=== PATIENT | female | born 1955 | race Caucasian/White ===

== ENCOUNTER 2017-06-27 14:20 | Inpatient (IN) | payer MEDICARE ==
[2017-06-27] MEDS ORDERED: Pepcid 20 MG VIAL IV ONE ×2 (14:36→14:44)
[2017-06-27] MEDS ORDERED: DUONEB 0.5-3 MG/3 ml Neb IH ONE ×2 (14:36→14:46)
[2017-06-27] MEDS ORDERED: solu-MEDROL 125 MG IV ONE (14:36)
[2017-06-27] MEDS ORDERED: TORAdol 30 mg Injection IV ONE (14:38)
[2017-06-27] MEDS ORDERED: Zofran 4 MG/2 ML VIAL IV ONE (14:39)
[2017-06-27] MEDS ORDERED: Zofran 4 MG/2 ML VIAL ONE (14:44)
[2017-06-27] MEDS ORDERED: TORAdol 30 mg Injection ONE (14:44)
[2017-06-27] MEDS ORDERED: solu-MEDROL 125 MG ONE (14:44)
[2017-06-27] MEDS ORDERED: TYLENOL 325 MG ONE (14:44)
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
[2017-06-27] MEDS: Sodium Chloride 0.9% 1000 ML 1,000 ML IV SCH (14:46)
[2017-06-27] MEDS ORDERED: TYLENOL 325 MG PO STA (14:51)
[2017-06-27] MEDS: Sodium Chloride 0.9% 1000 ML 1,000 ML IV STA ×2 (14:56→15:58)
[2017-06-27 15:13] LABS: Mean Cell Volume 94.9 fl (78-100); Mean Corpuscular Hemoglobin 30.1 pg (26-32); Mean Platelet Volume 9.3 fl (6-9.5); Platelet Count 232 K/mm3 (150-450); Red Blood Count 4.28 M/mm3 (4.1-5.4); Red Cell Distribution Width 13.3 % (11.5-14.0)
--- NOTE | 2017-06-27 15:21 | XRAY ---
Indication: Fever, cough, short of breath. Comparison: May 09, 2016. Portable chest demonstrates stable bilateral suture material and indeterminant right apical nodule. No focal infiltrate, consolidation, or large effusion. Heart is not enlarged. Vascularity normal. Bony thorax intact. Impression: Stable bilateral postsurgical changes and right apical indeterminate nodule. No new/acute findings.
[2017-06-27 15:33] LABS: ALBUMIN 3.8 g/dL (3.4-5.0); ANION GAP 15.3 MEQ/L (5-15); BILIRUBIN,TOTAL 0.5 mg/dL (0.2-1.0); Carbon Dioxide 25.2 mEq/L (21-32); MAGNESIUM 1.5 mg/dL (1.8-2.4); Potassium 3.8 mEq/L (3.5-5.1); Total Protein 7.7 gm/dL (6.4-8.2)
[2017-06-27 15:34] LABS: INR 1.11 (0.8-3.0); PROTIME 12.4 SECONDS (9.95-12.35)
[2017-06-27] MEDS ORDERED: Magnesium 1 Gm / 100 Ml D5W*** 100 ML IV ONE ×2 (15:41→15:57)
[2017-06-27] MEDS ORDERED: Zithromax 500 MG/ 250 ML NaCl Premix 500 MG/250 ML IVPB IV STA (15:42)
[2017-06-27] MEDS ORDERED: ENOXAPARIN SODIUM SQ ONE ×2 (15:46→15:57)
[2017-06-27 15:58] LABS: White Blood Count 31.8 K/mm3 (4.0-10.5)
[2017-06-27 16:03] LABS: BAND 9 % (0.0-2.0); Total Cells Counted 100
[2017-06-27 16:04] LABS: Platelet Estimate NORMAL (NORMAL)
[2017-06-27] MEDS ORDERED: Zithromax 500 MG/ 250 ML NaCl Premix 500 MG/250 ML IVPB IV ONE (16:11)
[2017-06-27] MEDS ORDERED: ROCEPHIN 1 Gm-D5w 50 ml Bag** 1 G/50 ML IVPB IV ONE (16:14)
[2017-06-27] MEDS ORDERED: TYLENOL 325 MG PO PRN (18:38)
[2017-06-27] MEDS ORDERED: Zofran 4 MG/2 ML VIAL IV PRN (18:51)
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
[2017-06-27] MEDS: DUONEB 0.5-3 MG/3 ml Neb IH SCH ×2 (19:07→23:04)
[2017-06-27] MEDS: Advair Hfa 115/21 Common canister IH SCH (19:08)
[2017-06-27] MEDS ORDERED: Nitrostat 0.4 MG Tablet SL PRN (19:26)
[2017-06-27 19:39] LABS: Bilirubin NEGATIVE (NEGATIVE); Blood 250 Ery/ul (0-5); COMPLETE URINE MICROSCOPIC? YES; Collection Type CLEAN CATCH; Glucose 1000 mg/dL (NEGATIVE); Leukocyte Esterase NEGATIVE (NEGATIVE)
[2017-06-27] MEDS: Norco 10/325 MG Tablet PO PRN (19:39)
[2017-06-27 19:40] LABS: Bacteria FEW /HPF (NEGATIVE); Epithelial Cells FEW /HPF (FEW)
[2017-06-27] MEDS: solu-MEDROL 125 MG IV SCH (20:21)
[2017-06-27] MEDS: Protonix 40MG Tablet PO SCH (21:35)
[2017-06-27] MEDS: Klor Con 10 MEQ PO SCH (21:35)
[2017-06-27] MEDS: ZOCOR 20MG PO SCH (21:35)
[2017-06-27] MEDS: Colace 100 MG PO SCH (21:40)
[2017-06-27] MEDS ORDERED: Pepcid 20 MG PO SCH (22:00)
[2017-06-27] MEDS ORDERED: Pepcid 20 MG VIAL IV SCH (22:00)
[2017-06-28] MEDS: DUONEB 0.5-3 MG/3 ml Neb IH SCH ×6 (03:06→23:11)
[2017-06-28] MEDS: Norco 10/325 MG Tablet PO PRN ×2 (03:19→17:35)
[2017-06-28] MEDS ORDERED: ENOXAPARIN SODIUM SQ ONE (05:15)
[2017-06-28] MEDS: solu-MEDROL 125 MG IV SCH ×3 (05:28→17:38)
[2017-06-28 05:42] LABS: Mean Cell Volume 95.5 fl (78-100); Mean Corpuscular Hemoglobin 30.2 pg (26-32); Mean Platelet Volume 9.2 fl (6-9.5); Red Blood Count 3.54 M/mm3 (4.1-5.4); Red Cell Distribution Width 13.3 % (11.5-14.0)
[2017-06-28 05:47] LABS: White Blood Count 27.4 K/mm3 (4.0-10.5)
[2017-06-28] MEDS ORDERED: ENOXAPARIN SODIUM SQ SCH ×2 (06:00→10:00)
[2017-06-28 06:04] LABS: ALBUMIN 2.8 g/dL (3.4-5.0); ALKALINE PHOSPHATASE 34 U/L (46-116); ANION GAP 12.1 MEQ/L (5-15); BLOOD UREA NITROGEN 17 mg/dL (9-20); CHLORIDE 104 mEq/L (98-107); Carbon Dioxide 24.2 mEq/L (21-32); Glucose 164 MG/DL (70-110); MAGNESIUM 1.9 mg/dL (1.8-2.4); Potassium 3.6 mEq/L (3.5-5.1); SGOT/AST 14 U/L (15-37); SGPT/ALT 17 U/L (12-78); SODIUM 137 mEq/L (136-145); Total Protein 6.2 gm/dL (6.4-8.2)
[2017-06-28] MEDS: ENOXAPARIN SODIUM SQ SCH ×2 (06:23→17:36)
[2017-06-28] MEDS: Advair Hfa 115/21 Common canister IH SCH ×2 (07:02→19:29)
[2017-06-28 07:07] LABS: BAND 28 % (0.0-2.0); Metamyelocyte 1 %; Platelet Estimate NORMAL (NORMAL); Total Cells Counted 100
[2017-06-28 07:08] LABS: Toxic Granulation 1+
[2017-06-28 07:09] LABS: Platelet Count 190 K/mm3 (150-450)
[2017-06-28] MEDS ORDERED: BENADRYL 25 MG CAPSULE PO PRN (07:30)
--- NOTE | 2017-06-28 07:37 | PCM.NOTE ---
Date and Time: 06/28/17733 Subjective Assessment: she is feeling much better this am she is able to get up and walk on her own the pain is better no nausea now and no diarrhea since arrival. Still some shortness of breath but much better. No other events overnight. Objective Exam General Appearance: no apparent distress Neurologic Exam: alert, oriented x 3, cooperative Skin Exam: warm, dry Ears, Nose, Throat Exam: moist mucous membranes Neck Exam: non-tender, supple Respiratory Exam: prolonged expirations, crackles/rales (bilateral fine), wheezing Cardiovascular Exam: regular rate/rhythm, normal heart sounds, No murmur Gastrointestinal/Abdomen Exam: soft, normal bowel sounds, No tenderness, No distention OBJECTIVE DATA Vital Signs: Vital Signs - 24 hr Temp Pulse Resp BP Pulse Ox 06/28/17 07:00 84 20 97 06/28/17 03:27 98.1 F 87 18 114/55 98 06/28/17 03:06 90 20 97 06/27/17 23:41 97.7 F 83 18 115/57 99 06/27/17 23:06 80 18 98 06/27/17 20:11 98.1 F 81 20 106/59 98 06/27/17 19:09 81 20 98 06/27/17 17:38 97 06/27/17 17:07 22 06/27/17 16:56 98.3 F 85 22 117/58 97 06/27/17 16:50 98.3 F 06/27/17 16:44 98.3 F 85 22 117/58 97 06/27/17 16:24 88 20 97/57 98 06/27/17 16:19 97 06/27/17 16:08 92 H 22 87/51 06/27/17 15:55 94 H 22 80/50 97 06/27/17 15:12 102.8 F 06/27/17 15:04 100 H 22 97 06/27/17 14:58 110 H 22 91/57 98 06/27/17 14:52 66/37 06/27/17 14:39 97 06/27/17 14:34 28 H 06/27/17 14:29 100.1 F 96 H 32 H 88/46 96 Oxygen-Last 24 hours O2 Percentage 4 Liters = 36% O2 Percentage 4 Liters = 36% O2 Percentage 4 Liters = 36% O2 Percentage 4 Liters = 36% O2 Percentage 3 Liters = 32% O2 Percentage 4 Liters = 36% O2 Percentage 4 Liters = 36% O2 Percentage 4 Liters = 36% O2 Percentage 4 Liters = 36% O2 Percentage 4 Liters = 36% O2 Percentage 4 Liters = 36% Pain Assessment - Last Documented Pain Intensity 8 Pain Scale Used 0-10 Pain Scale Intake and Output: Intake & Output 06/25/17 06/26/17 06/27/17 06/28/17 11:59 11:59 11:59 11:59 Intake Total 567 Output Total 600 Balance -33 Weight 68.492 kg Lab Results: Lab Results-Last 24 Hours 06/27/17 06/27/17 06/27/17 Range/Units 18:00 19:00 20:45 WBC (4.0-10.5) K/mm3 RBC (4.1-5.4) M/mm3 Hgb (12.0-16.0) gm/dl Hct (35-47) % MCV (78-100) fl MCH (26-32) pg MCHC (32-36) g/dl RDW (11.5-14.0) % Plt Count (150-450) K/mm3 MPV (6-9.5) fl Segmented Neutrophils (36.0-66.0) % Band Neutrophils (0.0-2.0) % Lymphocytes (Manual) (24-44) % Monocytes (Manual) (0.0-12.0) % Metamyelocytes % Differential Comment Toxic Granulation Platelet Estimate (NORMAL) Sodium (136-145) mEq/L Potassium (3.5-5.1) mEq/L Chloride (98-107) mEq/L Carbon Dioxide (21-32) mEq/L Anion Gap (5-15) MEQ/L BUN (9-20) mg/dL Creatinine (0.55-1.30) mg/dl Estimated GFR ML/MIN Glucose (70-110) MG/DL Calcium (8.5-10.1) mg/dL Magnesium (1.8-2.4) mg/dL Total Bilirubin (0.2-1.0) mg/dL AST (15-37) U/L ALT (12-78) U/L Alkaline Phosphatase (46-116) U/L Troponin I < 0.017 < 0.017 (0.000-0.056) ng/ml Serum Total Protein (6.4-8.2) gm/dL Albumin (3.4-5.0) g/dL Ur Collection Type CLEAN CATCH Urine Color YELLOW (YELLOW) Urine Appearance CLEAR (CLEAR) Urine pH 5.0 (5-6) Ur Specific [place] 1.015 (1.005-1.025) Urine Protein NEGATIVE (Negative) Urine Ketones NEGATIVE (NEGATIVE) Urine Blood 250 (0-5) Matias/ul Urine Nitrite NEGATIVE (NEGATIVE) Urine Bilirubin NEGATIVE (NEGATIVE) Urine Urobilinogen NORMAL (0-1) mg/dL Ur Leukocyte Esterase NEGATIVE (NEGATIVE) Urine Microscopic RBC 5-10 (0-2) /HPF Ur Epithelial Cells FEW (FEW) /HPF Urine Bacteria FEW (NEGATIVE) /HPF Urine Glucose 1000 (NEGATIVE) mg/dL Specimen Received 06/27/17:1900 06/27/17 06/28/17 06/28/17 Range/Units 23:55 02:50 05:30 WBC 27.4 H* (4.0-10.5) K/mm3 RBC 3.54 L (4.1-5.4) M/mm3 Hgb 10.7 L (12.0-16.0) gm/dl Hct 33.8 L (35-47) % MCV 95.5 (78-100) fl MCH 30.2 (26-32) pg MCHC 31.7 L (32-36) g/dl RDW 13.3 (11.5-14.0) % Plt Count 190 (150-450) K/mm3 MPV 9.2 (6-9.5) fl Segmented Neutrophils 62 (36.0-66.0) % Band Neutrophils 28 H (0.0-2.0) % Lymphocytes (Manual) 6 L (24-44) % Monocytes (Manual) 3 (0.0-12.0) % Metamyelocytes 1 % Differential Comment ABNORMAL Toxic Granulation 1+ Platelet Estimate NORMAL (NORMAL) Sodium (136-145) mEq/L Potassium (3.5-5.1) mEq/L Chloride (98-107) mEq/L Carbon Dioxide (21-32) mEq/L Anion Gap (5-15) MEQ/L BUN (9-20) mg/dL Creatinine (0.55-1.30) mg/dl Estimated GFR ML/MIN Glucose (70-110) MG/DL Calcium (8.5-10.1) mg/dL Magnesium (1.8-2.4) mg/dL Total Bilirubin (0.2-1.0) mg/dL AST (15-37) U/L ALT (12-78) U/L Alkaline Phosphatase (46-116) U/L Troponin I < 0.017 < 0.017 (0.000-0.056) ng/ml Serum Total Protein (6.4-8.2) gm/dL Albumin (3.4-5.0) g/dL Ur Collection Type Urine Color (YELLOW) Urine Appearance (CLEAR) Urine pH (5-6) Ur Specific [place] (1.005-1.025) Urine Protein (Negative) Urine Ketones (NEGATIVE) Urine Blood (0-5) Matias/ul Urine Nitrite (NEGATIVE) Urine Bilirubin (NEGATIVE) Urine Urobilinogen (0-1) mg/dL Ur Leukocyte Esterase (NEGATIVE) Urine Microscopic RBC (0-2) /HPF Ur Epithelial Cells (FEW) /HPF Urine Bacteria (NEGATIVE) /HPF Urine Glucose (NEGATIVE) mg/dL Specimen Received 06/28/17 Range/Units 05:30 WBC (4.0-10.5) K/mm3 RBC (4.1-5.4) M/mm3 Hgb (12.0-16.0) gm/dl Hct (35-47) % MCV (78-100) fl MCH (26-32) pg MCHC (32-36) g/dl RDW (11.5-14.0) % Plt Count (150-450) K/mm3 MPV (6-9.5) fl Segmented Neutrophils (36.0-66.0) % Band Neutrophils (0.0-2.0) % Lymphocytes (Manual) (24-44) % Monocytes (Manual) (0.0-12.0) % Metamyelocytes % Differential Comment Toxic Granulation Platelet Estimate (NORMAL) Sodium 137 (136-145) mEq/L Potassium 3.6 (3.5-5.1) mEq/L Chloride 104 (98-107) mEq/L Carbon Dioxide 24.2 (21-32) mEq/L Anion Gap 12.1 (5-15) MEQ/L BUN 17 (9-20) mg/dL Creatinine 0.92 (0.55-1.30) mg/dl Estimated GFR > 60 ML/MIN Glucose 164 H (70-110) MG/DL Calcium 8.6 (8.5-10.1) mg/dL Magnesium 1.9 (1.8-2.4) mg/dL Total Bilirubin 0.20 (0.2-1.0) mg/dL AST 14 L (15-37) U/L ALT 17 (12-78) U/L Alkaline Phosphatase 34 L (46-116) U/L Troponin I (0.000-0.056) ng/ml Serum Total Protein 6.2 L (6.4-8.2) gm/dL Albumin 2.8 L (3.4-5.0) g/dL Ur Collection Type Urine Color (YELLOW) Urine Appearance (CLEAR) Urine pH (5-6) Ur Specific [place] (1.005-1.025) Urine Protein (Negative) Urine Ketones (NEGATIVE) Urine Blood (0-5) Matias/ul Urine Nitrite (NEGATIVE) Urine Bilirubin (NEGATIVE) Urine Urobilinogen (0-1) mg/dL Ur Leukocyte Esterase (NEGATIVE) Urine Microscopic RBC (0-2) /HPF Ur Epithelial Cells (FEW) /HPF Urine Bacteria (NEGATIVE) /HPF Urine Glucose (NEGATIVE) mg/dL Specimen Received Radiology Exams: Radiology Procedures Category Date Time Status CHEST WITH CONTRAST [CT] Routine Exams 06/28/17 07:29 Ordered PULMONARY PERF VENTILATION [NUCMED] Routine Exams 06/28/17 08:00 Stop Req Assessment/Plan (1) Acute exacerbation of chronic obstructive pulmonary disease (COPD) Current Visit: Yes Status: Acute Assessment & Plan: with severe luekocytosis and bandemia improving clinically very well continue azithromycin ceftriaxone get CT PE protocol she states her allergy was itchy eyes and she has done well with contrast if she takes a benadryl before monitor labs in am continue steroid and nebs with the copd Code(s): J44.1 - CHRONIC OBSTRUCTIVE PULMONARY DISEASE W (ACUTE) EXACERBATION (2) Acute on chronic respiratory failure with hypoxemia Current Visit: Yes Status: Acute Code(s): J96.21 - ACUTE AND CHRONIC RESPIRATORY FAILURE WITH HYPOXIA (3) Sepsis Current Visit: Yes Status: Acute (4) Elevated d-dimer Current Visit: Yes Status: Acute Code(s): R79.89 - OTHER SPECIFIED ABNORMAL FINDINGS OF BLOOD CHEMISTRY (5) Hypomagnesemia Current Visit: Yes Status: Acute Code(s): E83.42 - HYPOMAGNESEMIA (6) Hx of coronary artery disease Current Visit: Yes Status: Chronic Code(s): Z86.79 - PERSONAL HISTORY OF OTHER DISEASES OF THE CIRCULATORY SYSTEM
[2017-06-28] MEDS: Nicoderm CQ 21 MG TOP SCH (07:46)
[2017-06-28] MEDS ORDERED: Ventolin Hfa MDI IH PRN (07:55)
[2017-06-28] MEDS ORDERED: ZOFRAN ODT 4 MG PO PRN (07:55)
[2017-06-28] MEDS ORDERED: PROVENTIL COMMON CANISTER IH PRN (08:01)
[2017-06-28] MEDS: Calcium 500MG W/Vit D Tablet PO SCH ×2 (09:21→22:00)
[2017-06-28] MEDS: Colace 100 MG PO SCH ×2 (09:21→22:00)
[2017-06-28] MEDS: Klor Con 10 MEQ PO SCH ×2 (09:22→22:01)
[2017-06-28] MEDS: Toprol-Xl 25MG Tablets PO SCH (09:22)
[2017-06-28] MEDS: Protonix 40MG Tablet PO SCH ×2 (09:22→22:00)
[2017-06-28] MEDS: Pepcid 20 MG PO SCH ×2 (09:22→22:01)
[2017-06-28] MEDS: Imdur 30 MG PO SCH (09:22)
[2017-06-28] MEDS: ECOTRIN 81 MG PO SCH (09:22)
[2017-06-28] MEDS: Zithromax 500 MG/ 250 ML NaCl Premix 500 MG/250 ML IVPB IV SCH (09:23)
[2017-06-28] MEDS ORDERED: NON-FORMULARY ITEM (Calcium Carbonate/Vitamin D3 [Calcium 1,000 + D3 Caplet] 1 EACH) PO SCH (10:00)
[2017-06-28] MEDS ORDERED: ROCEPHIN 1 Gm-D5w 50 ml Bag** 1 G/50 ML IVPB IV SCH (10:00)
--- NOTE | 2017-06-28 10:21 | XRAY ---
Indication: Elevated d-dimer. Chest pain, cough, congestion, fever, and diarrhea. Multiple contiguous axial images obtained through the chest using 80 cc Isovue 370 contrast and PE protocol. Comparison: Chest without contrast exam April 15, 2015. There is adequate opacification of the pulmonary arteries. Tiny nonoccluding pulmonary embolus seen in the apical posterior segmental branch of the left upper lobe. Heart is not enlarged. There is now small pericardial effusion/thickening anteriorly. No pathologic mediastinal/hilar lymphadenopathy. Examination of the lung parenchyma demonstrates stable bilateral post surgical changes, fibrosis/scarring, and pulmonary emphysema. Previous right effusion has improved with now tiny trace still present. New mild bilateral dependent atelectasis, right greater than left. The right posterior inferior hilar region now demonstrates focus of masslike opacity measuring 1.4 x 3.6 cm in greatest axial dimension with stranding. Findings possibly subsegmental atelectasis with mass not completely excluded. Previous right apical subcentimeter nodularity appears more elongated and the lateral 4 mm noncalcified nodule now measures 3 mm. Bony thorax intact. Limited upper abdomen now demonstrates 1 cm left mid renal cyst. Impression: 1. New nonoccluding left upper lobe segmental pulmonary embolus. No distal infarct. 2. New right infrahilar masslike opacity as detailed, atelectasis versus mass. PET/CT may yield further information. 3. Right apical and lateral benign-appearing nodularities. 4. Again bilateral lung postsurgical changes with diminished right effusion. 5. Incidental pericardial effusion/thickening and 1 cm left renal cyst. Comment: Telephone report was given to the ordering clinician Dr. Rios at 1000 hrs. on June 28, 2017. CT DI 13.99
[2017-06-28] MEDS: ROCEPHIN 1 Gm-D5w 50 ml Bag** 1 G/50 ML IVPB IV SCH (11:57)
[2017-06-28] MEDS ORDERED: Coumadin 5 MG ONE (20:32)
[2017-06-28] MEDS: Coumadin 5 MG PO SCH (20:34)
[2017-06-28] MEDS: Mucinex 600MG ER Tabs PO SCH (20:34)
[2017-06-28] MEDS: ZOCOR 20MG PO SCH (22:00)
[2017-06-29] MEDS: solu-MEDROL 125 MG IV SCH ×2 (00:33→05:15)
[2017-06-29] MEDS: CEPACOL SORE THROAT LOZENGE PO PRN ×3 (00:33→17:39)
[2017-06-29] MEDS: Norco 10/325 MG Tablet PO PRN ×3 (00:37→22:35)
[2017-06-29] MEDS: DUONEB 0.5-3 MG/3 ml Neb IH SCH ×6 (02:57→23:00)
[2017-06-29] MEDS: Sodium Chloride 0.9% 1000 ML 1,000 ML IV SCH (03:40)
[2017-06-29] MEDS: ENOXAPARIN SODIUM SQ SCH ×2 (05:14→17:34)
[2017-06-29 05:33] LABS: Mean Cell Volume 95.6 fl (78-100); Mean Corpuscular Hemoglobin 30.1 pg (26-32); Mean Platelet Volume 9.4 fl (6-9.5); Platelet Count 201 K/mm3 (150-450); Red Blood Count 3.42 M/mm3 (4.1-5.4); Red Cell Distribution Width 13.5 % (11.5-14.0)
[2017-06-29 05:44] LABS: BLOOD UREA NITROGEN 12 mg/dL (9-20); CHLORIDE 106 mEq/L (98-107); Carbon Dioxide 25.3 mEq/L (21-32); Glucose 159 MG/DL (70-110); Potassium 4.2 mEq/L (3.5-5.1); SODIUM 139 mEq/L (136-145)
[2017-06-29] MEDS: Advair Hfa 115/21 Common canister IH SCH ×2 (06:30→18:59)
[2017-06-29] MEDS: Mucinex 600MG ER Tabs PO SCH ×2 (07:43→22:30)
[2017-06-29] MEDS: Ativan 0.5 MG PO PRN ×2 (07:43→20:12)
[2017-06-29] MEDS ORDERED: Robitussin 100 MG/5 ML PO PRN (08:11)
[2017-06-29] MEDS: Pepcid 20 MG PO SCH ×2 (08:51→22:30)
[2017-06-29] MEDS: Calcium 500MG W/Vit D Tablet PO SCH ×2 (08:51→22:30)
[2017-06-29] MEDS: Toprol-Xl 25MG Tablets PO SCH (08:51)
[2017-06-29] MEDS: Colace 100 MG PO SCH ×2 (08:52→22:30)
[2017-06-29] MEDS: Klor Con 10 MEQ PO SCH ×2 (08:52→22:30)
[2017-06-29] MEDS: Protonix 40MG Tablet PO SCH ×2 (08:52→22:30)
[2017-06-29] MEDS: Nicoderm CQ 21 MG TOP SCH (08:52)
[2017-06-29] MEDS: ECOTRIN 81 MG PO SCH (08:52)
[2017-06-29] MEDS: Zithromax 500 MG/ 250 ML NaCl Premix 500 MG/250 ML IVPB IV SCH (08:53)
[2017-06-29] MEDS: ROCEPHIN 1 Gm-D5w 50 ml Bag** 1 G/50 ML IVPB IV SCH (08:53)
[2017-06-29] MEDS: Imdur 30 MG PO SCH (08:58)
--- NOTE | 2017-06-29 10:25 | PCM.NOTE ---
Date and Time: 06/29/17 1020 Subjective Assessment: still very sob and weak but improving no fevers nausea improving feeling more swollen today as well all over Objective Exam General Appearance: no apparent distress Neurologic Exam: oriented x 3, cooperative Skin Exam: warm, dry Ears, Nose, Throat Exam: moist mucous membranes Neck Exam: non-tender, supple Respiratory Exam: prolonged expirations, wheezing, No crackles/rales Cardiovascular Exam: regular rate/rhythm, No murmur Gastrointestinal/Abdomen Exam: soft, normal bowel sounds, No tenderness, No distention Extremity Exam: No calf tenderness, No pedal edema OBJECTIVE DATA Vital Signs: Vital Signs - 24 hr Temp Pulse Resp BP Pulse Ox 06/29/17 09:00 20 06/29/17 06:00 99 H 18 99 06/29/17 05:00 20 06/29/17 04:18 97.9 F 88 20 158/72 97 06/29/17 02:59 88 20 97 06/29/17 00:58 97.7 F 97 H 20 130/65 96 06/28/17 23:00 97 H 18 98 06/28/17 21:00 19 06/28/17 19:50 98.6 F 86 19 135/77 98 06/28/17 19:32 95 H 18 98 06/28/17 17:00 22 06/28/17 15:12 92 H 22 98 06/28/17 15:09 22 98 06/28/17 13:00 24 06/28/17 12:56 98.2 F 88 24 119/58 98 06/28/17 11:00 85 18 98 Oxygen-Last 24 hours O2 Percentage 4 Liters = 36% O2 Percentage 4 Liters = 36% O2 Percentage 4 Liters = 36% O2 Percentage 4 Liters = 36% Pain Assessment - Last Documented Pain Intensity 8 Pain Scale Used 0-10 Pain Scale Intake and Output: Intake & Output 06/26/17 06/27/17 06/28/17 06/29/17 11:59 11:59 11:59 11:59 Intake Total 1757 3543 Output Total 600 3200 Balance 1157 343 Weight 67.948 kg 72.03 kg Lab Results: Lab Results-Last 24 Hours 06/29/17 06/29/17 Range/Units 05:24 05:24 WBC 22.0 H (4.0-10.5) K/mm3 RBC 3.42 L (4.1-5.4) M/mm3 Hgb 10.3 L (12.0-16.0) gm/dl Hct 32.7 L (35-47) % MCV 95.6 (78-100) fl MCH 30.1 (26-32) pg MCHC 31.5 L (32-36) g/dl RDW 13.5 (11.5-14.0) % Plt Count 201 (150-450) K/mm3 MPV 9.4 (6-9.5) fl Sodium 139 (136-145) mEq/L Potassium 4.2 (3.5-5.1) mEq/L Chloride 106 (98-107) mEq/L Carbon Dioxide 25.3 (21-32) mEq/L Anion Gap 12.0 (5-15) MEQ/L BUN 12 (9-20) mg/dL Creatinine 0.65 (0.55-1.30) mg/dl Estimated GFR > 60 ML/MIN Glucose 159 H (70-110) MG/DL Calcium 9.1 (8.5-10.1) mg/dL Radiology Exams: Radiology Procedures Category Date Time Status CHEST WITH CONTRAST [CT] Routine Exams 06/28/17 07:29 Completed Assessment/Plan (1) Pulmonary embolism Current Visit: Yes Status: Acute Qualifiers: Chronicity: acute Assessment & Plan: without infarction on therapeutic lovenox with warfarin bridge monitor INR we dicussed novel anticoagulants cost is a concern with her medications. We have called in Eliquis to be run through her pharmacy if she can afford it she would prefer eliquis after discussing the different options. Code(s): I26.99 - OTHER PULMONARY EMBOLISM WITHOUT ACUTE COR PULMONALE (2) Abnormal chest CT Current Visit: Yes Status: Acute Assessment & Plan: has seriel CT with Dr. Jay in [facility], she has had multiple surgical removal from lung and all have been benign. she has followed with PET CT as well. Will have her follow up with Dr. Jay on this new lesion on the right as well and she understands importance of continued follow up Code(s): R93.8 - ABNORMAL FINDINGS ON DIAGNOSTIC IMAGING OF BODY STRUCTURES (3) Acute exacerbation of chronic obstructive pulmonary disease (COPD) Current Visit: Yes Status: Acute Assessment & Plan: still significant sob and wheezing very tight lungs continue iv steroids try to wean a little continue rocephin and azithromycin Code(s): J44.1 - CHRONIC OBSTRUCTIVE PULMONARY DISEASE W (ACUTE) EXACERBATION (4) Acute on chronic respiratory failure with hypoxemia Current Visit: Yes Status: Acute Code(s): J96.21 - ACUTE AND CHRONIC RESPIRATORY FAILURE WITH HYPOXIA (5) Sepsis Current Visit: Yes Status: Acute (6) Hypomagnesemia Current Visit: Yes Status: Acute Code(s): E83.42 - HYPOMAGNESEMIA (7) Hx of coronary artery disease Current Visit: Yes Status: Chronic Code(s): Z86.79 - PERSONAL HISTORY OF OTHER DISEASES OF THE CIRCULATORY SYSTEM
[2017-06-29] MEDS: Mucomyst 200 MG/ML IH SCH ×2 (10:30→18:57)
[2017-06-29] MEDS ORDERED: Lasix 20 MG/2 ML IV ONE (10:30)
[2017-06-29 10:32] LABS: BAND 12 % (0.0-2.0); Total Cells Counted 100
[2017-06-29 10:35] LABS: ANISOCYTOSIS 1+; Platelet Estimate NORMAL (NORMAL); Poikilocytosis 1+
[2017-06-29 10:40] LABS: INR 1.03 (0.8-3.0); PROTIME 11.5 SECONDS (9.95-12.35)
[2017-06-29] MEDS: solu-MEDROL 40 MG IV SCH ×2 (12:39→17:34)
[2017-06-29] MEDS: Tussionex Pennkinetic Susp PO PRN (15:41)
[2017-06-29] MEDS: Coumadin 5 MG PO SCH (17:34)
[2017-06-29] MEDS: ZOCOR 20MG PO SCH (22:31)
[2017-06-30] MEDS: solu-MEDROL 40 MG IV SCH ×2 (00:34→06:23)
[2017-06-30 05:59] LABS: Granulocytes % 91.3 % (36.0-66.0); Lymphocytes % 5.4 % (24.0-44.0); Mean Cell Volume 96.4 fl (78-100); Mean Platelet Volume 9.5 fl (6-9.5); Monocytes % 3.3 % (0.0-12.0); Platelet Count 251 K/mm3 (150-450); Red Blood Count 3.59 M/mm3 (4.1-5.4); Red Cell Distribution Width 13.4 % (11.5-14.0); White Blood Count 17.5 K/mm3 (4.0-10.5)
[2017-06-30 06:01] LABS: Mean Corpuscular Hemoglobin 30.3 pg (26-32)
[2017-06-30 06:06] LABS: INR 1.14 (0.8-3.0); PROTIME 12.7 SECONDS (9.95-12.35)
[2017-06-30] MEDS: DUONEB 0.5-3 MG/3 ml Neb IH SCH ×6 (06:19→22:42)
[2017-06-30] MEDS: ENOXAPARIN SODIUM SQ SCH ×2 (06:22→17:21)
[2017-06-30 06:28] LABS: ANION GAP 8.8 MEQ/L (5-15); BLOOD UREA NITROGEN 14 mg/dL (9-20); CHLORIDE 104 mEq/L (98-107); Carbon Dioxide 31.6 mEq/L (21-32); Glucose 144 MG/DL (70-110); Potassium 4.3 mEq/L (3.5-5.1); SODIUM 140 mEq/L (136-145)
[2017-06-30] MEDS: Mucomyst 200 MG/ML IH SCH ×2 (06:40→22:42)
[2017-06-30] MEDS: Advair Hfa 115/21 Common canister IH SCH ×2 (06:40→18:42)
[2017-06-30] MEDS: Norco 10/325 MG Tablet PO PRN ×2 (08:14→18:43)
[2017-06-30] MEDS: ROCEPHIN 1 Gm-D5w 50 ml Bag** 1 G/50 ML IVPB IV SCH (08:15)
[2017-06-30] MEDS: Colace 100 MG PO SCH ×2 (08:15→22:36)
[2017-06-30] MEDS: Imdur 30 MG PO SCH ×2 (08:15→08:16)
[2017-06-30] MEDS: Mucinex 600MG ER Tabs PO SCH ×2 (08:15→22:36)
[2017-06-30] MEDS: Klor Con 10 MEQ PO SCH ×2 (08:16→22:36)
[2017-06-30] MEDS: Protonix 40MG Tablet PO SCH ×2 (08:16→22:36)
[2017-06-30] MEDS: Toprol-Xl 25MG Tablets PO SCH (08:16)
[2017-06-30] MEDS: ECOTRIN 81 MG PO SCH (08:16)
[2017-06-30] MEDS: Calcium 500MG W/Vit D Tablet PO SCH ×2 (08:16→22:36)
[2017-06-30] MEDS: Pepcid 20 MG PO SCH ×2 (08:16→22:36)
[2017-06-30] MEDS: Nicoderm CQ 21 MG TOP SCH (08:17)
[2017-06-30] MEDS: Zithromax 500 MG/ 250 ML NaCl Premix 500 MG/250 ML IVPB IV SCH (09:47)
[2017-06-30] MEDS ORDERED: Lasix 40 MG/4 ML IV ONE (09:54)
--- NOTE | 2017-06-30 10:11 | PCM.NOTE ---
Date and Time: 06/30/17 1008 Subjective Assessment: Still feeling swollen. Coughing and sob improving a little. Still having frequent episodes and weak on exertion. No chest pain. Objective Exam General Appearance: no apparent distress, alert Neurologic Exam: alert, oriented x 3, cooperative, normal mood/affect, sensation nml, No motor deficits Skin Exam: normal color, warm, dry Eye Exam: PERRL, EOMI, eyes nml inspection Ears, Nose, Throat Exam: normal ENT inspection, pharynx normal, moist mucous membranes Neck Exam: normal inspection, non-tender, supple, full range of motion Respiratory Exam: prolonged expirations, crackles/rales, wheezing, No respiratory distress Cardiovascular Exam: regular rate/rhythm, normal heart sounds Gastrointestinal/Abdomen Exam: soft, No tenderness, No mass Extremity Exam: normal inspection, normal range of motion Back Exam: normal inspection, normal range of motion, No CVA tenderness, No vertebral tenderness Pelvic Exam: deferred Rectal Exam: deferred OBJECTIVE DATA Vital Signs: Vital Signs - 24 hr Temp Pulse Resp BP Pulse Ox 06/30/17 07:00 88 18 99 06/30/17 06:56 98.5 F 100 H 20 190/72 93 L 06/30/17 06:00 98.1 F 88 18 184/84 99 06/30/17 01:00 17 06/30/17 00:00 98 F 94 H 18 134/63 98 06/29/17 23:00 96 H 16 98 06/29/17 21:00 17 06/29/17 20:00 98.4 F 93 H 17 128/69 94 L 06/29/17 19:01 92 H 18 98 06/29/17 17:00 20 06/29/17 16:00 98.3 F 59 L 16 141/64 96 06/29/17 14:00 95 H 18 99 06/29/17 13:00 20 06/29/17 11:36 98.2 F 97 H 20 118/58 95 Oxygen-Last 24 hours O2 Percentage 4 Liters = 36% O2 Percentage 4 Liters = 36% Pain Assessment - Last Documented Pain Intensity 8 Pain Scale Used 0-10 Pain Scale Intake and Output: Intake & Output 06/27/17 06/28/17 06/29/17 06/30/17 11:59 11:59 11:59 11:59 Intake Total 1757 3543 1670 Output Total 600 3200 4150 Balance 1152 343 -2480 Weight 67.948 kg 72.03 kg Lab Results: Lab Results-Last 24 Hours 06/29/17 06/29/17 06/30/17 Range/Units 05:24 05:24 05:30 WBC 22.0 H 17.5 H (4.0-10.5) K/mm3 RBC 3.42 L 3.59 L (4.1-5.4) M/mm3 Hgb 10.3 L 10.9 L (12.0-16.0) gm/dl Hct 32.7 L 34.6 L (35-47) % MCV 95.6 96.4 (78-100) fl MCH 30.1 30.3 (26-32) pg MCHC 31.5 L 31.5 L (32-36) g/dl RDW 13.5 13.4 (11.5-14.0) % Plt Count 201 251 (150-450) K/mm3 MPV 9.4 9.5 (6-9.5) fl Gran % 91.3 H (36.0-66.0) % Lymphocytes % 5.4 L (24.0-44.0) % Monocytes % 3.3 (0.0-12.0) % Eosinophils % 0.0 (0.00-5.0) % Basophils % 0.0 (0.0-0.4) % Segmented Neutrophils 83 H (36.0-66.0) % Band Neutrophils 12 H (0.0-2.0) % Lymphocytes (Manual) 4 L (24-44) % Monocytes (Manual) 1 (0.0-12.0) % Basophils # 0 (0-0.4) Differential Comment ABNORMAL Platelet Estimate NORMAL (NORMAL) Poikilocytosis 1+ Anisocytosis 1+ INR 1.03 (0.8-3.0) Sodium (136-145) mEq/L Potassium (3.5-5.1) mEq/L Chloride (98-107) mEq/L Carbon Dioxide (21-32) mEq/L Anion Gap (5-15) MEQ/L BUN (9-20) mg/dL Creatinine (0.55-1.30) mg/dl Estimated GFR ML/MIN Glucose (70-110) MG/DL Calcium (8.5-10.1) mg/dL 06/30/17 06/30/17 Range/Units 05:30 05:30 WBC (4.0-10.5) K/mm3 RBC (4.1-5.4) M/mm3 Hgb (12.0-16.0) gm/dl Hct (35-47) % MCV (78-100) fl MCH (26-32) pg MCHC (32-36) g/dl RDW (11.5-14.0) % Plt Count (150-450) K/mm3 MPV (6-9.5) fl Gran % (36.0-66.0) % Lymphocytes % (24.0-44.0) % Monocytes % (0.0-12.0) % Eosinophils % (0.00-5.0) % Basophils % (0.0-0.4) % Segmented Neutrophils (36.0-66.0) % Band Neutrophils (0.0-2.0) % Lymphocytes (Manual) (24-44) % Monocytes (Manual) (0.0-12.0) % Basophils # (0-0.4) Differential Comment Platelet Estimate (NORMAL) Poikilocytosis Anisocytosis INR 1.14 (0.8-3.0) Sodium 140 (136-145) mEq/L Potassium 4.3 (3.5-5.1) mEq/L Chloride 104 (98-107) mEq/L Carbon Dioxide 31.6 (21-32) mEq/L Anion Gap 8.8 (5-15) MEQ/L BUN 14 (9-20) mg/dL Creatinine 0.79 (0.55-1.30) mg/dl Estimated GFR > 60 ML/MIN Glucose 144 H (70-110) MG/DL Calcium 9.6 (8.5-10.1) mg/dL Assessment/Plan (1) Pulmonary embolism Current Visit: Yes Status: Acute Qualifiers: Chronicity: acute Assessment & Plan: on lovenox therapeutic with warfarin bridge will need lovenox for at least 5 days and 2 days of therapeutic inr bridge today is day 3 of warfarin monitor INR Code(s): I26.99 - OTHER PULMONARY EMBOLISM WITHOUT ACUTE COR PULMONALE (2) Abnormal chest CT Current Visit: Yes Status: Acute Assessment & Plan: f/u with her 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 Jay as an outpatient. Code(s): R93.8 - ABNORMAL FINDINGS ON DIAGNOSTIC IMAGING OF BODY STRUCTURES (3) Acute exacerbation of chronic obstructive pulmonary disease (COPD) Current Visit: Yes Status: Acute Assessment & Plan: wean the steroids continue abx and nebs Code(s): J44.1 - CHRONIC OBSTRUCTIVE PULMONARY DISEASE W (ACUTE) EXACERBATION (4) Acute on chronic respiratory failure with hypoxemia Current Visit: Yes Status: Acute Code(s): J96.21 - ACUTE AND CHRONIC RESPIRATORY FAILURE WITH HYPOXIA (5) Sepsis Current Visit: Yes Status: Acute (6) Hypomagnesemia Current Visit: Yes Status: Acute Code(s): E83.42 - HYPOMAGNESEMIA (7) Hx of coronary artery disease Current Visit: Yes Status: Chronic Code(s): Z86.79 - PERSONAL HISTORY OF OTHER DISEASES OF THE CIRCULATORY SYSTEM
[2017-06-30] MEDS: DELTASONE 20 MG PO SCH (10:22)
[2017-06-30] MEDS: Ativan 0.5 MG PO PRN (14:17)
[2017-06-30] MEDS: Coumadin 5 MG PO SCH (17:21)
[2017-06-30] MEDS: ZOCOR 20MG PO SCH (22:36)
[2017-06-30] MEDS: CEPACOL SORE THROAT LOZENGE PO PRN (22:38)
[2017-06-30] MEDS: Tussionex Pennkinetic Susp PO PRN (23:06)
[2017-07-01] MEDS: DUONEB 0.5-3 MG/3 ml Neb IH SCH ×2 (02:50→06:55)
[2017-07-01 05:37] LABS: Mean Cell Volume 96.7 fl (78-100); Mean Platelet Volume 9.2 fl (6-9.5); Platelet Count 248 K/mm3 (150-450); Red Blood Count 3.64 M/mm3 (4.1-5.4); Red Cell Distribution Width 13.2 % (11.5-14.0); White Blood Count 14.5 K/mm3 (4.0-10.5)
[2017-07-01 05:42] LABS: Mean Corpuscular Hemoglobin 29.6 pg (26-32)
[2017-07-01 05:48] LABS: INR 1.46 (0.8-3.0); PROTIME 16.3 SECONDS (9.95-12.35)
[2017-07-01 05:53] LABS: ANION GAP 7.7 MEQ/L (5-15); BLOOD UREA NITROGEN 16 mg/dL (9-20); CHLORIDE 103 mEq/L (98-107); Carbon Dioxide 35.2 mEq/L (21-32); Glucose 92 MG/DL (70-110); Potassium 3.6 mEq/L (3.5-5.1); SODIUM 142 mEq/L (136-145)
[2017-07-01 06:01] LABS: Eosinophil 2 % (0.00-3.0); Platelet Estimate NORMAL (NORMAL); Total Cells Counted 100
[2017-07-01] MEDS: ENOXAPARIN SODIUM SQ SCH (06:14)
[2017-07-01] MEDS: Advair Hfa 115/21 Common canister IH SCH (06:55)
[2017-07-01 07:13] VITALS: BP 168/81; PULSE 88; O2SAT 98
--- NOTE | 2017-07-01 07:54 | PCM.DCORD ---
- Discharge Discharge Date: 07/01/17 Disposition: Home, Self-Care Condition: Stable Prescriptions: New Warfarin Sodium 2 mg [Coumadin 2 MG] 5 mg PO DAILY #75 tablet Prednisone 20 mg [Deltasone 20 mg] 40 mg PO DAILY #10 tablet Enoxaparin Sodium [Enoxaparin Sodium] 70 mg SQ Q12H 3 Days ml Cefdinir [Omnicef] 300 mg PO BID #6 capsule Nicotine [Nicotine Patch] 21 mg TD DAILY #30 adh.patch Continue Nitroglycerin 0.4 mg Tablet [Nitrostat 0.4 MG Tablet] 0.4 mg SL Q5MX3 Hydrocodone/APAP 10/325 mg [[place] 10/325 MG Tablet] 1 tab PO QIDPRN PRN PRN Reason: Pain Docusate Sodium 100 mg [Colace 100 MG] 100 mg PO BID Potassium Chloride 10 Meq Tab* [Klor Con 10 MEQ] 10 meq PO BID Simvastatin 20 mg PO HS PANTOPRAZOLE 40 mg Tablet [Protonix 40MG Tablet] 40 mg PO BID Famotidine 20 mg [Pepcid 20 MG] 20 mg PO BID Albuterol/Ipratropium 3ml Neb* [DUONEB 0.5-3 MG/3 ml Neb] 1 neb IH QID Ipratropium/Albuterol Sulfate [Combivent Respimat Common Canister] 1 puff IH QID Aspirin 162 mg PO DAILY Isosorbide Mononitrate 30 mg [Imdur 30 MG] 30 mg PO DAILY Tiotropium [place] Inhaler [Spiriva 18 Mcg/Cap Inhaler] 1 ea IH DAILY Albuterol 8 gm Mdi Hfa [Ventolin Hfa MDI] 2 puff IH Q2H/PRN PRN PRN Reason: Shortness Of Breath/Wheezing Fluticasone/Vilanterol [Breo Ellipta 100-25 Mcg INH] 1 each IH DAILY Metoprolol Succinate 25 mg Xl* [Toprol-Xl 25MG Tablets] 25 mg PO DAILY Calcium Carbonate/Vitamin D3 [Calcium 1,000 + D3 Caplet] 1 each PO BID Ondansetron [Zofran Odt] 4 mg PO Q4HPRN PRN PRN Reason: Nausea Lorazepam 0.5 mg [Ativan 0.5 MG] 0.5 mg PO BID PRN PRN #60 tablet PRN Reason: Anxiety Instructions: Chronic Obstructive Pulmonary Disease Additional Instructions: INR drawn tomorrow Lovenox 70 mg injections set up twice a day as outpatient infusion center likely 3 to 5 days [facility] WILL CALL YOU TO ARRANGE YOUR FIRST VISIT. Follow up with: MAKSIM MONSALVE [Primary Care Provider] - 07/05/17 10:30 am
[2017-07-01] MEDS: Nicoderm CQ 21 MG TOP SCH (07:57)
[2017-07-01] MEDS: Protonix 40MG Tablet PO SCH (09:09)
[2017-07-01] MEDS: Calcium 500MG W/Vit D Tablet PO SCH (09:10)
[2017-07-01] MEDS: Klor Con 10 MEQ PO SCH (09:10)
[2017-07-01] MEDS: Imdur 30 MG PO SCH (09:10)
[2017-07-01] MEDS: Mucinex 600MG ER Tabs PO SCH (09:10)
[2017-07-01] MEDS: Colace 100 MG PO SCH (09:10)
[2017-07-01] MEDS: DELTASONE 20 MG PO SCH (09:10)
[2017-07-01] MEDS: Toprol-Xl 25MG Tablets PO SCH (09:10)
[2017-07-01] MEDS: ECOTRIN 81 MG PO SCH (09:11)
[2017-07-01] MEDS: Pepcid 20 MG PO SCH (09:11)
[2017-07-01] MEDS ORDERED: ELIQUIS PO SCH (09:30)
--- NOTE | 2017-07-02 18:12 | PCM.DS ---
Discharge Summary Date of Admission: 06/27/17 16:35 Date of Discharge: 07/01/17 Admitting Physician: MAKSIM MONSALVE Primary Care Provider: MAKSIM MONSALVE Allergies Allergies ciprofloxacin [From Cipro] Allergy (Severe, Verified 06/27/17 14:40) Itchy Eyes theophylline Allergy (Severe, Verified 06/27/17 14:40) hives, sob iodine Allergy (Intermediate, Verified 06/27/17 14:40) Itchy Eyes Penicillins Allergy (Intermediate, Verified 06/27/17 14:40) Itchy Eyes Sulfa (Sulfonamide Antibiotics) [Sulfa(Sulfonamide Antibiotics)] Allergy ( Intermediate, Verified 06/27/17 14:40) Itchy Eyes hydromorphone HCl [From Dilaudid] Allergy (Mild, Verified 06/27/17 14:40) low bp lisinopril Allergy (Verified 06/27/17 14:40) clindamycin Adverse Reaction (Severe, Verified 06/27/17 14:40) Hospital Summary - Hospital Course Hospital Course: She was admitted with sudden onset sob. Found to have acute on chronic respiratory failure severe as well as sepsis with copd exacerbation and found to have small nonoccluding PE. Treated for COPD exacerbation. Anticoagulated initially with lovenox therapeutic and started on warfarin but she was able to find an affordable option for eliquis so transitioned to this. Her copd exacerbation was improved with rocephin, azithromycin, solumedrol weaned to prednisone, duonebs and mucomyst and on day of discharge was significantly improved. Her acute kidney injury improved with hydration and subsequently required some iv lasix to help with the diuresis which was successful. Her luekocytosis was improving as well. Her CT chest did show a new irregularity in the right lung and this is going to be treated as pneumonia with close f/u with her certified welding inspector Dr. Jay on decision for when and which type of repeat imaging as she has had multiple negative lung biopsies as well as following lesions with PET/CT. She is aware of the lesion and need for f/u. She did well on nicotine patch and is highly motivated to quit and would like to continue the patch at discharge. - Vitals & Intake/Output Vital Signs: Vital Signs Temperature 98.5 F 07/01/17 07:00 Pulse Rate 88 07/01/17 07:00 Respiratory Rate 20 07/01/17 09:30 Blood Pressure 168/81 07/01/17 07:00 O2 Sat by Pulse Oximetry 98 07/01/17 07:00 Oxygen-Last Documented O2 Percentage 2 Liters = 28% Intake & Output: Intake & Output 06/30/17 07/01/17 07/02/17 07/03/17 11:59 11:59 11:59 11:59 Intake Total 1670 1560 Output Total 4150 2650 Balance -2480 -1090 Weight 68.991 kg - Lab Result Diagrams: 07/01/17 05:05 07/01/17 05:05 Micro Results-Entire Visit: Microbiology 06/27/17 19:00 - Final Clean Catch Midstream <10K NORMAL SKIN AMOS PROBABLE SKIN CONTAMINANT - Procedures and Test Procedures and Tests throughout Hospitalization: Therapy Orders & Screens 06/27/17 16:15 Oxygen NASAL CANNULA 4 lpm Comment: Diagnosis: Shortness of Breath Respiratory Nebulizer Q4H Comment: Diagnosis: Shortness of Breath Respiratory Therapy Consult ROUTINE Comment: Reason For Exam: Diagnosis: Shortness of Breath 06/27/17 17:44 RT Screen per Nursing Assess ONCE Comment: Protocol Order Physician Instructions: Greater than 3 points order RT Admission Screen Reason For Exam: Triggered on Admission Diagnosis: Shortness of Breath Diagnosis: Shortness of Breath Pneumonia: No Home O2: Yes Asthma: No CHF: No Home CPAP/BIPAP: No Home Nebs/MDI: Yes Total Points: 10 Smoking Cessation Education ONCE Comment: Diagnosis: Shortness of Breath Smoking Status: Current every day smoker How long have you smoked: SINCE 16 Have you smoked in the past 12 months: Yes Approximately how many cigarettes per day: PACK A DAY Do you dip or chew tobacco: No If,Former Smoker,when did you quit: 11 DAYS AGO 06/27/17 19:00 Respiratory MDI BID Comment: ADVAIR 115/21 BID Diagnosis: Shortness of Breath 06/29/17 10:20 Respiratory Nebulizer BID Comment: Diagnosis: Shortness of Breath Discharge Exam General Appearance: no apparent distress, alert Neurologic Exam: alert, oriented x 3, cooperative, normal mood/affect, nml cerebellar function, sensation nml, No motor deficits Skin Exam: normal color, warm, dry Eye Exam: PERRL, EOMI, eyes nml inspection Ears, Nose, Throat Exam: normal ENT inspection, pharynx normal, moist mucous membranes Neck Exam: normal inspection, non-tender, supple, full range of motion Respiratory Exam: normal breath sounds, lungs clear, No respiratory distress Cardiovascular Exam: regular rate/rhythm, normal heart sounds Gastrointestinal/Abdomen Exam: soft, No tenderness, No mass Extremity Exam: normal inspection, normal range of motion Back Exam: normal inspection, normal range of motion, No CVA tenderness, No vertebral tenderness Pelvic Exam: deferred Rectal Exam: deferred Final Diagnosis/Problem List - Final Discharge Diagnosis/Problem (1) Pulmonary embolism Status: Acute (2) Abnormal chest CT Status: Acute (3) Acute exacerbation of chronic obstructive pulmonary disease (COPD) Status: Acute (4) Acute on chronic respiratory failure with hypoxemia Status: Acute (5) Sepsis Status: Acute (6) Hypomagnesemia Status: Acute (7) Hx of coronary artery disease Status: Chronic - Discharge Discharge Date: 07/01/17 Disposition: Home, Self-Care Condition: Stable Prescriptions: New Prednisone 20 mg [Deltasone 20 mg] 40 mg PO DAILY #10 tablet Cefdinir [Omnicef] 300 mg PO BID #6 capsule Nicotine [Nicotine Patch] 21 mg TD DAILY #30 adh.patch Apixaban [Eliquis] 5 mg PO BID #60 tablet Continue Nitroglycerin 0.4 mg Tablet [Nitrostat 0.4 MG Tablet] 0.4 mg SL Q5MX3 Hydrocodone/APAP 10/325 mg [[place] 10/325 MG Tablet] 1 tab PO QIDPRN PRN PRN Reason: Pain Docusate Sodium 100 mg [Colace 100 MG] 100 mg PO BID Potassium Chloride 10 Meq Tab* [Klor Con 10 MEQ] 10 meq PO BID Simvastatin 20 mg PO HS PANTOPRAZOLE 40 mg Tablet [Protonix 40MG Tablet] 40 mg PO BID Famotidine 20 mg [Pepcid 20 MG] 20 mg PO BID Albuterol/Ipratropium 3ml Neb* [DUONEB 0.5-3 MG/3 ml Neb] 1 neb IH QID Ipratropium/Albuterol Sulfate [Combivent Respimat Common Canister] 1 puff IH QID Aspirin 162 mg PO DAILY Isosorbide Mononitrate 30 mg [Imdur 30 MG] 30 mg PO DAILY Tiotropium [place] Inhaler [Spiriva 18 Mcg/Cap Inhaler] 1 ea IH DAILY Albuterol 8 gm Mdi Hfa [Ventolin Hfa MDI] 2 puff IH Q2H/PRN PRN PRN Reason: Shortness Of Breath/Wheezing Fluticasone/Vilanterol [Breo Ellipta 100-25 Mcg INH] 1 each IH DAILY Metoprolol Succinate 25 mg Xl* [Toprol-Xl 25MG Tablets] 25 mg PO DAILY Calcium Carbonate/Vitamin D3 [Calcium 1,000 + D3 Caplet] 1 each PO BID Ondansetron [Zofran Odt] 4 mg PO Q4HPRN PRN PRN Reason: Nausea Lorazepam 0.5 mg [Ativan 0.5 MG] 0.5 mg PO BID PRN PRN #60 tablet PRN Reason: Anxiety Instructions: Chronic Obstructive Pulmonary Disease, Pneumonia -- Adult, Pulmonary Embolism Additional Instructions: GO TO DR. JAY'S OFFICE TO CURRENCY EXCHANGE SPECIALIST YOUR SAMPLES OF ELIQUIS DIRECTED BY DR. JAY, YOUR CATERPILLAR OPERATOR. [facility] WILL CALL YOU TO ARRANGE YOUR FIRST VISIT. Follow up with: MAKSIM MONSALVE [Primary Care Provider] - 07/05/17 10:30 am Forms: Discharge Instructions, Patient Portal Information
== END 2017-07-01 10:30 | disposition home or self-care (01) | DRG 999 ==
LOC: ED 14:20 → MED SURG 16:35
PROVIDERS: ADMIT Family Medicine; ATTEND Family Medicine
DX: I26.99 Other pulmonary embolism without acute cor pulmonale (principal); J96.20 Acute and chronic respiratory failure, unspecified whether with hypoxia or hypercapnia; A41.9 Sepsis, unspecified organism; J44.1 Chronic obstructive pulmonary disease with (acute) exacerbation; E83.42 Hypomagnesemia; Z86.79 Personal history of other diseases of the circulatory system; R79.89 Other specified abnormal findings of blood chemistry; R93.8 Abnormal findings on diagnostic imaging of other specified body structures
CPT/HCPCS: 36000; 36415; 71010; 71260; 80048; 80053; 81000; 83605; 83735; 83880; 84484; 85025; 85027; 85379; 85610; 87040; 87086; 87631; 93005; 93041; 94150; 94640; 94760; 96360; 96361; 96372; 96374; 96375; 99285; J0456; J0696; J1650; J1885; J1940; J2405; J2920; J2930; J3475; A9270-GY; J7506

== ENCOUNTER 2017-11-08 04:40 | Observation (INO) | payer BC, MEDICARE ==
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
[2017-11-08] MEDS ORDERED: DUONEB 0.5-3 MG/3 ml Neb IH ONE ×3 (05:06→10:17)
[2017-11-08 05:30] LABS: BASOPHIL % 0.2 % (0.0-0.4); Basophil (Absolute #) 0.02 (0-0.4); Eosinophil % 1.4 % (0.00-5.0); Eosinophil (Absolute #) 0.17 (0-0.5); Granulocyte Absolute (ANC) 7.69 (1.4-6.9); Granulocytes % 62.7 % (36.0-66.0); Hematocrit 38.7 % (35-47); Hemoglobin 12.3 gm/dl (12.0-16.0); Lymphocyte (Absolute #) 3.41 (1.0-4.6); Lymphocytes % 27.9 % (24.0-44.0); Mean Cell Volume 96.5 fl (78-100); Mean Corpuscular Hgb Concent. 31.8 g/dl (32-36); Mean Platelet Volume 9.2 fl (6-9.5); Monocyte (Absolute #) 0.95 (0.0-1.3); Monocytes % 7.8 % (0.0-12.0); Platelet Count 225 K/mm3 (150-450); Red Blood Count 4.01 M/mm3 (4.1-5.4); Red Cell Distribution Width 13.8 % (11.5-14.0); White Blood Count 12.2 K/mm3 (4.0-10.5)
[2017-11-08] MEDS ORDERED: solu-CORTEF 100MG IV ONE (05:33)
[2017-11-08] MEDS ORDERED: BENADRYL 50 MG/ML IV ONE (05:33)
[2017-11-08 05:34] LABS: Mean Corpuscular Hemoglobin 30.6 pg (26-32)
[2017-11-08] MEDS ORDERED: solu-CORTEF 250MG ONE (05:37)
[2017-11-08] MEDS ORDERED: BENADRYL 50 MG/ML ONE (05:37)
[2017-11-08 05:49] LABS: INR 1.08 (0.8-3.0)
[2017-11-08 05:52] LABS: PTT 33.4 SECONDS (25.3-37.0)
[2017-11-08 06:02] LABS: INFLUENZA A NEGATIVE (NEGATIVE); INFLUENZA B NEGATIVE (NEGATIVE); RESPIRATORY SYNCTIAL VIRUS NEGATIVE (Negative)
[2017-11-08 06:04] LABS: ALBUMIN 3.6 g/dL (3.4-5.0); ALKALINE PHOSPHATASE 44 U/L (46-116); BLOOD UREA NITROGEN 12 mg/dL (9-20); CHLORIDE 104 mEq/L (98-107); CK-Creatinine Phosphokinase 272 U/L (26-192); Carbon Dioxide 27.7 mEq/L (21-32); Creatinine 1 0.95 mg/dl (0.55-1.30); Glucose 103 MG/DL (70-110); NT PRO BNP 181 pg/ml (0-125); Potassium 3.9 mEq/L (3.5-5.1); SGOT/AST 17 U/L (15-37); SGPT/ALT 25 U/L (12-78); SODIUM 142 mEq/L (136-145)
[2017-11-08] MEDS ORDERED: Senokot-S Tablet PO PRN (08:00)
[2017-11-08] MEDS ORDERED: MILK OF MAGNESIA 30 ML PO PRN (08:00)
[2017-11-08] MEDS ORDERED: TYLENOL 325 MG PO PRN (08:00)
[2017-11-08] MEDS ORDERED: MAALOX ES 30 ML UNIT DOSE PO PRN (08:00)
[2017-11-08] MEDS ORDERED: MORPHINE SULFATE 2 MG INJ IV PRN (08:00)
[2017-11-08] MEDS ORDERED: Zofran 4 MG/2 ML VIAL IV PRN (08:00)
[2017-11-08] MEDS ORDERED: Ecotrin 325 MG PO SCH (10:00)
[2017-11-08] MEDS ORDERED: Spiriva 18 Mcg/Cap Inhaler IH ONE (10:43)
[2017-11-08] MEDS: DUONEB 0.5-3 MG/3 ml Neb IH SCH ×3 (10:45→17:58)
[2017-11-08] MEDS: Advair Hfa 230/21 Mcg COMMON CANISTER IH SCH ×2 (10:45→18:00)
[2017-11-08] MEDS: Spiriva 18 Mcg/Cap Inhaler IH SCH (10:45)
[2017-11-08] MEDS ORDERED: Ativan 0.5 MG PO PRN (13:36)
[2017-11-08] MEDS ORDERED: Nitrostat 0.4 MG Tablet SL PRN ×2 (13:45)
[2017-11-08] MEDS: Imdur 30 MG PO SCH (14:31)
[2017-11-08] MEDS: XARELTO 10 MG TABLET PO SCH (14:31)
[2017-11-08] MEDS: Toprol-Xl 25MG Tablets PO SCH (14:32)
[2017-11-08] MEDS ORDERED: [UNRECOGNIZED DRUG - OTHER] IH SCH (17:00)
[2017-11-08] MEDS ORDERED: IPRATROPIUM IH SCH (17:00)
[2017-11-08] MEDS ORDERED: ALBUTEROL SULFATE IH SCH (17:00)
[2017-11-08] MEDS: Mucomyst 200 MG/ML IH SCH ×2 (17:58→21:58)
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
[2017-11-08] MEDS: solu-MEDROL 40 MG IV SCH (18:38)
[2017-11-08] MEDS: Norco 10/325 MG Tablet PO PRN (19:51)
[2017-11-08] MEDS ORDERED: NON-FORMULARY ITEM (Calcium Carbonate/Vitamin D3 [Calcium 1,000 + D3 Caplet] 1 EACH) PO SCH (22:00)
[2017-11-08] MEDS: Colace 100 MG PO SCH (22:13)
[2017-11-08] MEDS: ZOCOR 20MG PO SCH (22:13)
[2017-11-08] MEDS: Calcium 500MG W/Vit D Tablet PO SCH (22:13)
[2017-11-08] MEDS: Pepcid 20 MG PO SCH (22:13)
[2017-11-08] MEDS: Klor Con 10 MEQ PO SCH (22:13)
[2017-11-09] MEDS: solu-MEDROL 40 MG IV SCH ×4 (00:17→21:55)
--- NOTE | 2017-11-09 00:42 | XRAY ---
Exam: CT of the chest with IV contrast from 11/08/2017. CTDI: 11.66 Comparison: Two-view chest series from 10/14/[address] of the chest with IV contrast from 06/28/2017. Indication: History of PE in the fall of 2016, patient is on blood thinners, complains of chest pain, shortness of breath, and elevated d-dimer, CHF, history of aortic bypass and bilateral lumps removed from both lungs. Technique: Post-IV contrast axial images were obtained through the chest using a pulmonary embolism protocol during automated injection of 80 ML's of Isovue 370 IV contrast material. Reconstructed coronal and sagittal images were created and reviewed. Incidentally, the patient was premedicated due to an iodine allergy. With the premedication, the patient did not have any allergic problems with the CT exam. Findings: The central vessels enhance well. I see no definite evidence of filling defects to suggest pulmonary clot/emboli. Previously noted nonocclusive small emboli within the left upper lobe pulmonary arteries are no longer seen. Atherosclerotic vascular calcification is seen within the thoracic aorta. No thoracic aortic aneurysm or dissection is seen. The thyroid gland appears grossly unremarkable. No abnormal mediastinal or perihilar lymphadenopathy is seen. A couple small granulomatous calcifications are seen at the anterior margin of the right hilum. Previously noted infiltrate within the as azygoesophageal recess of the right lower lobe and right posterior lung sulcus is no longer seen representing improvement. This suggests that this probably represented pneumonia. Advanced emphysematous changes are again seen. There is a small elliptical density within the right lung apex on axial images #11 and #12 which contains a tiny amount of calcium within its central aspect. I believe this has not changed significantly as compared to 06/28/2017. A suture line is seen within the posterior aspect of the left upper lung field. In addition, there is a subtle groundglass opacity measuring about 7.5 mm in greatest diameter at the lateral left lung apex on axial image #14. This is new from 06/28/2017. I believe this is nonspecific. It could possibly represent some minimal atelectasis, although other etiologies including a small mass are not completely excluded. It is only well seen on one axial image. I would recommend a follow-up CT scan in 3-6 months for close monitoring. There is also a suture line from prior surgery within the posterior lateral left lung base and at the anterior lateral right lung base. On axial image #26, I note a stable 3.6 mm nodule within the anterior aspect of the right midlung field. This is unchanged from axial image #24 on 06/28/2017. Also, there is a stable 2.5 mm nodule at the lateral right lung base on axial image #38 which is unchanged from axial image #36 on 06/28/2017. No other suspicious soft tissue lung nodules, infiltrates, pneumothorax, or pleural effusion is seen. Images of the upper abdomen reveal an unremarkable appearance of the adrenal glands. There is a small cortical cyst at the lateral aspect of the upper pole of the left kidney. No other acute process is seen within the upper abdomen. The skeleton reveals no acute fracture or aggressive bone lesion. Impression: 1. I see no evidence of pulmonary embolism on the current study. No thoracic aortic aneurysm or dissection is seen. 2. Advanced pulmonary emphysema. 3. 7.5 mm new groundglass opacity at the lateral left lung apex. See axial image #14. This is nonspecific. This could represent a small site of focal atelectasis, although a small mass is not excluded with certainty. A follow-up CT of the chest (preferably with IV contrast) is recommended in 3-6 months for close monitoring. 4. I also note a small elliptical mass within the right lung apex which displays central calcification. See axial images #11 and #12. This nodule measures about 6.3 mm in maximum width. I do not believe this has changed significantly as compared to 06/28/2017. Continued follow-up is recommended. 5. Previously noted peripheral infiltrate/consolidation at the posterior medial right lower lobe has completely resolved as compared to 06/28/2017. This suggests that this probably represented pneumonia. 6. Surgical evidence of prior bilateral lung surgery representing no change. 7. On axial image #26, there is a stable 3.5 mm nodule within the anterior right midlung field. There is also a 2.5 mm nodule at the lateral right lung base on axial image #38 which is unchanged from axial image #36 on 06/28/2017.
[2017-11-09] MEDS: Norco 10/325 MG Tablet PO PRN ×2 (05:13→20:18)
[2017-11-09] MEDS: Spiriva 18 Mcg/Cap Inhaler IH SCH (06:10)
[2017-11-09] MEDS: Advair Hfa 230/21 Mcg COMMON CANISTER IH SCH ×2 (06:10→19:39)
[2017-11-09] MEDS: Mucomyst 200 MG/ML IH SCH ×4 (06:11→19:39)
[2017-11-09] MEDS: DUONEB 0.5-3 MG/3 ml Neb IH SCH ×4 (06:11→19:38)
[2017-11-09] MEDS ORDERED: solu-MEDROL 40 MG ONE (06:42)
[2017-11-09 07:23] LABS: Risk Ratio 2.6
[2017-11-09] MEDS: Colace 100 MG PO SCH ×2 (08:30→21:54)
[2017-11-09] MEDS: Pepcid 20 MG PO SCH ×2 (08:30→21:55)
[2017-11-09] MEDS: ECOTRIN 81 MG PO SCH (08:30)
[2017-11-09] MEDS: Calcium 500MG W/Vit D Tablet PO SCH ×2 (08:30→21:55)
[2017-11-09] MEDS: Toprol-Xl 25MG Tablets PO SCH (08:30)
[2017-11-09] MEDS: Klor Con 10 MEQ PO SCH ×2 (08:30→21:54)
[2017-11-09] MEDS: XARELTO 10 MG TABLET PO SCH (08:30)
[2017-11-09] MEDS: Imdur 30 MG PO SCH (08:30)
[2017-11-09] MEDS ORDERED: Spiriva 18 Mcg/Cap Inhaler IH SCH (10:00)
--- NOTE | 2017-11-09 13:14 | PCM.NOTE ---
Date and Time: 11/09/17 1310 Subjective Assessment: Pt denies CP, states she is still SOB and she feels the mucomyst inhaled is helping her. It's too expensive for her to get when she's at home. - Review of Systems Constitutional: No Fever Respiratory: Cough, Short Of Breath Objective Exam General Appearance: no apparent distress, alert, other (sitting up eating) Neurologic Exam: oriented x 3, cooperative Skin Exam: normal color, warm, dry, No rash Respiratory Exam: diminished breath sounds (poor air exchange), wheezing (faint , expiratory) Cardiovascular Exam: regular rate/rhythm, normal heart sounds, No murmur Extremity Exam: No pedal edema, No swelling OBJECTIVE DATA Vital Signs: Vital Signs - 24 hr Temp Pulse Resp BP Pulse Ox 11/09/17 12:33 98 F 92 H 20 123/60 96 11/09/17 10:18 78 20 98 11/09/17 07:15 97.8 F 92 H 18 132/92 98 11/09/17 06:35 82 18 98 11/09/17 05:00 95 11/09/17 04:00 97.9 F 84 20 120/60 95 11/09/17 01:00 95 11/09/17 00:18 98.0 F 76 20 119/55 95 11/08/17 21:58 72 18 96 11/08/17 20:00 98.4 F 77 20 103/55 94 L 11/08/17 17:58 72 20 97 11/08/17 16:00 98.1 F 94 H 20 109/59 98 11/08/17 14:30 94 H 16 96 Oxygen-Last 24 hours O2 Percentage 3 Liters = 32% O2 Percentage 3 Liters = 32% O2 Percentage 3 Liters = 32% O2 Percentage 3 Liters = 32% O2 Percentage 3 Liters = 32% Pain Assessment - Last Documented Pain Intensity 8 Pain Scale Used 0-10 Pain Scale Intake and Output: Intake & Output 11/07/17 11/08/17 11/09/17 11/10/17 11:59 11:59 11:59 11:59 Intake Total 360 2080 240 Output Total 450 400 Balance 360 1630 -160 Weight 63.503 kg 64 kg Lab Results: Lab Results-Last 24 Hours 11/08/17 11/08/17 11/09/17 Range/Units 14:29 17:15 05:45 Troponin I < 0.017 < 0.017 (0.000-0.056) ng/ml Triglycerides 43 (30-200) mg/dL Cholesterol 173 (100-200) mg/dL LDL Cholesterol 102 H (5-99) mg/dL HDL Cholesterol 67 H (35-60) mg/dL Heart Disease Risk Ratio 2.6 Multi-Disciplinary Progress Notes: Multi-Disciplinary Progress Notes 11/08/17 17:23 Respiratory Note by Cindy Weaver 11/08/[address] MONSALVE TO ASK IF OK TO ORDER MUCOMYST FOR THIS PATIENT DUE TO [facility] STATED THAT SHE HAS TAKEN IT SEVERAL TIMES BEFORE AND IT HELPS WHEN SHE GET SICK. SHE SHOWS A ALLERGEY TO [facility] THEREFORE VERIFIED WITH DR MONSALVE IN PRESENCE OF NURSE THAT HE WAS OKAY FOR US TO ORDER THIS. dR. MONSALVE REPEATED THAT SHE HAS HAD BEFORE WITH NO ISSUES AND OK TO ORDER WILL START AT HER [facility] TREATMENT. [facility]ARM[facility] INFORMED OF CONVERSATION WITH DR MONSALVE. PT TOLD WE WOULD START ON NEXT ROUND AND DO TWICE TONIGHT AND THEN 4 TIMES TOMORROW. [facility] Initialized on 11/08/17 17:23 - END OF NOTE Assessment/Plan (1) Acute exacerbation of chronic obstructive pulmonary disease (COPD) Current Visit: Yes Status: Acute Assessment & Plan: Will go ahead and add an antibiotic; unsure if this sob is more due to COPD exacerbation or just her chronic pulmonary fibrosis. Code(s): J44.1 - CHRONIC OBSTRUCTIVE PULMONARY DISEASE W (ACUTE) EXACERBATION (2) Chest pain Current Visit: Yes Status: Resolved Qualifiers: Chest pain type: unspecified Qualified Code(s): R07.9 - Chest pain, unspecified Code(s): R07.9 - CHEST PAIN, UNSPECIFIED (3) Chronic hypoxemic respiratory failure Current Visit: Yes Status: Chronic (4) Hx of coronary artery disease Current Visit: Yes Status: Chronic Code(s): Z86.79 - PERSONAL HISTORY OF OTHER DISEASES OF THE CIRCULATORY SYSTEM (5) Hx pulmonary embolism Current Visit: Yes Status: Chronic Code(s): Z86.711 - PERSONAL HISTORY OF PULMONARY EMBOLISM
[2017-11-09] MEDS: ROCEPHIN 1 Gm-D5w 50 ml Bag** 1 G/50 ML IVPB IV SCH (13:37)
[2017-11-09] MEDS: ZOCOR 20MG PO SCH (21:54)
[2017-11-10] MEDS: solu-MEDROL 40 MG IV SCH (06:16)
[2017-11-10] MEDS: DUONEB 0.5-3 MG/3 ml Neb IH SCH ×2 (07:22→11:04)
[2017-11-10] MEDS: Spiriva 18 Mcg/Cap Inhaler IH SCH (07:22)
[2017-11-10] MEDS: Advair Hfa 230/21 Mcg COMMON CANISTER IH SCH (07:23)
[2017-11-10] MEDS: Toprol-Xl 25MG Tablets PO SCH (08:46)
[2017-11-10] MEDS: ECOTRIN 81 MG PO SCH (08:46)
[2017-11-10] MEDS: Imdur 30 MG PO SCH (08:46)
[2017-11-10] MEDS: XARELTO 10 MG TABLET PO SCH (08:46)
[2017-11-10] MEDS: Calcium 500MG W/Vit D Tablet PO SCH (08:48)
[2017-11-10] MEDS: Klor Con 10 MEQ PO SCH (08:48)
[2017-11-10] MEDS: Colace 100 MG PO SCH (08:48)
[2017-11-10] MEDS: Pepcid 20 MG PO SCH (08:50)
[2017-11-10] MEDS: ROCEPHIN 1 Gm-D5w 50 ml Bag** 1 G/50 ML IVPB IV SCH (08:57)
[2017-11-10 11:09] VITALS: O2SAT 99
[2017-11-10 12:37] VITALS: BP 127/66; PULSE 82
--- NOTE | 2017-11-10 13:07 | PCM.DS ---
Discharge Summary Date of Admission: 11/08/17 08:12 Admitting Physician: MAKSIM MONSALVE Primary Care Provider: MAKSIM MONSALVE Allergies Allergies ciprofloxacin [From Cipro] Allergy (Severe, Verified 11/08/17 05:00) Itchy Eyes theophylline Allergy (Severe, Verified 11/08/17 05:00) hives, sob iodine Allergy (Intermediate, Verified 11/08/17 05:00) Tightness in Chest Penicillins Allergy (Intermediate, Verified 11/08/17 05:00) Itchy Eyes Sulfa (Sulfonamide Antibiotics) [Sulfa(Sulfonamide Antibiotics)] Allergy ( Intermediate, Verified 11/08/17 05:00) Itchy Eyes hydromorphone HCl [From Dilaudid] Allergy (Mild, Verified 11/08/17 05:00) low bp lisinopril Allergy (Verified 11/08/17 05:00) clindamycin Adverse Reaction (Severe, Verified 11/08/17 05:00) Hospital Summary - Hospital Course Hospital Course: Pt is 61 yo female pt of Dr. Monsalve with chronic pulmonary fibrosis, smoker who was admitted with chest pain. She ruled out for NH but was still very short of breath; she had started using mucomyst inhaled in the hospital and thought it was really helping (difficult to get outpatient due to expense). She was started on IV steroid as well. Today pt is feeling much better. Magda po well. Would like to go home. - Vitals & Intake/Output Vital Signs: Vital Signs Temperature 97.8 F 11/10/17 12:36 Pulse Rate 82 11/10/17 12:36 Respiratory Rate 20 11/10/17 12:36 Blood Pressure 127/66 11/10/17 12:36 O2 Sat by Pulse Oximetry 99 11/10/17 12:36 Oxygen-Last Documented O2 Percentage 3 Liters = 32% Intake & Output: Intake & Output 11/08/17 11/09/17 11/10/17 11/11/17 11:59 11:59 11:59 11:59 Intake Total 360 2080 1890 240 Output Total 450 2050 500 Balance 360 1630 -160 -260 Weight 63.503 kg 64 kg 65.1 kg - Lab Result Diagrams: 11/08/17 05:25 11/08/17 05:25 Micro Results-Entire Visit: Microbiology 11/09/17 23:30 Gram Stain - Final Sputum - Expectorant - Procedures and Test Procedures and Tests throughout Hospitalization: Therapy Orders & Screens 11/08/17 07:00 Respiratory MDI BID Comment: Diagnosis: chest pain r/o 11/08/17 10:44 Oxygen NASAL CANNULA 4 lpm Comment: HOME O2 SETTING Diagnosis: chest pain r/o 11/08/17 11:00 Respiratory Nebulizer QID Comment: Diagnosis: chest pain r/o 11/08/17 19:00 Respiratory Nebulizer QID Comment: MUCOMYST 3ML QID Diagnosis: chest pain r/o 11/09/17 05:00 EKG ONCE Comment: Diagnosis: chest pain r/o 11/10/17 05:00 EKG ONCE Comment: Diagnosis: chest pain r/o 11/11/17 05:00 EKG ONCE Comment: Diagnosis: chest pain r/o Discharge Exam General Appearance: no apparent distress, alert Neurologic Exam: oriented x 3, cooperative Skin Exam: normal color, warm, dry, No rash Respiratory Exam: diminished breath sounds (fair to good air exchange), wheezing (expiratory), No crackles/rales, No rhonchi Cardiovascular Exam: regular rate/rhythm, normal heart sounds, No murmur Back Exam: normal inspection, No rash Final Diagnosis/Problem List - Final Discharge Diagnosis/Problem (1) Acute exacerbation of chronic obstructive pulmonary disease (COPD) Current Visit: Yes Status: Acute Assessment & Plan: Will send home on po cefdinir and steroid. (2) Chest pain Current Visit: Yes Status: Resolved (3) Chronic hypoxemic respiratory failure Current Visit: Yes Status: Chronic (4) Hx of coronary artery disease Current Visit: Yes Status: Chronic (5) Hx pulmonary embolism Current Visit: Yes Status: Chronic - Discharge Disposition: Home, Self-Care Condition: Stable Prescriptions: New Cefdinir 300 mg [Omnicef 300 mg] 300 mg PO BID #20 capsule Prednisone 20 mg PO DAILY #17 tablet Continue Nitroglycerin 0.4 mg Tablet [Nitrostat 0.4 MG Tablet] 0.4 mg SL [id number] Hydrocodone/APAP 10/325 mg [[place] 10/325 MG Tablet] 1 tab PO QIDPRN PRN PRN Reason: Pain Docusate Sodium 100 mg [Colace 100 MG] 100 mg PO BID Potassium Chloride 10 Meq Tab* [Klor Con 10 MEQ] 10 meq PO BID Simvastatin 20 mg PO HS Famotidine 20 mg [Pepcid 20 MG] 20 mg PO BID Albuterol/Ipratropium 3ml Neb* [DUONEB 0.5-3 MG/3 ml Neb] 1 neb IH QID Ipratropium/Albuterol Sulfate [Combivent Respimat Common Canister] 1 puff IH QID Aspirin 162 mg PO DAILY Isosorbide Mononitrate 30 mg [Imdur 30 MG] 30 mg PO DAILY Tiotropium [place] Inhaler [Spiriva 18 Mcg/Cap Inhaler] 1 ea IH DAILY Albuterol 8 gm Mdi Hfa [Ventolin Hfa MDI] 2 puff IH Q2H/PRN PRN PRN Reason: Shortness Of Breath/Wheezing Fluticasone/Vilanterol [Breo Ellipta 100-25 Mcg INH] 1 each IH DAILY Metoprolol Succinate 25 mg Xl* [Toprol-Xl 25MG Tablets] 25 mg PO DAILY Calcium Carbonate/Vitamin D3 [Calcium 1,000 + D3 Caplet] 1 each PO BID Lorazepam 0.5 mg [Ativan 0.5 MG] 0.5 mg PO BID PRN PRN #60 tablet PRN Reason: Anxiety Rivaroxaban 10 mg Tablet [Xarelto 10 mg Tablet] 20 mg PO DAILY Instructions: Chest Pain Forms: Discharge Instructions
== END 2017-11-10 14:15 | disposition home or self-care (01) ==
LOC: ED 04:40 → MED SURG 08:12
PROVIDERS: ADMIT Family Medicine; ATTEND Family Medicine
DX: J44.1 Chronic obstructive pulmonary disease with (acute) exacerbation (principal); R07.9 Chest pain, unspecified; J96.11 Chronic respiratory failure with hypoxia; I25.10 Atherosclerotic heart disease of native coronary artery without angina pectoris; Z86.711 Personal history of pulmonary embolism; Z79.01 Long term (current) use of anticoagulants; Z79.899 Other long term (current) drug therapy; I10 Essential (primary) hypertension; E78.00 Pure hypercholesterolemia, unspecified; M19.90 Unspecified osteoarthritis, unspecified site; K21.9 Gastro-esophageal reflux disease without esophagitis; F41.8 Other specified anxiety disorders; F17.200 Nicotine dependence, unspecified, uncomplicated
CPT/HCPCS: 36000; 36415; 71260; 80053; 80061; 82550; 83721; 83880; 84484; 85025; 85610; 85730; 87040; 87070; 87077; 87186; 87631; 93005; 93041; 93268; 94150; 94640; 94760; 99285; G0378; J0696; J1200; J1720; J2920; A9270-GY

== ENCOUNTER 2018-02-07 10:27 | Emergency (ER) | payer MEDICARE ==
[2018-02-07 10:39] VITALS: O2SAT 100
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
[2018-02-07] MEDS ORDERED: solu-MEDROL 125 MG IV ONE (11:18)
[2018-02-07] MEDS ORDERED: DUONEB 0.5-3 MG/3 ml Neb IH ONE ×2 (11:18→11:38)
[2018-02-07] MEDS ORDERED: Sodium Chloride 0.9% 1000 ML 1,000 ML IV STA (11:18)
[2018-02-07] MEDS ORDERED: ROCEPHIN 1 Gm-D5w 50 ml Bag** 1 G/50 ML IVPB IV STA (11:21)
[2018-02-07] MEDS ORDERED: Phenergan 25 MG INJ IV ONE (11:21)
[2018-02-07] MEDS ORDERED: Sodium Chloride 0.9% 1000 ML 1,000 ML ONE (11:28)
[2018-02-07] MEDS ORDERED: ROCEPHIN 1 Gm-D5w 50 ml Bag** 1 G/50 ML IVPB IV ONE (11:28)
[2018-02-07] MEDS ORDERED: Phenergan 25 MG INJ ONE (11:28)
[2018-02-07] MEDS ORDERED: solu-MEDROL 125 MG ONE (11:28)
[2018-02-07] MEDS ORDERED: TYLENOL EXTRA STRENGTH 500 MG PO STA (11:53)
[2018-02-07] MEDS ORDERED: TYLENOL EXTRA STRENGTH 500 MG ONE (12:14)
[2018-02-07 12:24] LABS: Granulocyte Absolute (ANC) 21.55 (1.4-6.9); Hematocrit 39.3 % (35-47); Hemoglobin 12.5 gm/dl (12.0-16.0); Mean Cell Volume 96.8 fl (78-100); Mean Corpuscular Hgb Concent. 31.8 g/dl (32-36); Mean Platelet Volume 9.5 fl (6-9.5); Platelet Count 203 K/mm3 (150-450); Red Blood Count 4.06 M/mm3 (4.1-5.4); Red Cell Distribution Width 12.6 % (11.5-14.0)
[2018-02-07 12:26] LABS: ALBUMIN 3.6 g/dL (3.5-5.0); ALKALINE PHOSPHATASE 48 U/L (38-126); ANION GAP 13.5 MEQ/L (5-15); BLOOD UREA NITROGEN 16 mg/dL (7-17); CHLORIDE 101 mmol/L (98-107); Calcium 10.1 mg/dL (8.4-10.2); Carbon Dioxide 27 mmol/L (22-30); Creatinine 1 0.83 mg/dL (0.52-1.04); Glucose 100 mg/dL (74-106); Mean Corpuscular Hemoglobin 30.7 pg (26-32); Potassium 3.8 mmol/L (3.5-5.1); SGOT/AST 17 U/L (14-36); SGPT/ALT 16 U/L (0-35); SODIUM 138 mmol/L (137-145); Total Protein 6.2 g/dL (6.3-8.2); White Blood Count 25.9 K/mm3 (4.0-10.5)
[2018-02-07 12:35] LABS: NT PRO BNP 559 pg/mL (0-900)
--- NOTE | 2018-02-07 12:58 | XRAY ---
Exam: Two-view chest from 02/07/2018 Comparison: CT of the chest with IV contrast from 11/08/2017 and two-view chest from 10/14/2017. Indication: Anterior superior right-sided chest pain, vomiting, fever, shortness of breath, history of COPD and prior bilateral lung surgery. Findings: Upright PA and lateral chest films are submitted for evaluation. There is new mixed interstitial and alveolar infiltrate within the posterior aspect of the right upper lobe. This is consistent with pneumonia. No other infiltrates are seen. There is an ill-defined nodular density at the lateral left lung apex measuring about 1.5 cm in width and 1.9 cm in craniocaudal dimension which appears to have developed as compared to 10/14/2017. A neoplasm must be considered in this case. Consider follow-up CT of the chest with IV contrast. There is significant hyperinflation of the lungs consistent with advanced COPD. Fine surgical suture material is seen overlying the right lung base and left upper lung field representing no change. Minimal bibasilar linear scarring is seen. There is also minimal linear scarring at the left lung apex. No pneumothorax or pleural fluid is seen. The heart size appears relatively small. The mak and mediastinal structures appear unremarkable. The bones are demineralized. No acute osseous process is seen. Pression: 1. New moderate sized, mixed airspace/interstitial infiltrate within the posterior aspect of the right upper lung field measuring about 9.2 cm in height and 5.4 cm in width. This probably represents pneumonia. 2. There is a developing 1.5 cm x 1.9 cm ill-defined nodule at the lateral left lung apex as compared to 10/14/2017. A lung neoplasm is not excluded. Consider follow-up CT of the chest with IV contrast when the patient is able. 3. Advanced COPD with evidence of prior bilateral lung surgery. Scattered linear scarring is seen within the left lung apex and both lung bases.
[2018-02-07] MEDS ORDERED: PROVENTIL 2.5 MG/3 ML NEB IH ONE ×2 (13:55→14:08)
[2018-02-07 14:25] LABS: ATYPICAL LYMPHS 1 %; Lymphocytes 17 % (24-44); Monocyte 8 % (0.0-12.0); Neutrophils 74 % (36.0-66.0); Total Cells Counted 100
[2018-02-07 14:27] LABS: ANISOCYTOSIS 1+; Platelet Estimate NORMAL (NORMAL); Poikilocytosis 1+
[2018-02-07 14:32] VITALS: BP 110/69; PULSE 70
== END 2018-02-07 14:32 | disposition home or self-care (01) ==
LOC: ED 10:27
DX: J18.9 Pneumonia, unspecified organism (principal); J44.9 Chronic obstructive pulmonary disease, unspecified; Z99.81 Dependence on supplemental oxygen; Z86.711 Personal history of pulmonary embolism; Z79.01 Long term (current) use of anticoagulants; Z79.899 Other long term (current) drug therapy; R11.2 Nausea with vomiting, unspecified
CPT/HCPCS: 36000; 36415; 71046; 80053; 83605; 83880; 84484; 85025; 87040; 93005; 93041; 94640; 96360; 96365; 96374; 96375; 99285; J7609; J0696; J2550; J2930; A9270-GY

== ENCOUNTER 2018-02-13 03:54 | Inpatient (IN) | payer MEDICARE ==
[2018-02-13] MEDS ORDERED: DUONEB 0.5-3 MG/3 ml Neb IH ONE ×2 (04:25→04:34)
[2018-02-13] MEDS ORDERED: solu-MEDROL 125 MG IV ONE (04:25)
[2018-02-13] MEDS ORDERED: Mucomyst 200 MG/ML IH STA (04:29)
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
[2018-02-13] MEDS ORDERED: solu-MEDROL 125 MG ONE (04:33)
[2018-02-13] MEDS ORDERED: Mucomyst 200 MG/ML ONE (04:40)
[2018-02-13] MEDS ORDERED: Mucomyst 200 MG/ML IH ONE (04:50)
[2018-02-13 05:15] LABS: A-aADO2 199; ABG HEMOGLOBIN 10.7; ABG POTASSIUM 3.6 (3.5-5.1); ABG SITE RIGHT BRACHIAL; ARTERIAL BLD GAS O2 SATURATION 98.7 % (95-100); ARTERIAL BLOOD GAS BASE EXCESS 9.1 (-2.0-2.0); ARTERIAL BLOOD GAS FIO2 60 %; ARTERIAL BLOOD GAS PCO2 40 mmHg (35-45); ARTERIAL BLOOD GAS PO2 179 mmHg (75-100); ARTERIAL BLOOD GAS pH 7.52 (7.35-7.45); CARBOXYHEMOGLOBIN 3.2 % THgb (0.0-6.9); HCO3- 32.7 (22-28); HGB O2 SAT 94.5 g/dF (94-100); Lactic Acid 0.7 (0.4-2.0); Methhemoglobin 1.1 % (1.4-1.5); paO2 pAO1 0.47
[2018-02-13 05:19] LABS: Granulocyte Absolute (ANC) 10.76 (1.4-6.9); Hematocrit 35.2 % (35-47); Hemoglobin 11.2 gm/dl (12.0-16.0); Mean Cell Volume 96.2 fl (78-100); Mean Corpuscular Hemoglobin 30.6 pg (26-32); Mean Corpuscular Hgb Concent. 31.8 g/dl (32-36); Platelet Count 477 K/mm3 (150-450); Red Blood Count 3.66 M/mm3 (4.1-5.4); Red Cell Distribution Width 12.8 % (11.5-14.0); White Blood Count 15.5 K/mm3 (4.0-10.5)
[2018-02-13] MEDS ORDERED: PHENERGAN WITH CODEINE SYRUP PO ONE (05:28)
[2018-02-13 05:40] LABS: ALBUMIN 3.5 g/dL (3.5-5.0); ALKALINE PHOSPHATASE 56 U/L (38-126); ANION GAP 11.8 MEQ/L (5-15); BLOOD UREA NITROGEN 15 mg/dL (7-17); CHLORIDE 100 mmol/L (98-107); Calcium 9.6 mg/dL (8.4-10.2); Carbon Dioxide 33 mmol/L (22-30); Creatinine 1 0.57 mg/dL (0.52-1.04); Glucose 91 mg/dL (74-106); Potassium 3.9 mmol/L (3.5-5.1); SGOT/AST 20 U/L (14-36); SGPT/ALT 25 U/L (0-35); SODIUM 140 mmol/L (137-145); Total Protein 6.7 g/dL (6.3-8.2)
[2018-02-13 05:48] LABS: NT PRO BNP 1900 pg/mL (0-900)
[2018-02-13 06:54] LABS: ATYPICAL LYMPHS 1 %; Lymphocytes 25 % (24-44); Monocyte 1 % (0.0-12.0); Neutrophils 73 % (36.0-66.0); Platelet Estimate NORMAL (NORMAL); Poikilocytosis 1+; Total Cells Counted 100
[2018-02-13 06:55] LABS: Toxic Granulation 1+
[2018-02-13] MEDS ORDERED: PROVENTIL 2.5 MG/3 ML NEB IH SCH (07:18)
[2018-02-13] MEDS ORDERED: TYLENOL 325 MG PO PRN (07:18)
[2018-02-13] MEDS: DUONEB 0.5-3 MG/3 ml Neb IH SCH ×5 (07:30→23:17)
--- NOTE | 2018-02-13 09:27 | XRAY ---
Indication: Right superior chest pain. Fever and short of breath. COPD. Comparison: February 07, 2018. PA/lateral chest unchanged again demonstrating right upper lung interstitial alveolar opacity, COPD, and scattered bilateral suture material. Heart is not enlarged. No new cardiopulmonary abnormalities.
[2018-02-13] MEDS: Zithromax 500 MG/ 250 ML NaCl Premix 500 MG/250 ML IVPB IV SCH (10:24)
[2018-02-13] MEDS: ROCEPHIN 1 Gm-D5w 50 ml Bag** 1 G/50 ML IVPB IV SCH (10:24)
[2018-02-13] MEDS: Mucomyst 200 MG/ML IH SCH (10:40)
[2018-02-13] MEDS: Advair Hfa 230/21 Mcg COMMON CANISTER IH SCH ×2 (10:40→19:09)
[2018-02-13] MEDS ORDERED: Ativan 0.5 MG PO PRN (11:42)
[2018-02-13] MEDS ORDERED: Nitrostat 0.4 MG Tablet SL PRN (11:45)
[2018-02-13] MEDS: Colace 100 MG PO SCH ×2 (12:50→22:46)
[2018-02-13] MEDS: ECOTRIN 81 MG PO SCH (12:50)
[2018-02-13] MEDS: Toprol Xl 50 MG PO SCH (12:50)
[2018-02-13] MEDS: Klor Con 10 MEQ PO SCH ×2 (12:50→22:46)
[2018-02-13] MEDS: Pepcid 20 MG PO SCH ×2 (12:50→22:46)
[2018-02-13] MEDS: solu-MEDROL 125 MG IV SCH ×3 (12:51→23:21)
[2018-02-13] MEDS: XARELTO 10 MG TABLET PO SCH (12:51)
[2018-02-13] MEDS: Imdur 30 MG PO SCH (12:52)
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
[2018-02-13] MEDS: Norco 10/325 MG Tablet PO PRN (18:38)
[2018-02-13] MEDS: ZOCOR 20MG PO SCH (22:46)
[2018-02-13] MEDS: Protonix 40MG Tablet PO SCH (23:17)
[2018-02-13] MEDS: NICODERM CQ 14 MG TOP SCH (23:18)
[2018-02-14] MEDS: DUONEB 0.5-3 MG/3 ml Neb IH SCH ×6 (03:52→23:00)
[2018-02-14] MEDS: solu-MEDROL 125 MG IV SCH ×4 (06:18→23:18)
[2018-02-14] MEDS: Mucomyst 200 MG/ML IH SCH ×2 (06:34→19:12)
[2018-02-14] MEDS: Advair Hfa 230/21 Mcg COMMON CANISTER IH SCH ×2 (06:34→19:12)
[2018-02-14] MEDS: Zofran 4 MG/2 ML VIAL IV PRN ×3 (07:26→21:15)
[2018-02-14] MEDS ORDERED: Toprol-Xl 25MG Tablets PO SCH (10:00)
[2018-02-14] MEDS ORDERED: NON-FORMULARY ITEM (Fluticasone/Vilanterol [Breo Ellipta 100-25 Mcg Inh] 1 EACH) IH SCH (10:00)
[2018-02-14] MEDS: Imdur 30 MG PO SCH (10:17)
[2018-02-14] MEDS: Klor Con 10 MEQ PO SCH ×2 (10:17→21:13)
[2018-02-14] MEDS: Protonix 40MG Tablet PO SCH ×2 (10:17→21:14)
[2018-02-14] MEDS: ECOTRIN 81 MG PO SCH (10:17)
[2018-02-14] MEDS: Zithromax 500 MG/ 250 ML NaCl Premix 500 MG/250 ML IVPB IV SCH (10:17)
[2018-02-14] MEDS: Colace 100 MG PO SCH ×2 (10:17→21:13)
[2018-02-14] MEDS: Toprol Xl 50 MG PO SCH (10:17)
[2018-02-14] MEDS: XARELTO 10 MG TABLET PO SCH (10:17)
[2018-02-14] MEDS: Pepcid 20 MG PO SCH ×2 (10:17→21:14)
[2018-02-14] MEDS: ROCEPHIN 1 Gm-D5w 50 ml Bag** 1 G/50 ML IVPB IV SCH (10:17)
[2018-02-14] MEDS: Mucinex 600MG ER Tabs PO SCH ×2 (10:26→21:14)
[2018-02-14] MEDS: ZOCOR 20MG PO SCH (21:14)
[2018-02-14] MEDS: Norco 10/325 MG Tablet PO PRN (21:14)
[2018-02-14] MEDS: NICODERM CQ 14 MG TOP SCH (23:18)
[2018-02-15] MEDS: DUONEB 0.5-3 MG/3 ml Neb IH SCH ×6 (03:14→23:55)
[2018-02-15] MEDS: Zofran 4 MG/2 ML VIAL IV PRN ×2 (04:08→10:17)
[2018-02-15] MEDS: solu-MEDROL 125 MG IV SCH ×4 (05:25→23:37)
[2018-02-15 06:01] LABS: Granulocyte Absolute (ANC) 17.81 (1.4-6.9); Hematocrit 34.2 % (35-47); Hemoglobin 10.7 gm/dl (12.0-16.0); Mean Corpuscular Hgb Concent. 31.3 g/dl (32-36); Mean Platelet Volume 8.4 fl (6-9.5); Platelet Count 503 K/mm3 (150-450); Red Blood Count 3.49 M/mm3 (4.1-5.4); Red Cell Distribution Width 12.6 % (11.5-14.0); White Blood Count 20.1 K/mm3 (4.0-10.5)
[2018-02-15 06:16] LABS: ALBUMIN 3.2 g/dL (3.5-5.0); ALKALINE PHOSPHATASE 49 U/L (38-126); ANION GAP 11.2 MEQ/L (5-15); BILIRUBIN,TOTAL < 0.10 mg/dL (0.2-1.3); BLOOD UREA NITROGEN 18 mg/dL (7-17); CHLORIDE 94 mmol/L (98-107); Calcium 9.3 mg/dL (8.4-10.2); Carbon Dioxide 35 mmol/L (22-30); Creatinine 1 0.57 mg/dL (0.52-1.04); Glucose 183 mg/dL (74-106); Mean Corpuscular Hemoglobin 30.6 pg (26-32); Potassium 4.1 mmol/L (3.5-5.1); SGOT/AST 19 U/L (14-36); SGPT/ALT 37 U/L (0-35); SODIUM 137 mmol/L (137-145)
[2018-02-15] MEDS: Advair Hfa 230/21 Mcg COMMON CANISTER IH SCH ×2 (07:20→19:04)
[2018-02-15] MEDS: Mucomyst 200 MG/ML IH SCH ×2 (07:20→19:04)
[2018-02-15] MEDS: Norco 10/325 MG Tablet PO PRN ×2 (08:33→17:36)
[2018-02-15] MEDS ORDERED: Tessalon Perles 100 MG PO PRN (09:05)
--- NOTE | 2018-02-15 09:08 | PCM.NOTE ---
Date and Time: 02/15/18905 Subjective Assessment: patient feels terrible, short of breath and wheezing. still has significant sputum production. has had nausea Objective Exam General Appearance: no apparent distress, alert Respiratory Exam: diminished breath sounds, wheezing Cardiovascular Exam: regular rate/rhythm, normal heart sounds Gastrointestinal/Abdomen Exam: soft, No tenderness, No mass Extremity Exam: normal inspection, normal range of motion OBJECTIVE DATA Vital Signs: Vital Signs - 24 hr Temp Pulse Resp BP Pulse Ox 02/15/18 08:02 98 F 70 22 140/68 100 02/15/18 08:00 22 02/15/18 07:27 99 02/15/18 07:20 78 20 99 02/15/18 04:00 98.7 F 89 20 168/73 99 02/15/18 03:00 99 H 22 96 02/15/18 00:00 97.7 F 83 20 192/81 100 02/14/18 23:00 88 20 98 02/14/18 19:58 98.1 F 75 20 103/57 93 L 02/14/18 19:00 104 H 22 99 02/14/18 16:00 97.6 F 83 20 177/79 98 02/14/18 14:34 83 20 98 02/14/18 12:00 97.6 F 82 20 177/79 98 02/14/18 10:53 82 20 98 Oxygen-Last 24 hours O2 Percentage 5 Liters = 40% O2 Percentage 5 Liters = 40% Oxygen Flowrate (L/min)-RT 5 Oxygen Flowrate (L/min)-RT 5 Oxygen Flowrate (L/min)-RT 5 Pain Assessment - Last Documented Pain Intensity 7 Pain Scale Used 0-10 Pain Scale Intake and Output: Intake & Output 02/12/18 02/13/18 02/14/18 02/15/18 11:59 11:59 11:59 11:59 Intake Total 2780 1380 Output Total 0 450 Balance 2780 930 Weight 71.1 kg 72.8 kg Lab Results: Lab Results-Last 24 Hours 02/15/18 02/15/18 Range/Units 05:35 05:35 WBC 20.1 H (4.0-10.5) K/mm3 RBC 3.49 L (4.1-5.4) M/mm3 Hgb 10.7 L (12.0-16.0) gm/dl Hct 34.2 L (35-47) % MCV 98.0 (78-100) fl MCH 30.6 (26-32) pg MCHC 31.3 L (32-36) g/dl RDW 12.6 (11.5-14.0) % Plt Count 503 H (150-450) K/mm3 MPV 8.4 (6-9.5) fl Absolute Granulocytes 17.81 H (1.4-6.9) Sodium 137 (137-145) mmol/L Potassium 4.1 (3.5-5.1) mmol/L Chloride 94 L (98-107) mmol/L Carbon Dioxide 35 H (22-30) mmol/L Anion Gap 11.2 (5-15) MEQ/L BUN 18 H (7-17) mg/dL Creatinine 0.57 (0.52-1.04) mg/dL Estimated GFR > 60.0 ML/MIN Glucose 183 H (74-106) mg/dL Calcium 9.3 (8.4-10.2) mg/dL Total Bilirubin < 0.10 L (0.2-1.3) mg/dL AST 19 (14-36) U/L ALT 37 H (0-35) U/L Alkaline Phosphatase 49 (38-126) U/L Serum Total Protein 6.0 L (6.3-8.2) g/dL Albumin 3.2 L (3.5-5.0) g/dL Multi-Disciplinary Progress Notes: Multi-Disciplinary Progress Notes 02/14/18 09:55 (created 02/14/18 12:26) Case Management Note by Gabriela Burrell REVIEWED DISCHARGE PLAN WITH PT, INDEPENDENT WITH ALL ADL'S, DRIVES AND HAS TRANSPORTATION TO GET TO ALL APPTS. AT HOME, IN POOR HEALTH, AND SHE ASSISTS PRN. USES HOME OXYGEN, [facility] PROVIDES. DECLINED ADDNL NEEDS FOR DISCHARGE. WILL FOLLOW. Initialized on 02/14/18 12:26 - END OF NOTE Assessment/Plan (1) Acute exacerbation of chronic obstructive pulmonary disease (COPD) Current Visit: Yes Status: Acute Onset Date: ~02/13/18 Assessment & Plan: continue IV levaquin, nebs and steroids. Code(s): J44.1 - CHRONIC OBSTRUCTIVE PULMONARY DISEASE W (ACUTE) EXACERBATION (2) Failure of outpatient treatment Current Visit: Yes Status: Acute Code(s): Z78.9 - OTHER SPECIFIED HEALTH STATUS (3) Chronic hypoxemic respiratory failure Current Visit: No Status: Chronic (4) Lung nodule Current Visit: Yes Status: Acute Assessment & Plan: this is a known following, patient follows with a fixture relamper in [place] and recently had a CT that showed lesion was stable. will continue to be followed with her pulm as an outpatient. Code(s): R91.1 - SOLITARY PULMONARY NODULE
[2018-02-15 09:15] LABS: BAND 4 % (0.0-2.0); Lymphocytes 11 % (24-44); Monocyte 4 % (0.0-12.0); Neutrophils 81 % (36.0-66.0); Total Cells Counted 100
[2018-02-15 09:16] LABS: Platelet Estimate NORMAL (NORMAL)
[2018-02-15] MEDS: Mucinex 600MG ER Tabs PO SCH ×2 (10:17→22:09)
[2018-02-15] MEDS: XARELTO 10 MG TABLET PO SCH (10:18)
[2018-02-15] MEDS: Imdur 30 MG PO SCH (10:18)
[2018-02-15] MEDS: Klor Con 10 MEQ PO SCH ×2 (10:18→22:09)
[2018-02-15] MEDS: Protonix 40MG Tablet PO SCH ×2 (10:18→22:09)
[2018-02-15] MEDS: Toprol Xl 50 MG PO SCH (10:18)
[2018-02-15] MEDS: ECOTRIN 81 MG PO SCH (10:18)
[2018-02-15] MEDS: Pepcid 20 MG PO SCH ×2 (10:18→22:09)
[2018-02-15] MEDS: Colace 100 MG PO SCH ×3 (10:18→22:09)
[2018-02-15] MEDS: Zithromax 500 MG/ 250 ML NaCl Premix 500 MG/250 ML IVPB IV SCH (10:19)
[2018-02-15] MEDS: Fortaz/Tazicef 1 GM** 2 G in D5w 100ML Mini Bag 100 ML 100 ML IV SCH ×2 (10:19→18:22)
[2018-02-15] MEDS: CEPACOL SORE THROAT LOZENGE PO PRN ×2 (19:30→22:09)
[2018-02-15] MEDS: ZOCOR 20MG PO SCH (22:09)
[2018-02-15] MEDS: NICODERM CQ 14 MG TOP SCH (23:36)
[2018-02-16] MEDS: Fortaz/Tazicef 1 GM** 2 G in D5w 100ML Mini Bag 100 ML 100 ML IV SCH ×3 (02:55→18:47)
[2018-02-16] MEDS: DUONEB 0.5-3 MG/3 ml Neb IH SCH ×6 (03:19→23:07)
[2018-02-16 05:48] LABS: Granulocyte Absolute (ANC) 17.85 (1.4-6.9); Hemoglobin 10.6 gm/dl (12.0-16.0); Mean Cell Volume 97.6 fl (78-100); Mean Corpuscular Hgb Concent. 32.1 g/dl (32-36); Mean Platelet Volume 8.4 fl (6-9.5); Platelet Count 469 K/mm3 (150-450); Red Blood Count 3.38 M/mm3 (4.1-5.4); Red Cell Distribution Width 12.5 % (11.5-14.0); White Blood Count 19.8 K/mm3 (4.0-10.5)
[2018-02-16 05:52] LABS: Mean Corpuscular Hemoglobin 31.3 pg (26-32)
[2018-02-16] MEDS: solu-MEDROL 125 MG IV SCH ×4 (05:56→23:32)
[2018-02-16 06:02] LABS: ANION GAP 9.3 MEQ/L (5-15); BLOOD UREA NITROGEN 18 mg/dL (7-17); CHLORIDE 95 mmol/L (98-107); Carbon Dioxide 38 mmol/L (22-30); Creatinine 1 0.56 mg/dL (0.52-1.04); Glucose 160 mg/dL (74-106); Potassium 4.5 mmol/L (3.5-5.1); SODIUM 138 mmol/L (137-145)
[2018-02-16] MEDS: Mucomyst 200 MG/ML IH SCH ×2 (07:00→18:51)
[2018-02-16] MEDS: Advair Hfa 230/21 Mcg COMMON CANISTER IH SCH ×2 (07:00→18:51)
--- NOTE | 2018-02-16 09:09 | PCM.NOTE ---
Date and Time: 02/16/18906 Subjective Assessment: doing well at this time, still coughing and wheezing and very short of breath. notes some minimal improvement since admission Objective Exam General Appearance: no apparent distress, alert Skin Exam: normal color, warm, dry Respiratory Exam: prolonged expirations, rhonchi, wheezing, No respiratory distress Cardiovascular Exam: regular rate/rhythm, normal heart sounds Gastrointestinal/Abdomen Exam: soft, No tenderness, No mass Extremity Exam: normal inspection, normal range of motion OBJECTIVE DATA Vital Signs: Vital Signs - 24 hr Temp Pulse Resp BP Pulse Ox 02/16/18 07:15 97.8 F 86 20 170/80 98 02/16/18 07:00 92 H 18 98 02/16/18 04:00 98.3 F 83 22 164/83 99 02/16/18 03:00 90 18 99 02/16/18 00:00 98.1 F 85 20 155/70 98 02/15/18 23:00 85 20 98 02/15/18 20:00 97.4 F 86 18 187/83 98 02/15/18 19:00 78 18 98 02/15/18 16:13 98.4 F 81 20 142/63 99 02/15/18 16:00 20 02/15/18 15:16 80 20 98 02/15/18 11:56 20 02/15/18 11:16 97.8 F 82 20 182/81 99 02/15/18 11:12 82 20 99 Oxygen-Last 24 hours O2 Percentage 5 Liters = 40% O2 Percentage 5 Liters = 40% O2 Percentage 5 Liters = 40% Oxygen Flowrate (L/min)-RT 5 Pain Assessment - Last Documented Pain Intensity 6 Pain Scale Used 0-10 Pain Scale Intake and Output: Intake & Output 02/13/18 02/14/18 02/15/18 02/16/18 11:59 11:59 11:59 11:59 Intake Total 2780 1380 2020 Output Total 0 450 1050 Balance 2780 930 970 Weight 71.1 kg 72.8 kg 73 kg Lab Results: Lab Results-Last 24 Hours 02/15/18 02/16/18 02/16/18 Range/Units 05:35 05:10 05:10 WBC 19.8 H (4.0-10.5) K/mm3 RBC 3.38 L (4.1-5.4) M/mm3 Hgb 10.6 L (12.0-16.0) gm/dl Hct 33.0 L (35-47) % MCV 97.6 (78-100) fl MCH 31.3 (26-32) pg MCHC 32.1 (32-36) g/dl RDW 12.5 (11.5-14.0) % Plt Count 469 H (150-450) K/mm3 MPV 8.4 (6-9.5) fl Absolute Granulocytes 17.85 H (1.4-6.9) Segmented Neutrophils 81 H (36.0-66.0) % Band Neutrophils 4 H (0.0-2.0) % Lymphocytes (Manual) 11 L (24-44) % Monocytes (Manual) 4 (0.0-12.0) % Platelet Estimate NORMAL (NORMAL) RBC Morphology NORMAL Sodium 138 (137-145) mmol/L Potassium 4.5 (3.5-5.1) mmol/L Chloride 95 L (98-107) mmol/L Carbon Dioxide 38 H (22-30) mmol/L Anion Gap 9.3 (5-15) MEQ/L BUN 18 H (7-17) mg/dL Creatinine 0.56 (0.52-1.04) mg/dL Estimated GFR > 60.0 ML/MIN Glucose 160 H (74-106) mg/dL Calcium 9.0 (8.4-10.2) mg/dL Assessment/Plan (1) Acute exacerbation of chronic obstructive pulmonary disease (COPD) Current Visit: Yes Status: Acute Onset Date: ~02/13/18 Assessment & Plan: continue IV ceftazidime and zithromax, IV solu medrol and nebulizer therapy. improving at this time. Code(s): J44.1 - CHRONIC OBSTRUCTIVE PULMONARY DISEASE W (ACUTE) EXACERBATION (2) Failure of outpatient treatment Current Visit: Yes Status: Acute Code(s): Z78.9 - OTHER SPECIFIED HEALTH STATUS (3) Chronic hypoxemic respiratory failure Current Visit: No Status: Chronic (4) Lung nodule Current Visit: Yes Status: Acute Code(s): R91.1 - SOLITARY PULMONARY NODULE
[2018-02-16] MEDS: Colace 100 MG PO SCH ×2 (09:46→21:25)
[2018-02-16] MEDS: ECOTRIN 81 MG PO SCH (09:47)
[2018-02-16] MEDS: Mucinex 600MG ER Tabs PO SCH ×2 (09:48→21:24)
[2018-02-16] MEDS: Imdur 30 MG PO SCH (09:48)
[2018-02-16] MEDS: Klor Con 10 MEQ PO SCH ×2 (09:48→21:24)
[2018-02-16] MEDS: Pepcid 20 MG PO SCH ×2 (09:48→21:24)
[2018-02-16] MEDS: Toprol Xl 50 MG PO SCH (09:49)
[2018-02-16] MEDS: XARELTO 10 MG TABLET PO SCH (09:49)
[2018-02-16] MEDS: Protonix 40MG Tablet PO SCH ×2 (09:49→21:24)
[2018-02-16 10:07] LABS: BAND 4 % (0.0-2.0); Lymphocytes 8 % (24-44); Monocyte 2 % (0.0-12.0); Neutrophils 86 % (36.0-66.0); Platelet Estimate NORMAL (NORMAL); Total Cells Counted 100
[2018-02-16 10:08] LABS: Hypochromia 2+; Polychromasia 1+; Toxic Granulation 1+
[2018-02-16] MEDS: Zithromax 500 MG/ 250 ML NaCl Premix 500 MG/250 ML IVPB IV SCH (10:24)
[2018-02-16] MEDS: Norco 10/325 MG Tablet PO PRN (12:13)
[2018-02-16] MEDS: Zofran 4 MG/2 ML VIAL IV PRN (12:22)
[2018-02-16] MEDS: ZOCOR 20MG PO SCH (21:24)
[2018-02-16] MEDS: CEPACOL SORE THROAT LOZENGE PO PRN (21:28)
[2018-02-16] MEDS: NICODERM CQ 14 MG TOP SCH (23:32)
[2018-02-17] MEDS: DUONEB 0.5-3 MG/3 ml Neb IH SCH ×3 (03:16→10:38)
[2018-02-17] MEDS: Fortaz/Tazicef 1 GM** 2 G in D5w 100ML Mini Bag 100 ML 100 ML IV SCH ×2 (03:39→10:33)
[2018-02-17] MEDS: solu-MEDROL 125 MG IV SCH (05:31)
[2018-02-17] MEDS: Norco 10/325 MG Tablet PO PRN (05:38)
[2018-02-17] MEDS: Advair Hfa 230/21 Mcg COMMON CANISTER IH SCH (06:46)
[2018-02-17] MEDS: Mucomyst 200 MG/ML IH SCH (06:47)
--- NOTE | 2018-02-17 07:50 | PCM.NOTE ---
Date and Time: 02/17/18 07 Subjective Assessment: still coughing up productive sputum very short of breath. Sputum color has changed today from green to yellow. She feels slightly better. no chest pain or nausea. Objective Exam General Appearance: no apparent distress, mild distress, alert Neurologic Exam: alert, oriented x 3, cooperative, normal mood/affect, nml cerebellar function, sensation nml, No motor deficits Skin Exam: normal color, warm, dry Eye Exam: PERRL, EOMI, eyes nml inspection Ears, Nose, Throat Exam: normal ENT inspection, pharynx normal, moist mucous membranes Neck Exam: normal inspection, non-tender, supple, full range of motion Respiratory Exam: rhonchi, wheezing, No crackles/rales Cardiovascular Exam: regular rate/rhythm, normal heart sounds Gastrointestinal/Abdomen Exam: soft, No tenderness, No mass Extremity Exam: normal inspection, normal range of motion Back Exam: normal inspection, normal range of motion, No CVA tenderness, No vertebral tenderness Pelvic Exam: deferred Rectal Exam: deferred OBJECTIVE DATA Vital Signs: Vital Signs - 24 hr Temp Pulse Resp BP Pulse Ox 02/17/18 06:50 87 20 99 02/17/18 04:15 98.1 F 69 20 160/77 100 02/17/18 03:00 78 16 100 02/16/18 23:50 98.1 F 85 19 138/71 100 02/16/18 23:00 86 18 100 02/16/18 20:05 98.3 F 85 18 187/77 98 02/16/18 20:00 18 02/16/18 19:00 85 18 98 02/16/18 16:28 98 F 89 20 169/73 100 02/16/18 15:30 78 18 98 02/16/18 12:30 97.9 F 86 20 151/71 99 02/16/18 12:00 20 02/16/18 11:17 78 20 98 02/16/18 08:00 20 Oxygen-Last 24 hours O2 Percentage 5 Liters = 40% O2 Percentage 5 Liters = 40% O2 Percentage 5 Liters = 40% O2 Percentage 5 Liters = 40% O2 Percentage 5 Liters = 40% Pain Assessment - Last Documented Pain Intensity 6 Pain Scale Used 0-10 Pain Scale Intake and Output: Intake & Output 02/14/18 02/15/18 02/16/18 02/17/18 11:59 11:59 11:59 11:59 Intake Total 2780 1380 2020 3301 Output Total 0 450 1050 1200 Balance 2780 144 740 6098 Weight 71.1 kg 72.8 kg 73 kg Lab Results: Lab Results-Last 24 Hours 02/16/18 Range/Units 05:10 Segmented Neutrophils 86 H (36.0-66.0) % Band Neutrophils 4 H (0.0-2.0) % Lymphocytes (Manual) 8 L (24-44) % Monocytes (Manual) 2 (0.0-12.0) % Hypochromia 2+ Toxic Granulation 1+ Platelet Estimate NORMAL (NORMAL) RBC Morphology ABNORMAL Polychromasia 1+ Assessment/Plan (1) Acute exacerbation of chronic obstructive pulmonary disease (COPD) Current Visit: Yes Status: Acute Onset Date: ~02/13/18 Code(s): J44.1 - CHRONIC OBSTRUCTIVE PULMONARY DISEASE W (ACUTE) EXACERBATION (2) Pseudomonas aeruginosa infection Current Visit: Yes Status: Acute Assessment & Plan: day 3 of ceftazadine Code(s): A49.8 - OTHER BACTERIAL INFECTIONS OF UNSPECIFIED SITE (3) Failure of outpatient treatment Current Visit: Yes Status: Acute Code(s): Z78.9 - OTHER SPECIFIED HEALTH STATUS (4) Hx of coronary artery disease Current Visit: Yes Status: Chronic Code(s): Z86.79 - PERSONAL HISTORY OF OTHER DISEASES OF THE CIRCULATORY SYSTEM (5) Chronic hypoxemic respiratory failure Current Visit: Yes Status: Chronic (6) Hx pulmonary embolism Current Visit: Yes Status: Chronic Code(s): Z86.711 - PERSONAL HISTORY OF PULMONARY EMBOLISM
[2018-02-17] MEDS: XARELTO 10 MG TABLET PO SCH (08:40)
[2018-02-17] MEDS: Colace 100 MG PO SCH (08:40)
[2018-02-17] MEDS: Toprol Xl 50 MG PO SCH (08:40)
[2018-02-17] MEDS: Mucinex 600MG ER Tabs PO SCH (08:40)
[2018-02-17] MEDS: Klor Con 10 MEQ PO SCH (08:40)
[2018-02-17] MEDS: Pepcid 20 MG PO SCH (08:41)
[2018-02-17] MEDS: ECOTRIN 81 MG PO SCH (08:41)
[2018-02-17] MEDS: Imdur 30 MG PO SCH (08:42)
[2018-02-17] MEDS: Protonix 40MG Tablet PO SCH (08:45)
[2018-02-17 12:00] VITALS: BP 152/67; PULSE 81; O2SAT 100
[2018-02-17] MEDS ORDERED: solu-MEDROL 125 MG IV SCH (18:00)
== END 2018-02-17 13:30 | disposition home or self-care (01) | DRG 191 ==
LOC: ED 03:54 → MED SURG 07:00 → OBSVTOIN 09:31
PROVIDERS: ADMIT Family Medicine; ATTEND Family Medicine
DX: J44.1 Chronic obstructive pulmonary disease with (acute) exacerbation (principal); J96.11 Chronic respiratory failure with hypoxia; Z78.9 Other specified health status; B96.5 Pseudomonas (aeruginosa) (mallei) (pseudomallei) as the cause of diseases classified elsewhere; I10 Essential (primary) hypertension; Z86.79 Personal history of other diseases of the circulatory system; Z86.11 Personal history of tuberculosis; I25.10 Atherosclerotic heart disease of native coronary artery without angina pectoris; E78.00 Pure hypercholesterolemia, unspecified; K21.9 Gastro-esophageal reflux disease without esophagitis; M19.90 Unspecified osteoarthritis, unspecified site; F41.9 Anxiety disorder, unspecified; Z72.0 Tobacco use; Z79.01 Long term (current) use of anticoagulants; Z79.899 Other long term (current) drug therapy; R91.1 Solitary pulmonary nodule
CPT/HCPCS: 36000; 36415; 36600; 71046; 80048; 80053; 82375; 82803; 83605; 83880; 84484; 85025; 87040; 87070; 87077; 87186; 93005; 93041; 94640; 94760; 96374; 99285; J0456; J0696; J0713; J2405; J2930; A9270-GY

== ENCOUNTER 2018-02-17 09:37 | Inpatient (IN) | payer MEDICARE ==
[2018-02-17] MEDS ORDERED: TYLENOL 325 MG PO PRN (14:17)
[2018-02-17] MEDS ORDERED: CEPACOL SORE THROAT LOZENGE PO PRN (14:18)
[2018-02-17] MEDS ORDERED: Tessalon Perles 100 MG PO PRN (14:19)
[2018-02-17] MEDS ORDERED: Ativan 0.5 MG PO PRN (14:20)
[2018-02-17] MEDS ORDERED: Nitrostat 0.4 MG Tablet SL PRN (14:25)
[2018-02-17] MEDS ORDERED: Zofran 4 MG/2 ML VIAL IV PRN (14:26)
[2018-02-17] MEDS: DUONEB 0.5-3 MG/3 ml Neb IH SCH ×3 (14:57→23:01)
[2018-02-17] MEDS: Fortaz/Tazicef 1 GM** 2 G in D5w 100ML Mini Bag 100 ML 100 ML IV SCH (18:37)
[2018-02-17] MEDS: Advair Hfa 230/21 Mcg COMMON CANISTER IH SCH (18:54)
[2018-02-17] MEDS: Mucomyst 200 MG/ML IH SCH (18:57)
[2018-02-17] MEDS ORDERED: Lasix 20 MG/2 ML ONE (21:06)
[2018-02-17] MEDS: Pepcid 20 MG PO SCH (21:10)
[2018-02-17] MEDS: Colace 100 MG PO SCH (21:10)
[2018-02-17] MEDS: Mucinex 600MG ER Tabs PO SCH (21:10)
[2018-02-17] MEDS: Protonix 40MG Tablet PO SCH (21:10)
[2018-02-17] MEDS: ZOCOR 20MG PO SCH (21:10)
[2018-02-17] MEDS: Klor Con 10 MEQ PO SCH (21:10)
[2018-02-17] MEDS: solu-MEDROL 125 MG IV SCH (21:11)
[2018-02-17] MEDS ORDERED: NICODERM CQ 14 MG ONE (21:31)
[2018-02-17] MEDS: Norco 10/325 MG Tablet PO PRN (21:44)
[2018-02-17] MEDS: NICODERM CQ 14 MG TOP SCH (21:44)
[2018-02-18] MEDS: Fortaz/Tazicef 1 GM** 2 G in D5w 100ML Mini Bag 100 ML 100 ML IV SCH ×3 (02:30→18:16)
[2018-02-18] MEDS: DUONEB 0.5-3 MG/3 ml Neb IH SCH ×6 (03:03→23:37)
[2018-02-18] MEDS: Advair Hfa 230/21 Mcg COMMON CANISTER IH SCH ×2 (07:43→19:23)
[2018-02-18] MEDS: Mucomyst 200 MG/ML IH SCH ×2 (07:46→19:23)
[2018-02-18] MEDS: Pepcid 20 MG PO SCH ×2 (09:35→22:06)
[2018-02-18] MEDS: Toprol Xl 50 MG PO SCH (09:35)
[2018-02-18] MEDS: Klor Con 10 MEQ PO SCH ×2 (09:35→22:05)
[2018-02-18] MEDS: Imdur 30 MG PO SCH (09:35)
[2018-02-18] MEDS: Mucinex 600MG ER Tabs PO SCH ×2 (09:35→22:06)
[2018-02-18] MEDS: Protonix 40MG Tablet PO SCH ×2 (09:35→22:06)
[2018-02-18] MEDS: solu-MEDROL 125 MG IV SCH (09:35)
[2018-02-18] MEDS: Colace 100 MG PO SCH ×2 (09:35→22:06)
[2018-02-18] MEDS: XARELTO 10 MG TABLET PO SCH (09:35)
[2018-02-18] MEDS: ECOTRIN 81 MG PO SCH (09:35)
[2018-02-18] MEDS ORDERED: Aplisol ID SCH (10:00)
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
[2018-02-18] MEDS ORDERED: LASIX 20 MG PO ONE (14:55)
[2018-02-18] MEDS ORDERED: Klor Con 10 MEQ PO ONE (14:55)
[2018-02-18] MEDS: Norco 10/325 MG Tablet PO PRN (16:02)
[2018-02-18] MEDS ORDERED: Lasix 20 MG/2 ML IV ONE (20:47)
[2018-02-18] MEDS: DELTASONE 10 MG PO SCH (22:05)
[2018-02-18] MEDS: ZOCOR 20MG PO SCH (22:06)
[2018-02-18] MEDS: NICODERM CQ 14 MG TOP SCH (22:12)
[2018-02-19] MEDS: DUONEB 0.5-3 MG/3 ml Neb IH SCH ×6 (03:14→23:08)
[2018-02-19] MEDS: Fortaz/Tazicef 1 GM** 2 G in D5w 100ML Mini Bag 100 ML 100 ML IV SCH ×3 (03:35→17:15)
[2018-02-19] MEDS: Advair Hfa 230/21 Mcg COMMON CANISTER IH SCH ×2 (06:28→19:47)
[2018-02-19] MEDS: Mucomyst 200 MG/ML IH SCH ×2 (06:28→19:48)
[2018-02-19] MEDS: Protonix 40MG Tablet PO SCH ×2 (09:32→20:17)
[2018-02-19] MEDS: Colace 100 MG PO SCH ×2 (09:32→20:23)
[2018-02-19] MEDS: Toprol Xl 50 MG PO SCH (09:32)
[2018-02-19] MEDS: XARELTO 10 MG TABLET PO SCH (09:32)
[2018-02-19] MEDS: DELTASONE 10 MG PO SCH ×2 (09:32→20:17)
[2018-02-19] MEDS: Klor Con 10 MEQ PO SCH ×2 (09:33→20:17)
[2018-02-19] MEDS: ECOTRIN 81 MG PO SCH (09:33)
[2018-02-19] MEDS: Imdur 30 MG PO SCH (09:33)
[2018-02-19] MEDS: Norco 10/325 MG Tablet PO PRN ×2 (09:33→20:18)
[2018-02-19] MEDS: Pepcid 20 MG PO SCH ×2 (09:33→20:17)
[2018-02-19] MEDS: Mucinex 600MG ER Tabs PO SCH ×2 (09:33→20:17)
[2018-02-19] MEDS ORDERED: ECOTRIN 81 MG PO ONE (11:49)
[2018-02-19] MEDS ORDERED: Cozaar 50 MG PO STA (13:15)
[2018-02-19] MEDS: Nystatin SUSPENSION 60 ML PO SCH ×3 (14:20→20:19)
[2018-02-19] MEDS: ZOCOR 20MG PO SCH (20:19)
[2018-02-19] MEDS: NICODERM CQ 14 MG TOP SCH (20:30)
[2018-02-20] MEDS: Fortaz/Tazicef 1 GM** 2 G in D5w 100ML Mini Bag 100 ML 100 ML IV SCH ×3 (02:04→17:12)
[2018-02-20] MEDS: DUONEB 0.5-3 MG/3 ml Neb IH SCH ×6 (03:07→23:16)
[2018-02-20] MEDS: Mucomyst 200 MG/ML IH SCH ×2 (06:57→20:05)
[2018-02-20] MEDS: Advair Hfa 230/21 Mcg COMMON CANISTER IH SCH ×2 (06:59→20:04)
[2018-02-20] MEDS: Imdur 30 MG PO SCH (08:36)
[2018-02-20] MEDS: Colace 100 MG PO SCH ×2 (08:36→22:55)
[2018-02-20] MEDS: DELTASONE 10 MG PO SCH (08:37)
[2018-02-20] MEDS: XARELTO 10 MG TABLET PO SCH (08:37)
[2018-02-20] MEDS: Protonix 40MG Tablet PO SCH ×2 (08:37→22:55)
[2018-02-20] MEDS: Klor Con 10 MEQ PO SCH ×2 (08:37→22:55)
[2018-02-20] MEDS: Nystatin SUSPENSION 60 ML PO SCH ×4 (08:38→22:55)
[2018-02-20] MEDS: Toprol Xl 50 MG PO SCH (08:38)
[2018-02-20] MEDS: Pepcid 20 MG PO SCH ×2 (08:38→22:55)
[2018-02-20] MEDS: ECOTRIN 81 MG PO SCH (08:38)
[2018-02-20] MEDS: Mucinex 600MG ER Tabs PO SCH ×2 (08:39→22:55)
[2018-02-20] MEDS: Norco 10/325 MG Tablet PO PRN ×2 (08:45→20:30)
[2018-02-20] MEDS: DELTASONE 20 MG PO SCH (08:47)
[2018-02-20 20:09] VITALS: O2SAT 98
[2018-02-20] MEDS: NICODERM CQ 14 MG TOP SCH (22:54)
[2018-02-20] MEDS: ZOCOR 20MG PO SCH (22:55)
[2018-02-21] MEDS: Fortaz/Tazicef 1 GM** 2 G in D5w 100ML Mini Bag 100 ML 100 ML IV SCH ×3 (01:50→17:00)
[2018-02-21] MEDS: DUONEB 0.5-3 MG/3 ml Neb IH SCH ×4 (03:19→14:38)
[2018-02-21] MEDS: Mucomyst 200 MG/ML IH SCH (06:38)
[2018-02-21] MEDS ORDERED: PATIENT OWN MEDICATION IH SCH ×2 (07:00→10:00)
[2018-02-21 07:07] VITALS: BP 138/65
[2018-02-21] MEDS: Imdur 30 MG PO SCH (09:58)
[2018-02-21] MEDS: Mucinex 600MG ER Tabs PO SCH (09:58)
[2018-02-21] MEDS: Colace 100 MG PO SCH ×2 (09:58→10:08)
[2018-02-21] MEDS: XARELTO 10 MG TABLET PO SCH (09:59)
[2018-02-21] MEDS: DELTASONE 20 MG PO SCH (09:59)
[2018-02-21] MEDS: Pepcid 20 MG PO SCH (09:59)
[2018-02-21] MEDS: Klor Con 10 MEQ PO SCH (10:00)
[2018-02-21] MEDS: Nystatin SUSPENSION 60 ML PO SCH ×3 (10:00→16:31)
[2018-02-21] MEDS: Protonix 40MG Tablet PO SCH (10:00)
[2018-02-21] MEDS: ECOTRIN 81 MG PO SCH (10:00)
[2018-02-21] MEDS: Toprol Xl 50 MG PO SCH (10:00)
[2018-02-21] MEDS: Norco 10/325 MG Tablet PO PRN (10:05)
--- NOTE | 2018-02-21 12:28 | PCM.DCORD ---
- Discharge Discharge Date: 02/21/18 Disposition: Home, Self-Care Condition: Stable Prescriptions: New Prednisone 20 mg [Deltasone 20 mg] 40 mg PO DAILY #17 tablet Nystatin 60 ml [Nystatin SUSPENSION 60 ML] 5 ml PO QID #120 ml Continue Nitroglycerin 0.4 mg Tablet [Nitrostat 0.4 MG Tablet] 0.4 mg SL Q5MX3 Hydrocodone/APAP 10/325 mg [[place] 10/325 MG Tablet] 1 tab PO QIDPRN PRN PRN Reason: Pain Docusate Sodium 100 mg [Colace 100 MG] 100 mg PO BID Potassium Chloride 10 Meq Tab* [Klor Con 10 MEQ] 10 meq PO BID Simvastatin 20 mg PO HS Famotidine 20 mg [Pepcid 20 MG] 20 mg PO BID Albuterol/Ipratropium 3ml Neb* [DUONEB 0.5-3 MG/3 ml Neb] 1 neb IH QID Ipratropium/Albuterol Sulfate [Combivent Respimat Common Canister] 1 puff IH QID Aspirin 162 mg PO DAILY Isosorbide Mononitrate 30 mg [Imdur 30 MG] 30 mg PO DAILY Albuterol 8 gm Mdi Hfa [Ventolin Hfa MDI] 2 puff IH Q2H/PRN PRN PRN Reason: Shortness Of Breath/Wheezing Fluticasone/Vilanterol [Breo Ellipta 100-25 Mcg INH] 1 each IH DAILY Metoprolol Succinate 25 mg Xl* [Toprol-Xl 25MG Tablets] 50 mg PO DAILY Calcium Carbonate/Vitamin D3 [Calcium 1,000 + D3 Caplet] 1 each PO BID Lorazepam 0.5 mg [Ativan 0.5 MG] 0.5 mg PO BID PRN PRN #60 tablet PRN Reason: Anxiety Rivaroxaban 10 mg Tablet [Xarelto 10 mg Tablet] 20 mg PO DAILY predniSONE [Prednisone] 10 mg PO DAILY predniSONE [Prednisone] 60 mg PO DAILY #15 tablet Discontinued Azithromycin 250 mg [Zithromax 250 MG TABLET] 250 mg PO ZPACK #6 tablet Follow up with: MAKSIM MONSALVE [Primary Care Provider] - 02/28/18 1:45 pm
--- NOTE | 2018-02-21 12:41 | PCM.DCORD ---
- Discharge Discharge Date: 02/21/18 Disposition: Home, Self-Care Condition: Stable Prescriptions: New Prednisone 20 mg [Deltasone 20 mg] 40 mg PO DAILY #17 tablet Nystatin 60 ml [Nystatin SUSPENSION 60 ML] 5 ml PO QID #120 ml Hydrocodone/APAP 10/325 mg [[place] 10/325 MG Tablet] 1 tab PO QID PRN PRN #12 tablet MDD 4 PRN Reason: Pain Continue Nitroglycerin 0.4 mg Tablet [Nitrostat 0.4 MG Tablet] 0.4 mg SL Q5MX3 Hydrocodone/APAP 10/325 mg [[place] 10/325 MG Tablet] 1 tab PO QIDPRN PRN PRN Reason: Pain Docusate Sodium 100 mg [Colace 100 MG] 100 mg PO BID Potassium Chloride 10 Meq Tab* [Klor Con 10 MEQ] 10 meq PO BID Simvastatin 20 mg PO HS Famotidine 20 mg [Pepcid 20 MG] 20 mg PO BID Albuterol/Ipratropium 3ml Neb* [DUONEB 0.5-3 MG/3 ml Neb] 1 neb IH QID Ipratropium/Albuterol Sulfate [Combivent Respimat Common Canister] 1 puff IH QID Aspirin 162 mg PO DAILY Isosorbide Mononitrate 30 mg [Imdur 30 MG] 30 mg PO DAILY Albuterol 8 gm Mdi Hfa [Ventolin Hfa MDI] 2 puff IH Q2H/PRN PRN PRN Reason: Shortness Of Breath/Wheezing Fluticasone/Vilanterol [Breo Ellipta 100-25 Mcg INH] 1 each IH DAILY Metoprolol Succinate 25 mg Xl* [Toprol-Xl 25MG Tablets] 50 mg PO DAILY Calcium Carbonate/Vitamin D3 [Calcium 1,000 + D3 Caplet] 1 each PO BID Lorazepam 0.5 mg [Ativan 0.5 MG] 0.5 mg PO BID PRN PRN #60 tablet PRN Reason: Anxiety Rivaroxaban 10 mg Tablet [Xarelto 10 mg Tablet] 20 mg PO DAILY predniSONE [Prednisone] 10 mg PO DAILY predniSONE [Prednisone] 60 mg PO DAILY #15 tablet Discontinued Azithromycin 250 mg [Zithromax 250 MG TABLET] 250 mg PO ZPACK #6 tablet Follow up with: MAKSIM MONSALVE [Primary Care Provider] - 02/28/18 1:45 pm
[2018-02-21 14:41] VITALS: PULSE 88
--- NOTE | 2018-02-23 18:10 | PCM.DS ---
Discharge Summary Date of Admission: 02/17/18 13:30 Date of Discharge: 02/21/18 Admitting Physician: MAKSIM MONSALVE Primary Care Provider: MAKSIM MONSALVE Allergies Allergies ciprofloxacin [From Cipro] Allergy (Severe, Verified 02/17/18 14:17) Itchy Eyes theophylline Allergy (Severe, Verified 02/17/18 14:17) hives, sob iodine Allergy (Intermediate, Verified 02/17/18 14:17) Tightness in Chest Penicillins Allergy (Intermediate, Verified 02/17/18 14:17) Itchy Eyes Sulfa (Sulfonamide Antibiotics) [Sulfa(Sulfonamide Antibiotics)] Allergy ( Intermediate, Verified 02/17/18 14:17) Itchy Eyes hydromorphone HCl [From Dilaudid] Allergy (Mild, Verified 02/17/18 14:17) low bp lisinopril Allergy (Verified 02/17/18 14:17) clindamycin Adverse Reaction (Severe, Verified 02/17/18 14:17) Hospital Summary - Hospital Course Hospital Course: She was treated for acute bronchitis and copd exacerbation and was not improving after initial steroids and ceftriaxone and azithromycin and having copious sputum and sputum culture returned pseudomonas and she was thus started on ceftazadime iv and began to show improvement. She was discharged to swing bed to continue with the iv antibiotic and the breathing treatments and steroid taper which she tolerated well. Her breathing was much better coughing better no sputum production and she was tolerating her home O2 well and able to ambulate in the halls without assistance. She did develop mild oral thrush improving with nystatin. - Vitals & Intake/Output Vital Signs: Vital Signs Temperature 97.6 F 02/21/18 07:07 Pulse Rate 88 02/21/18 14:00 Respiratory Rate 20 02/21/18 14:00 Blood Pressure 138/65 02/21/18 07:07 O2 Sat by Pulse Oximetry 98 02/21/18 14:00 Oxygen-Last Documented O2 Percentage 4 Liters = 36% Intake & Output: Intake & Output 02/21/18 02/22/18 02/23/18 02/24/18 11:59 11:59 11:59 11:59 Intake Total 2152 720 Output Total 1750 Balance 402 720 Weight 70.6 kg - Procedures and Test Procedures and Tests throughout Hospitalization: Therapy Orders & Screens 02/17/18 15:00 Respiratory Nebulizer Q4H Comment: DUONEB Q4 Diagnosis: Infection requiring I.V. Antibiotics 02/17/18 15:01 Oxygen NASAL CANNULA 5 lpm Comment: Diagnosis: Infection requiring I.V. Antibiotics 02/17/18 19:00 Respiratory MDI BID Comment: ADVAIR 230/21 BID Diagnosis: Infection requiring I.V. Antibiotics Respiratory Nebulizer UD Comment: MUCOMYST BID Diagnosis: Infection requiring I.V. Antibiotics 02/21/18 07:00 Respiratory MDI BID Comment: DIONNEZA BID-OWN MED Diagnosis: Infection requiring I.V. Antibiotics Respiratory MDI DAILY Comment: BREReji DAILY-OWN [facility] Diagnosis: Infection requiring I.V. Antibiotics Discharge Exam General Appearance: no apparent distress, alert Neurologic Exam: alert, oriented x 3, cooperative, normal mood/affect, nml cerebellar function, sensation nml, No motor deficits Skin Exam: normal color, warm, dry Eye Exam: PERRL, EOMI, eyes nml inspection Ears, Nose, Throat Exam: normal ENT inspection, pharynx normal, moist mucous membranes Neck Exam: normal inspection, non-tender, supple, full range of motion Respiratory Exam: normal breath sounds, lungs clear, No respiratory distress Cardiovascular Exam: regular rate/rhythm, normal heart sounds Gastrointestinal/Abdomen Exam: soft, No tenderness, No mass Extremity Exam: normal inspection, normal range of motion Back Exam: normal inspection, normal range of motion, No CVA tenderness, No vertebral tenderness Pelvic Exam: deferred Rectal Exam: deferred Final Diagnosis/Problem List - Final Discharge Diagnosis/Problem (1) Pseudomonas aeruginosa infection Status: Acute (2) Acute exacerbation of chronic obstructive pulmonary disease (COPD) Status: Acute Onset Date: ~02/13/18 (3) Anemia Status: Chronic (4) Chronic hypoxemic respiratory failure Status: Chronic (5) Degenerative disc disease Status: Chronic (6) Hx of coronary artery disease Status: Chronic (7) Hx pulmonary embolism Status: Chronic (8) Lung nodule Status: Chronic - Discharge Discharge Date: 02/21/18 Disposition: Home, Self-Care Condition: Stable Prescriptions: New Prednisone 20 mg [Deltasone 20 mg] 40 mg PO DAILY #17 tablet Nystatin 60 ml [Nystatin SUSPENSION 60 ML] 5 ml PO QID #120 ml Hydrocodone/APAP 10/325 mg [[place] 10/325 MG Tablet] 1 tab PO QID PRN PRN #12 tablet MDD 4 PRN Reason: Pain Continue Nitroglycerin 0.4 mg Tablet [Nitrostat 0.4 MG Tablet] 0.4 mg SL Q5MX3 Hydrocodone/APAP 10/325 mg [[place] 10/325 MG Tablet] 1 tab PO QIDPRN PRN PRN Reason: Pain Docusate Sodium 100 mg [Colace 100 MG] 100 mg PO BID Potassium Chloride 10 Meq Tab* [Klor Con 10 MEQ] 10 meq PO BID Simvastatin 20 mg PO HS Famotidine 20 mg [Pepcid 20 MG] 20 mg PO BID Albuterol/Ipratropium 3ml Neb* [DUONEB 0.5-3 MG/3 ml Neb] 1 neb IH QID Ipratropium/Albuterol Sulfate [Combivent Respimat Common Canister] 1 puff IH QID Aspirin 162 mg PO DAILY Isosorbide Mononitrate 30 mg [Imdur 30 MG] 30 mg PO DAILY Albuterol 8 gm Mdi Hfa [Ventolin Hfa MDI] 2 puff IH Q2H/PRN PRN PRN Reason: Shortness Of Breath/Wheezing Fluticasone/Vilanterol [Breo Ellipta 100-25 Mcg INH] 1 each IH DAILY Metoprolol Succinate 25 mg Xl* [Toprol-Xl 25MG Tablets] 50 mg PO DAILY Calcium Carbonate/Vitamin D3 [Calcium 1,000 + D3 Caplet] 1 each PO BID Lorazepam 0.5 mg [Ativan 0.5 MG] 0.5 mg PO BID PRN PRN #60 tablet PRN Reason: Anxiety Rivaroxaban 10 mg Tablet [Xarelto 10 mg Tablet] 20 mg PO DAILY predniSONE [Prednisone] 10 mg PO DAILY predniSONE [Prednisone] 60 mg PO DAILY #15 tablet Discontinued Azithromycin 250 mg [Zithromax 250 MG TABLET] 250 mg PO ZPACK #6 tablet Instructions: Pneumonia, Adult (DC), Exacerbation of COPD (DC) Follow up with: MAKSIM MONSALVE [Primary Care Provider] - 02/28/18 1:45 pm Forms: Discharge Instructions, Patient Portal Information
[2018-02-28] MEDS ORDERED: Aplisol ID SCH (10:00)
== END 2018-02-21 17:50 | disposition home or self-care (01) | DRG 868 ==
LOC: MED SURG 13:30
PROVIDERS: ADMIT Family Medicine; ATTEND Family Medicine
DX: B96.5 Pseudomonas (aeruginosa) (mallei) (pseudomallei) as the cause of diseases classified elsewhere (principal); J44.1 Chronic obstructive pulmonary disease with (acute) exacerbation; J96.11 Chronic respiratory failure with hypoxia; D64.9 Anemia, unspecified; M51.36 Other intervertebral disc degeneration, lumbar region; I25.10 Atherosclerotic heart disease of native coronary artery without angina pectoris; Z86.711 Personal history of pulmonary embolism; R91.1 Solitary pulmonary nodule; Z79.01 Long term (current) use of anticoagulants; Z79.899 Other long term (current) drug therapy; J20.9 Acute bronchitis, unspecified; E78.00 Pure hypercholesterolemia, unspecified; K21.9 Gastro-esophageal reflux disease without esophagitis; Z72.0 Tobacco use
CPT/HCPCS: 94640; 94760; J0713; J1940; J2930; A9270-GY

== ENCOUNTER 2018-05-27 01:36 | Inpatient (IN) | payer MEDICARE ==
[2018-05-27] MEDS ORDERED: PROVENTIL 2.5 MG/3 ML NEB IH ONE ×2 (01:39→01:49)
[2018-05-27] MEDS ORDERED: Sodium Chloride 0.9% 1000 ML 1,000 ML IV STA (01:49)
[2018-05-27] MEDS ORDERED: Zithromax 500 MG/ 250 ML NaCl Premix 500 MG/250 ML IVPB IV STA (01:49)
[2018-05-27] MEDS ORDERED: solu-MEDROL 125 MG IV ONE (01:49)
[2018-05-27] MEDS ORDERED: ROCEPHIN 1 Gm-D5w 50 ml Bag** 1 G/50 ML IVPB IV STA (01:49)
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
[2018-05-27] MEDS ORDERED: Sodium Chloride 0.9% 1000 ML 1,000 ML ONE (02:07)
[2018-05-27] MEDS ORDERED: Zithromax 500 MG/ 250 ML NaCl Premix 500 MG/250 ML IVPB IV ONE (02:07)
[2018-05-27] MEDS ORDERED: ROCEPHIN 1 Gm-D5w 50 ml Bag** 1 G/50 ML IVPB IV ONE (02:07)
[2018-05-27 02:38] LABS: BASOPHIL % 0.2 % (0.0-0.4); Basophil (Absolute #) 0.03 (0-0.4); Eosinophil % 1.6 % (0.00-5.0); Eosinophil (Absolute #) 0.22 (0-0.5); Granulocyte Absolute (ANC) 8.44 (1.4-6.9); Granulocytes % 61.7 % (36.0-66.0); Hematocrit 39.4 % (35-47); Hemoglobin 12.6 gm/dl (12.0-16.0); Lymphocytes % 29.2 % (24.0-44.0); Mean Cell Volume 95.9 fl (78-100); Mean Corpuscular Hemoglobin 30.7 pg (26-32); Mean Platelet Volume 9.2 fl (6-9.5); Monocytes % 7.3 % (0.0-12.0); Platelet Count 242 K/mm3 (150-450); Red Blood Count 4.11 M/mm3 (4.1-5.4); Red Cell Distribution Width 12.7 % (11.5-14.0); White Blood Count 13.7 K/mm3 (4.0-10.5)
[2018-05-27 02:58] LABS: ALBUMIN 4.2 g/dL (3.5-5.0); ALKALINE PHOSPHATASE 50 U/L (38-126); ANION GAP 12.4 MEQ/L (5-15); BLOOD UREA NITROGEN 18 mg/dL (7-17); CHLORIDE 100 mmol/L (98-107); Calcium 9.5 mg/dL (8.4-10.2); Carbon Dioxide 31 mmol/L (22-30); Creatinine 1 0.74 mg/dL (0.52-1.04); Glucose 133 mg/dL (74-106); Potassium 4.1 mmol/L (3.5-5.1); SGOT/AST 22 U/L (14-36); SGPT/ALT 17 U/L (0-35); SODIUM 140 mmol/L (137-145); Total Protein 6.7 g/dL (6.3-8.2)
[2018-05-27 03:07] LABS: INR 1.1 (0.8-3.0)
[2018-05-27] MEDS ORDERED: Xopenex 1.25 MG/0.5 ML UD NEBULE IH ONE (03:27)
[2018-05-27] MEDS ORDERED: Norco 10/325 MG Tablet PO PRN (04:02)
[2018-05-27] MEDS ORDERED: Xopenex 1.25 MG/0.5 ML UD NEBULE IH PRN (04:02)
[2018-05-27] MEDS ORDERED: Nitrostat 0.4 MG Tablet SL PRN (04:02)
[2018-05-27] MEDS: DUONEB 0.5-3 MG/3 ml Neb IH SCH ×5 (05:41→23:01)
[2018-05-27] MEDS: solu-MEDROL 125 MG IV SCH ×3 (06:33→18:01)
[2018-05-27] MEDS: Sodium Chloride 0.9% 1000 ML 1,000 ML IV SCH (06:33)
[2018-05-27] MEDS ORDERED: Advair Hfa 115/21 Common canister IH SCH (07:00)
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
[2018-05-27] MEDS ORDERED: Ventolin Hfa MDI IH PRN (09:22)
[2018-05-27] MEDS ORDERED: PROVENTIL COMMON CANISTER IH PRN (09:25)
--- NOTE | 2018-05-27 09:47 | XRAY ---
Indication: Cough. Difficulty breathing. Comparison: February 13, 2018. Portable chest demonstrates clearing of previous right apical interstitial alveolar opacity with now residual fibrosis/scarring. Stable COPD and bilateral suture material. Heart is not enlarged. No acute cardiopulmonary abnormalities.
[2018-05-27] MEDS ORDERED: ECOTRIN 81 MG PO SCH (10:00)
[2018-05-27] MEDS ORDERED: XARELTO 10 MG TABLET PO SCH (10:00)
[2018-05-27] MEDS: Nicoderm CQ 21 MG TOP SCH (10:10)
[2018-05-27] MEDS: Protonix 40MG Tablet PO SCH (10:10)
[2018-05-27] MEDS: XARELTO 10 MG TABLET PO SCH (10:10)
[2018-05-27] MEDS: Pepcid 20 MG PO SCH ×2 (10:11→21:19)
[2018-05-27] MEDS: Colace 100 MG PO SCH ×2 (10:11→21:19)
[2018-05-27] MEDS: Imdur 30 MG PO SCH (10:11)
[2018-05-27] MEDS: Klor Con 10 MEQ PO SCH ×2 (10:11→21:19)
[2018-05-27] MEDS: Toprol Xl 50 MG PO SCH (10:12)
[2018-05-27] MEDS ORDERED: Mucomyst 200 MG/ML ONE (10:35)
[2018-05-27] MEDS: Mucomyst 200 MG/ML IH SCH ×2 (10:41→17:43)
[2018-05-27] MEDS: Ativan 0.5 MG PO PRN ×2 (11:54→23:05)
[2018-05-27] MEDS ORDERED: ECOTRIN 81 MG PO ONE (12:29)
[2018-05-27] MEDS: Nystatin SUSPENSION 60 ML PO SCH ×3 (12:58→21:30)
[2018-05-27] MEDS: PATIENT OWN MEDICATION IH SCH (17:43)
[2018-05-27] MEDS: Norco 10/325 MG Tablet PO PRN (21:19)
[2018-05-27] MEDS: ZOCOR 20MG PO SCH (21:19)
[2018-05-27] MEDS: ROCEPHIN 1 Gm-D5w 50 ml Bag** 1 G/50 ML IVPB IV SCH (21:20)
[2018-05-27] MEDS ORDERED: Zithromax 500 MG/ 250 ML NaCl Premix 500 MG/250 ML IVPB IV SCH (22:00)
[2018-05-27] MEDS ORDERED: BENADRYL 25 MG CAPSULE PO ONE (23:57)
[2018-05-28] MEDS: solu-MEDROL 125 MG IV SCH ×5 (00:01→23:39)
[2018-05-28] MEDS: Sodium Chloride 0.9% 1000 ML 1,000 ML IV SCH ×2 (00:07→19:53)
[2018-05-28] MEDS: DUONEB 0.5-3 MG/3 ml Neb IH SCH ×6 (03:13→23:33)
[2018-05-28] MEDS: Mucomyst 200 MG/ML IH SCH ×2 (06:18→18:55)
[2018-05-28] MEDS: PATIENT OWN MEDICATION IH SCH ×3 (06:18→18:58)
--- NOTE | 2018-05-28 08:24 | PCM.NOTE ---
Date and Time: 05/28/18820 Subjective Assessment: She is feeling better. BP in 140s-150s systolic. Pt had an allergic, local reaction to the zithromax last night and it was stopped. Benadryl given po x 1. - Review of Systems Constitutional: No Fever Objective Exam General Appearance: no apparent distress, alert Neurologic Exam: oriented x 3, cooperative Skin Exam: normal color, warm, dry, No rash Respiratory Exam: diminished breath sounds, prolonged expirations, wheezing ( throughout, but decreased from yesterday), No crackles/rales, No rhonchi Cardiovascular Exam: regular rate/rhythm, normal heart sounds, No murmur Gastrointestinal/Abdomen Exam: soft, normal bowel sounds, No tenderness Extremity Exam: normal inspection, No pedal edema, No swelling Back Exam: normal inspection, No rash OBJECTIVE DATA Vital Signs: Vital Signs - 24 hr Temp Pulse Resp BP Pulse Ox 05/28/18 06:57 97.7 F 86 22 155/69 98 05/28/18 06:18 86 22 98 05/28/18 04:00 98.0 F 87 20 140/61 99 05/28/18 03:13 81 20 98 05/28/18 00:00 20 05/27/18 23:47 97.8 F 84 20 142/66 98 05/27/18 23:01 84 20 98 05/27/18 20:18 98.3 F 79 20 157/70 96 05/27/18 20:00 20 05/27/18 17:55 85 22 98 05/27/18 16:00 98.3 F 77 22 144/62 97 05/27/18 14:45 83 20 97 05/27/18 11:43 98.2 F 88 20 132/64 98 05/27/18 10:53 89 20 98 Oxygen-Last 24 hours O2 Percentage 4 Liters = 36% O2 Percentage 4 Liters = 36% O2 Percentage 4 Liters = 36% O2 Percentage 4 Liters = 36% O2 Percentage 4 Liters = 36% O2 Percentage 4 Liters = 36% Pain Assessment - Last Documented Pain Intensity 6 Pain Scale Used 0-10 Pain Scale Intake and Output: Intake & Output 05/25/18 05/26/18 05/27/18 05/28/18 11:59 11:59 11:59 11:59 Intake Total 360 1710 Output Total 700 2800 Balance -340 -1090 Weight 66.8 kg 68.8 kg Lab Results: Lab Results-Last 24 Hours 05/27/18 05/27/18 05/27/18 Range/Units 08:15 10:56 14:00 Troponin I < 0.012 < 0.012 < 0.012 (0.000-0.034) ng/mL Radiology Exams: Radiology Procedures Category Date Time Status CHEST 1 VIEW (PORTABLE) Stat Exams 05/27/18 01:50 Completed Assessment/Plan (1) COPD exacerbation Current Visit: No Status: Acute Onset Date: ~02/13/18 Assessment & Plan: Improved. on IV rocephin (d/c'd zithromax). Code(s): J44.1 - CHRONIC OBSTRUCTIVE PULMONARY DISEASE W (ACUTE) EXACERBATION (2) Palpitations Current Visit: Yes Status: Chronic Assessment & Plan: no complaint. nothing abnormal noted. Code(s): R00.2 - PALPITATIONS (3) Hx of coronary artery disease Current Visit: No Status: Chronic Code(s): Z86.79 - PERSONAL HISTORY OF OTHER DISEASES OF THE CIRCULATORY SYSTEM (4) Hx pulmonary embolism Current Visit: No Status: Chronic Assessment & Plan: on xarelto Code(s): Z86.711 - PERSONAL HISTORY OF PULMONARY EMBOLISM (5) Chronic hypoxemic respiratory failure Current Visit: No Status: Chronic
[2018-05-28] MEDS: Klor Con 10 MEQ PO SCH ×2 (10:19→22:31)
[2018-05-28] MEDS: Imdur 30 MG PO SCH (10:19)
[2018-05-28] MEDS: Colace 100 MG PO SCH ×2 (10:19→22:30)
[2018-05-28] MEDS: Pepcid 20 MG PO SCH ×2 (10:20→22:31)
[2018-05-28] MEDS: Protonix 40MG Tablet PO SCH (10:20)
[2018-05-28] MEDS: Nystatin SUSPENSION 60 ML PO SCH ×4 (10:20→22:31)
[2018-05-28] MEDS: Nicoderm CQ 21 MG TOP SCH (10:20)
[2018-05-28] MEDS: XARELTO 10 MG TABLET PO SCH (10:21)
[2018-05-28] MEDS: Toprol Xl 50 MG PO SCH (10:21)
[2018-05-28] MEDS: Norco 10/325 MG Tablet PO PRN ×2 (10:36→22:45)
[2018-05-28] MEDS: ECOTRIN 81 MG PO SCH ×2 (10:37→22:38)
[2018-05-28] MEDS: ROCEPHIN 1 Gm-D5w 50 ml Bag** 1 G/50 ML IVPB IV SCH (22:30)
[2018-05-28] MEDS: ZOCOR 20MG PO SCH (22:31)
[2018-05-28] MEDS: Ativan 0.5 MG PO PRN (23:42)
[2018-05-29] MEDS: DUONEB 0.5-3 MG/3 ml Neb IH SCH ×6 (03:16→23:18)
[2018-05-29] MEDS: solu-MEDROL 125 MG IV SCH (06:22)
[2018-05-29] MEDS: PATIENT OWN MEDICATION IH SCH ×5 (06:58→19:34)
[2018-05-29] MEDS: Mucomyst 200 MG/ML IH SCH ×2 (06:58→19:32)
[2018-05-29] MEDS: Nicoderm CQ 21 MG TOP SCH (08:45)
[2018-05-29] MEDS: Nystatin SUSPENSION 60 ML PO SCH ×4 (08:47→21:33)
[2018-05-29] MEDS: Imdur 30 MG PO SCH (08:47)
[2018-05-29] MEDS: Toprol Xl 50 MG PO SCH (08:47)
[2018-05-29] MEDS: Protonix 40MG Tablet PO SCH ×3 (08:47→21:32)
[2018-05-29] MEDS: ECOTRIN 81 MG PO SCH ×2 (08:47→09:23)
[2018-05-29] MEDS: Klor Con 10 MEQ PO SCH ×2 (08:47→21:32)
[2018-05-29] MEDS: XARELTO 10 MG TABLET PO SCH (08:48)
[2018-05-29] MEDS: Pepcid 20 MG PO SCH ×2 (08:48→21:32)
[2018-05-29] MEDS: Colace 100 MG PO SCH ×2 (08:48→21:32)
[2018-05-29] MEDS: Norco 10/325 MG Tablet PO PRN ×2 (08:54→20:28)
--- NOTE | 2018-05-29 08:59 | PCM.NOTE ---
Date and Time: 05/29/18856 Subjective Assessment: She is feeling better, still wheezing and crackles. - Review of Systems Constitutional: No Fever Respiratory: Wheezing Objective Exam General Appearance: no apparent distress, alert Neurologic Exam: oriented x 3, cooperative Skin Exam: normal color, warm, dry, No rash Respiratory Exam: diminished breath sounds, prolonged expirations, wheezing ( faint, throughout), No crackles/rales, No rhonchi Cardiovascular Exam: regular rate/rhythm, normal heart sounds, No murmur Extremity Exam: No pedal edema, No swelling OBJECTIVE DATA Vital Signs: Vital Signs - 24 hr Temp Pulse Resp BP Pulse Ox 05/29/18 08:00 98.1 F 83 98 H 179/77 22 L 05/29/18 04:15 97.8 F 78 17 125/60 98 05/29/18 03:16 78 17 98 05/29/18 00:08 98.5 F 84 19 147/65 98 05/28/18 23:33 84 19 98 05/28/18 20:00 98.3 F 82 21 125/58 98 05/28/18 18:54 82 21 98 05/28/18 16:00 98.4 F 88 20 142/63 97 05/28/18 14:55 78 16 99 05/28/18 12:00 98.1 F 85 22 129/60 97 05/28/18 10:58 87 18 97 Oxygen-Last 24 hours O2 Percentage 4 Liters = 36% O2 Percentage 4 Liters = 36% O2 Percentage 4 Liters = 36% O2 Percentage 4 Liters = 36% O2 Percentage 4 Liters = 36% O2 Percentage 4 Liters = 36% Pain Assessment - Last Documented Pain Intensity 7 Pain Scale Used 0-10 Pain Scale Intake and Output: Intake & Output 05/26/18 05/27/18 05/28/18 05/29/18 11:59 11:59 11:59 11:59 Intake Total 360 1710 2491 Output Total 1600 2800 2050 Balance -1240 -1090 441 Weight 66.8 kg 68.8 kg 69.5 kg Multi-Disciplinary Progress Notes: Multi-Disciplinary Progress Notes 05/28/18 14:19 Case Management Note by Alida Vieira S/W PATIENT, NO CHANGE IN DC PLANS. SHE IS STILL UNDECIDED ON WHAT [facility] TO USE. WILL FOLLOW-UP TOMORROW Initialized on 05/28/18 14:19 - END OF NOTE Assessment/Plan (1) COPD exacerbation Current Visit: Yes Status: Acute Onset Date: ~05/27/18 Assessment & Plan: Improved; start decreasing steroids IV today and possibly home tomorrow or the next day. Code(s): J44.1 - CHRONIC OBSTRUCTIVE PULMONARY DISEASE W (ACUTE) EXACERBATION (2) Palpitations Current Visit: Yes Status: Chronic Code(s): R00.2 - PALPITATIONS (3) Hx of coronary artery disease Current Visit: No Status: Chronic Code(s): Z86.79 - PERSONAL HISTORY OF OTHER DISEASES OF THE CIRCULATORY SYSTEM (4) Hx pulmonary embolism Current Visit: No Status: Chronic Code(s): Z86.711 - PERSONAL HISTORY OF PULMONARY EMBOLISM (5) Chronic hypoxemic respiratory failure Current Visit: No Status: Chronic
[2018-05-29] MEDS: solu-MEDROL 40 MG IV SCH ×2 (14:02→21:32)
[2018-05-29] MEDS: Sodium Chloride 0.9% 1000 ML 1,000 ML IV SCH (17:32)
[2018-05-29] MEDS: ROCEPHIN 1 Gm-D5w 50 ml Bag** 1 G/50 ML IVPB IV SCH (21:32)
[2018-05-29] MEDS: ZOCOR 20MG PO SCH (21:32)
[2018-05-29] MEDS: Ativan 0.5 MG PO PRN (21:39)
[2018-05-30] MEDS: DUONEB 0.5-3 MG/3 ml Neb IH SCH ×2 (03:34→06:57)
[2018-05-30] MEDS: solu-MEDROL 40 MG IV SCH ×2 (05:31→13:42)
[2018-05-30] MEDS: PATIENT OWN MEDICATION IH SCH ×2 (07:06→07:09)
[2018-05-30 07:19] VITALS: O2SAT 100
[2018-05-30] MEDS ORDERED: NORVASC 5 MG PO PRN (08:23)
--- NOTE | 2018-05-30 08:47 | PCM.DS ---
Discharge Summary Date of Admission: 05/27/18 08:52 Admitting Physician: MAKSIM MONSALVE Primary Care Provider: MAKSIM MONSALVE Allergies Allergies ciprofloxacin [From Cipro] Allergy (Severe, Verified 05/27/18 02:03) Itchy Eyes theophylline Allergy (Severe, Verified 05/27/18 02:03) hives, sob iodine Allergy (Intermediate, Verified 05/27/18 02:03) Tightness in Chest Penicillins Allergy (Intermediate, Verified 05/27/18 02:03) Itchy Eyes Sulfa (Sulfonamide Antibiotics) [Sulfa(Sulfonamide Antibiotics)] Allergy ( Intermediate, Verified 05/27/18 02:03) Itchy Eyes hydromorphone HCl [From Dilaudid] Allergy (Mild, Verified 05/27/18 02:03) low bp lisinopril Allergy (Verified 05/27/18 02:03) clindamycin Adverse Reaction (Severe, Verified 05/27/18 02:03) azithromycin [From Zithromax] Adverse Reaction (Mild, Verified 05/28/18 06:42) Itching Hospital Summary - Hospital Course Hospital Course: She is feeling better. Magda po. - Vitals & Intake/Output Vital Signs: Vital Signs Temperature 97.8 F 05/30/18 07:35 Pulse Rate 77 05/30/18 07:35 Respiratory Rate 20 05/30/18 08:00 Blood Pressure 190/86 05/30/18 07:35 O2 Sat by Pulse Oximetry 100 05/30/18 07:35 Oxygen-Last Documented O2 Percentage 4 Liters = 36% Intake & Output: Intake & Output 05/27/18 05/28/18 05/29/18 05/30/18 11:59 11:59 11:59 11:59 Intake Total 360 1710 2971 1601 Output Total 1600 2800 3900 2350 Balance -1240 -1090 -929 -749 Weight 66.8 kg 68.8 kg 69.5 kg - Lab Result Diagrams: 05/27/18 02:25 05/27/18 02:25 Micro Results-Entire Visit: Microbiology 05/28/18 11:44 Gram Stain - Final Sputum - Expectorant Sputum Culture - Final Pseudomonas Aeruginosa 05/27/18 02:15 Blood Culture - Preliminary Blood NO GROWTH TO DATE 05/27/18 02:25 Blood Culture - Preliminary Blood NO GROWTH TO DATE - Procedures and Test Procedures and Tests throughout Hospitalization: Therapy Orders & Screens 05/27/18 01:52 Respiratory Nebulizer STAT Comment: Diagnosis: Shortness of Breath 05/27/18 02:02 Respiratory Therapy Assessment DAILY Comment: Diagnosis: Shortness of Breath 05/27/18 02:04 Oxygen NASAL CANNULA 4 lpm Comment: Diagnosis: Shortness of Breath 05/27/18 04:02 Oxygen NASAL CANNULA 4 lpm Comment: Diagnosis: Shortness of Breath Respiratory Therapy Consult ROUTINE Comment: Reason For Exam: Diagnosis: Shortness of Breath 05/27/18 04:27 Peak Expiratory Flow Rate ONCE Comment: Reason For Exam: Diagnosis: Shortness of Breath 05/27/18 04:55 RT Screen per Nursing Assess ONCE Comment: Protocol Order Physician Instructions: Greater than 3 points order RT Admission Screen Reason For Exam: Triggered on Admission Diagnosis: Shortness of Breath Diagnosis: Shortness of Breath Pneumonia: Yes Home O2: Yes: 4L at home Asthma: Yes CHF: No Home CPAP/BIPAP: No Home Nebs/MDI: Yes Total Points: 17 Smoking Cessation Education ONCE Comment: Diagnosis: Shortness of Breath Smoking Status: Current every day smoker How long have you smoked: 30 Have you smoked in the past 12 months: Yes Approximately how many cigarettes per day: 1 1/2 pks Do you dip or chew tobacco: No If,Former Smoker,when did you quit: 11 DAYS AGO 05/27/18 09:04 Respiratory Nebulizer BID Comment: MUCOMYST BID Diagnosis: Shortness of Breath 05/27/18 17:52 Respiratory MDI BID Comment: ABIGAIL BID-OWN MED Diagnosis: RESPIRATORY DISTRESS, EXACERBATION COPD, Shortness of Breath 05/27/18 17:53 Respiratory MDI UD Comment: AGUSTO DAILY-PT'S OWN MED Diagnosis: RESPIRATORY DISTRESS, EXACERBATION COPD, Shortness of Breath Discharge Exam General Appearance: no apparent distress, alert Neurologic Exam: oriented x 3, cooperative Skin Exam: normal color, warm, dry, rash Eye Exam: eyes nml inspection Ears, Nose, Throat Exam: moist mucous membranes Respiratory Exam: diminished breath sounds, prolonged expirations, wheezing ( faint, throughout), No crackles/rales, No rhonchi Cardiovascular Exam: regular rate/rhythm, normal heart sounds, No murmur Extremity Exam: normal inspection Final Diagnosis/Problem List - Final Discharge Diagnosis/Problem (1) COPD exacerbation Current Visit: Yes Status: Acute Onset Date: ~05/27/18 Assessment & Plan: Much improved. Home today on (2) Palpitations Current Visit: Yes Status: Chronic (3) Hx of coronary artery disease Current Visit: No Status: Chronic (4) Hx pulmonary embolism Current Visit: No Status: Chronic (5) Chronic hypoxemic respiratory failure Current Visit: No Status: Chronic - Discharge Disposition: Home, Self-Care Condition: Good Prescriptions: New Prednisone [Deltasone] 20 mg PO DAILY #17 tablet Amlodipine Besylate 5 mg [Norvasc 5 mg] 5 mg PO DAILY #7 tablet Cefdinir [Omnicef] 300 mg PO BID #20 capsule Continue Nitroglycerin 0.4 mg Tablet [Nitrostat 0.4 MG Tablet] 0.4 mg SL [id number] Hydrocodone/APAP 10/325 mg [[place] 10/325 MG Tablet] 1 tab PO QIDPRN PRN PRN Reason: Pain Docusate Sodium 100 mg [Colace 100 MG] 100 mg PO BID Potassium Chloride 10 Meq Tab* [Klor Con 10 MEQ] 10 meq PO BID Simvastatin 20 mg PO HS Famotidine 20 mg [Pepcid 20 MG] 20 mg PO BID Albuterol/Ipratropium 3ml Neb* [DUONEB 0.5-3 MG/3 ml Neb] 1 neb IH QID Aspirin 81 mg PO DAILY Isosorbide Mononitrate 30 mg [Imdur 30 MG] 30 mg PO DAILY Albuterol 8 gm Mdi Hfa [Ventolin Hfa MDI] 2 puff IH Q2H/PRN PRN PRN Reason: Shortness Of Breath/Wheezing Fluticasone/Vilanterol [Breo Ellipta 100-25 Mcg INH] 1 each IH DAILY Metoprolol Succinate 25 mg Xl* [Toprol-Xl 25MG Tablets] 50 mg PO DAILY Calcium Carbonate/Vitamin D3 [Calcium 1,000 + D3 Caplet] 1 each PO BID Rivaroxaban 10 mg Tablet [Xarelto 10 mg Tablet] 20 mg PO DAILY Sodium Chloride For Inhalation [Sodium Chloride] 3 ml IH PANTOPRAZOLE 40 mg Tablet [Protonix 40MG Tablet] 40 mg PO BID Lorazepam 0.5 mg [Ativan 0.5 MG] 0.5 mg PO BID PRN PRN #15 tablet PRN Reason: Anxiety Additional Instructions: [facility] SHOULD BE IN CONTACT WITH YOU, THEIR PHONE NUMBER IS [phone] OR Follow up with: MAKSIM MONSALVE [Primary Care Provider] - 1 Week
[2018-05-30] MEDS: Nystatin SUSPENSION 60 ML PO SCH ×2 (09:07→13:42)
[2018-05-30] MEDS: Pepcid 20 MG PO SCH (09:07)
[2018-05-30] MEDS: XARELTO 10 MG TABLET PO SCH (09:07)
[2018-05-30] MEDS: Imdur 30 MG PO SCH (09:08)
[2018-05-30] MEDS: Colace 100 MG PO SCH (09:08)
[2018-05-30] MEDS: Protonix 40MG Tablet PO SCH (09:08)
[2018-05-30] MEDS: ECOTRIN 81 MG PO SCH (09:08)
[2018-05-30] MEDS: Toprol Xl 50 MG PO SCH (09:08)
[2018-05-30] MEDS: Klor Con 10 MEQ PO SCH (09:08)
[2018-05-30] MEDS: Nicoderm CQ 21 MG TOP SCH (09:12)
[2018-05-30] MEDS: Norco 10/325 MG Tablet PO PRN (09:18)
[2018-05-30 10:15] VITALS: BP 181/79; PULSE 82
[2018-05-30] MEDS ORDERED: Maxipime 2 GM** 2 G in Dextrose 5%/Water IV Soln. 100ML PLUS BAG 100 ML IV SCH (14:00)
== END 2018-05-30 14:45 | disposition swing bed (61) | DRG 191 ==
LOC: ED 01:36 → MED SURG 03:58 → OBSVTOIN 08:52
PROVIDERS: ADMIT Family Medicine; ATTEND Family Medicine
DX: J44.1 Chronic obstructive pulmonary disease with (acute) exacerbation (principal); J96.11 Chronic respiratory failure with hypoxia; R00.2 Palpitations; R06.82 Tachypnea, not elsewhere classified; I25.10 Atherosclerotic heart disease of native coronary artery without angina pectoris; E78.00 Pure hypercholesterolemia, unspecified; I10 Essential (primary) hypertension; M19.90 Unspecified osteoarthritis, unspecified site; K21.9 Gastro-esophageal reflux disease without esophagitis; F41.8 Other specified anxiety disorders; R09.02 Hypoxemia; Z72.0 Tobacco use; Z86.711 Personal history of pulmonary embolism; Z79.899 Other long term (current) drug therapy; Z23 Encounter for immunization
CPT/HCPCS: 36415; 71045; 80053; 83605; 83735; 84484; 85025; 85610; 87040; 87070; 87077; 87186; 93005; 93041; 93268; 94150; 94640; 94760; 96360; 96365; 96374; 96375; 99285; J7609; 90662; G0008; J0456; J0692; J0696; J2920; J2930; A9270-GY

== ENCOUNTER 2018-05-30 14:46 | Inpatient (IN) | payer MEDICARE ==
[~2018-05-30 14:46] MED LIST: DUONEB 0.5-3 MG/3 ml Neb IH ONE
[2018-05-30] MEDS: DUONEB 0.5-3 MG/3 ml Neb IH SCH ×3 (15:14→22:57)
[2018-05-30] MEDS ORDERED: DUONEB 0.5-3 MG/3 ml Neb IH SCH (15:15)
[2018-05-30] MEDS ORDERED: Xopenex 1.25 MG/0.5 ML UD NEBULE IH PRN (15:15)
[2018-05-30] MEDS ORDERED: Nitrostat 0.4 MG Tablet SL PRN (15:15)
[2018-05-30] MEDS ORDERED: PROVENTIL COMMON CANISTER IH PRN (15:15)
[2018-05-30] MEDS ORDERED: Sodium Chloride 0.9% 10 ML FLUSH Syringe IV PRN (15:30)
[2018-05-30] MEDS: Nystatin SUSPENSION 60 ML PO SCH ×2 (17:35→21:27)
[2018-05-30] MEDS: Mucomyst 200 MG/ML IH SCH (19:15)
[2018-05-30] MEDS: PATIENT OWN MEDICATION IH SCH (19:15)
[2018-05-30] MEDS: Norco 10/325 MG Tablet PO PRN (20:03)
[2018-05-30] MEDS: Maxipime 2 GM** 2 G in Dextrose 5%/Water IV Soln. 100ML PLUS BAG 100 ML IV SCH (21:20)
[2018-05-30] MEDS: Sodium Chloride 0.9% 10 ML FLUSH Syringe IV SCH (21:21)
[2018-05-30] MEDS: Protonix 40MG Tablet PO SCH (21:21)
[2018-05-30] MEDS: ZOCOR 20MG PO SCH (21:21)
[2018-05-30] MEDS: Klor Con 10 MEQ PO SCH (21:21)
[2018-05-30] MEDS: Pepcid 20 MG PO SCH (21:21)
[2018-05-30] MEDS: Ativan 0.5 MG PO PRN (21:21)
[2018-05-30] MEDS: Colace 100 MG PO SCH (21:21)
[2018-05-30] MEDS: BENADRYL 25 MG CAPSULE PO PRN (22:12)
[2018-05-31] MEDS: DUONEB 0.5-3 MG/3 ml Neb IH SCH ×5 (02:56→19:17)
[2018-05-31] MEDS: BENADRYL 25 MG CAPSULE PO PRN (06:10)
[2018-05-31] MEDS: Maxipime 2 GM** 2 G in Dextrose 5%/Water IV Soln. 100ML PLUS BAG 100 ML IV SCH (06:10)
[2018-05-31] MEDS: Sodium Chloride 0.9% 10 ML FLUSH Syringe IV SCH ×3 (06:10→21:11)
[2018-05-31] MEDS: PATIENT OWN MEDICATION IH SCH ×3 (07:05→19:18)
[2018-05-31] MEDS: Mucomyst 200 MG/ML IH SCH ×2 (07:06→19:18)
[2018-05-31] MEDS ORDERED: Aplisol ID SCH (10:00)
[2018-05-31] MEDS: Nicoderm CQ 21 MG TOP SCH (10:29)
[2018-05-31] MEDS: ECOTRIN 81 MG PO SCH (10:31)
[2018-05-31] MEDS: XARELTO 10 MG TABLET PO SCH (10:31)
[2018-05-31] MEDS: Imdur 30 MG PO SCH (10:32)
[2018-05-31] MEDS: Pepcid 20 MG PO SCH ×2 (10:32→21:07)
[2018-05-31] MEDS: NORVASC 5 MG PO SCH (10:32)
[2018-05-31] MEDS: DELTASONE 20 MG PO SCH (10:33)
[2018-05-31] MEDS: Colace 100 MG PO SCH ×2 (10:33→21:07)
[2018-05-31] MEDS: Toprol Xl 50 MG PO SCH (10:34)
[2018-05-31] MEDS: Protonix 40MG Tablet PO SCH ×2 (10:34→21:07)
[2018-05-31] MEDS: Klor Con 10 MEQ PO SCH ×2 (10:34→21:07)
[2018-05-31] MEDS: Nystatin SUSPENSION 60 ML PO SCH ×4 (10:35→21:07)
[2018-05-31] MEDS: Norco 10/325 MG Tablet PO PRN ×2 (10:40→21:58)
[2018-05-31] MEDS: Merrem 1 GM 1 G in Sodium Chloride 100ML MINI-BAG PLUS 100 ML IV SCH ×2 (14:04→21:09)
[2018-05-31] MEDS: ZOCOR 20MG PO SCH (21:07)
[2018-05-31] MEDS: Ativan 0.5 MG PO PRN (21:19)
[2018-06-01] MEDS: DUONEB 0.5-3 MG/3 ml Neb IH SCH ×7 (01:35→22:36)
[2018-06-01] MEDS: Merrem 1 GM 1 G in Sodium Chloride 100ML MINI-BAG PLUS 100 ML IV SCH ×3 (06:48→21:18)
[2018-06-01] MEDS: Sodium Chloride 0.9% 10 ML FLUSH Syringe IV SCH ×3 (06:48→21:18)
[2018-06-01] MEDS: PATIENT OWN MEDICATION IH SCH ×3 (07:00→18:33)
[2018-06-01] MEDS: Mucomyst 200 MG/ML IH SCH ×2 (07:02→18:33)
[2018-06-01] MEDS: XARELTO 10 MG TABLET PO SCH (09:09)
[2018-06-01] MEDS: Klor Con 10 MEQ PO SCH ×2 (09:09→21:16)
[2018-06-01] MEDS: Protonix 40MG Tablet PO SCH ×2 (09:09→21:16)
[2018-06-01] MEDS: ECOTRIN 81 MG PO SCH (09:09)
[2018-06-01] MEDS: Imdur 30 MG PO SCH (09:09)
[2018-06-01] MEDS: Pepcid 20 MG PO SCH ×2 (09:09→21:16)
[2018-06-01] MEDS: DELTASONE 20 MG PO SCH (09:10)
[2018-06-01] MEDS: Nicoderm CQ 21 MG TOP SCH (09:10)
[2018-06-01] MEDS: NORVASC 5 MG PO SCH (09:10)
[2018-06-01] MEDS: Toprol Xl 50 MG PO SCH (09:10)
[2018-06-01] MEDS: Colace 100 MG PO SCH ×2 (09:10→21:16)
[2018-06-01] MEDS: Nystatin SUSPENSION 60 ML PO SCH ×4 (09:11→21:17)
[2018-06-01] MEDS: Norco 10/325 MG Tablet PO PRN ×2 (09:15→21:16)
[2018-06-01] MEDS: ZOCOR 20MG PO SCH (21:16)
[2018-06-01] MEDS: Ativan 0.5 MG PO PRN (22:32)
[2018-06-02] MEDS: DUONEB 0.5-3 MG/3 ml Neb IH SCH ×6 (03:02→23:25)
[2018-06-02] MEDS: Merrem 1 GM 1 G in Sodium Chloride 100ML MINI-BAG PLUS 100 ML IV SCH ×3 (06:17→21:45)
[2018-06-02] MEDS: Sodium Chloride 0.9% 10 ML FLUSH Syringe IV SCH ×3 (06:17→21:43)
[2018-06-02] MEDS: PATIENT OWN MEDICATION IH SCH ×3 (06:56→19:40)
[2018-06-02] MEDS: Mucomyst 200 MG/ML IH SCH ×2 (06:56→19:37)
[2018-06-02] MEDS: DELTASONE 20 MG PO SCH (09:22)
[2018-06-02] MEDS: XARELTO 10 MG TABLET PO SCH (09:22)
[2018-06-02] MEDS: Klor Con 10 MEQ PO SCH ×2 (09:23→21:45)
[2018-06-02] MEDS: NORVASC 5 MG PO SCH (09:23)
[2018-06-02] MEDS: ECOTRIN 81 MG PO SCH (09:23)
[2018-06-02] MEDS: Toprol Xl 50 MG PO SCH (09:23)
[2018-06-02] MEDS: Imdur 30 MG PO SCH (09:23)
[2018-06-02] MEDS: Colace 100 MG PO SCH ×2 (09:23→21:45)
[2018-06-02] MEDS: Pepcid 20 MG PO SCH ×2 (09:23→21:45)
[2018-06-02] MEDS: Norco 10/325 MG Tablet PO PRN ×2 (09:23→19:19)
[2018-06-02] MEDS: Protonix 40MG Tablet PO SCH ×2 (09:23→21:45)
[2018-06-02] MEDS: Nystatin SUSPENSION 60 ML PO SCH ×4 (09:23→21:45)
[2018-06-02] MEDS: Nicoderm CQ 21 MG TOP SCH (09:26)
[2018-06-02] MEDS: ZOCOR 20MG PO SCH (21:45)
[2018-06-02] MEDS: Ativan 0.5 MG PO PRN (21:46)
[2018-06-03] MEDS: DUONEB 0.5-3 MG/3 ml Neb IH SCH ×6 (03:20→23:01)
[2018-06-03] MEDS: Merrem 1 GM 1 G in Sodium Chloride 100ML MINI-BAG PLUS 100 ML IV SCH ×3 (06:08→22:40)
[2018-06-03] MEDS: Sodium Chloride 0.9% 10 ML FLUSH Syringe IV SCH ×3 (06:08→22:23)
[2018-06-03] MEDS: PATIENT OWN MEDICATION IH SCH ×3 (06:48→19:19)
[2018-06-03] MEDS: Mucomyst 200 MG/ML IH SCH ×2 (06:48→19:18)
[2018-06-03] MEDS: Norco 10/325 MG Tablet PO PRN ×2 (09:15→18:07)
[2018-06-03] MEDS: Nystatin SUSPENSION 60 ML PO SCH ×4 (09:16→22:40)
[2018-06-03] MEDS: Imdur 30 MG PO SCH (09:23)
[2018-06-03] MEDS: Klor Con 10 MEQ PO SCH ×2 (09:23→22:23)
[2018-06-03] MEDS: NORVASC 5 MG PO SCH (09:24)
[2018-06-03] MEDS: ECOTRIN 81 MG PO SCH (09:26)
[2018-06-03] MEDS: Protonix 40MG Tablet PO SCH ×2 (09:26→22:23)
[2018-06-03] MEDS: Toprol Xl 50 MG PO SCH (09:27)
[2018-06-03] MEDS: XARELTO 10 MG TABLET PO SCH (09:28)
[2018-06-03] MEDS: Pepcid 20 MG PO SCH ×2 (09:29→22:23)
[2018-06-03] MEDS: DELTASONE 20 MG PO SCH (09:29)
[2018-06-03] MEDS: Colace 100 MG PO SCH ×2 (09:35→22:38)
[2018-06-03] MEDS: Nicoderm CQ 21 MG TOP SCH (09:36)
[2018-06-03] MEDS: Ativan 0.5 MG PO PRN (22:23)
[2018-06-03] MEDS: ZOCOR 20MG PO SCH (22:23)
[2018-06-04] MEDS: DUONEB 0.5-3 MG/3 ml Neb IH SCH ×6 (03:01→22:56)
[2018-06-04] MEDS: Norco 10/325 MG Tablet PO PRN ×3 (03:31→16:23)
[2018-06-04] MEDS: Merrem 1 GM 1 G in Sodium Chloride 100ML MINI-BAG PLUS 100 ML IV SCH ×3 (06:00→21:21)
[2018-06-04] MEDS: Sodium Chloride 0.9% 10 ML FLUSH Syringe IV SCH ×3 (06:00→21:22)
[2018-06-04] MEDS: PATIENT OWN MEDICATION IH SCH ×3 (06:36→19:24)
[2018-06-04] MEDS: Mucomyst 200 MG/ML IH SCH ×2 (06:36→19:24)
[2018-06-04] MEDS: Protonix 40MG Tablet PO SCH ×2 (09:00→21:21)
[2018-06-04] MEDS: Colace 100 MG PO SCH ×2 (09:00→22:11)
[2018-06-04] MEDS: Imdur 30 MG PO SCH (09:00)
[2018-06-04] MEDS: XARELTO 10 MG TABLET PO SCH (09:00)
[2018-06-04] MEDS: Klor Con 10 MEQ PO SCH ×2 (09:00→21:21)
[2018-06-04] MEDS: ECOTRIN 81 MG PO SCH (09:00)
[2018-06-04] MEDS: DELTASONE 20 MG PO SCH (09:00)
[2018-06-04] MEDS: Toprol Xl 50 MG PO SCH (09:00)
[2018-06-04] MEDS: NORVASC 5 MG PO SCH (09:00)
[2018-06-04] MEDS: Nystatin SUSPENSION 60 ML PO SCH ×4 (09:01→21:22)
[2018-06-04] MEDS: Nicoderm CQ 21 MG TOP SCH (09:01)
[2018-06-04] MEDS: Pepcid 20 MG PO SCH ×2 (09:02→21:21)
[2018-06-04] MEDS: Ativan 0.5 MG PO PRN (21:21)
[2018-06-04] MEDS: ZOCOR 20MG PO SCH (21:21)
[2018-06-05] MEDS: DUONEB 0.5-3 MG/3 ml Neb IH SCH ×6 (02:57→22:55)
[2018-06-05] MEDS: Merrem 1 GM 1 G in Sodium Chloride 100ML MINI-BAG PLUS 100 ML IV SCH ×3 (06:14→22:14)
[2018-06-05] MEDS: Sodium Chloride 0.9% 10 ML FLUSH Syringe IV SCH ×2 (06:15→14:17)
[2018-06-05] MEDS: PATIENT OWN MEDICATION IH SCH ×3 (07:25→19:34)
[2018-06-05] MEDS: Mucomyst 200 MG/ML IH SCH ×2 (07:26→19:34)
[2018-06-05] MEDS: Nystatin SUSPENSION 60 ML PO SCH ×4 (10:00→22:19)
[2018-06-05] MEDS: Klor Con 10 MEQ PO SCH ×2 (10:05→22:14)
[2018-06-05] MEDS: Colace 100 MG PO SCH ×2 (10:05→22:14)
[2018-06-05] MEDS: Imdur 30 MG PO SCH (10:05)
[2018-06-05] MEDS: XARELTO 10 MG TABLET PO SCH (10:05)
[2018-06-05] MEDS: Norco 10/325 MG Tablet PO PRN ×3 (10:06→22:16)
[2018-06-05] MEDS: Pepcid 20 MG PO SCH ×2 (10:06→22:14)
[2018-06-05] MEDS: ECOTRIN 81 MG PO SCH (10:06)
[2018-06-05] MEDS: Toprol Xl 50 MG PO SCH (10:06)
[2018-06-05] MEDS: DELTASONE 20 MG PO SCH (10:06)
[2018-06-05] MEDS: Protonix 40MG Tablet PO SCH ×2 (10:06→22:16)
[2018-06-05] MEDS: Nicoderm CQ 21 MG TOP SCH (10:07)
[2018-06-05] MEDS: NORVASC 5 MG PO SCH (10:07)
[2018-06-05] MEDS: ZOCOR 20MG PO SCH (22:16)
[2018-06-05] MEDS: Ativan 0.5 MG PO PRN (23:11)
[2018-06-06] MEDS: Sodium Chloride 0.9% 10 ML FLUSH Syringe IV SCH ×4 (01:16→21:07)
[2018-06-06] MEDS: DUONEB 0.5-3 MG/3 ml Neb IH SCH ×6 (03:52→23:39)
[2018-06-06] MEDS: Merrem 1 GM 1 G in Sodium Chloride 100ML MINI-BAG PLUS 100 ML IV SCH ×3 (05:27→21:05)
[2018-06-06] MEDS: PATIENT OWN MEDICATION IH SCH ×3 (06:48→19:27)
[2018-06-06] MEDS: Mucomyst 200 MG/ML IH SCH ×2 (07:17→19:26)
[2018-06-06] MEDS: Norco 10/325 MG Tablet PO PRN ×2 (08:19→17:05)
[2018-06-06] MEDS: XARELTO 10 MG TABLET PO SCH (09:14)
[2018-06-06] MEDS: NORVASC 5 MG PO SCH (09:15)
[2018-06-06] MEDS: Protonix 40MG Tablet PO SCH ×2 (09:15→21:06)
[2018-06-06] MEDS: Klor Con 10 MEQ PO SCH ×2 (09:15→21:05)
[2018-06-06] MEDS: Imdur 30 MG PO SCH (09:15)
[2018-06-06] MEDS: Toprol Xl 50 MG PO SCH (09:15)
[2018-06-06] MEDS: DELTASONE 20 MG PO SCH (09:15)
[2018-06-06] MEDS: Pepcid 20 MG PO SCH ×2 (09:15→21:06)
[2018-06-06] MEDS: ECOTRIN 81 MG PO SCH (09:15)
[2018-06-06] MEDS: Nystatin SUSPENSION 60 ML PO SCH ×4 (09:16→21:05)
[2018-06-06] MEDS: Colace 100 MG PO SCH ×2 (09:19→21:05)
[2018-06-06] MEDS: Nicoderm CQ 21 MG TOP SCH (09:19)
[2018-06-06 14:28] LABS: 027 TOX PROD PRESUMPTIVE NEGATIVE (NEGATIVE); TOXIGENIC C. DIFF ORG NEGATIVE (NEGATIVE)
[2018-06-06] MEDS: Mucinex 600MG ER Tabs PO SCH (21:05)
[2018-06-06] MEDS: Ativan 0.5 MG PO PRN (21:07)
[2018-06-06] MEDS: ZOCOR 20MG PO SCH (21:07)
[2018-06-06] MEDS: IMODIUM 2 MG PO PRN (21:16)
[2018-06-07] MEDS: DUONEB 0.5-3 MG/3 ml Neb IH SCH ×6 (03:49→23:15)
[2018-06-07] MEDS: Merrem 1 GM 1 G in Sodium Chloride 100ML MINI-BAG PLUS 100 ML IV SCH ×3 (05:45→22:12)
[2018-06-07] MEDS: Sodium Chloride 0.9% 10 ML FLUSH Syringe IV SCH ×3 (05:45→22:14)
[2018-06-07] MEDS: Mucomyst 200 MG/ML IH SCH ×2 (07:07→19:26)
[2018-06-07] MEDS: PATIENT OWN MEDICATION IH SCH ×3 (07:07→19:27)
[2018-06-07] MEDS: IMODIUM 2 MG PO PRN (08:42)
[2018-06-07] MEDS: Nicoderm CQ 21 MG TOP SCH (09:43)
[2018-06-07] MEDS: Nystatin SUSPENSION 60 ML PO SCH ×4 (09:45→22:13)
[2018-06-07] MEDS: Imdur 30 MG PO SCH (09:46)
[2018-06-07] MEDS: Toprol Xl 50 MG PO SCH (09:46)
[2018-06-07] MEDS: Colace 100 MG PO SCH ×2 (09:46→22:12)
[2018-06-07] MEDS: XARELTO 10 MG TABLET PO SCH (09:46)
[2018-06-07] MEDS: Norco 10/325 MG Tablet PO PRN ×3 (09:46→22:11)
[2018-06-07] MEDS: Mucinex 600MG ER Tabs PO SCH ×2 (09:47→22:13)
[2018-06-07] MEDS: Protonix 40MG Tablet PO SCH ×2 (09:47→22:14)
[2018-06-07] MEDS: Klor Con 10 MEQ PO SCH ×2 (09:47→22:12)
[2018-06-07] MEDS: Pepcid 20 MG PO SCH ×2 (09:47→22:13)
[2018-06-07] MEDS: ECOTRIN 81 MG PO SCH (09:47)
[2018-06-07] MEDS: NORVASC 5 MG PO SCH (09:52)
[2018-06-07] MEDS: Ativan 0.5 MG PO PRN (20:26)
[2018-06-07] MEDS: ZOCOR 20MG PO SCH (22:14)
[2018-06-07 22:17] LABS: Appearance CLEAR (CLEAR); Bilirubin NEGATIVE (NEGATIVE); Blood NEGATIVE Ery/ul (0-5); Glucose NEGATIVE (NEGATIVE); Ketones NEGATIVE (NEGATIVE); Leukocyte Esterase NEGATIVE (NEGATIVE); Nitrite NEGATIVE (NEGATIVE); Protein,Urine Dip NEGATIVE (Negative); Specific Gravity 1.004 (1.005-1.025); Urobilinogen NEGATIVE mg/dL (0-1)
[2018-06-08] MEDS: DUONEB 0.5-3 MG/3 ml Neb IH SCH ×6 (03:48→22:55)
[2018-06-08] MEDS: Sodium Chloride 0.9% 10 ML FLUSH Syringe IV SCH ×3 (05:47→21:23)
[2018-06-08] MEDS: Merrem 1 GM 1 G in Sodium Chloride 100ML MINI-BAG PLUS 100 ML IV SCH ×3 (05:47→21:17)
[2018-06-08] MEDS: PATIENT OWN MEDICATION IH SCH ×3 (06:37→18:16)
[2018-06-08] MEDS: Mucomyst 200 MG/ML IH SCH ×2 (06:49→18:16)
[2018-06-08] MEDS: Klor Con 10 MEQ PO SCH ×2 (09:41→21:18)
[2018-06-08] MEDS: Mucinex 600MG ER Tabs PO SCH ×2 (09:41→21:17)
[2018-06-08] MEDS: ECOTRIN 81 MG PO SCH (09:41)
[2018-06-08] MEDS: Colace 100 MG PO SCH ×3 (09:41→22:29)
[2018-06-08] MEDS: Norco 10/325 MG Tablet PO PRN ×3 (09:41→21:18)
[2018-06-08] MEDS: Protonix 40MG Tablet PO SCH ×2 (09:41→21:18)
[2018-06-08] MEDS: XARELTO 10 MG TABLET PO SCH (09:42)
[2018-06-08] MEDS: Nystatin SUSPENSION 60 ML PO SCH ×4 (09:42→21:19)
[2018-06-08] MEDS: Toprol Xl 50 MG PO SCH (09:42)
[2018-06-08] MEDS: Imdur 30 MG PO SCH (09:42)
[2018-06-08] MEDS: NORVASC 5 MG PO SCH (09:42)
[2018-06-08] MEDS: Pepcid 20 MG PO SCH ×2 (09:42→21:18)
[2018-06-08] MEDS: Nicoderm CQ 21 MG TOP SCH (10:15)
[2018-06-08] MEDS: Ativan 0.5 MG PO PRN (20:15)
[2018-06-08] MEDS: ZOCOR 20MG PO SCH (21:18)
[2018-06-09] MEDS: DUONEB 0.5-3 MG/3 ml Neb IH SCH ×6 (03:01→23:16)
[2018-06-09] MEDS: Merrem 1 GM 1 G in Sodium Chloride 100ML MINI-BAG PLUS 100 ML IV SCH ×3 (05:48→21:01)
[2018-06-09] MEDS: Sodium Chloride 0.9% 10 ML FLUSH Syringe IV SCH ×3 (05:49→21:03)
[2018-06-09] MEDS: Mucomyst 200 MG/ML IH SCH ×2 (06:50→18:56)
[2018-06-09] MEDS: PATIENT OWN MEDICATION IH SCH ×3 (06:52→19:01)
[2018-06-09] MEDS: Norco 10/325 MG Tablet PO PRN ×2 (08:25→16:23)
[2018-06-09] MEDS: Protonix 40MG Tablet PO SCH ×2 (09:49→21:02)
[2018-06-09] MEDS: Imdur 30 MG PO SCH (09:49)
[2018-06-09] MEDS: ECOTRIN 81 MG PO SCH (09:49)
[2018-06-09] MEDS: XARELTO 10 MG TABLET PO SCH (09:49)
[2018-06-09] MEDS: Mucinex 600MG ER Tabs PO SCH ×2 (09:49→21:02)
[2018-06-09] MEDS: Toprol Xl 50 MG PO SCH (09:49)
[2018-06-09] MEDS: Pepcid 20 MG PO SCH ×2 (09:50→21:02)
[2018-06-09] MEDS: Colace 100 MG PO SCH ×2 (09:50→18:13)
[2018-06-09] MEDS: Klor Con 10 MEQ PO SCH ×2 (09:50→21:02)
[2018-06-09] MEDS: Nicoderm CQ 21 MG TOP SCH (09:50)
[2018-06-09] MEDS: NORVASC 5 MG PO SCH (09:50)
[2018-06-09] MEDS: Nystatin SUSPENSION 60 ML PO SCH ×4 (09:51→21:03)
[2018-06-09] MEDS: Ativan 0.5 MG PO PRN (17:35)
[2018-06-09] MEDS ORDERED: Mylicon 80MG PO PRN (17:52)
[2018-06-09] MEDS: ZOCOR 20MG PO SCH (21:02)
[2018-06-10] MEDS: DUONEB 0.5-3 MG/3 ml Neb IH SCH ×3 (03:29→11:02)
[2018-06-10] MEDS: Sodium Chloride 0.9% 10 ML FLUSH Syringe IV SCH (05:24)
[2018-06-10] MEDS: Merrem 1 GM 1 G in Sodium Chloride 100ML MINI-BAG PLUS 100 ML IV SCH ×2 (05:24→13:36)
[2018-06-10] MEDS: Mucomyst 200 MG/ML IH SCH (07:12)
[2018-06-10] MEDS: PATIENT OWN MEDICATION IH SCH ×2 (07:12)
[2018-06-10 07:24] VITALS: BP 123/59
[2018-06-10 07:30] VITALS: O2SAT 99
--- NOTE | 2018-06-10 08:15 | PCM.DS ---
Discharge Summary Date of Admission: 05/30/18 14:46 Date of Discharge: 06/10/2018 Admitting Physician: MAKSIM MONSALVE Primary Care Provider: MAKSIM MONSALVE Allergies Allergies ciprofloxacin [From Cipro] Allergy (Severe, Verified 05/27/18 02:03) Itchy Eyes theophylline Allergy (Severe, Verified 05/27/18 02:03) hives, sob iodine Allergy (Intermediate, Verified 05/27/18 02:03) Tightness in Chest Penicillins Allergy (Intermediate, Verified 05/27/18 02:03) Itchy Eyes Sulfa (Sulfonamide Antibiotics) [Sulfa(Sulfonamide Antibiotics)] Allergy ( Intermediate, Verified 05/27/18 02:03) Itchy Eyes hydromorphone HCl [From Dilaudid] Allergy (Mild, Verified 05/27/18 02:03) low bp lisinopril Allergy (Verified 05/27/18 02:03) clindamycin Adverse Reaction (Severe, Verified 05/27/18 02:03) azithromycin [From Zithromax] Adverse Reaction (Mild, Verified 05/28/18 06:42) Itching Hospital Summary - Vitals & Intake/Output Vital Signs: Vital Signs Temperature 98.2 F 06/10/18 07:00 Pulse Rate 78 06/10/18 07:14 Respiratory Rate 20 06/10/18 07:14 Blood Pressure 123/59 06/10/18 07:00 O2 Sat by Pulse Oximetry 99 06/10/18 07:14 Oxygen-Last Documented O2 Percentage 4 Liters = 36% Intake & Output: Intake & Output 06/07/18 06/08/18 06/09/18 06/10/18 11:59 11:59 11:59 11:59 Intake Total 1780 1080 1700 1160 Balance 1780 1080 1700 1160 Weight 68.8 kg - Procedures and Test Procedures and Tests throughout Hospitalization: Therapy Orders & Screens 05/30/18 15:16 Oxygen NASAL CANNULA 4 lpm Comment: Diagnosis: IV abx therapy for positive culture of pseudomonas aeruginosa Respiratory Therapy Assessment DAILY Comment: Diagnosis: IV abx therapy for positive culture of pseudomonas aeruginosa 05/30/18 15:19 Respiratory MDI BID Comment: Diagnosis: IV abx therapy for positive culture of pseudomonas aeruginosa Respiratory MDI BID Comment: Diagnosis: IV abx therapy for positive culture of pseudomonas aeruginosa 05/30/18 15:27 Peak Expiratory Flow Rate ONCE Comment: Reason For Exam: Diagnosis: IV abx therapy for positive culture of pseudomonas aeruginosa 05/30/18 19:00 Respiratory MDI BID Comment: ABIGAIL- PT'S OWN MEB Diagnosis: IV abx therapy for positive culture of pseudomonas aeruginosa 05/31/18 07:00 Respiratory MDI UD Comment: AGUSTO MARTIN- PT'S OWN MED Diagnosis: IV abx therapy for positive culture of pseudomonas aeruginosa Final Diagnosis/Problem List - Final Discharge Diagnosis/Problem (1) Pseudomonal pneumonia Current Visit: Yes Status: Acute (2) COPD exacerbation Current Visit: Yes Status: Acute Onset Date: ~05/27/18 (3) Pulmonary fibrosis Current Visit: Yes Status: Chronic (4) Anemia Current Visit: Yes Status: Chronic (5) Degenerative disc disease Current Visit: Yes Status: Chronic (6) Chronic hypoxemic respiratory failure Current Visit: Yes Status: Chronic (7) Hx pulmonary embolism Current Visit: Yes Status: Chronic (8) Tobacco abuse Current Visit: Yes Status: Chronic - Discharge Discharge Date: 06/10/18 Disposition: Home, Self-Care Condition: Stable Prescriptions: New Prednisone 10 mg [Deltasone 10 mg] 10 mg PO DAILY #30 tablet Continue Nitroglycerin 0.4 mg Tablet [Nitrostat 0.4 MG Tablet] 0.4 mg SL Q5MX3 Hydrocodone/APAP 10/325 mg [[place] 10/325 MG Tablet] 1 tab PO QIDPRN PRN PRN Reason: Pain Docusate Sodium 100 mg [Colace 100 MG] 100 mg PO BID Potassium Chloride 10 Meq Tab* [Klor Con 10 MEQ] 10 meq PO BID Simvastatin 20 mg PO HS Famotidine 20 mg [Pepcid 20 MG] 20 mg PO BID Albuterol/Ipratropium 3ml Neb* [DUONEB 0.5-3 MG/3 ml Neb] 1 neb IH QID Aspirin 81 mg PO DAILY Isosorbide Mononitrate 30 mg [Imdur 30 MG] 30 mg PO DAILY Albuterol 8 gm Mdi Hfa [Ventolin Hfa MDI] 2 puff IH Q2H/PRN PRN PRN Reason: Shortness Of Breath/Wheezing Fluticasone/Vilanterol [Breo Ellipta 100-25 Mcg INH] 1 each IH DAILY Metoprolol Succinate 25 mg Xl* [Toprol-Xl 25MG Tablets] 50 mg PO DAILY Calcium Carbonate/Vitamin D3 [Calcium 1,000 + D3 Caplet] 1 each PO BID Rivaroxaban 10 mg Tablet [Xarelto 10 mg Tablet] 20 mg PO DAILY Sodium Chloride For Inhalation [Sodium Chloride] 3 ml IH UD PANTOPRAZOLE 40 mg Tablet [Protonix 40MG Tablet] 40 mg PO BID Amlodipine Besylate 5 mg [Norvasc 5 mg] 5 mg PO DAILY #7 tablet Lorazepam 0.5 mg [Ativan 0.5 MG] 0.5 mg PO BID PRN PRN #15 tablet PRN Reason: Anxiety Discontinued Prednisone [Deltasone] 20 mg PO DAILY #17 tablet Cefdinir [Omnicef] 300 mg PO BID #20 capsule Instructions: Pneumonia in Adults Follow up with: MAKSIM MONSALVE [Primary Care Provider] - 06/17/18 10:45 am
[2018-06-10] MEDS: Norco 10/325 MG Tablet PO PRN ×2 (09:34→13:37)
[2018-06-10] MEDS: Pepcid 20 MG PO SCH (09:34)
[2018-06-10] MEDS: NORVASC 5 MG PO SCH (09:34)
[2018-06-10] MEDS: Imdur 30 MG PO SCH (09:34)
[2018-06-10] MEDS: Klor Con 10 MEQ PO SCH (09:35)
[2018-06-10] MEDS: Mucinex 600MG ER Tabs PO SCH (09:35)
[2018-06-10] MEDS: Protonix 40MG Tablet PO SCH (09:35)
[2018-06-10] MEDS: Colace 100 MG PO SCH (09:35)
[2018-06-10] MEDS: ECOTRIN 81 MG PO SCH (09:35)
[2018-06-10] MEDS: XARELTO 10 MG TABLET PO SCH (09:35)
[2018-06-10] MEDS: Toprol Xl 50 MG PO SCH (09:35)
[2018-06-10] MEDS: Nicoderm CQ 21 MG TOP SCH (09:36)
[2018-06-10] MEDS: Nystatin SUSPENSION 60 ML PO SCH ×2 (09:36→12:35)
[2018-06-10 11:05] VITALS: PULSE 88
[2018-06-11] MEDS ORDERED: Aplisol ID SCH (10:00)
== END 2018-06-10 14:30 | disposition home or self-care (01) | DRG 178 ==
LOC: MED SURG 14:46
PROVIDERS: ADMIT Family Medicine; ATTEND Family Medicine
DX: J15.1 Pneumonia due to Pseudomonas (principal); J96.11 Chronic respiratory failure with hypoxia; J44.9 Chronic obstructive pulmonary disease, unspecified; J84.10 Pulmonary fibrosis, unspecified; D64.9 Anemia, unspecified; Z86.711 Personal history of pulmonary embolism; Z79.01 Long term (current) use of anticoagulants; Z79.899 Other long term (current) drug therapy; Z72.0 Tobacco use
CPT/HCPCS: 81001; 87070; 87493; 94150; 94640; 94760; J0692; A9270-GY

== ENCOUNTER 2018-06-30 21:48 | Observation (INO) | payer MEDICARE ==
[2018-06-30 22:51] LABS: VBG BASE EXCESS 5.1 (-2.0-2.0); VBG HEMOGLOBIN 12.8; VBG O2 SATURATION 86.4 (95-100); VBG POTASSIUM 4.3 (3.5-5.1); VBG pH 7.4 (7.32-7.42)
[2018-06-30 22:52] LABS: VBG CARBOXYHEMOGLOBIN 7.8 % T HGB (0.0-6.9)
[2018-06-30] MEDS ORDERED: DUONEB 0.5-3 MG/3 ml Neb IH ONE ×2 (22:54→23:02)
[2018-06-30 22:55] LABS: BASOPHIL % 0.2 % (0.0-0.4); Basophil (Absolute #) 0.02 (0-0.4); Eosinophil % 2.3 % (0.00-5.0); Eosinophil (Absolute #) 0.22 (0-0.5); Granulocyte Absolute (ANC) 4.76 (1.4-6.9); Granulocytes % 49.9 % (36.0-66.0); Hematocrit 39.8 % (35-47); Hemoglobin 12.6 gm/dl (12.0-16.0); Lymphocyte (Absolute #) 3.72 (1.0-4.6); Mean Cell Volume 94.1 fl (78-100); Mean Corpuscular Hemoglobin 29.8 pg (26-32); Mean Corpuscular Hgb Concent. 31.7 g/dl (32-36); Mean Platelet Volume 9.6 fl (6-9.5); Monocyte (Absolute #) 0.82 (0.0-1.3); Monocytes % 8.6 % (0.0-12.0); Platelet Count 330 K/mm3 (150-450); Red Blood Count 4.23 M/mm3 (4.1-5.4); Red Cell Distribution Width 12.8 % (11.5-14.0); White Blood Count 9.5 K/mm3 (4.0-10.5)
[2018-06-30 22:58] LABS: INR 1.23 (0.8-3.0)
[2018-06-30 23:00] LABS: PTT 31.4 SECONDS (25.3-37.0)
[2018-06-30] MEDS ORDERED: solu-MEDROL 125 MG IV ONE (23:00)
[2018-06-30] MEDS ORDERED: Phenergan 25 MG INJ IV ONE (23:01)
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
[2018-06-30] MEDS ORDERED: solu-MEDROL 125 MG ONE (23:11)
[2018-06-30] MEDS ORDERED: Phenergan 25 MG INJ ONE (23:11)
[2018-06-30] MEDS: Sodium Chloride 0.9% 1000 ML 1,000 ML IV SCH (23:16)
[2018-06-30 23:22] LABS: AMYLASE 62 U/L (30-110); LIPASE 57 U/L (23-300)
[2018-06-30 23:30] LABS: ALBUMIN 4.5 g/dL (3.5-5.0); ALKALINE PHOSPHATASE 51 U/L (38-126); ANION GAP 16.4 MEQ/L (5-15); BLOOD UREA NITROGEN 14 mg/dL (7-17); CHLORIDE 98 mmol/L (98-107); Calcium 10.3 mg/dL (8.4-10.2); Carbon Dioxide 29 mmol/L (22-30); Creatinine 1 0.77 mg/dL (0.52-1.04); Glucose 109 mg/dL (74-106); NT PRO BNP 95.3 pg/mL (0-900); Potassium 4.7 mmol/L (3.5-5.1); SGOT/AST 27 U/L (14-36); SGPT/ALT 18 U/L (0-35); SODIUM 138 mmol/L (137-145)
[2018-07-01] MEDS ORDERED: NORCO 5/325 MG PO ONE (00:04)
[2018-07-01] MEDS ORDERED: ROCEPHIN 1 Gm-D5w 50 ml Bag** 1 G/50 ML IVPB IV STA (00:23)
[2018-07-01] MEDS ORDERED: NORCO 5/325 MG ONE (00:26)
[2018-07-01] MEDS ORDERED: ROCEPHIN 1 Gm-D5w 50 ml Bag** 1 G/50 ML IVPB IV ONE (00:26)
[2018-07-01] MEDS ORDERED: DUONEB 0.5-3 MG/3 ml Neb IH PRN (00:47)
[2018-07-01] MEDS ORDERED: Sodium Chloride 0.9% 1000 ML 1,000 ML IV SCH (00:47)
[2018-07-01] MEDS ORDERED: Phenergan 25 MG INJ IV PRN (00:47)
[2018-07-01] MEDS ORDERED: Norco 10/325 MG Tablet PO PRN (00:47)
[2018-07-01] MEDS ORDERED: DUONEB 0.5-3 MG/3 ml Neb IH ONE ×2 (02:58→06:40)
[2018-07-01 05:31] LABS: BASOPHIL % 0.1 % (0.0-0.4); Basophil (Absolute #) 0.01 (0-0.4); Eosinophil % 0.1 % (0.00-5.0); Eosinophil (Absolute #) 0.01 (0-0.5); Granulocyte Absolute (ANC) 5.95 (1.4-6.9); Granulocytes % 87.6 % (36.0-66.0); Lymphocyte (Absolute #) 0.79 (1.0-4.6); Lymphocytes % 11.6 % (24.0-44.0); Mean Cell Volume 95.7 fl (78-100); Mean Corpuscular Hgb Concent. 30.6 g/dl (32-36); Mean Platelet Volume 9.2 fl (6-9.5); Monocyte (Absolute #) 0.04 (0.0-1.3); Monocytes % 0.6 % (0.0-12.0); Platelet Count 269 K/mm3 (150-450); Red Blood Count 3.76 M/mm3 (4.1-5.4); Red Cell Distribution Width 12.7 % (11.5-14.0); White Blood Count 6.8 K/mm3 (4.0-10.5)
[2018-07-01 05:45] LABS: Mean Corpuscular Hemoglobin 29.2 pg (26-32)
[2018-07-01 06:08] LABS: ALBUMIN 3.7 g/dL (3.5-5.0); ALKALINE PHOSPHATASE 39 U/L (38-126); ANION GAP 14.6 MEQ/L (5-15); BILIRUBIN,TOTAL < 0.10 mg/dL (0.2-1.3); BLOOD UREA NITROGEN 13 mg/dL (7-17); CHLORIDE 101 mmol/L (98-107); Calcium 9.4 mg/dL (8.4-10.2); Carbon Dioxide 25 mmol/L (22-30); Creatinine 1 0.81 mg/dL (0.52-1.04); Glucose 246 mg/dL (74-106); Potassium 4.2 mmol/L (3.5-5.1); SGOT/AST 20 U/L (14-36); SGPT/ALT 19 U/L (0-35); SODIUM 136 mmol/L (137-145); Total Protein 6.1 g/dL (6.3-8.2)
[2018-07-01] MEDS: DUONEB 0.5-3 MG/3 ml Neb IH SCH ×3 (06:41→14:43)
[2018-07-01] MEDS ORDERED: Ativan 0.5 MG PO PRN (08:43)
[2018-07-01] MEDS ORDERED: Ventolin Hfa MDI IH PRN (08:43)
[2018-07-01] MEDS ORDERED: Nitrostat 0.4 MG Tablet SL PRN (08:45)
[2018-07-01] MEDS ORDERED: PROVENTIL COMMON CANISTER IH PRN (08:56)
[2018-07-01] MEDS ORDERED: Advair Hfa 230/21 Mcg COMMON CANISTER IH SCH (09:00)
--- NOTE | 2018-07-01 09:00 | XRAY ---
Indication: Chest pain and short of breath. Comparison: May 27, 2018. Portable chest again demonstrates COPD with blunting of both costophrenic angles, right apical fibrosis/scarring, and bilateral suture material. Heart is not enlarged. Bony thorax intact again with mild degenerative changes. No new/acute findings. Impression: Stable nonacute chest with chronic features.
[2018-07-01] MEDS ORDERED: XARELTO 10 MG TABLET PO SCH (10:00)
[2018-07-01] MEDS ORDERED: ACLIDINIUM BROMIDE 400 MCG IH SCH (10:00)
[2018-07-01] MEDS ORDERED: ECOTRIN 81 MG PO SCH (10:00)
[2018-07-01] MEDS ORDERED: Protonix 40MG Tablet PO SCH (10:00)
[2018-07-01] MEDS ORDERED: Klor Con 10 MEQ PO SCH (10:00)
[2018-07-01] MEDS ORDERED: Colace 100 MG PO SCH (10:00)
[2018-07-01] MEDS ORDERED: Toprol-Xl 25MG Tablets PO SCH (10:00)
[2018-07-01] MEDS ORDERED: Calcium 500MG W/Vit D Tablet PO SCH (10:00)
[2018-07-01] MEDS ORDERED: Pepcid 20 MG PO SCH (10:00)
[2018-07-01] MEDS ORDERED: NON-FORMULARY ITEM (Calcium Carbonate/Vitamin D3 [Calcium 1,000 + D3 Caplet] 1 EACH) PO SCH (10:00)
[2018-07-01] MEDS ORDERED: Imdur 30 MG PO SCH (10:00)
[2018-07-01] MEDS ORDERED: Toprol Xl 50 MG PO SCH (10:00)
[2018-07-01] MEDS ORDERED: NON-FORMULARY ITEM (Fluticasone/Vilanterol [Breo Ellipta 200-25 Mcg Inh] 1 EACH) IH SCH (10:00)
[2018-07-01] MEDS ORDERED: ROCEPHIN 1 Gm-D5w 50 ml Bag** 1 G/50 ML IVPB IV SCH (10:00)
[2018-07-01] MEDS: Sodium Chloride 0.9% 1000 ML 1,000 ML IV SCH (10:03)
[2018-07-01] MEDS: hydroDIURIL 25 MG PO SCH ×2 (10:48→10:57)
[2018-07-01 12:00] VITALS: BP 98/54
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
--- NOTE | 2018-07-01 14:12 | PCM.DCORD ---
- Discharge Discharge Date: 07/01/18 Disposition: Home, Self-Care Condition: Fair Prescriptions: New Promethazine HCl 12.5 mg PO Q4H PRN #30 tablet PRN Reason: Nausea Continue Nitroglycerin 0.4 mg Tablet [Nitrostat 0.4 MG Tablet] 0.4 mg SL [id number] Hydrocodone/APAP 10/325 mg [[place] 10/325 MG Tablet] 1 tab PO QIDPRN PRN PRN Reason: Pain Docusate Sodium 100 mg [Colace 100 MG] 100 mg PO BID Potassium Chloride 10 Meq Tab* [Klor Con 10 MEQ] 10 meq PO BID Simvastatin 20 mg PO HS Famotidine 20 mg [Pepcid 20 MG] 20 mg PO BID Albuterol/Ipratropium 3ml Neb* [DUONEB 0.5-3 MG/3 ml Neb] 1 neb IH QID Aspirin 162 mg PO DAILY Isosorbide Mononitrate 30 mg [Imdur 30 MG] 30 mg PO DAILY Albuterol 8 gm Mdi Hfa [Ventolin Hfa MDI] 2 puff IH Q2H/PRN PRN PRN Reason: Shortness Of Breath/Wheezing Metoprolol Succinate 25 mg Xl* [Toprol-Xl 25MG Tablets] 50 mg PO DAILY Calcium Carbonate/Vitamin D3 [Calcium 1,000 + D3 Caplet] 1 each PO BID Rivaroxaban 10 mg Tablet [Xarelto 10 mg Tablet] 20 mg PO DAILY Sodium Chloride For Inhalation [Sodium Chloride] 3 ml IH UD PANTOPRAZOLE 40 mg Tablet [Protonix 40MG Tablet] 40 mg PO BID Lorazepam 0.5 mg [Ativan 0.5 MG] 0.5 mg PO BID PRN PRN #15 tablet PRN Reason: Anxiety Prednisone 10 mg [Deltasone 10 mg] 10 mg PO DAILY #30 tablet Fluticasone/Vilanterol [Breo Ellipta 200-25 Mcg INH] 1 each IH DAILY Hydrochlorothiazide 25 mg [hydroDIURIL 25 MG] 12.5 mg PO DAILY Aclidinium [place] [Tudorza Pressair] 400 mcg IH BID Follow up with: MAKSIM MONSALVE [Primary Care Provider] - 07/09/18 10:00 am
[2018-07-01 14:48] VITALS: PULSE 66; O2SAT 99
[2018-07-01] MEDS ORDERED: ZOCOR 20MG PO SCH (22:00)
== END 2018-07-01 15:15 | disposition home or self-care (01) ==
LOC: ED 21:48 → MED SURG 07-01 00:42
PROVIDERS: ADMIT Family Medicine; ATTEND Family Medicine
DX: R11.10 Vomiting, unspecified (principal); J44.1 Chronic obstructive pulmonary disease with (acute) exacerbation; D64.9 Anemia, unspecified; J96.11 Chronic respiratory failure with hypoxia; I25.810 Atherosclerosis of coronary artery bypass graft(s) without angina pectoris; Z86.711 Personal history of pulmonary embolism; I10 Essential (primary) hypertension; J84.10 Pulmonary fibrosis, unspecified; M19.90 Unspecified osteoarthritis, unspecified site; J44.9 Chronic obstructive pulmonary disease, unspecified; E78.00 Pure hypercholesterolemia, unspecified; F41.9 Anxiety disorder, unspecified; Z79.01 Long term (current) use of anticoagulants; Z79.899 Other long term (current) drug therapy; Z72.0 Tobacco use; K21.9 Gastro-esophageal reflux disease without esophagitis
CPT/HCPCS: 36000; 36415; 71045; 80053; 82150; 82805; 83690; 83880; 84484; 85025; 85379; 85610; 85730; 87040; 87070; 93005; 93041; 93268; 94150; 94640; 94667; 94762; 96374; 96375; 99285; J0696; J2550; J2930; A9270-GY; G0378

== ENCOUNTER 2018-11-01 03:31 | Inpatient (IN) | payer MEDICARE ==
[2018-11-01] MEDS ORDERED: DUONEB 0.5-3 MG/3 ml Neb IH ONE ×2 (04:19→04:20)
[2018-11-01] MEDS ORDERED: solu-MEDROL 125 MG IV ONE (04:20)
[2018-11-01] MEDS ORDERED: ROCEPHIN 1 Gm-D5w 50 ml Bag** 1 G/50 ML IVPB IV ONE (04:26)
[2018-11-01] MEDS ORDERED: solu-MEDROL 125 MG ONE (04:26)
[2018-11-01 04:27] LABS: BASOPHIL % 0.1 % (0.0-0.4); Basophil (Absolute #) 0.01 (0-0.4); Eosinophil % 0.2 % (0.00-5.0); Eosinophil (Absolute #) 0.03 (0-0.5); Granulocyte Absolute (ANC) 11.43 (1.4-6.9); Granulocytes % 77.7 % (36.0-66.0); Hematocrit 37.8 % (35-47); Hemoglobin 11.9 gm/dl (12.0-16.0); Lymphocyte (Absolute #) 2.38 (1.0-4.6); Lymphocytes % 16.2 % (24.0-44.0); Mean Cell Volume 95.7 fl (78-100); Mean Corpuscular Hemoglobin 30.1 pg (26-32); Mean Corpuscular Hgb Concent. 31.5 g/dl (32-36); Mean Platelet Volume 8.7 fl (6-9.5); Monocyte (Absolute #) 0.85 (0.0-1.3); Monocytes % 5.8 % (0.0-12.0); Platelet Count 299 K/mm3 (150-450); Red Blood Count 3.95 M/mm3 (4.1-5.4); White Blood Count 14.7 K/mm3 (4.0-10.5)
[2018-11-01] MEDS ORDERED: Sodium Chloride 0.9% 1000 ML 1,000 ML IV SCH ×2 (04:30→07:14)
[2018-11-01] MEDS: Rocephin 500 MG INJ** 500 MG in Sodium Chloride 0.9% 100 ML IVPB 100 ML IV ONE ×2 (04:32→05:14)
[2018-11-01 04:36] LABS: Lactic Acid 1.2 (0.4-2.0); VBG BASE EXCESS 5.1 (-2.0-2.0); VBG CARBOXYHEMOGLOBIN 4.9 % T HGB (0.0-6.9); VBG HEMOGLOBIN 12.4; VBG POTASSIUM 4.1 (3.5-5.1); VBG pH 7.4 (7.32-7.42)
[2018-11-01] MEDS ORDERED: PROVENTIL 2.5 MG/3 ML NEB IH ONE ×2 (04:39→04:44)
[2018-11-01] MEDS ORDERED: PROVENTIL Solution 2.5 MG/0.5 ML IH SCH (04:39)
[2018-11-01 04:50] LABS: ALBUMIN 4.4 g/dL (3.5-5.0); ALKALINE PHOSPHATASE 50 U/L (38-126); BLOOD UREA NITROGEN 23 mg/dL (7-17); CHLORIDE 96 mmol/L (98-107); Calcium 10.1 mg/dL (8.4-10.2); Carbon Dioxide 29 mmol/L (22-30); Creatinine 1 0.67 mg/dL (0.52-1.04); Glucose 125 mg/dL (74-106); MAGNESIUM 1.9 mg/dL (1.6-2.3); NT PRO BNP 172 pg/mL (0-900); Potassium 4.4 mmol/L (3.5-5.1); SGOT/AST 26 U/L (14-36); SGPT/ALT 23 U/L (0-35); SODIUM 134 mmol/L (137-145); Total Protein 7.4 g/dL (6.3-8.2)
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
[2018-11-01] MEDS ORDERED: ROCEPHIN 1 Gm-D5w 50 ml Bag** 1 G/50 ML IVPB IV STA (05:03)
[2018-11-01] MEDS ORDERED: PROVENTIL Solution 2.5 MG/0.5 ML IH ONE (05:10)
[2018-11-01] MEDS ORDERED: Sodium Chloride 3 ML UD NEBULES IH ONE (05:10)
[2018-11-01] MEDS ORDERED: D5w 100ML Mini Bag 100 ML 100 ML IV ONE (05:17)
[2018-11-01] MEDS ORDERED: VIBRAMYCIN 100 MG IV ONE (05:17)
[2018-11-01 05:36] LABS: INFLUENZA A NEGATIVE (NEGATIVE); INFLUENZA B NEGATIVE (NEGATIVE); RESPIRATORY SYNCTIAL VIRUS NEGATIVE (Negative)
[2018-11-01] MEDS ORDERED: Spiriva 18 Mcg/Cap Inhaler IH ONE (06:40)
[2018-11-01] MEDS: DUONEB 0.5-3 MG/3 ml Neb IH SCH ×5 (06:55→23:21)
[2018-11-01] MEDS ORDERED: Xopenex 1.25 MG/0.5 ML UD NEBULE IH PRN (07:14)
[2018-11-01] MEDS ORDERED: Nitrostat 0.4 MG (ED) SL PRN (07:14)
--- NOTE | 2018-11-01 07:54 | XRAY ---
Indication: Difficulty breathing. Comparison: One day earlier. Portable chest unchanged again demonstrating COPD, right apical fibrosis/scarring, and bilateral suture material. No new pleural or parenchymal opacity. Heart is not enlarged. No new/acute findings.
[2018-11-01] MEDS: Pepcid 20 MG PO SCH ×2 (09:44→22:04)
[2018-11-01] MEDS: XARELTO 10 MG TABLET PO SCH (09:44)
[2018-11-01] MEDS: Imdur 30 MG PO SCH (09:45)
[2018-11-01] MEDS: Klor Con 10 MEQ PO SCH ×2 (09:45→22:04)
[2018-11-01] MEDS ORDERED: VIBRAMYCIN 100 MG*** 100 MG in Dextrose 5%/Water IV Soln. 100ML PLUS BAG 100 ML IV SCH ×2 (10:00→22:00)
[2018-11-01] MEDS ORDERED: Spiriva 18 Mcg/Cap Inhaler IH SCH (10:00)
[2018-11-01] MEDS ORDERED: Protonix 40MG Tablet PO SCH (10:00)
[2018-11-01] MEDS: Mucomyst 200 MG/ML IH SCH ×2 (10:36→18:42)
[2018-11-01] MEDS ORDERED: NON-FORMULARY ITEM (Promethazine Hcl [Promethazine Hcl] 12.5 MG) PO PRN (10:50)
[2018-11-01] MEDS ORDERED: Sodium Chloride 3 ML UD NEBULES IH SCH (11:00)
[2018-11-01] MEDS ORDERED: PROVENTIL COMMON CANISTER IH PRN (11:15)
[2018-11-01] MEDS: Colace 100 MG PO SCH ×2 (11:25→22:05)
[2018-11-01] MEDS: Ativan 0.5 MG PO PRN ×2 (11:25→23:44)
[2018-11-01] MEDS: hydroDIURIL 25 MG PO SCH (11:25)
[2018-11-01] MEDS: Calcium 500MG W/Vit D Tablet PO SCH ×2 (11:25→22:05)
[2018-11-01] MEDS: solu-MEDROL 125 MG IV SCH ×3 (11:26→23:45)
[2018-11-01] MEDS: Toprol Xl 50 MG PO SCH (11:26)
[2018-11-01] MEDS: ECOTRIN 81 MG PO SCH (11:26)
[2018-11-01] MEDS: Norco 10/325 MG Tablet PO PRN (13:31)
[2018-11-01] MEDS: PHENERGAN 25 MG PO PRN (18:08)
[2018-11-01] MEDS: Spiriva 18 Mcg/Cap Inhaler IH SCH (18:54)
[2018-11-01] MEDS ORDERED: NON-FORMULARY ITEM (Calcium Carbonate/Vitamin D3 [Calcium 1,000 + D3 Caplet] 1 EACH) PO SCH (22:00)
[2018-11-01] MEDS: Protonix 40MG Tablet PO SCH (22:04)
[2018-11-01] MEDS: ZOCOR 20MG PO SCH (22:05)
[2018-11-01] MEDS: Mucinex 600MG ER Tabs PO SCH (23:45)
[2018-11-02] MEDS: DUONEB 0.5-3 MG/3 ml Neb IH SCH ×5 (03:04→19:27)
[2018-11-02 06:16] LABS: Basophil (Absolute #) 0 (0-0.4); Eosinophil (Absolute #) 0 (0-0.5); Granulocyte Absolute (ANC) 14.82 (1.4-6.9); Granulocytes % 87.5 % (36.0-66.0); Hematocrit 34.6 % (35-47); Hemoglobin 10.8 gm/dl (12.0-16.0); Lymphocyte (Absolute #) 1.11 (1.0-4.6); Lymphocytes % 6.6 % (24.0-44.0); Mean Cell Volume 96.9 fl (78-100); Mean Corpuscular Hemoglobin 30.2 pg (26-32); Mean Corpuscular Hgb Concent. 31.2 g/dl (32-36); Monocyte (Absolute #) 0.99 (0.0-1.3); Monocytes % 5.9 % (0.0-12.0); Platelet Count 271 K/mm3 (150-450); Red Blood Count 3.57 M/mm3 (4.1-5.4); Red Cell Distribution Width 13.2 % (11.5-14.0); White Blood Count 16.9 K/mm3 (4.0-10.5)
[2018-11-02 06:22] LABS: ALBUMIN 3.5 g/dL (3.5-5.0); ALKALINE PHOSPHATASE 33 U/L (38-126); BLOOD UREA NITROGEN 16 mg/dL (7-17); CHLORIDE 104 mmol/L (98-107); Calcium 9.3 mg/dL (8.4-10.2); Carbon Dioxide 27 mmol/L (22-30); Creatinine 1 0.58 mg/dL (0.52-1.04); Glucose 173 mg/dL (74-106); Potassium 4.2 mmol/L (3.5-5.1); SGOT/AST 20 U/L (14-36); SGPT/ALT 22 U/L (0-35); SODIUM 137 mmol/L (137-145); Total Protein 6.1 g/dL (6.3-8.2)
[2018-11-02] MEDS: solu-MEDROL 125 MG IV SCH ×3 (06:25→20:59)
[2018-11-02] MEDS: Spiriva 18 Mcg/Cap Inhaler IH SCH (06:51)
[2018-11-02] MEDS: Mucomyst 200 MG/ML IH SCH ×2 (06:51→19:27)
[2018-11-02] MEDS: ECOTRIN 81 MG PO SCH (09:01)
[2018-11-02] MEDS: Toprol Xl 50 MG PO SCH (09:01)
[2018-11-02] MEDS: Calcium 500MG W/Vit D Tablet PO SCH ×2 (09:01→20:58)
[2018-11-02] MEDS: Imdur 30 MG PO SCH (09:01)
[2018-11-02] MEDS: hydroDIURIL 25 MG PO SCH (09:01)
[2018-11-02] MEDS: XARELTO 10 MG TABLET PO SCH (09:02)
[2018-11-02] MEDS: DELTASONE 10 MG PO SCH (09:02)
[2018-11-02] MEDS: Mucinex 600MG ER Tabs PO SCH ×2 (09:02→20:58)
[2018-11-02] MEDS: Norco 10/325 MG Tablet PO PRN ×3 (09:02→23:41)
[2018-11-02] MEDS: Klor Con 10 MEQ PO SCH ×2 (09:02→20:57)
[2018-11-02] MEDS: Protonix 40MG Tablet PO SCH ×2 (09:02→20:58)
[2018-11-02] MEDS: Pepcid 20 MG PO SCH ×2 (09:02→20:58)
[2018-11-02] MEDS: Colace 100 MG PO SCH ×2 (09:03→20:58)
[2018-11-02] MEDS: Fortaz/Tazicef 1 GM** 1 G in Dextrose 5%/Water IV Soln. 100ML PLUS BAG 100 ML IV SCH ×2 (09:35→17:32)
[2018-11-02] MEDS: Singulair 10 MG PO SCH (09:35)
[2018-11-02] MEDS: CLARITIN 10 MG PO SCH (09:35)
[2018-11-02] MEDS ORDERED: ROCEPHIN 1 Gm-D5w 50 ml Bag** 1 G/50 ML IVPB IV SCH (10:00)
[2018-11-02] MEDS: ZOCOR 20MG PO SCH (20:58)
[2018-11-02] MEDS: Ativan 0.5 MG PO PRN (21:07)
[2018-11-03] MEDS: DUONEB 0.5-3 MG/3 ml Neb IH SCH ×7 (00:16→23:00)
[2018-11-03] MEDS: Fortaz/Tazicef 1 GM** 1 G in Dextrose 5%/Water IV Soln. 100ML PLUS BAG 100 ML IV SCH (05:20)
[2018-11-03 05:42] LABS: Basophil (Absolute #) 0 (0-0.4); Eosinophil % 0.1 % (0.00-5.0); Eosinophil (Absolute #) 0.01 (0-0.5); Granulocyte Absolute (ANC) 15.94 (1.4-6.9); Granulocytes % 87.2 % (36.0-66.0); Hematocrit 35.6 % (35-47); Hemoglobin 10.9 gm/dl (12.0-16.0); Lymphocyte (Absolute #) 1.38 (1.0-4.6); Lymphocytes % 7.6 % (24.0-44.0); Mean Cell Volume 98.6 fl (78-100); Mean Corpuscular Hgb Concent. 30.6 g/dl (32-36); Mean Platelet Volume 8.8 fl (6-9.5); Monocyte (Absolute #) 0.93 (0.0-1.3); Monocytes % 5.1 % (0.0-12.0); Platelet Count 254 K/mm3 (150-450); Red Blood Count 3.61 M/mm3 (4.1-5.4); Red Cell Distribution Width 13.5 % (11.5-14.0); White Blood Count 18.3 K/mm3 (4.0-10.5)
[2018-11-03 05:49] LABS: ALBUMIN 3.3 g/dL (3.5-5.0); ALKALINE PHOSPHATASE 32 U/L (38-126); ANION GAP 8.6 MEQ/L (5-15); BLOOD UREA NITROGEN 21 mg/dL (7-17); CHLORIDE 100 mmol/L (98-107); Calcium 9.1 mg/dL (8.4-10.2); Carbon Dioxide 33 mmol/L (22-30); Creatinine 1 0.73 mg/dL (0.52-1.04); Glucose 135 mg/dL (74-106); Potassium 4.6 mmol/L (3.5-5.1); SGOT/AST 17 U/L (14-36); SGPT/ALT 21 U/L (0-35); SODIUM 136 mmol/L (137-145); Total Protein 5.7 g/dL (6.3-8.2)
[2018-11-03 06:15] LABS: Mean Corpuscular Hemoglobin 30.1 pg (26-32)
[2018-11-03] MEDS: PHENERGAN 25 MG PO PRN (06:30)
[2018-11-03] MEDS: solu-MEDROL 125 MG IV SCH ×3 (06:30→21:42)
[2018-11-03] MEDS: Norco 10/325 MG Tablet PO PRN ×2 (06:40→18:04)
--- NOTE | 2018-11-03 07:45 | HP ---
CHIEF COMPLAINT: Shortness of breath. HISTORY OF PRESENT ILLNESS: The patient is a 62 year-old white female who has history of chronic obstructive pulmonary disease and hypoxia. She is on 4 to 5 liters of oxygen at home. She reports she has been treated outpatient with antibiotics and IV steroid shots of prednisone. She reports becoming sick on 10/16/2018 and had actually been getting better but got sick again a couple of days ago and she was treated again outpatient with two steroid shots and more antibiotics. However she became extremely short of breath and presented herself to the emergency room and has been admitted for care for acute exacerbation of chronic obstructive pulmonary disease and hypoxia. PAST MEDICAL/SURGICAL HISTORY: Otherwise significant for having coronary artery stenting placed. She reports a history of congestive heart failure but has done quite well since 2012 since she had the stent placed. 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 She reports she does have a local auto radiator specialist but he is in [place]. HOME MEDICATIONS: Currently include Albuterol, aspirin, Colace, famotidine, [place] 10/325 mg, Nitro PRN, potassium 10 mEq b.i.d., Simvastatin 20 mg a day, isosorbide 30 mg a day, Ventolin PRN, Toprol XL 25 mg 2 tablets a day, Xarelto 20 mg a day, Protonix 40 mg a day. He takes Tudorza for inhalation treatments, Breo Ellipta and hydrodiuril 12.5 mg a day. ALLERGIES: IODINE, PENICILLIN, SULFA, DILAUDID, LISINOPRIL, CLINDAMYCIN, ZITHROMAX. PHYSICAL EXAMINATION: Vital signs on admission showed her pulse to be 100, respiratory rate 28, blood pressure 141/92. O2 saturation was 100% on supplemental oxygen. HEENT: Normocephalic, atraumatic. Pupils equal round reactive to light. Extraocular movements intact. The patient is wearing oxygen per nasal cannula currently at 6 liters. Oropharynx is somewhat dry. NECK: Supple without lymphadenopathy, thyromegaly or JVD. CHEST: Reveals bilateral wheezes throughout expiration although she seems to be moving air fairly well otherwise. HEART: Regular rate and rhythm. No murmurs, rubs or gallops are heard. ABDOMEN: Soft. No palpable masses. EXTREMITIES: Without cyanosis, clubbing or edema. NEUROLOGIC: The patient is alert and oriented x3. LAB DATA AND TESTS: Influenza A, B and respiratory syncytial virus negative. Troponin is less the than 0.012 on two separate occasions. Her venous blood gas is pH 7.40, pCO2 50. Her glucose is 125 nonfasting with BUN 23, creatinine 0.67. Sodium slightly low at 134. Liver enzymes were normal. ProBNP was normal. White blood cell count 14,700, hemoglobin 11.9, PLT count 299,000. The chest x-ray showed chronic obstructive pulmonary disease changes, right apical fibrosis, scarring and bilateral suture material. No pleural or parenchymal opacities were seen. Heart was not enlarged. Her EKG tracing showed normal sinus rhythm and no acute changes were noted and appeared to be essentially normal. ASSESSMENT: A patient with acute exacerbation of chronic obstructive pulmonary disease. We will try to obtain sputum samples. She has been placed on Solu-Medrol currently at 80 mg every six hours. She is receiving oxygen and has placed on doxycycline 100 mg b.i.d. and this has been switched to Rocephin 1 gm every 24 hours. She will be continued on her home medications otherwise as listed above.
[2018-11-03] MEDS: Spiriva 18 Mcg/Cap Inhaler IH SCH (08:15)
[2018-11-03] MEDS: Mucomyst 200 MG/ML IH SCH ×2 (08:15→18:48)
[2018-11-03] MEDS: Protonix 40MG Tablet PO SCH ×2 (09:19→21:42)
[2018-11-03] MEDS: Singulair 10 MG PO SCH (09:19)
[2018-11-03] MEDS: hydroDIURIL 25 MG PO SCH (09:19)
[2018-11-03] MEDS: Mucinex 600MG ER Tabs PO SCH ×2 (09:19→21:41)
[2018-11-03] MEDS: ECOTRIN 81 MG PO SCH (09:19)
[2018-11-03] MEDS: Pepcid 20 MG PO SCH ×2 (09:19→21:42)
[2018-11-03] MEDS: Klor Con 10 MEQ PO SCH ×2 (09:19→21:41)
[2018-11-03] MEDS: XARELTO 10 MG TABLET PO SCH (09:19)
[2018-11-03] MEDS: DELTASONE 10 MG PO SCH (09:19)
[2018-11-03] MEDS: Toprol Xl 50 MG PO SCH (09:20)
[2018-11-03] MEDS: CLARITIN 10 MG PO SCH (09:20)
[2018-11-03] MEDS: Colace 100 MG PO SCH ×2 (09:20→21:41)
[2018-11-03] MEDS: Calcium 500MG W/Vit D Tablet PO SCH ×2 (09:20→21:41)
[2018-11-03] MEDS: Imdur 30 MG PO SCH (09:20)
--- NOTE | 2018-11-03 10:07 | XRAY ---
Indication: Short of breath. COPD. Comparison: November 01, 2018. PA/lateral chest continues to remain unchanged again demonstrating COPD, right apical fibrosis/scarring, and scattered bilateral suture material. Heart and mediastinal structures within normal limits. No new/acute findings.
[2018-11-03] MEDS: Maxipime 2 GM** 2 G in Dextrose 5%/Water IV Soln. 100ML PLUS BAG 100 ML IV SCH ×2 (10:46→21:41)
[2018-11-03] MEDS: Nicoderm CQ 21 MG TOP SCH (10:46)
[2018-11-03] MEDS: Tessalon Perles 100 MG PO PRN (10:46)
[2018-11-03] MEDS: Merrem 1 GM 1 G in Sodium Chloride 100ML MINI-BAG PLUS 100 ML IV SCH ×2 (14:34→21:41)
[2018-11-03] MEDS: ZOCOR 20MG PO SCH (21:42)
[2018-11-03] MEDS: Ativan 0.5 MG PO PRN (22:01)
[2018-11-04] MEDS: Norco 10/325 MG Tablet PO PRN ×4 (01:01→23:59)
[2018-11-04] MEDS: DUONEB 0.5-3 MG/3 ml Neb IH SCH ×6 (03:32→23:21)
[2018-11-04 05:53] LABS: Hematocrit 34.3 % (35-47); Hemoglobin 10.4 gm/dl (12.0-16.0); Mean Cell Volume 98.3 fl (78-100); Mean Corpuscular Hgb Concent. 30.3 g/dl (32-36); Mean Platelet Volume 8.7 fl (6-9.5); Platelet Count 265 K/mm3 (150-450); Red Blood Count 3.49 M/mm3 (4.1-5.4); Red Cell Distribution Width 13.5 % (11.5-14.0); White Blood Count 14.4 K/mm3 (4.0-10.5)
[2018-11-04 06:03] LABS: Mean Corpuscular Hemoglobin 29.7 pg (26-32)
[2018-11-04 06:11] LABS: ALBUMIN 3.2 g/dL (3.5-5.0); ALKALINE PHOSPHATASE 32 U/L (38-126); ANION GAP 9.7 MEQ/L (5-15); BLOOD UREA NITROGEN 23 mg/dL (7-17); CHLORIDE 99 mmol/L (98-107); Carbon Dioxide 31 mmol/L (22-30); Creatinine 1 0.68 mg/dL (0.52-1.04); Glucose 119 mg/dL (74-106); Potassium 4.8 mmol/L (3.5-5.1); SGOT/AST 17 U/L (14-36); SGPT/ALT 22 U/L (0-35); SODIUM 136 mmol/L (137-145); Total Protein 5.6 g/dL (6.3-8.2)
[2018-11-04] MEDS: solu-MEDROL 125 MG IV SCH ×4 (06:39→23:59)
[2018-11-04] MEDS: Merrem 1 GM 1 G in Sodium Chloride 100ML MINI-BAG PLUS 100 ML IV SCH ×3 (06:39→21:34)
[2018-11-04] MEDS: PHENERGAN 25 MG PO PRN (06:59)
[2018-11-04 07:25] LABS: Lymphocytes 11 % (24-44); Monocyte 2 % (0.0-12.0); Neutrophils 87 % (36.0-66.0); Platelet Estimate NORMAL (NORMAL); Total Cells Counted 100; Toxic Granulation 1+
[2018-11-04] MEDS: Spiriva 18 Mcg/Cap Inhaler IH SCH (07:50)
[2018-11-04] MEDS: ECOTRIN 81 MG PO SCH (08:35)
[2018-11-04] MEDS: Calcium 500MG W/Vit D Tablet PO SCH ×2 (08:35→21:37)
[2018-11-04] MEDS: DELTASONE 10 MG PO SCH (08:35)
[2018-11-04] MEDS: Klor Con 10 MEQ PO SCH ×2 (08:35→21:37)
[2018-11-04] MEDS: XARELTO 10 MG TABLET PO SCH (08:36)
[2018-11-04] MEDS: Singulair 10 MG PO SCH (08:37)
[2018-11-04] MEDS: hydroDIURIL 25 MG PO SCH (08:37)
[2018-11-04] MEDS: CLARITIN 10 MG PO SCH (08:37)
[2018-11-04] MEDS: Imdur 30 MG PO SCH (08:37)
[2018-11-04] MEDS: Toprol Xl 50 MG PO SCH (08:37)
[2018-11-04] MEDS: Protonix 40MG Tablet PO SCH ×2 (08:37→21:37)
[2018-11-04] MEDS: Colace 100 MG PO SCH ×2 (08:38→21:38)
[2018-11-04] MEDS: Mucinex 600MG ER Tabs PO SCH ×2 (08:39→21:37)
[2018-11-04] MEDS: Tessalon Perles 100 MG PO PRN ×2 (08:39→14:35)
[2018-11-04] MEDS: Nicoderm CQ 21 MG TOP SCH (08:39)
[2018-11-04] MEDS: Pepcid 20 MG PO SCH ×2 (08:39→21:37)
[2018-11-04] MEDS: Maxipime 2 GM** 2 G in Dextrose 5%/Water IV Soln. 100ML PLUS BAG 100 ML IV SCH ×2 (08:44→21:34)
[2018-11-04] MEDS: Mucomyst 200 MG/ML IH SCH (20:10)
[2018-11-04] MEDS: Ativan 0.5 MG PO PRN (21:37)
[2018-11-04] MEDS: ZOCOR 20MG PO SCH (21:37)
[2018-11-05] MEDS: DUONEB 0.5-3 MG/3 ml Neb IH SCH ×6 (03:34→22:51)
[2018-11-05 06:19] LABS: Hematocrit 34.1 % (35-47); Hemoglobin 10.5 gm/dl (12.0-16.0); Mean Corpuscular Hgb Concent. 30.8 g/dl (32-36); Mean Platelet Volume 8.9 fl (6-9.5); Platelet Count 250 K/mm3 (150-450); Red Blood Count 3.48 M/mm3 (4.1-5.4); Red Cell Distribution Width 13.4 % (11.5-14.0); White Blood Count 10.9 K/mm3 (4.0-10.5)
[2018-11-05 06:23] LABS: Mean Corpuscular Hemoglobin 30.1 pg (26-32)
[2018-11-05 06:29] LABS: ALBUMIN 3.2 g/dL (3.5-5.0); ALKALINE PHOSPHATASE 30 U/L (38-126); BLOOD UREA NITROGEN 23 mg/dL (7-17); CHLORIDE 96 mmol/L (98-107); Calcium 8.9 mg/dL (8.4-10.2); Carbon Dioxide 34 mmol/L (22-30); Creatinine 1 0.65 mg/dL (0.52-1.04); Glucose 136 mg/dL (74-106); Potassium 4.5 mmol/L (3.5-5.1); SGOT/AST 16 U/L (14-36); SGPT/ALT 28 U/L (0-35); SODIUM 134 mmol/L (137-145); Total Protein 5.6 g/dL (6.3-8.2)
[2018-11-05] MEDS: Mucomyst 200 MG/ML IH SCH ×2 (06:42→18:45)
[2018-11-05] MEDS: Spiriva 18 Mcg/Cap Inhaler IH SCH (06:42)
[2018-11-05] MEDS: solu-MEDROL 125 MG IV SCH ×4 (06:56→23:58)
[2018-11-05] MEDS: Merrem 1 GM 1 G in Sodium Chloride 100ML MINI-BAG PLUS 100 ML IV SCH ×3 (06:56→23:14)
[2018-11-05] MEDS: Nicoderm CQ 21 MG TOP SCH (08:39)
[2018-11-05] MEDS: Norco 10/325 MG Tablet PO PRN ×2 (08:39→18:34)
[2018-11-05] MEDS: Toprol Xl 50 MG PO SCH (10:02)
[2018-11-05] MEDS: Calcium 500MG W/Vit D Tablet PO SCH ×2 (10:02→21:58)
[2018-11-05] MEDS: Protonix 40MG Tablet PO SCH ×2 (10:02→21:59)
[2018-11-05] MEDS: Imdur 30 MG PO SCH (10:02)
[2018-11-05] MEDS: hydroDIURIL 25 MG PO SCH (10:02)
[2018-11-05] MEDS: CLARITIN 10 MG PO SCH (10:02)
[2018-11-05] MEDS: XARELTO 10 MG TABLET PO SCH (10:03)
[2018-11-05] MEDS: Klor Con 10 MEQ PO SCH ×2 (10:03→21:59)
[2018-11-05] MEDS: ECOTRIN 81 MG PO SCH (10:03)
[2018-11-05] MEDS: Maxipime 2 GM** 2 G in Dextrose 5%/Water IV Soln. 100ML PLUS BAG 100 ML IV SCH ×2 (10:03→22:11)
[2018-11-05] MEDS: Mucinex 600MG ER Tabs PO SCH ×2 (10:03→21:59)
[2018-11-05] MEDS: Pepcid 20 MG PO SCH ×2 (10:03→21:59)
[2018-11-05] MEDS: Singulair 10 MG PO SCH (10:03)
[2018-11-05] MEDS: Colace 100 MG PO SCH ×2 (10:07→22:00)
[2018-11-05] MEDS: DELTASONE 10 MG PO SCH (10:23)
[2018-11-05 10:32] LABS: ANISOCYTOSIS 1+; ATYPICAL LYMPHS 5 %; BAND 1 % (0.0-2.0); Lymphocytes 16 % (24-44); Monocyte 5 % (0.0-12.0); Neutrophils 73 % (36.0-66.0); Platelet Estimate NORMAL (NORMAL); Total Cells Counted 100; Toxic Granulation 1+
[2018-11-05 10:33] LABS: Poikilocytosis RARE; Targert Cells RARE
[2018-11-05] MEDS: PHENERGAN 25 MG PO PRN (20:50)
[2018-11-05] MEDS: Tessalon Perles 100 MG PO PRN (22:00)
[2018-11-05] MEDS: ZOCOR 20MG PO SCH (22:00)
[2018-11-05] MEDS: Ativan 0.5 MG PO PRN (22:00)
[2018-11-06] MEDS: DUONEB 0.5-3 MG/3 ml Neb IH SCH ×3 (03:02→10:32)
[2018-11-06 06:02] LABS: Hematocrit 35.3 % (35-47); Hemoglobin 10.9 gm/dl (12.0-16.0); Mean Cell Volume 97.5 fl (78-100); Mean Corpuscular Hemoglobin 30.1 pg (26-32); Mean Corpuscular Hgb Concent. 30.9 g/dl (32-36); Mean Platelet Volume 8.9 fl (6-9.5); Platelet Count 279 K/mm3 (150-450); Red Blood Count 3.62 M/mm3 (4.1-5.4); Red Cell Distribution Width 13.5 % (11.5-14.0); White Blood Count 13.6 K/mm3 (4.0-10.5)
[2018-11-06] MEDS: solu-MEDROL 125 MG IV SCH (06:15)
[2018-11-06] MEDS: Merrem 1 GM 1 G in Sodium Chloride 100ML MINI-BAG PLUS 100 ML IV SCH (06:15)
[2018-11-06 06:18] LABS: ANION GAP 9.9 MEQ/L (5-15); BLOOD UREA NITROGEN 24 mg/dL (7-17); CHLORIDE 96 mmol/L (98-107); Carbon Dioxide 35 mmol/L (22-30); Glucose 145 mg/dL (74-106); Potassium 4.2 mmol/L (3.5-5.1); SODIUM 137 mmol/L (137-145)
[2018-11-06] MEDS: PHENERGAN 25 MG PO PRN (06:30)
[2018-11-06] MEDS: Spiriva 18 Mcg/Cap Inhaler IH SCH (06:57)
[2018-11-06] MEDS: Mucomyst 200 MG/ML IH SCH (06:57)
[2018-11-06 07:43] LABS: BAND 3 % (0.0-2.0); Lymphocytes 6 % (24-44); Monocyte 2 % (0.0-12.0); Neutrophils 89 % (36.0-66.0); Platelet Estimate NORMAL (NORMAL); Total Cells Counted 100
[2018-11-06 07:51] LABS: Hypochromia 1+
[2018-11-06 07:54] LABS: Toxic Granulation 1+
[2018-11-06 08:03] VITALS: BP 142/66
[2018-11-06] MEDS: Norco 10/325 MG Tablet PO PRN (08:53)
[2018-11-06] MEDS: Calcium 500MG W/Vit D Tablet PO SCH (08:54)
[2018-11-06] MEDS: Imdur 30 MG PO SCH (08:54)
[2018-11-06] MEDS: Toprol Xl 50 MG PO SCH (08:54)
[2018-11-06] MEDS: XARELTO 10 MG TABLET PO SCH (08:54)
[2018-11-06] MEDS: Colace 100 MG PO SCH (08:54)
[2018-11-06] MEDS: Protonix 40MG Tablet PO SCH (08:54)
[2018-11-06] MEDS: Klor Con 10 MEQ PO SCH (08:54)
--- NOTE | 2018-11-06 08:54 | CONS ---
CONSULT DATE: 11/05/2018 HISTORY: Pretty Sanchez is a 62 year-old woman with history of chronic obstructive pulmonary disease and chronic hypoxemia, who had been seen by me until 2016, who has been hospitalized with complaints of cough, shortness of breath and wheezing. The patient reports clinical improvement. I was asked to see her by Dr. Gallo for recommendations from pulmonary standpoint. The patient reported that she follows with a steam hand in [facility]. She has been on bronchodilators along with Breo as well as Tudorza which has controlled her symptoms. She was hospitalized in fall of last year with similar complaints. She unfortunately continues to smoke. PAST MEDICAL HISTORY: Positive for chronic obstructive pulmonary disease, chronic bronchitis, hypoxemia, coronary artery disease, congestive heart failure. She had one cardiac stent and is followed by Dr. Higgins. The patient also had a lung nodule which was biopsied in 2012 and was found to be benign. PAST SURGICAL HISTORY: As above. PERSONAL AND SOCIAL HISTORY: The patient still smokes half a pack per day. MEDICATIONS: Home and current medications are reviewed. ALLERGIES: IODINE, PENICILLIN, SULFA. PHYSICAL EXAMINATION: This is a middle aged woman who appears comfortable, able to sleep without difficulty. Vital signs noted. CVS: First and second heart sounds are normal, regular, rhythmic. RESPIRATORY: Breath sounds are diminished, rhonchi are heard. ABDOMEN: Soft. EXTREMITIES: No edema is noted. LABORATORY DATA AND TESTS: White blood cell count 10.9, hemoglobin 10.5, hematocrit 34, PLT 250,000. Sodium 134, potassium 4.5, chloride 96, bicarb 34, glucose 136, BUN 23, creatinine 0.6. D-Dimer was 414. Chest x-ray showed right apical fibrosis. ASSESSMENT: This is a 62 year-old woman admitted with: 1) Chronic obstructive pulmonary disease with acute exacerbation. 2) Acute bronchitis. 3) Hypoxemia. 4) Nicotine addiction. RECOMMENDATIONS: I agree with current treatment. The patient has already shown significant improvement. Will resume her medications upon discharge. She will be followed by her steam hand in [place]. She can be discharged from pulmonary standpoint when deemed appropriate by primary care physician.
[2018-11-06] MEDS: hydroDIURIL 25 MG PO SCH (08:55)
[2018-11-06] MEDS: Mucinex 600MG ER Tabs PO SCH (08:55)
[2018-11-06] MEDS: DELTASONE 10 MG PO SCH (08:56)
[2018-11-06] MEDS: Nicoderm CQ 21 MG TOP SCH (08:56)
[2018-11-06] MEDS: CLARITIN 10 MG PO SCH (08:56)
[2018-11-06] MEDS: Singulair 10 MG PO SCH (08:57)
[2018-11-06] MEDS: ECOTRIN 81 MG PO SCH (08:58)
[2018-11-06] MEDS: Maxipime 2 GM** 2 G in Dextrose 5%/Water IV Soln. 100ML PLUS BAG 100 ML IV SCH (09:18)
[2018-11-06] MEDS: Pepcid 20 MG PO SCH (09:20)
--- NOTE | 2018-11-06 10:20 | DS ---
DISCHARGE DIAGNOSES: 1) CHRONIC OBSTRUCTIVE PULMONARY DISEASE EXACERBATION. 2) HYPOXIA. HISTORY: The patient is a 62 year-old white female who had been getting worse at home over the past couple of weeks. She had been into the [facility] a couple of times and received a steroid shot and oral prednisone as well as antibiotics but she continued to get sicker and presented herself to the emergency room. HOSPITAL COURSE: The patient was seen in the emergency room and admitted to the hospital on IV antibiotics and IV steroids as well as oxygen. She continued to wheeze throughout the stay with getting better very slowly. We had hoped to be able to use theophylline on her but she reported she had anaphylactic reaction to that in the past. She also has difficulty due to her reported medicine allergies to penicillin, sulfa, clindamycin, Cipro and Zithromax. She was placed on meropenem for the antibiotic choice as well as Rocephin. We did obtain a pulmonary consultation from Dr. Jamal Mcmullen but at the time she was seen she was improving and by the morning of 11/06/2018 she was feeling essentially ready to go home although she was not back quite to her baseline yet. She was up ambulating without difficulty or excessive shortness of breath. She did continue to have wheezes about long term through expiration. Her peak flows were also noted to be quite low measuring 75 to 80 on a couple different occasions by the respiratory therapist. The patient's sputum culture came back probable contaminant with Haemophilus species. The chest x-ray showed chronic obstructive pulmonary disease, right apical fibrosis and scarring. She has had partial upper lobectomy previously for what sounds like a benign process. The patient will be sent home now on prednisone at 60 mg a day for five to wean to 40 mg for five and then 20 mg for five. She will be placed on Symbicort as well as her usual Spiriva and PRN use of Albuterol nebulizer medications. She will see her social insurance specialist down in [place] as soon as she can as well after discharge. She does have home oxygen as well and O2 saturation monitors. Will see her in the office by myself in five days to follow up at the time she is due to drop down from 60 to 40 mg on the prednisone. She is to call if she has further problems in the interim.
[2018-11-06 11:21] VITALS: PULSE 78; O2SAT 98
== END 2018-11-06 11:30 | disposition home or self-care (01) | DRG 192 ==
LOC: ED 03:31 → MED SURG 06:24 → UNDOADMOB 06:24 → INTOOBSV 11-02 05:15 → OBSVTOIN 11-02 05:15 → MED SURG 11-02 05:15
PROVIDERS: ADMIT Family Medicine; ATTEND Family Medicine
DX: J44.1 Chronic obstructive pulmonary disease with (acute) exacerbation (principal); J20.9 Acute bronchitis, unspecified; J44.0 Chronic obstructive pulmonary disease with (acute) lower respiratory infection; R09.02 Hypoxemia; R19.7 Diarrhea, unspecified; Z90.2 Acquired absence of lung [part of]; I10 Essential (primary) hypertension; I25.10 Atherosclerotic heart disease of native coronary artery without angina pectoris; Z99.81 Dependence on supplemental oxygen; F17.200 Nicotine dependence, unspecified, uncomplicated; Z79.899 Other long term (current) drug therapy; Z86.718 Personal history of other venous thrombosis and embolism
CPT/HCPCS: 36000; 36415; 71045; 71046; 80048; 80053; 82805; 83605; 83735; 83880; 84484; 85025; 85379; 87040; 87631; 93005; 93268; 94150; 94640; 94760; 94762; 96360; 96361; 96365; 96367; 96374; 99285; G0378; J0692; J0696; J0713; J2930; J7609; A9270-GY

== ENCOUNTER 2018-11-13 05:53 | Observation (INO) | payer MEDICARE ==
[2018-11-13] MEDS ORDERED: PROVENTIL 2.5 MG/3 ML NEB IH ONE ×2 (06:00→06:09)
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
[2018-11-13 06:16] LABS: VBG BASE EXCESS 7.3 (-2.0-2.0); VBG CARBOXYHEMOGLOBIN 4.5 % T HGB (0.0-6.9); VBG HCO3- 34.5 meq/L (22-28); VBG HEMOGLOBIN 11.4; VBG O2 SATURATION 57.6 (95-100); VBG POTASSIUM 3.6 (3.5-5.1); VBG pH 7.36 (7.32-7.42)
[2018-11-13] MEDS ORDERED: BABY ASPIRIN 81 MG CHEW PO ONE (06:24)
[2018-11-13] MEDS ORDERED: BABY ASPIRIN 81 MG CHEW ONE (06:30)
[2018-11-13 06:33] LABS: Hematocrit 36.8 % (35-47); Hemoglobin 11.4 gm/dl (12.0-16.0); Mean Cell Volume 98.7 fl (78-100); Mean Platelet Volume 8.2 fl (6-9.5); Platelet Count 334 K/mm3 (150-450); Red Blood Count 3.73 M/mm3 (4.1-5.4); Red Cell Distribution Width 14.2 % (11.5-14.0); White Blood Count 21.3 K/mm3 (4.0-10.5)
[2018-11-13 06:36] LABS: INR 0.92 (0.8-3.0); PROTIME 10.7 SECONDS (9.95-12.35)
[2018-11-13 06:38] LABS: Mean Corpuscular Hemoglobin 30.5 pg (26-32)
[2018-11-13 06:39] LABS: PTT 21.7 SECONDS (25.3-37.0)
[2018-11-13] MEDS ORDERED: ROCEPHIN 1 Gm-D5w 50 ml Bag** 1 G/50 ML IVPB IV STA (06:40)
[2018-11-13] MEDS ORDERED: ROCEPHIN 1 Gm-D5w 50 ml Bag** 1 G/50 ML IVPB IV ONE (06:43)
[2018-11-13 06:49] LABS: ALKALINE PHOSPHATASE 46 U/L (38-126); ANION GAP 9.5 MEQ/L (5-15); BLOOD UREA NITROGEN 22 mg/dL (7-17); CHLORIDE 95 mmol/L (98-107); Calcium 9.5 mg/dL (8.4-10.2); Carbon Dioxide 35 mmol/L (22-30); Creatinine 1 0.71 mg/dL (0.52-1.04); Glucose 112 mg/dL (74-106); NT PRO BNP 474 pg/mL (0-900); Potassium 3.7 mmol/L (3.5-5.1); SGOT/AST 19 U/L (14-36); SGPT/ALT 38 U/L (0-35); SODIUM 136 mmol/L (137-145); Total Protein 6.8 g/dL (6.3-8.2)
[2018-11-13 07:30] LABS: Lymphocytes 12 % (24-44); Monocyte 9 % (0.0-12.0); Neutrophils 79 % (36.0-66.0); Total Cells Counted 100
[2018-11-13 07:31] LABS: ANISOCYTOSIS 1+; Platelet Estimate NORMAL (NORMAL); Poikilocytosis 1+
[2018-11-13] MEDS ORDERED: DUONEB 0.5-3 MG/3 ml Neb IH PRN (07:46)
[2018-11-13] MEDS ORDERED: solu-MEDROL 125 MG IV SCH (08:00)
[2018-11-13] MEDS ORDERED: PROVENTIL 2.5 MG/3 ML NEB IH PRN (08:15)
[2018-11-13] MEDS: XARELTO 10 MG TABLET PO SCH (08:25)
[2018-11-13] MEDS: PATIENT OWN MEDICATION IH SCH ×3 (08:33→19:07)
--- NOTE | 2018-11-13 09:03 | XRAY ---
Indication: Short of breath. Comparison: November 03, 2018. Portable chest unchanged again demonstrating COPD, right apical fibrosis/scarring, and scattered bilateral suture material. Heart is not enlarged. No new/acute findings.
[2018-11-13] MEDS ORDERED: Ativan 0.5 MG PO PRN (09:11)
[2018-11-13] MEDS ORDERED: NON-FORMULARY ITEM (Promethazine Hcl [Promethazine Hcl] 12.5 MG) PO PRN (09:11)
[2018-11-13] MEDS ORDERED: Nitrostat 0.4 MG Tablet SL PRN (09:15)
[2018-11-13] MEDS ORDERED: UMECLIDINIUM BROMIDE IH SCH (09:15)
[2018-11-13] MEDS ORDERED: Sodium Chloride 3 ML UD NEBULES IH SCH (09:15)
[2018-11-13] MEDS: Norco 10/325 MG Tablet PO PRN ×2 (09:39→21:31)
[2018-11-13] MEDS ORDERED: NON-FORMULARY ITEM (Budesonide/Formoterol Fumarate [Symbicort 160-4.5 Mcg Inhaler] 10.2 GM IH SCH (10:00)
[2018-11-13] MEDS ORDERED: Spiriva 18 Mcg/Cap Inhaler IH SCH (10:00)
[2018-11-13] MEDS ORDERED: NON-FORMULARY ITEM (Calcium Carbonate/Vitamin D3 [Calcium 1,000 + D3 Caplet] 1 EACH) PO SCH (10:00)
[2018-11-13] MEDS: DUONEB 0.5-3 MG/3 ml Neb IH SCH ×4 (10:17→23:54)
[2018-11-13] MEDS: Imdur 30 MG PO SCH (10:31)
[2018-11-13] MEDS: Klor Con 10 MEQ PO SCH ×2 (10:31→22:24)
[2018-11-13] MEDS: Pepcid 20 MG PO SCH ×2 (10:32→22:24)
[2018-11-13] MEDS: Toprol Xl 50 MG PO SCH (10:32)
[2018-11-13] MEDS: hydroDIURIL 25 MG PO SCH (10:32)
[2018-11-13] MEDS: Colace 100 MG PO SCH ×2 (10:32→22:29)
[2018-11-13] MEDS: Calcium 500MG W/Vit D Tablet PO SCH ×2 (10:32→22:24)
[2018-11-13] MEDS: Protonix 40MG Tablet PO SCH ×2 (10:33→22:23)
[2018-11-13] MEDS: solu-MEDROL 125 MG IV SCH ×3 (11:42→23:47)
[2018-11-13] MEDS ORDERED: DUONEB 0.5-3 MG/3 ml Neb IH SCH (12:00)
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
[2018-11-13] MEDS: PHENERGAN 25 MG PO PRN (21:44)
[2018-11-13] MEDS ORDERED: ZOCOR 20MG PO SCH (22:00)
[2018-11-14] MEDS: DUONEB 0.5-3 MG/3 ml Neb IH SCH ×2 (03:06→05:37)
[2018-11-14] MEDS: solu-MEDROL 125 MG IV SCH (05:36)
[2018-11-14] MEDS: PATIENT OWN MEDICATION IH SCH ×2 (05:39)
[2018-11-14 05:50] LABS: Hematocrit 35.7 % (35-47); Mean Cell Volume 97.5 fl (78-100); Mean Corpuscular Hgb Concent. 30.8 g/dl (32-36); Mean Platelet Volume 8.3 fl (6-9.5); Platelet Count 313 K/mm3 (150-450); Red Blood Count 3.66 M/mm3 (4.1-5.4)
[2018-11-14 06:10] LABS: ALBUMIN 3.9 g/dL (3.5-5.0); ALKALINE PHOSPHATASE 39 U/L (38-126); BLOOD UREA NITROGEN 18 mg/dL (7-17); CHLORIDE 96 mmol/L (98-107); Calcium 9.9 mg/dL (8.4-10.2); Carbon Dioxide 32 mmol/L (22-30); Creatinine 1 0.55 mg/dL (0.52-1.04); Glucose 147 mg/dL (74-106); Potassium 4.3 mmol/L (3.5-5.1); SGOT/AST 21 U/L (14-36); SGPT/ALT 34 U/L (0-35); SODIUM 136 mmol/L (137-145); Total Protein 6.6 g/dL (6.3-8.2)
[2018-11-14 07:11] LABS: BAND 6 % (0.0-2.0); Lymphocytes 9 % (24-44); Metamyelocyte 1 %; Monocyte 1 % (0.0-12.0); Neutrophils 83 % (36.0-66.0); Platelet Estimate NORMAL (NORMAL); Total Cells Counted 100
[2018-11-14 07:12] LABS: ANISOCYTOSIS 1+; Targert Cells 1+
[2018-11-14 07:20] VITALS: BP 141/62; PULSE 103; O2SAT 95
[2018-11-14] MEDS ORDERED: Nicoderm CQ 21 MG TOP SCH (07:45)
[2018-11-14] MEDS: PHENERGAN 25 MG PO PRN (07:46)
[2018-11-14] MEDS: Norco 10/325 MG Tablet PO PRN (07:46)
--- NOTE | 2018-11-14 08:07 | HP ---
CHIEF COMPLAINT: Shortness of breath. HISTORY OF PRESENT ILLNESS: The patient is a 62 year-old white female with history of chronic obstructive pulmonary disease that appears to be end-stage. She has had lung surgery previously for what is thought to be a lung cancer but turned out to be just calcium. The patient has a pulmonary doctor down in [place] which she has not seen recently. She has also been followed by Dr. Mcmullen. The patient was recently in the hospital for acute exacerbation of chronic obstructive pulmonary disease for which she received large doses of IV steroids and taking nearly a week for her to break to be able to go home. Once she returned home again she was in a smoking environment for four days and returned to the hospital very short of breath once again. The patient is quite dyspneic and has difficulty with walking any distance to the bathroom. She is able to speak in full sentences however. PAST MEDICAL/SURGICAL HISTORY: Otherwise significant for previous pulmonary embolism, arthritis, degenerative disc disease, gastroesophageal reflux disease, irritable bowel, anxiety/depression. HOME MEDICATIONS: Aspirin 160 mg a day, docusate 100 mg b.i.d., famotidine 20 mg b.i.d., [place] 10/325 mg four times a day PRN, Nitro sublingual tablet PRN, potassium 10 mEq b.i.d., Simvastatin 20 mg at night, isosorbide mononitrate 30 mg daily. She takes calcium supplements, metoprolol 25 mg daily, Xarelto 10 mg tablets 20 mg a day, pantoprazole 40 mg b.i.d., hydrochlorothiazide 12.5 mg a day, Symbicort inhaler 160/4.5. She also recently been on Cefepime 100 mg at home. ALLERGIES: THEOPHYLLINE (SHE REPORTS MADE HER THROAT SWELL). SHE HAS MULTIPLE OTHER ALLERGIES WELL TO CIPROFLOXACIN, IODINE, PENICILLIN, SULFA, DILAUDID, LISINOPRIL, CLINDAMYCIN, AZITHROMYCIN. PHYSICAL EXAMINATION: The patient's vital signs on admission showed temperature 98.0F, pulse 114, respiratory rate 30, blood pressure 152/108. O2 saturation 100% on room air. HEENT: Normocephalic, atraumatic. Pupils equal round reactive to light. Extraocular movements intact. She is wearing oxygen by nasal cannula. Oropharynx is slightly dry. NECK: Supple without lymphadenopathy, thyromegaly or JVD. CHEST: Reveals diffuse wheezes both sides of the chest with diminished air movement. HEART: Regular rate and rhythm. No murmurs, rubs or gallops. ABDOMEN: Soft. No palpable masses. EXTREMITIES: Without significant cyanosis, clubbing or edema. NEUROLOGIC: The patient is alert and oriented x3. No focal deficits were noted. LAB DATA AND TESTS: The patient's initial laboratory studies showed troponin to be 0.014. Her glucose 112, BUN 22, creatinine 0.71. Electrolytes were normal. Liver enzymes were normal. She had an elevation of D-dimer of 1,004 but due to her allergies to IV dye and the fact that she is already on Xarelto we did not pursue this with CT scan with pulmonary embolism protocol. The patient's white blood cell count was 21,300, hemoglobin 11.4, PLT count 334,000. ASSESSMENT: A patient with end-stage chronic obstructive pulmonary disease with bronchospasm, quite dyspneic and oxygen dependent. She has been readmitted to the hospital for aggressive management with high doses of IV steroid, nebulizer treatments and she has been placed empirically on Rocephin. We will obtain pulmonary consultation from Dr. Mcmullen and continue her home medications.
[2018-11-14] MEDS: Protonix 40MG Tablet PO SCH (08:20)
[2018-11-14] MEDS: Imdur 30 MG PO SCH (08:20)
[2018-11-14] MEDS: XARELTO 10 MG TABLET PO SCH (08:20)
[2018-11-14] MEDS: Toprol Xl 50 MG PO SCH (08:20)
[2018-11-14] MEDS: Calcium 500MG W/Vit D Tablet PO SCH (08:20)
[2018-11-14] MEDS: hydroDIURIL 25 MG PO SCH (08:21)
[2018-11-14] MEDS: Klor Con 10 MEQ PO SCH (08:21)
[2018-11-14] MEDS: Pepcid 20 MG PO SCH (08:21)
[2018-11-14] MEDS: Colace 100 MG PO SCH (08:22)
[2018-11-14] MEDS ORDERED: BENADRYL 25 MG CAPSULE PO SCH (10:00)
[2018-11-14] MEDS ORDERED: ECOTRIN 81 MG PO SCH (10:00)
[2018-11-14] MEDS ORDERED: CLARITIN 10 MG PO SCH (10:00)
[2018-11-14] MEDS ORDERED: Mucinex 600MG ER Tabs PO SCH (10:00)
[2018-11-14] MEDS ORDERED: ROCEPHIN 1 Gm-D5w 50 ml Bag** 1 G/50 ML IVPB IV SCH (10:00)
[2018-11-14] MEDS ORDERED: Singulair 10 MG PO SCH (10:00)
--- NOTE | 2018-11-18 13:07 | DS ---
DISCHARGE DIAGNOSIS: END-STAGE CHRONIC OBSTRUCTIVE PULMONARY DISEASE. HOSPITAL COURSE: The patient is a 62 year-old white female who was admitted to the hospital on 11/13/2018 with complaints of shortness of breath. She has basically end-stage pulmonary disease with pulmonary fibrosis and previous history of pulmonary embolism as well. The patient has difficulty breathing, shortness of breath with even ambulating to the bathroom although she is able to speak in short sentences without having to take a breath. The patient had been admitted to the hospital for IV steroid medications and had pulmonary consultation with Dr. Mcmullen. She was given IV antibiotics, IV fluids, nebulizer treatments, Singulair, Claritin. She unfortunately has allergies to theophylline which she reports as being hives and throat swelling. She had initial hospitalization two weeks prior to this time being in the hospital for approximately a week for high dose IV steroids and was able to return home although she was still somewhat wheezy, to an environment where she was in with a bunch of smokers and she came back to the hospital within three to four days after discharge with similar problems. She has been difficult to break and in fact she is still wheezing at this time although she is now able to ambulate with less shortness of breath and requesting to go home. Her pulmonary doctor that she normally sees is down in [place] and she has an appointment to see him a month from now. We will attempt to get her an appointment to see him within the next few days if possible. We will discharge her home on her usual home medications with also prednisone at 60 mg for five days tapering to 40 and then 20 over five days each. She is instructed to come back to the hospital if she has any worsening of her condition. She is given an appointment to see me in follow up in three to five days. She has oxygen at home, nebulizer treatments and O2 saturation monitors. The patient is admonished to quit smoking and to stay away from any smoking environment.
== END 2018-11-14 09:59 | disposition swing bed (61) ==
LOC: ED 05:53 → MED SURG 07:40
PROVIDERS: ADMIT Family Medicine; ATTEND Family Medicine
DX: J44.1 Chronic obstructive pulmonary disease with (acute) exacerbation (principal); R09.02 Hypoxemia; R79.1 Abnormal coagulation profile; Z79.01 Long term (current) use of anticoagulants; Z79.899 Other long term (current) drug therapy; Z86.718 Personal history of other venous thrombosis and embolism; F41.8 Other specified anxiety disorders; Z99.81 Dependence on supplemental oxygen
CPT/HCPCS: 36000; 36415; 71045; 80053; 80198; 82805; 83605; 83880; 84484; 85025; 85379; 85610; 85730; 87040; 87070; 93005; 93041; 94150; 94640; 94762; 96365; 99285; G0378; J0696; J2930; J7609; A9270-GY

== ENCOUNTER 2018-11-14 09:49 | Inpatient (IN) | payer MEDICARE ==
[2018-11-14] MEDS ORDERED: DUONEB 0.5-3 MG/3 ml Neb IH ONE (10:50)
[2018-11-14] MEDS ORDERED: PROVENTIL 2.5 MG/3 ML NEB IH PRN (10:55)
[2018-11-14] MEDS ORDERED: Nitrostat 0.4 MG Tablet SL PRN (10:55)
[2018-11-14] MEDS: DUONEB 0.5-3 MG/3 ml Neb IH SCH ×4 (11:01→23:15)
[2018-11-14] MEDS: solu-MEDROL 125 MG IV SCH ×2 (11:44→17:43)
[2018-11-14] MEDS: Norco 10/325 MG Tablet PO PRN (15:58)
[2018-11-14] MEDS: PHENERGAN 25 MG PO PRN (15:58)
[2018-11-14] MEDS: BENADRYL 25 MG CAPSULE PO SCH ×2 (15:58→22:25)
[2018-11-14] MEDS: Tessalon Perles 100 MG PO PRN (16:11)
[2018-11-14] MEDS: PATIENT OWN MEDICATION IH SCH (19:00)
[2018-11-14] MEDS: Colace 100 MG PO SCH (22:24)
[2018-11-14] MEDS: Pepcid 20 MG PO SCH (22:24)
[2018-11-14] MEDS: Ativan 0.5 MG PO PRN (22:24)
[2018-11-14] MEDS: Protonix 40MG Tablet PO SCH (22:25)
[2018-11-14] MEDS: Calcium 500MG W/Vit D Tablet PO SCH (22:25)
[2018-11-14] MEDS: ZOCOR 20MG PO SCH (22:25)
[2018-11-14] MEDS: Mucinex 600MG ER Tabs PO SCH (22:25)
[2018-11-14] MEDS: Klor Con 10 MEQ PO SCH (22:27)
[2018-11-15] MEDS: PHENERGAN 25 MG PO PRN ×3 (00:02→13:02)
[2018-11-15] MEDS: Norco 10/325 MG Tablet PO PRN ×3 (00:02→19:55)
[2018-11-15] MEDS: solu-MEDROL 125 MG IV SCH ×4 (00:02→17:13)
[2018-11-15] MEDS: DUONEB 0.5-3 MG/3 ml Neb IH SCH ×6 (03:48→23:00)
[2018-11-15] MEDS: PATIENT OWN MEDICATION IH SCH ×2 (08:20)
[2018-11-15] MEDS: ROCEPHIN 1 Gm-D5w 50 ml Bag** 1 G/50 ML IVPB IV SCH (09:25)
[2018-11-15] MEDS: ECOTRIN 81 MG PO SCH (09:25)
[2018-11-15] MEDS: Singulair 10 MG PO SCH (09:25)
[2018-11-15] MEDS: XARELTO 10 MG TABLET PO SCH (09:25)
[2018-11-15] MEDS: Protonix 40MG Tablet PO SCH ×2 (09:26→21:53)
[2018-11-15] MEDS: Toprol Xl 50 MG PO SCH (09:26)
[2018-11-15] MEDS: hydroDIURIL 25 MG PO SCH (09:26)
[2018-11-15] MEDS: BENADRYL 25 MG CAPSULE PO SCH ×3 (09:26→21:53)
[2018-11-15] MEDS: Imdur 30 MG PO SCH (09:26)
[2018-11-15] MEDS: Klor Con 10 MEQ PO SCH ×2 (09:27→21:53)
[2018-11-15] MEDS: Calcium 500MG W/Vit D Tablet PO SCH ×2 (09:27→21:53)
[2018-11-15] MEDS: Pepcid 20 MG PO SCH ×2 (09:27→21:54)
[2018-11-15] MEDS: CLARITIN 10 MG PO SCH (09:27)
[2018-11-15] MEDS: Tessalon Perles 100 MG PO PRN ×2 (09:27→21:53)
[2018-11-15] MEDS: Mucinex 600MG ER Tabs PO SCH ×2 (09:28→21:54)
[2018-11-15] MEDS: Nicoderm CQ 21 MG TOP SCH (09:28)
[2018-11-15] MEDS: Colace 100 MG PO SCH ×2 (09:29→21:53)
[2018-11-15] MEDS ORDERED: Aplisol ID ONE (10:00)
[2018-11-15] MEDS: Ativan 0.5 MG PO PRN (21:54)
[2018-11-15] MEDS: ZOCOR 20MG PO SCH (21:54)
[2018-11-16] MEDS: solu-MEDROL 125 MG IV SCH ×5 (00:19→17:20)
[2018-11-16] MEDS: PHENERGAN 25 MG PO PRN ×3 (00:19→17:20)
[2018-11-16] MEDS: DUONEB 0.5-3 MG/3 ml Neb IH SCH ×6 (03:41→23:17)
[2018-11-16] MEDS: PATIENT OWN MEDICATION IH SCH ×2 (07:32→07:33)
[2018-11-16] MEDS: Norco 10/325 MG Tablet PO PRN ×2 (09:43→20:40)
[2018-11-16] MEDS: ROCEPHIN 1 Gm-D5w 50 ml Bag** 1 G/50 ML IVPB IV SCH (09:43)
[2018-11-16] MEDS: XARELTO 10 MG TABLET PO SCH (09:44)
[2018-11-16] MEDS: Imdur 30 MG PO SCH (09:44)
[2018-11-16] MEDS: Protonix 40MG Tablet PO SCH ×2 (09:44→20:39)
[2018-11-16] MEDS: Singulair 10 MG PO SCH (09:44)
[2018-11-16] MEDS: ECOTRIN 81 MG PO SCH (09:44)
[2018-11-16] MEDS: CLARITIN 10 MG PO SCH (09:44)
[2018-11-16] MEDS: Calcium 500MG W/Vit D Tablet PO SCH ×2 (09:44→20:38)
[2018-11-16] MEDS: BENADRYL 25 MG CAPSULE PO SCH ×3 (09:44→20:39)
[2018-11-16] MEDS: Nicoderm CQ 21 MG TOP SCH (09:45)
[2018-11-16] MEDS: Klor Con 10 MEQ PO SCH ×2 (09:45→20:39)
[2018-11-16] MEDS: Pepcid 20 MG PO SCH ×2 (09:45→20:39)
[2018-11-16] MEDS: Mucinex 600MG ER Tabs PO SCH ×2 (09:45→20:39)
[2018-11-16] MEDS: hydroDIURIL 25 MG PO SCH (09:45)
[2018-11-16] MEDS: Toprol Xl 50 MG PO SCH (09:45)
[2018-11-16] MEDS: Colace 100 MG PO SCH ×2 (09:48→20:41)
[2018-11-16] MEDS: ZOCOR 20MG PO SCH (20:39)
[2018-11-16] MEDS: Tessalon Perles 100 MG PO PRN (20:39)
[2018-11-16] MEDS: Ativan 0.5 MG PO PRN (22:35)
[2018-11-17] MEDS: solu-MEDROL 125 MG IV SCH ×4 (00:16→17:47)
[2018-11-17] MEDS: PHENERGAN 25 MG PO PRN ×3 (00:16→17:46)
[2018-11-17] MEDS: DUONEB 0.5-3 MG/3 ml Neb IH SCH ×6 (02:54→23:42)
[2018-11-17] MEDS: PATIENT OWN MEDICATION IH SCH ×3 (06:43→19:20)
[2018-11-17] MEDS: XARELTO 10 MG TABLET PO SCH (09:39)
[2018-11-17] MEDS: CLARITIN 10 MG PO SCH (09:40)
[2018-11-17] MEDS: Protonix 40MG Tablet PO SCH ×2 (09:40→22:19)
[2018-11-17] MEDS: Calcium 500MG W/Vit D Tablet PO SCH ×2 (09:40→22:16)
[2018-11-17] MEDS: hydroDIURIL 25 MG PO SCH (09:40)
[2018-11-17] MEDS: Mucinex 600MG ER Tabs PO SCH ×2 (09:41→22:15)
[2018-11-17] MEDS: BENADRYL 25 MG CAPSULE PO SCH ×3 (09:41→22:17)
[2018-11-17] MEDS: Toprol Xl 50 MG PO SCH (09:41)
[2018-11-17] MEDS: Imdur 30 MG PO SCH (09:41)
[2018-11-17] MEDS: Colace 100 MG PO SCH ×2 (09:42→22:19)
[2018-11-17] MEDS: Singulair 10 MG PO SCH (09:42)
[2018-11-17] MEDS: Pepcid 20 MG PO SCH ×2 (09:42→22:15)
[2018-11-17] MEDS: Nicoderm CQ 21 MG TOP SCH (09:42)
[2018-11-17] MEDS: Klor Con 10 MEQ PO SCH ×2 (09:42→22:17)
[2018-11-17] MEDS: ROCEPHIN 1 Gm-D5w 50 ml Bag** 1 G/50 ML IVPB IV SCH (09:43)
[2018-11-17] MEDS: ECOTRIN 81 MG PO SCH (09:45)
[2018-11-17] MEDS: Norco 10/325 MG Tablet PO PRN ×2 (09:47→17:46)
[2018-11-17] MEDS: ZOCOR 20MG PO SCH (22:16)
[2018-11-17] MEDS: Ativan 0.5 MG PO PRN (22:25)
[2018-11-18] MEDS: PHENERGAN 25 MG PO PRN ×2 (00:14→09:12)
[2018-11-18] MEDS: Norco 10/325 MG Tablet PO PRN ×2 (00:14→09:06)
[2018-11-18] MEDS: solu-MEDROL 125 MG IV SCH ×2 (00:15→09:02)
[2018-11-18] MEDS ORDERED: solu-MEDROL 125 MG IV SCH (00:30)
[2018-11-18] MEDS: DUONEB 0.5-3 MG/3 ml Neb IH SCH ×3 (04:57→10:47)
[2018-11-18 07:28] VITALS: BP 137/64; PULSE 84
[2018-11-18] MEDS: ROCEPHIN 1 Gm-D5w 50 ml Bag** 1 G/50 ML IVPB IV SCH (09:02)
[2018-11-18] MEDS: hydroDIURIL 25 MG PO SCH (09:02)
[2018-11-18] MEDS: Imdur 30 MG PO SCH ×2 (09:02→09:06)
[2018-11-18] MEDS: Calcium 500MG W/Vit D Tablet PO SCH (09:03)
[2018-11-18] MEDS: CLARITIN 10 MG PO SCH (09:04)
[2018-11-18] MEDS: Protonix 40MG Tablet PO SCH (09:04)
[2018-11-18] MEDS: ECOTRIN 81 MG PO SCH (09:04)
[2018-11-18] MEDS: Pepcid 20 MG PO SCH (09:04)
[2018-11-18] MEDS: Toprol Xl 50 MG PO SCH (09:04)
[2018-11-18] MEDS: XARELTO 10 MG TABLET PO SCH (09:05)
[2018-11-18] MEDS: Klor Con 10 MEQ PO SCH (09:05)
[2018-11-18] MEDS: BENADRYL 25 MG CAPSULE PO SCH (09:05)
[2018-11-18] MEDS: Colace 100 MG PO SCH (09:06)
[2018-11-18] MEDS: Mucinex 600MG ER Tabs PO SCH (09:06)
[2018-11-18] MEDS: Nicoderm CQ 21 MG TOP SCH (09:07)
[2018-11-18] MEDS: Singulair 10 MG PO SCH (10:49)
[2018-11-18 10:52] VITALS: O2SAT 97
== END 2018-11-18 11:45 | disposition home health service (06) | DRG 192 ==
LOC: MED SURG 10:00
PROVIDERS: ADMIT Family Medicine; ATTEND Family Medicine
DX: J44.9 Chronic obstructive pulmonary disease, unspecified (principal); J98.01 Acute bronchospasm; Z99.81 Dependence on supplemental oxygen; Z79.899 Other long term (current) drug therapy
CPT/HCPCS: 94150; 94640; 94760; J0696; J2930; A9270-GY

== ENCOUNTER 2018-12-09 17:23 | Emergency (ER) | payer MEDICARE ==
[2018-12-09] MEDS ORDERED: DUONEB 0.5-3 MG/3 ml Neb IH ONE ×2 (17:26→17:35)
[2018-12-09] MEDS ORDERED: solu-MEDROL 125 MG IV ONE (17:26)
[2018-12-09] MEDS ORDERED: Sodium Chloride 0.9% 1000 ML 1,000 ML IV SCH (17:30)
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
[2018-12-09 17:42] LABS: A-aADO2 76; ABG POTASSIUM 3.5 (3.5-5.1); ARTERIAL BLD GAS O2 SATURATION 99.3 % (95-100); ARTERIAL BLOOD GAS BASE EXCESS 7.2 (-2.0-2.0); ARTERIAL BLOOD GAS FIO2 40 %; ARTERIAL BLOOD GAS PCO2 33 mmHg (35-45); ARTERIAL BLOOD GAS PO2 168 mmHg (75-100); CARBOXYHEMOGLOBIN 4.4 % THgb (0.0-6.9); HCO3- 29.5 (22-28); HGB O2 SAT 94.2 g/dF (94-100); Lactic Acid 0.9 (0.4-2.0); Methhemoglobin 0.7 % (1.4-1.5); paO2 pAO1 0.69
[2018-12-09 17:43] LABS: ABG SITE RIGHT RADIAL; ALLEN TEST OK? YES; ARTERIAL BLOOD GAS pH 7.56 (7.35-7.45)
[2018-12-09] MEDS ORDERED: solu-MEDROL 125 MG ONE (17:51)
[2018-12-09] MEDS ORDERED: Sodium Chloride 0.9% 1000 ML 1,000 ML ONE (17:51)
[2018-12-09] MEDS ORDERED: Zofran 4 MG/2 ML VIAL IV ONE (17:59)
[2018-12-09] MEDS ORDERED: PROTONIX 40 MG IV IV ONE (17:59)
[2018-12-09] MEDS ORDERED: Ativan 2 MG/1 ML VIAL IV ONE (18:18)
[2018-12-09] MEDS ORDERED: Ativan 2 MG/1 ML VIAL ONE (18:21)
[2018-12-09 18:26] LABS: BASOPHIL % 0.3 % (0.0-0.4); Basophil (Absolute #) 0.03 (0-0.4); Eosinophil % 1.6 % (0.00-5.0); Eosinophil (Absolute #) 0.15 (0-0.5); Granulocyte Absolute (ANC) 4.98 (1.4-6.9); Granulocytes % 53.2 % (36.0-66.0); Hemoglobin 11.4 gm/dl (12.0-16.0); Lymphocyte (Absolute #) 2.98 (1.0-4.6); Lymphocytes % 31.8 % (24.0-44.0); Mean Cell Volume 98.1 fl (78-100); Mean Corpuscular Hgb Concent. 31.7 g/dl (32-36); Mean Platelet Volume 8.8 fl (6-9.5); Monocyte (Absolute #) 1.23 (0.0-1.3); Monocytes % 13.1 % (0.0-12.0); Platelet Count 361 K/mm3 (150-450); Red Blood Count 3.67 M/mm3 (4.1-5.4); Red Cell Distribution Width 13.4 % (11.5-14.0); White Blood Count 9.4 K/mm3 (4.0-10.5)
[2018-12-09 18:36] LABS: INR 1.07 (0.8-3.0); PROTIME 12.5 SECONDS (9.95-12.35)
[2018-12-09] MEDS ORDERED: ROCEPHIN 1 Gm-D5w 50 ml Bag** 1 G/50 ML IVPB IV STA (18:38)
[2018-12-09] MEDS ORDERED: PROVENTIL 2.5 MG/3 ML NEB IH ONE ×2 (18:38→19:00)
[2018-12-09 18:39] LABS: PTT 27.2 SECONDS (25.3-37.0)
[2018-12-09] MEDS ORDERED: ROCEPHIN 1 Gm-D5w 50 ml Bag** 1 G/50 ML IVPB IV ONE (18:44)
[2018-12-09 18:45] LABS: Appearance CLEAR (CLEAR); Bilirubin NEGATIVE (NEGATIVE); Blood NEGATIVE Ery/ul (0-5); Epithelial Cells RARE /HPF (FEW); Glucose NEGATIVE (NEGATIVE); Ketones TRACE (NEGATIVE); Leukocyte Esterase NEGATIVE (NEGATIVE); Nitrite NEGATIVE (NEGATIVE); Protein,Urine Dip NEGATIVE (Negative); Specific Gravity 1.016 (1.005-1.025); Urobilinogen 2 mg/dL (0-1); WBC 0-2 /HPF (0-5)
[2018-12-09 18:49] LABS: ALBUMIN 4.2 g/dL (3.5-5.0); ALKALINE PHOSPHATASE 42 U/L (38-126); ANION GAP 14.7 MEQ/L (5-15); BLOOD UREA NITROGEN 11 mg/dL (7-17); CHLORIDE 91 mmol/L (98-107); Calcium 10.2 mg/dL (8.4-10.2); Carbon Dioxide 32 mmol/L (22-30); Creatinine 1 0.72 mg/dL (0.52-1.04); Glucose 102 mg/dL (74-106); NT PRO BNP 210 pg/mL (0-900); Potassium 4.7 mmol/L (3.5-5.1); SGOT/AST 36 U/L (14-36); SGPT/ALT 25 U/L (0-35); SODIUM 132 mmol/L (137-145); Total Protein 7.4 g/dL (6.3-8.2)
[2018-12-09 19:41] LABS: INFLUENZA A NEGATIVE (NEGATIVE); INFLUENZA B NEGATIVE (NEGATIVE); RESPIRATORY SYNCTIAL VIRUS NEGATIVE (Negative)
[2018-12-09] MEDS ORDERED: BABY ASPIRIN 81 MG CHEW PO ONE (20:06)
[2018-12-09] MEDS ORDERED: NORCO 5/325 MG PO ONE (20:06)
[2018-12-09] MEDS ORDERED: BABY ASPIRIN 81 MG CHEW ONE (20:09)
[2018-12-09] MEDS ORDERED: NORCO 5/325 MG ONE (20:10)
[2018-12-09 20:17] VITALS: BP 152/84; PULSE 92; O2SAT 98
--- NOTE | 2018-12-10 08:32 | XRAY ---
Indication: Chest pain and short of breath. Comparison: November 13, 2018. Portable chest unchanged again demonstrating COPD, right apical fibrosis/scarring, and bilateral suture material. Heart and mediastinal structures within normal limits. No new/acute findings.
== END 2018-12-09 20:40 | disposition short-term general hospital (02) ==
LOC: ED 17:23
DX: J44.1 Chronic obstructive pulmonary disease with (acute) exacerbation (principal); R79.89 Other specified abnormal findings of blood chemistry; I25.10 Atherosclerotic heart disease of native coronary artery without angina pectoris; E78.00 Pure hypercholesterolemia, unspecified; I10 Essential (primary) hypertension; Z86.711 Personal history of pulmonary embolism; K21.9 Gastro-esophageal reflux disease without esophagitis; M19.90 Unspecified osteoarthritis, unspecified site; F41.8 Other specified anxiety disorders
CPT/HCPCS: 36000; 36415; 36600; 71045; 80053; 81001; 82375; 82803; 83605; 83880; 84484; 85025; 85379; 85610; 85730; 87040; 87070; 87631; 93005; 93041; 94640; 96365; 96374; 96375; 99285; J0696; J2060; J2930; J7609; A9270-GY

== ENCOUNTER 2018-12-12 15:24 | Emergency (ER) | payer MEDICARE ==
[2018-12-12] MEDS ORDERED: PROVENTIL 2.5 MG/3 ML NEB IH ONE ×4 (15:25→16:42)
[2018-12-12 15:35] LABS: A-aADO2 23; ABG HEMOGLOBIN 12.2; ABG POTASSIUM 4.3 (3.5-5.1); ARTERIAL BLD GAS O2 SATURATION 99.3 % (95-100); ARTERIAL BLOOD GAS BASE EXCESS 6.7 (-2.0-2.0); ARTERIAL BLOOD GAS FIO2 36 %; ARTERIAL BLOOD GAS PCO2 60 mmHg (35-45); ARTERIAL BLOOD GAS PO2 159 mmHg (75-100); ARTERIAL BLOOD GAS pH 7.36 (7.35-7.45); CARBOXYHEMOGLOBIN 1.6 % THgb (0.0-6.9); HCO3- 33.9 (22-28); HGB O2 SAT 96.6 g/dF (94-100); Methhemoglobin 1.1 % (1.4-1.5); paO2 pAO1 0.87
[2018-12-12 15:36] LABS: ABG SITE RIGHT RADIAL; ALLEN TEST OK? YES
[2018-12-12 16:02] LABS: BASOPHIL % 0.1 % (0.0-0.4); Basophil (Absolute #) 0.01 (0-0.4); Eosinophil (Absolute #) 0 (0-0.5); Granulocyte Absolute (ANC) 11.65 (1.4-6.9); Granulocytes % 85.8 % (36.0-66.0); Hematocrit 37.5 % (35-47); Hemoglobin 11.7 gm/dl (12.0-16.0); Lymphocyte (Absolute #) 1.31 (1.0-4.6); Lymphocytes % 9.7 % (24.0-44.0); Mean Cell Volume 99.5 fl (78-100); Mean Corpuscular Hgb Concent. 31.2 g/dl (32-36); Mean Platelet Volume 8.7 fl (6-9.5); Monocytes % 4.4 % (0.0-12.0); Platelet Count 429 K/mm3 (150-450); Red Blood Count 3.77 M/mm3 (4.1-5.4); Red Cell Distribution Width 13.7 % (11.5-14.0); White Blood Count 13.6 K/mm3 (4.0-10.5)
--- NOTE | 2018-12-12 16:06 | XRAY ---
Indication: Short of breath. History COPD. Comparison: December 09, 2018. Portable chest continues to remain unchanged again demonstrating COPD, right apical fibrosis/scarring, and bilateral suture material. Heart is not enlarged. No new/acute findings.
[2018-12-12 16:22] LABS: ALBUMIN 4.1 g/dL (3.5-5.0); ALKALINE PHOSPHATASE 48 U/L (38-126); ANION GAP 11.4 MEQ/L (5-15); BLOOD UREA NITROGEN 18 mg/dL (7-17); CHLORIDE 96 mmol/L (98-107); Calcium 9.8 mg/dL (8.4-10.2); Carbon Dioxide 32 mmol/L (22-30); Creatinine 1 0.78 mg/dL (0.52-1.04); Glucose 171 mg/dL (74-106); Potassium 4.3 mmol/L (3.5-5.1); SGOT/AST 20 U/L (14-36); SGPT/ALT 28 U/L (0-35); SODIUM 135 mmol/L (137-145); Total Protein 7.1 g/dL (6.3-8.2)
[2018-12-12 16:25] VITALS: BP 144/88
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
[2018-12-12] MEDS ORDERED: Ativan 1 MG PO ONE (17:08)
[2018-12-12] MEDS ORDERED: Ativan 1 MG ONE (17:12)
[2018-12-12] MEDS ORDERED: Sodium Chloride 0.9% 1000 ML 1,000 ML ONE (17:44)
[2018-12-12] MEDS ORDERED: Sodium Chloride 0.9% 1000 ML 1,000 ML IV SCH (17:45)
[2018-12-12 18:19] VITALS: PULSE 98; O2SAT 100
== END 2018-12-12 18:35 | disposition short-term general hospital (02) ==
LOC: ED 15:24
DX: J44.1 Chronic obstructive pulmonary disease with (acute) exacerbation (principal); I10 Essential (primary) hypertension; I25.10 Atherosclerotic heart disease of native coronary artery without angina pectoris; E78.00 Pure hypercholesterolemia, unspecified; Z79.01 Long term (current) use of anticoagulants; Z79.899 Other long term (current) drug therapy; Z86.711 Personal history of pulmonary embolism
CPT/HCPCS: 36000; 36415; 36600; 71045; 80053; 82375; 82803; 84484; 85025; 93005; 93041; 94150; 94640; 99285; J7609; A9270-GY

== ENCOUNTER 2019-01-19 05:52 | Emergency (ER) | payer MEDICARE ==
[2019-01-19] MEDS ORDERED: PROVENTIL 2.5 MG/3 ML NEB IH ONE ×4 (06:14→08:06)
[2019-01-19] MEDS ORDERED: Sodium Chloride 0.9% 1000 ML 1,000 ML IV SCH (06:15)
[2019-01-19] MEDS ORDERED: Sodium Chloride 0.9% 1000 ML 1,000 ML ONE (06:17)
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
[2019-01-19 06:32] LABS: VBG BASE EXCESS 7.4 (-2.0-2.0); VBG CARBOXYHEMOGLOBIN 3.4 % T HGB (0.0-6.9); VBG HCO3- 34.3 meq/L (22-28); VBG HEMOGLOBIN 12.6; VBG O2 SATURATION 47.5 (95-100); VBG POTASSIUM 3.8 (3.5-5.1); VBG pH 7.38 (7.32-7.42)
[2019-01-19 06:38] LABS: BASOPHIL % 0.2 % (0.0-0.4); Basophil (Absolute #) 0.02 (0-0.4); Eosinophil % 2.4 % (0.00-5.0); Eosinophil (Absolute #) 0.28 (0-0.5); Granulocyte Absolute (ANC) 6.29 (1.4-6.9); Granulocytes % 54.7 % (36.0-66.0); Hematocrit 39.8 % (35-47); Hemoglobin 12.3 gm/dl (12.0-16.0); Lymphocyte (Absolute #) 3.97 (1.0-4.6); Lymphocytes % 34.6 % (24.0-44.0); Mean Cell Volume 101.3 fl (78-100); Mean Corpuscular Hemoglobin 31.2 pg (26-32); Mean Corpuscular Hgb Concent. 30.9 g/dl (32-36); Monocyte (Absolute #) 0.93 (0.0-1.3); Monocytes % 8.1 % (0.0-12.0); Platelet Count 299 K/mm3 (150-450); Red Blood Count 3.93 M/mm3 (4.1-5.4); Red Cell Distribution Width 13.2 % (11.5-14.0); White Blood Count 11.5 K/mm3 (4.0-10.5)
[2019-01-19 06:56] LABS: ALBUMIN 4.1 g/dL (3.5-5.0); ALKALINE PHOSPHATASE 44 U/L (38-126); ANION GAP 11.6 MEQ/L (5-15); BLOOD UREA NITROGEN 10 mg/dL (7-17); CHLORIDE 99 mmol/L (98-107); Calcium 10.3 mg/dL (8.4-10.2); Carbon Dioxide 32 mmol/L (22-30); Creatinine 1 0.71 mg/dL (0.52-1.04); Glucose 108 mg/dL (74-106); NT PRO BNP 286 pg/mL (0-900); Potassium 3.8 mmol/L (3.5-5.1); SGOT/AST 33 U/L (14-36); SGPT/ALT 20 U/L (0-35); SODIUM 139 mmol/L (137-145); Total Protein 7.3 g/dL (6.3-8.2)
[2019-01-19] MEDS ORDERED: PULMICORT 0.5 MG/2 ML RESPULES IH STA (07:36)
[2019-01-19] MEDS ORDERED: TYLENOL EXTRA STRENGTH 500 MG PO STA (09:16)
[2019-01-19] MEDS ORDERED: TYLENOL EXTRA STRENGTH 500 MG ONE (09:18)
--- NOTE | 2019-01-19 09:37 | XRAY ---
Indication: Short of breath. Comparison: December 12, 2018. Portable chest unchanged again demonstrating COPD, right apical fibrosis/scarring, and bilateral suture material. Heart and mediastinal structures within normal limits. No new/acute findings.
[2019-01-19 10:41] VITALS: BP 165/74; PULSE 70; O2SAT 98
== END 2019-01-19 10:43 ==
LOC: ED 05:52
DX: J44.1 Chronic obstructive pulmonary disease with (acute) exacerbation (principal); I10 Essential (primary) hypertension; E78.00 Pure hypercholesterolemia, unspecified; Z86.711 Personal history of pulmonary embolism; K21.9 Gastro-esophageal reflux disease without esophagitis; F41.8 Other specified anxiety disorders; Z79.899 Other long term (current) drug therapy
CPT/HCPCS: 36000; 36415; 71045; 80053; 82805; 83605; 83880; 84484; 85025; 87040; 87070; 93005; 93041; 94150; 94640; 94667; 96360; 96361; 99285; J7609; A9270-GY

== ENCOUNTER 2019-02-16 17:35 | Inpatient (IN) | payer MEDICARE ==
[2019-02-16] MEDS ORDERED: DUONEB 0.5-3 MG/3 ml Neb IH ONE ×2 (17:45→17:52)
[2019-02-16] MEDS ORDERED: solu-MEDROL 125 MG IV ONE (18:00)
[2019-02-16] MEDS ORDERED: Sodium Chloride 0.9% 1000 ML 1,000 ML IV SCH (18:00)
[2019-02-16 18:11] LABS: BASOPHIL % 0.3 % (0.0-0.4); Basophil (Absolute #) 0.03 (0-0.4); Eosinophil % 4.2 % (0.00-5.0); Eosinophil (Absolute #) 0.49 (0-0.5); Granulocytes % 55.9 % (36.0-66.0); Hemoglobin 11.2 gm/dl (12.0-16.0); INR 1.29 (0.8-3.0); Lymphocyte (Absolute #) 3.62 (1.0-4.6); Lymphocytes % 30.7 % (24.0-44.0); Mean Cell Volume 101.7 fl (78-100); Mean Corpuscular Hemoglobin 31.6 pg (26-32); Mean Corpuscular Hgb Concent. 31.1 g/dl (32-36); Mean Platelet Volume 8.8 fl (6-9.5); Monocyte (Absolute #) 1.05 (0.0-1.3); Monocytes % 8.9 % (0.0-12.0); PROTIME 14.7 SECONDS (9.95-12.35); Platelet Count 345 K/mm3 (150-450); Red Blood Count 3.54 M/mm3 (4.1-5.4); Red Cell Distribution Width 12.9 % (11.5-14.0); White Blood Count 11.8 K/mm3 (4.0-10.5)
[2019-02-16 18:14] LABS: PTT 31.2 SECONDS (25.3-37.0)
[2019-02-16 18:15] LABS: ALBUMIN 4.2 g/dL (3.5-5.0); ALKALINE PHOSPHATASE 49 U/L (38-126); ANION GAP 12.5 MEQ/L (5-15); BLOOD UREA NITROGEN 13 mg/dL (7-17); CHLORIDE 98 mmol/L (98-107); Calcium 9.7 mg/dL (8.4-10.2); Carbon Dioxide 32 mmol/L (22-30); Creatinine 1 0.69 mg/dL (0.52-1.04); Glucose 91 mg/dL (74-106); MAGNESIUM 1.8 mg/dL (1.6-2.3); Potassium 4.1 mmol/L (3.5-5.1); SGOT/AST 27 U/L (14-36); SGPT/ALT 19 U/L (0-35); SODIUM 138 mmol/L (137-145); Total Protein 7.2 g/dL (6.3-8.2)
[2019-02-16] MEDS ORDERED: solu-MEDROL 125 MG ONE (18:20)
[2019-02-16] MEDS ORDERED: Sodium Chloride 0.9% 1000 ML 1,000 ML ONE (18:20)
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
[2019-02-16] MEDS ORDERED: PROVENTIL 2.5 MG/3 ML NEB IH ONE ×2 (18:28→18:38)
[2019-02-16 19:11] LABS: INFLUENZA A NEGATIVE (NEGATIVE); INFLUENZA B NEGATIVE (NEGATIVE); RESPIRATORY SYNCTIAL VIRUS NEGATIVE (Negative)
[2019-02-16 19:12] LABS: Appearance CLEAR (CLEAR); Bacteria RARE /HPF (NEGATIVE); Bilirubin NEGATIVE (NEGATIVE); Blood SMALL Ery/ul (0-5); Epithelial Cells FEW /HPF (FEW); Glucose NEGATIVE (NEGATIVE); Ketones NEGATIVE (NEGATIVE); Leukocyte Esterase NEGATIVE (NEGATIVE); Mucus SLIGHT /HPF (NEGATIVE); Nitrite NEGATIVE (NEGATIVE); Protein,Urine Dip NEGATIVE (Negative); Urobilinogen NEGATIVE mg/dL (0-1)
[2019-02-16] MEDS ORDERED: D5w 100ML Mini Bag 100 ML 100 ML IV ONE (19:17)
[2019-02-16] MEDS: Maxipime 2 GM** 2 G in Dextrose 5%/Water IV Soln. 100ML PLUS BAG 100 ML IV SCH (19:33)
[2019-02-16] MEDS ORDERED: Xopenex 1.25 MG/0.5 ML UD NEBULE IH PRN (19:33)
[2019-02-16] MEDS ORDERED: Nitrostat 0.4 MG Tablet SL PRN (19:35)
[2019-02-16] MEDS ORDERED: Norco 10/325 MG Tablet PO PRN (19:36)
[2019-02-16] MEDS ORDERED: Norco 10/325 MG Tablet ONE (20:29)
[2019-02-16] MEDS ORDERED: MAXIPIME 1 GM** 1 G in Dextrose 5%/Water IV Soln. 100ML PLUS BAG 100 ML IV SCH (22:00)
[2019-02-16] MEDS: Nicoderm CQ 21 MG TOP SCH (22:09)
[2019-02-16] MEDS: Protonix 40MG Tablet PO SCH (22:09)
[2019-02-16] MEDS: Pepcid 20 MG PO SCH (22:09)
[2019-02-16] MEDS: Ativan 0.5 MG PO PRN (22:09)
[2019-02-16] MEDS: ZOCOR 20MG PO SCH (22:09)
[2019-02-16] MEDS: Klor Con 10 MEQ PO SCH (22:09)
[2019-02-16] MEDS: Colace 100 MG PO PRN (22:24)
[2019-02-16] MEDS: DUONEB 0.5-3 MG/3 ml Neb IH SCH (22:38)
[2019-02-17] MEDS: DUONEB 0.5-3 MG/3 ml Neb IH SCH ×6 (02:51→23:35)
[2019-02-17] MEDS: Spiriva 18 Mcg/Cap Inhaler IH SCH (07:00)
[2019-02-17] MEDS: Advair Hfa 115/21 Common canister IH SCH ×2 (07:01→19:24)
[2019-02-17] MEDS ORDERED: Tessalon Perles 100 MG PO PRN (07:21)
[2019-02-17] MEDS: Norco 10/325 MG Tablet PO PRN ×2 (08:32→20:35)
[2019-02-17] MEDS: Sodium Chloride 0.9% 1000 ML 1,000 ML IV SCH (08:33)
--- NOTE | 2019-02-17 09:30 | XRAY ---
Indication: Cough and dyspnea. Comparison: January 19, 2019. Portable chest unchanged again demonstrating COPD, right apical fibrosis/scarring, and bilateral suture material. Heart is not enlarged. No new/acute findings.
[2019-02-17] MEDS ORDERED: NON-FORMULARY ITEM (Calcium Carbonate/Vitamin D3 [Calcium 1,000 + D3 Caplet] 1 EACH) PO SCH (10:00)
[2019-02-17] MEDS ORDERED: DELTASONE 20 MG PO SCH (10:00)
[2019-02-17] MEDS ORDERED: XARELTO 10 MG TABLET PO SCH (10:00)
[2019-02-17] MEDS ORDERED: Toprol Xl 50 MG PO SCH ×2 (10:00)
[2019-02-17] MEDS: DELTASONE 10 MG PO SCH (10:18)
[2019-02-17] MEDS: PHENERGAN 25 MG PO PRN (10:18)
[2019-02-17] MEDS: ECOTRIN 81 MG PO SCH (10:18)
[2019-02-17] MEDS: Maxipime 2 GM** 2 G in Dextrose 5%/Water IV Soln. 100ML PLUS BAG 100 ML IV SCH ×2 (10:18→21:54)
[2019-02-17] MEDS: Klor Con 10 MEQ PO SCH ×2 (10:18→21:57)
[2019-02-17] MEDS: Pepcid 20 MG PO SCH ×2 (10:18→21:58)
[2019-02-17] MEDS: Calcium 500MG W/Vit D Tablet PO SCH ×2 (10:18→21:57)
[2019-02-17] MEDS: Toprol-Xl 25MG Tablets PO SCH (10:18)
[2019-02-17] MEDS: Imdur 30 MG PO SCH (10:18)
[2019-02-17] MEDS: hydroDIURIL 25 MG PO SCH (10:18)
[2019-02-17] MEDS: Protonix 40MG Tablet PO SCH ×2 (10:19→21:58)
--- NOTE | 2019-02-17 11:57 | PCM.HP ---
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 Urine WBC (Auto) Urine RBC (Auto) U Epithel Cells (Auto) Urine Bacteria (Auto) Urine Mucus (Auto) Urine Culture Reflexed Urine Glucose Influenza Type A Ag Influenza Type B Ag RSV (PCR) Code(s): J44.1 - CHRONIC OBSTRUCTIVE PULMONARY DISEASE W (ACUTE) EXACERBATION (2) Failure of outpatient treatment Current Visit: Yes Status: Acute Code(s): Z78.9 - OTHER SPECIFIED HEALTH STATUS (3) Chronic hypoxemic respiratory failure Current Visit: No Status: Chronic (4) Pulmonary fibrosis Current Visit: No Status: Chronic Code(s): J84.10 - PULMONARY FIBROSIS, UNSPECIFIED
[2019-02-17] MEDS: Nicoderm CQ 21 MG TOP SCH (21:57)
[2019-02-17] MEDS: ZOCOR 20MG PO SCH (21:58)
[2019-02-17] MEDS: Colace 100 MG PO PRN (22:37)
[2019-02-17] MEDS: Ativan 0.5 MG PO PRN (22:37)
[2019-02-18] MEDS: DUONEB 0.5-3 MG/3 ml Neb IH SCH ×6 (03:55→23:30)
[2019-02-18] MEDS: Sodium Chloride 0.9% 1000 ML 1,000 ML IV SCH (06:22)
[2019-02-18] MEDS: Spiriva 18 Mcg/Cap Inhaler IH SCH (06:43)
[2019-02-18] MEDS: Advair Hfa 115/21 Common canister IH SCH ×2 (06:43→19:24)
[2019-02-18] MEDS ORDERED: XARELTO 10 MG TABLET PO SCH (10:00)
[2019-02-18] MEDS: Calcium 500MG W/Vit D Tablet PO SCH ×2 (10:02→21:34)
[2019-02-18] MEDS: hydroDIURIL 25 MG PO SCH (10:02)
[2019-02-18] MEDS: Toprol-Xl 25MG Tablets PO SCH (10:02)
[2019-02-18] MEDS: ECOTRIN 81 MG PO SCH (10:03)
[2019-02-18] MEDS: Protonix 40MG Tablet PO SCH ×2 (10:03→21:34)
[2019-02-18] MEDS: Imdur 30 MG PO SCH (10:03)
[2019-02-18] MEDS: Pepcid 20 MG PO SCH ×2 (10:03→21:34)
[2019-02-18] MEDS: DELTASONE 10 MG PO SCH (10:03)
[2019-02-18] MEDS: Maxipime 2 GM** 2 G in Dextrose 5%/Water IV Soln. 100ML PLUS BAG 100 ML IV SCH ×2 (10:03→21:33)
[2019-02-18] MEDS: Klor Con 10 MEQ PO SCH ×2 (10:03→21:35)
[2019-02-18] MEDS: Colace 100 MG PO PRN (10:08)
[2019-02-18] MEDS: Norco 10/325 MG Tablet PO PRN ×2 (10:09→21:34)
[2019-02-18] MEDS ORDERED: DUONEB 0.5-3 MG/3 ml Neb IH ONE (10:32)
--- NOTE | 2019-02-18 12:56 | PCM.NOTE ---
Date and Time: 02/18/19 1255 Subjective Assessment: doing better - Review of Systems Constitutional: No Fever, No Chills Eyes: No Symptoms Ears, Nose, & Throat: No Symptoms Respiratory: Cough, Orthopnea, No Short Of Breath Cardiac: No Chest Pain, No Edema, No Syncope Abdominal/Gastrointestinal: No Abdominal Pain, No Nausea, No Vomiting, No Diarrhea Genitourinary Symptoms: No Dysuria Musculoskeletal: No Back Pain, No Neck Pain Skin: No Rash Neurological: No Dizziness, No Focal Weakness, No Sensory Changes Psychological: No Symptoms Endocrine: No Symptoms Hematologic/Lymphatic: No Symptoms Immunological/Allergic: No Symptoms Objective Exam General Appearance: no apparent distress, alert Neurologic Exam: alert, oriented x 3, cooperative, normal mood/affect, nml cerebellar function, sensation nml, No motor deficits Skin Exam: normal color, warm, dry Eye Exam: PERRL, EOMI, eyes nml inspection Ears, Nose, Throat Exam: normal ENT inspection, pharynx normal, moist mucous membranes Neck Exam: normal inspection, non-tender, supple, full range of motion Respiratory Exam: diminished breath sounds, crackles/rales, rhonchi, No respiratory distress Cardiovascular Exam: regular rate/rhythm, normal heart sounds Gastrointestinal/Abdomen Exam: soft, No tenderness, No mass Extremity Exam: normal inspection, normal range of motion Back Exam: normal inspection, normal range of motion, No CVA tenderness, No vertebral tenderness Pelvic Exam: deferred Rectal Exam: deferred OBJECTIVE DATA Vital Signs: Vital Signs - 24 hr Temp Pulse Resp BP Pulse Ox 02/18/19 11:47 98.3 F 80 20 131/60 100 02/18/19 10:40 79 18 99 02/18/19 07:11 97.5 F 97 H 20 127/62 99 02/18/19 06:49 72 20 99 02/18/19 04:00 97.5 F 76 20 127/60 99 02/18/19 03:55 78 20 99 02/18/19 00:15 98.3 F 78 20 109/65 99 02/17/19 23:36 81 18 98 02/17/19 20:22 98.3 F 77 18 112/55 100 02/17/19 19:25 77 18 100 02/17/19 15:46 98.8 F 77 18 97/56 99 02/17/19 15:36 91 H 18 98 Oxygen-Last 24 hours O2 Percentage 4 Liters = 36% O2 Percentage 4 Liters = 36% O2 Percentage 4 Liters = 36% O2 Percentage 4 Liters = 36% O2 Percentage 4 Liters = 36% O2 Percentage 4 Liters = 36% Pain Assessment - Last Documented Pain Intensity 2 Pain Scale Used 0-10 Pain Scale Intake and Output: Intake & Output 02/16/19 02/17/19 02/18/19 02/19/19 11:59 11:59 11:59 11:59 Intake Total 2808 2453 Output Total 1300 4800 Balance 1508 -2347 Weight 63.8 kg 67.1 kg Radiology Exams: Radiology Procedures Category Date Time Status CHEST 1 VIEW (PORTABLE) Stat Exams 02/16/19 18:44 Completed Assessment/Plan (1) Acute exacerbation of chronic obstructive pulmonary disease (COPD) Current Visit: Yes Status: Acute Onset Date: ~05/27/18 Assessment & Plan: Last Vital Signs Temp 98.3 F 02/18/19 11:47 Pulse 80 02/18/19 11:47 Resp 20 02/18/19 11:47 BP 131/60 02/18/19 11:47 Pulse Ox 100 02/18/19 11:47 Allergies ciprofloxacin [From Cipro] Allergy (Severe, Verified 02/16/19 20:44) Itchy Eyes theophylline Allergy (Severe, Verified 02/16/19 20:44) hives, sob iodine Allergy (Intermediate, Verified 02/16/19 20:44) Tightness in Chest Penicillins Allergy (Intermediate, Verified 02/16/19 20:44) Itchy Eyes Sulfa (Sulfonamide Antibiotics) [Sulfa(Sulfonamide Antibiotics)] Allergy ( Intermediate, Verified 02/16/19 20:44) Itchy Eyes hydromorphone HCl [From Dilaudid] Allergy (Mild, Verified 02/16/19 20:44) low bp hydromorphone [From Dilaudid] Allergy (Verified 02/16/19 20:44) lisinopril Allergy (Verified 02/16/19 20:44) clindamycin Adverse Reaction (Severe, Verified 02/16/19 20:44) azithromycin [From Zithromax] Adverse Reaction (Mild, Verified 02/16/19 20:44) Itching budesonide [From Symbicort] Adverse Reaction (Verified 02/16/19 20:44) fluticasone furoate [From Trelegy Ellipta] Adverse Reaction (Verified 02/16/19 20:44) formoterol [From Symbicort] Adverse Reaction (Verified 02/16/19 20:44) umeclidinium [From Trelegy Ellipta] Adverse Reaction (Verified 02/16/19 20:44) vilanterol [From Trelegy Ellipta] Adverse Reaction (Verified 02/16/19 20:44) Active Medications Hydrocodone Bitart/Acetaminophen ([place] 10/325 Mg Tablet) 1 tab PO Q4H PRN PRN PRN Reason: PAIN Stop: 02/21/19 21:04 Last Admin: 02/18/19 10:09 Dose: 1 tab Albuterol/Ipratropium (Duoneb 0.5-3 Mg/3 Ml Neb) 3 ml IH Q4HRT [facility] Stop: 03/18/19 22:59 Last Admin: 02/18/19 10:37 Dose: 3 ml Aspirin (Ecotrin 81 Mg) 162 mg PO DAILY [facility] Stop: 03/19/19 09:59 Last Admin: 02/18/19 10:03 Dose: 162 mg Benzonatate (Tessalon Perles 100 Mg) 100 mg PO TID PRN PRN PRN Reason: COUGH Stop: 03/19/19 07:20 Calcium Carbonate (Calcium 500mg W/Vit D Tablet) 1 tab PO BID [facility] Stop: 03/19/19 09:59 Last Admin: 02/18/19 10:02 Dose: 1 tab Docusate Sodium (Colace 100 Mg) 100 mg PO BIDPRN PRN PRN Reason: CONSTIPATION Stop: 03/18/19 22:13 Last Admin: 02/18/19 10:08 Dose: 100 mg Famotidine (Pepcid 20 Mg) 20 mg PO Q12HT [facility] Stop: 03/18/19 21:59 Last Admin: 02/18/19 10:03 Dose: 20 mg Hydrochlorothiazide (Hydrodiuril 25 Mg) 12.5 mg PO DAILY [facility] Stop: 03/19/19 09:59 Last Admin: 02/18/19 10:02 Dose: 12.5 mg Cefepime HCl 2 g/ Dextrose 100 mls @ 200 mls/hr IV Q12HT [facility] Stop: 03/18/19 21:59 Last Admin: 02/18/19 10:03 Dose: 200 mls/hr Sodium Chloride (Sodium Chloride 0.9% 1000 Ml) 1,000 mls @ 50 mls/hr IV .Q20H [facility] Stop: 03/18/19 19:44 Last Admin: 02/18/19 06:22 Dose: 50 mls/hr Isosorbide Mononitrate (Imdur 30 Mg) 30 mg PO DAILY [facility] Stop: 03/19/19 09:59 Last Admin: 02/18/19 10:03 Dose: 30 mg Levalbuterol HCl (Xopenex 1.25 Mg/0.5 Ml Ud Nebule) 1.25 mg IH Q2HPRN PRN PRN Reason: DIFFICULTY BREATHING Stop: 03/18/19 19:32 Lorazepam (Ativan 0.5 Mg) 0.5 mg PO TID PRN PRN PRN Reason: ANXIETY Stop: 03/18/19 21:13 Last Admin: 02/17/19 22:37 Dose: 0.5 mg Metoprolol Succinate (Toprol-Xl 25mg Tablets) 75 mg PO DAILY [facility] Stop: 03/19/19 09:59 Last Admin: 02/18/19 10:02 Dose: 75 mg Nicotine (Nicoderm Cq 21 Mg) 21 mg TOP Q24H [facility] Stop: 03/18/19 21:59 Last Admin: 02/17/19 21:57 Dose: 21 mg Nitroglycerin (Nitrostat 0.4 Mg Tablet) 0.4 mg SL Q5MIN PRN MR X 3 PRN PRN Reason: CHEST PAIN Stop: 03/18/19 19:34 Pantoprazole Sodium (Protonix 40mg Tablet) 40 mg PO BID [facility] Stop: 03/18/19 21:59 Last Admin: 02/18/19 10:03 Dose: 40 mg Potassium Chloride (Klor Con 10 Meq) 10 meq PO BID [facility] Stop: 03/18/19 21:59 Last Admin: 02/18/19 10:03 Dose: 10 meq Prednisone (Deltasone 10 Mg) 10 mg PO DAILY [facility] Stop: 03/19/19 09:59 Last Admin: 02/18/19 10:03 Dose: 10 mg Promethazine HCl (Phenergan 25 Mg) 12.5 mg PO Q4H PRN PRN PRN Reason: NAUSEA/VOMITING Stop: 03/19/19 07:20 Last Admin: 02/17/19 10:18 Dose: 12.5 mg Rivaroxaban (Xarelto 10 Mg Tablet) 20 mg PO EVERY OTHER DAY [facility] Stop: 03/20/19 09:59 Last Admin: 02/18/19 10:02 Dose: 20 mg Fluticasone/Salmeterol (Advair Hfa 115/21 Common Canister*) 2 puff IH BIDRT [facility] Stop: 03/19/19 06:59 Last Admin: 02/18/19 06:43 Dose: 2 puff Simvastatin (Zocor 20mg) 20 mg PO HS [facility] Stop: 03/18/19 21:59 Last Admin: 02/17/19 21:58 Dose: 20 mg Tiotropium [place] (Spiriva 18 Mcg/Cap Inhaler) 1 ea IH DAILY [facility] Stop: 03/19/19 09:59 Last Admin: 02/18/19 06:43 Dose: 1 ea Intake & Output 02/18/19 02/19/19 11:59 11:59 Intake Total 2453 Output Total 4800 Balance -2347 Weight 67.1 kg Orders 02/18/19 10:00 Rivaroxaban 10 mg Tablet [Xarelto 10 mg Tablet] 20 mg PO EVERY OTHER DAY Microbiology 02/16/19 18:25 Blood Blood Culture - Preliminary NO GROWTH TO DATE 02/16/19 18:20 Blood Blood Culture - Preliminary NO GROWTH TO DATE Code(s): J44.1 - CHRONIC OBSTRUCTIVE PULMONARY DISEASE W (ACUTE) EXACERBATION (2) Failure of outpatient treatment Current Visit: Yes Status: Acute Code(s): Z78.9 - OTHER SPECIFIED HEALTH STATUS (3) Chronic hypoxemic respiratory failure Current Visit: No Status: Chronic (4) Pulmonary fibrosis Current Visit: No Status: Chronic Code(s): J84.10 - PULMONARY FIBROSIS, UNSPECIFIED
[2019-02-18] MEDS: Mucinex 600MG ER Tabs PO SCH ×2 (14:35→21:34)
[2019-02-18] MEDS: Ativan 0.5 MG PO PRN (17:23)
[2019-02-18] MEDS: Mucomyst 200 MG/ML IH SCH (19:23)
[2019-02-18] MEDS: PHENERGAN 25 MG PO PRN (19:36)
[2019-02-18] MEDS: Nicoderm CQ 21 MG TOP SCH (21:33)
[2019-02-18] MEDS: ZOCOR 20MG PO SCH (21:34)
[2019-02-19] MEDS: Sodium Chloride 0.9% 1000 ML 1,000 ML IV SCH (03:01)
[2019-02-19] MEDS: DUONEB 0.5-3 MG/3 ml Neb IH SCH ×3 (03:31→10:44)
[2019-02-19] MEDS: Advair Hfa 115/21 Common canister IH SCH (06:45)
[2019-02-19] MEDS: Spiriva 18 Mcg/Cap Inhaler IH SCH (06:45)
[2019-02-19] MEDS: Mucomyst 200 MG/ML IH SCH (06:45)
[2019-02-19] MEDS ORDERED: NovoLOG Insulin ONE (07:34)
[2019-02-19] MEDS: Calcium 500MG W/Vit D Tablet PO SCH (09:04)
[2019-02-19] MEDS: Mucinex 600MG ER Tabs PO SCH (09:04)
[2019-02-19] MEDS: Klor Con 10 MEQ PO SCH (09:04)
[2019-02-19] MEDS: Protonix 40MG Tablet PO SCH (09:04)
[2019-02-19] MEDS: Imdur 30 MG PO SCH (09:04)
[2019-02-19] MEDS: hydroDIURIL 25 MG PO SCH (09:05)
[2019-02-19] MEDS: Pepcid 20 MG PO SCH (09:06)
[2019-02-19] MEDS: Norco 10/325 MG Tablet PO PRN (09:06)
[2019-02-19] MEDS: Toprol-Xl 25MG Tablets PO SCH (09:06)
[2019-02-19] MEDS: DELTASONE 10 MG PO SCH (09:06)
[2019-02-19] MEDS: ECOTRIN 81 MG PO SCH (09:06)
[2019-02-19] MEDS: Maxipime 2 GM** 2 G in Dextrose 5%/Water IV Soln. 100ML PLUS BAG 100 ML IV SCH (09:11)
[2019-02-19 11:43] VITALS: BP 114/59; PULSE 72; O2SAT 100
--- NOTE | 2019-02-19 12:18 | PCM.DS ---
Discharge Summary Date of Admission: 02/17/19 11:55 Admitting Physician: ARY CONTRERAS Primary Care Provider: ARY CONTRERAS Allergies Allergies ciprofloxacin [From Cipro] Allergy (Severe, Verified 02/16/19 20:44) Itchy Eyes theophylline Allergy (Severe, Verified 02/16/19 20:44) hives, sob iodine Allergy (Intermediate, Verified 02/16/19 20:44) Tightness in Chest Penicillins Allergy (Intermediate, Verified 02/16/19 20:44) Itchy Eyes Sulfa (Sulfonamide Antibiotics) [Sulfa(Sulfonamide Antibiotics)] Allergy ( Intermediate, Verified 02/16/19 20:44) Itchy Eyes hydromorphone HCl [From Dilaudid] Allergy (Mild, Verified 02/16/19 20:44) low bp hydromorphone [From Dilaudid] Allergy (Verified 02/16/19 20:44) lisinopril Allergy (Verified 02/16/19 20:44) clindamycin Adverse Reaction (Severe, Verified 02/16/19 20:44) azithromycin [From Zithromax] Adverse Reaction (Mild, Verified 02/16/19 20:44) Itching budesonide [From Symbicort] Adverse Reaction (Verified 02/16/19 20:44) fluticasone furoate [From Trelegy Ellipta] Adverse Reaction (Verified 02/16/19 20:44) formoterol [From Symbicort] Adverse Reaction (Verified 02/16/19 20:44) umeclidinium [From Trelegy Ellipta] Adverse Reaction (Verified 02/16/19 20:44) vilanterol [From Trelegy Ellipta] Adverse Reaction (Verified 02/16/19 20:44) Hospital Summary - Hospital Course Hospital Course: Last Vital Signs Temp 98.2 F 02/19/19 11:42 Pulse 72 02/19/19 11:42 Resp 22 02/19/19 11:42 BP 114/59 02/19/19 11:42 Pulse Ox 100 02/19/19 11:42 Allergies ciprofloxacin [From Cipro] Allergy (Severe, Verified 02/16/19 20:44) Itchy Eyes theophylline Allergy (Severe, Verified 02/16/19 20:44) hives, sob iodine Allergy (Intermediate, Verified 02/16/19 20:44) Tightness in Chest Penicillins Allergy (Intermediate, Verified 02/16/19 20:44) Itchy Eyes Sulfa (Sulfonamide Antibiotics) [Sulfa(Sulfonamide Antibiotics)] Allergy ( Intermediate, Verified 02/16/19 20:44) Itchy Eyes hydromorphone HCl [From Dilaudid] Allergy (Mild, Verified 02/16/19 20:44) low bp hydromorphone [From Dilaudid] Allergy (Verified 02/16/19 20:44) lisinopril Allergy (Verified 02/16/19 20:44) clindamycin Adverse Reaction (Severe, Verified 02/16/19 20:44) azithromycin [From Zithromax] Adverse Reaction (Mild, Verified 02/16/19 20:44) Itching budesonide [From Symbicort] Adverse Reaction (Verified 02/16/19 20:44) fluticasone furoate [From Trelegy Ellipta] Adverse Reaction (Verified 02/16/19 20:44) formoterol [From Symbicort] Adverse Reaction (Verified 02/16/19 20:44) umeclidinium [From Trelegy Ellipta] Adverse Reaction (Verified 02/16/19 20:44) vilanterol [From Trelegy Ellipta] Adverse Reaction (Verified 02/16/19 20:44) Active Medications Hydrocodone Bitart/Acetaminophen ([place] 10/325 Mg Tablet) 1 tab PO Q4H PRN PRN PRN Reason: PAIN Stop: 02/21/19 21:04 Last Admin: 02/19/19 09:06 Dose: 1 tab Acetylcysteine (Mucomyst 200 Mg/Ml) 600 mg IH BIDRT [facility] Stop: 03/20/19 18:59 Last Admin: 02/19/19 06:45 Dose: 600 mg Albuterol/Ipratropium (Duoneb 0.5-3 Mg/3 Ml Neb) 3 ml IH Q4HRT [facility] Stop: 03/18/19 22:59 Last Admin: 02/19/19 10:44 Dose: 3 ml Aspirin (Ecotrin 81 Mg) 162 mg PO DAILY [facility] Stop: 03/19/19 09:59 Last Admin: 02/19/19 09:06 Dose: 162 mg Benzonatate (Tessalon Perles 100 Mg) 100 mg PO TID PRN PRN PRN Reason: COUGH Stop: 03/19/19 07:20 Last Admin: 02/19/19 09:07 Dose: 100 mg Calcium Carbonate (Calcium 500mg W/Vit D Tablet) 1 tab PO BID [facility] Stop: 03/19/19 09:59 Last Admin: 02/19/19 09:04 Dose: 1 tab Docusate Sodium (Colace 100 Mg) 100 mg PO BIDPRN PRN PRN Reason: CONSTIPATION Stop: 03/18/19 22:13 Last Admin: 02/18/19 10:08 Dose: 100 mg Famotidine (Pepcid 20 Mg) 20 mg PO Q12HT [facility] Stop: 03/18/19 21:59 Last Admin: 02/19/19 09:06 Dose: 20 mg Guaifenesin (Mucinex 600mg Er Tabs) 600 mg PO BID [facility] Stop: 03/20/19 13:59 Last Admin: 02/19/19 09:04 Dose: 600 mg Hydrochlorothiazide (Hydrodiuril 25 Mg) 12.5 mg PO DAILY [facility] Stop: 03/19/19 09:59 Last Admin: 02/19/19 09:05 Dose: 12.5 mg Cefepime HCl 2 g/ Dextrose 100 mls @ 200 mls/hr IV Q12HT [facility] Stop: 03/18/19 21:59 Last Admin: 02/19/19 09:11 Dose: 200 mls/hr Sodium Chloride (Sodium Chloride 0.9% 1000 Ml) 1,000 mls @ 50 mls/hr IV .Q20H [facility] Stop: 03/18/19 19:44 Last Admin: 02/19/19 03:01 Dose: 50 mls/hr Isosorbide Mononitrate (Imdur 30 Mg) 30 mg PO DAILY [facility] Stop: 03/19/19 09:59 Last Admin: 02/19/19 09:04 Dose: 30 mg Levalbuterol HCl (Xopenex 1.25 Mg/0.5 Ml Ud Nebule) 1.25 mg IH Q2HPRN PRN PRN Reason: DIFFICULTY BREATHING Stop: 03/18/19 19:32 Lorazepam (Ativan 0.5 Mg) 0.5 mg PO TID PRN PRN PRN Reason: ANXIETY Stop: 03/18/19 21:13 Last Admin: 02/18/19 17:23 Dose: 0.5 mg Metoprolol Succinate (Toprol-Xl 25mg Tablets) 75 mg PO DAILY [facility] Stop: 03/19/19 09:59 Last Admin: 02/19/19 09:06 Dose: 75 mg Nicotine (Nicoderm Cq 21 Mg) 21 mg TOP Q24H [facility] Stop: 03/18/19 21:59 Last Admin: 02/18/19 21:33 Dose: 21 mg Nitroglycerin (Nitrostat 0.4 Mg Tablet) 0.4 mg SL Q5MIN PRN MR X 3 PRN PRN Reason: CHEST PAIN Stop: 03/18/19 19:34 Pantoprazole Sodium (Protonix 40mg Tablet) 40 mg PO BID [facility] Stop: 03/18/19 21:59 Last Admin: 02/19/19 09:04 Dose: 40 mg Potassium Chloride (Klor Con 10 Meq) 10 meq PO BID [facility] Stop: 03/18/19 21:59 Last Admin: 02/19/19 09:04 Dose: 10 meq Prednisone (Deltasone 10 Mg) 10 mg PO DAILY [facility] Stop: 03/19/19 09:59 Last Admin: 02/19/19 09:06 Dose: 10 mg Promethazine HCl (Phenergan 25 Mg) 12.5 mg PO Q4H PRN PRN PRN Reason: NAUSEA/VOMITING Stop: 03/19/19 07:20 Last Admin: 02/18/19 19:36 Dose: 12.5 mg Rivaroxaban (Xarelto 10 Mg Tablet) 20 mg PO EVERY OTHER DAY [facility] Stop: 03/20/19 09:59 Last Admin: 02/18/19 10:02 Dose: 20 mg Fluticasone/Salmeterol (Advair Hfa 115/21 Common Canister*) 2 puff IH BIDRT [facility] Stop: 03/19/19 06:59 Last Admin: 02/19/19 06:45 Dose: 2 puff Simvastatin (Zocor 20mg) 20 mg PO HS [facility] Stop: 03/18/19 21:59 Last Admin: 02/18/19 21:34 Dose: 20 mg Tiotropium Smoot (Spiriva 18 Mcg/Cap Inhaler) 1 ea IH DAILY [facility] Stop: 03/19/19 09:59 Last Admin: 02/19/19 06:45 Dose: 1 ea Intake & Output 02/19/19 02/20/19 11:59 11:59 Intake Total 3487 Output Total 3100 Balance 387 Weight 65.9 kg Orders 02/18/19 14:00 Guaifenesin 600 mg ER [Mucinex 600MG ER Tabs] 600 mg PO BID 02/18/19 19:00 Acetylcysteine 200 mg/ml [Mucomyst 200 MG/ML] 600 mg IH BIDRT - Vitals & Intake/Output Vital Signs: Vital Signs Temperature 98.2 F 02/19/19 11:42 Pulse Rate 72 02/19/19 11:42 Respiratory Rate 22 02/19/19 11:42 Blood Pressure 114/59 02/19/19 11:42 O2 Sat by Pulse Oximetry 100 02/19/19 11:42 Oxygen-Last Documented O2 Percentage 4 Liters = 36% Intake & Output: Intake & Output 02/17/19 02/18/19 02/19/19 02/20/19 11:59 11:59 11:59 11:59 Intake Total 2808 2453 3487 Output Total 1300 4800 3100 Balance 1508 -2347 387 Weight 63.8 kg 67.1 kg 65.9 kg - Lab Result Diagrams: 02/16/19 17:45 02/16/19 17:45 Micro Results-Entire Visit: Microbiology 02/16/19 18:25 Blood Culture - Preliminary Blood NO GROWTH TO DATE 02/16/19 18:20 Blood Culture - Preliminary Blood NO GROWTH TO DATE - Procedures and Test Procedures and Tests throughout Hospitalization: Therapy Orders & Screens 02/16/19 17:51 Peak Expiratory Flow Rate ONCE Comment: Reason For Exam: Respiratory Therapy Assessment DAILY Comment: 02/16/19 19:32 Oxygen Nasal Cannula 4 lpm Comment: Respiratory Therapy Consult ONCE Comment: Reason For Exam: 02/16/19 23:04 RT Screen per Nursing Assess ONCE Comment: Protocol Order Physician Instructions: Greater than 3 points order RT Admission Screen Reason For Exam: Triggered on Admission Diagnosis: Acute Exacerbation COPD Diagnosis: Acute Exacerbation COPD Pneumonia: No Home O2: Yes Asthma: No CHF: No Home CPAP/BIPAP: No Home Nebs/MDI: Yes Total Points: 10 Smoking Cessation Education ONCE Comment: Diagnosis: Acute Exacerbation COPD Smoking Status: Current every day smoker How long have you smoked: 47 years Have you smoked in the past 12 months: Yes Approximately how many cigarettes per day: 1/2 pack Do you dip or chew tobacco: No If,Former Smoker,when did you quit: week ago Discharge Exam General Appearance: no apparent distress, alert Neurologic Exam: alert, oriented x 3, cooperative, normal mood/affect, nml cerebellar function, sensation nml, No motor deficits Eye Exam: PERRL, EOMI, eyes nml inspection Ears, Nose, Throat Exam: normal ENT inspection, pharynx normal, moist mucous membranes Neck Exam: normal inspection, non-tender, supple, full range of motion Respiratory Exam: diminished breath sounds, rhonchi, wheezing, No respiratory distress Cardiovascular Exam: regular rate/rhythm, normal heart sounds Gastrointestinal/Abdomen Exam: soft, No tenderness, No mass Pelvic Exam: deferred Rectal Exam: deferred Back Exam: normal inspection, normal range of motion, No CVA tenderness, No vertebral tenderness Extremity Exam: normal inspection, normal range of motion Skin Exam: normal color, warm, dry Final Diagnosis/Problem List - Final Discharge Diagnosis/Problem (1) Acute exacerbation of chronic obstructive pulmonary disease (COPD) Current Visit: Yes Status: Resolved Onset Date: ~05/27/18 Assessment & Plan: Chief Complaint Diagnosis ACUTE EXAC COPD Allergies Allergy/AdvReac Type Severity Reaction Status Date / Time ciprofloxacin [From Cipro] Allergy Severe Itchy Eyes Verified 02/16/19 20:44 theophylline Allergy Severe hives, sob Verified 02/16/19 20:44 iodine Allergy Intermediate Tightness Verified 02/16/19 20:44 in Chest Penicillins Allergy Intermediate Itchy Eyes Verified 02/16/19 20:44 Sulfa (Sulfonamide Allergy Intermediate Itchy Eyes Verified 02/16/19 20:44 Antibiotics) [Sulfa(Sulfonamide Antibiotics)] hydromorphone HCl Allergy Mild low bp Verified 02/16/19 20:44 [From Dilaudid] hydromorphone [From Dilaudid] Allergy Verified 02/16/19 20:44 lisinopril Allergy Verified 02/16/19 20:44 clindamycin AdvReac Severe Verified 02/16/19 20:44 azithromycin [From Zithromax] AdvReac Mild Itching Verified 02/16/19 20:44 budesonide [From Symbicort] AdvReac Verified 02/16/19 20:44 fluticasone furoate AdvReac Verified 02/16/19 20:44 [From Trelegy Ellipta] formoterol [From Symbicort] AdvReac Verified 02/16/19 20:44 umeclidinium AdvReac Verified 02/16/19 20:44 [From Trelegy Ellipta] vilanterol AdvReac Verified 02/16/19 20:44 [From Trelegy Ellipta] Vital Signs (Last 24 hours) Temp Pulse Resp BP Pulse Ox 02/19/19 11:42 98.2 F 72 22 114/59 100 02/19/19 10:47 76 18 98 02/19/19 07:28 97.8 F 78 20 151/61 99 02/19/19 06:51 78 20 99 02/19/19 04:00 98.2 F 77 22 131/73 100 02/19/19 03:33 73 18 98 02/18/19 23:39 98.1 F 74 18 101/54 99 02/18/19 23:33 83 18 99 02/18/19 19:33 97.8 F 80 18 108/56 99 02/18/19 19:29 84 20 99 02/18/19 16:00 98.6 F 73 22 108/59 99 02/18/19 14:33 74 18 99 Home Medications Medication Instructions Recorded Confirmed Last Taken Type Lorazepam 0.5 mg [Ativan 0.5 0.5 mg PO TID PRN PRN 02/16/19 02/16/19 History MG] Prednisone 20 mg [Deltasone 20 10 mg PO DAILY 02/16/19 02/16/19 02/16/19 History mg] Current Medications Generic Name Dose Route Start Last Admin Trade Name Freq PRN Reason Stop Dose Admin Hydrocodone Bitart/Acetaminophen 1 tab 02/16/19 21:14 02/19/19 09:06 [place] 10/325 Mg Tablet PO 02/21/19 21:04 1 tab Q4H PRN PRN Administration PAIN Acetylcysteine 600 mg 02/18/19 19:00 02/19/19 06:45 Mucomyst 200 Mg/Ml IH 03/20/19 18:59 600 mg BIDRT [facility] Administration Albuterol/Ipratropium 3 ml 02/16/19 23:00 02/19/19 10:44 Duoneb 0.5-3 Mg/3 Ml Neb IH 03/18/19 22:59 3 ml Q4HRT [facility] Administration Aspirin 162 mg 02/17/19 10:00 02/19/19 09:06 Ecotrin 81 Mg PO 03/19/19 09:59 162 mg DAILY [facility] Administration Benzonatate 100 mg 02/17/19 07:21 02/19/19 09:07 Tessalon Perles 100 Mg PO 03/19/19 07:20 100 mg TID PRN PRN Administration COUGH Calcium Carbonate 1 tab 02/17/19 10:00 02/19/19 09:04 Calcium 500mg W/Vit D Tablet PO 03/19/19 09:59 1 tab BID [facility] Administration Docusate Sodium 100 mg 02/16/19 22:14 02/18/19 10:08 Colace 100 Mg PO 03/18/19 22:13 100 mg BIDPRN PRN Administration CONSTIPATION Famotidine 20 mg 02/16/19 22:00 02/19/19 09:06 Pepcid 20 Mg PO 03/18/19 21:59 20 mg Q12HT [facility] Administration Guaifenesin 600 mg 02/18/19 14:00 02/19/19 09:04 Mucinex 600mg Er Tabs PO 03/20/19 13:59 600 mg BID [facility] Administration Hydrochlorothiazide 12.5 mg 02/17/19 10:00 02/19/19 09:05 Hydrodiuril 25 Mg PO 03/19/19 09:59 12.5 mg DAILY [facility] Administration Cefepime HCl 2 g/ Dextrose 100 mls @ 200 mls/hr 02/16/19 22:00 02/19/19 09:11 IV 03/18/19 21:59 200 mls/hr Q12HT [facility] Administration Sodium Chloride 1,000 mls @ 50 mls/hr 02/16/19 19:45 02/19/19 03:01 Sodium Chloride 0.9% 1000 Ml IV 03/18/19 19:44 50 mls/hr .Q20H [facility] Administration Isosorbide Mononitrate 30 mg 02/17/19 10:00 02/19/19 09:04 Imdur 30 Mg PO 03/19/19 09:59 30 mg DAILY [facility] Administration Levalbuterol HCl 1.25 mg 02/16/19 19:33 Xopenex 1.25 Mg/0.5 Ml Ud Nebule IH 03/18/19 19:32 Q2HPRN PRN DIFFICULTY BREATHING Lorazepam 0.5 mg 02/16/19 21:14 02/18/19 17:23 Ativan 0.5 Mg PO 03/18/19 21:13 0.5 mg TID PRN PRN Administration ANXIETY Metoprolol Succinate 75 mg 02/17/19 10:00 02/19/19 09:06 Toprol-Xl 25mg Tablets PO 03/19/19 09:59 75 mg DAILY [facility] Administration Nicotine 21 mg 02/16/19 22:00 02/18/19 21:33 Nicoderm Cq 21 Mg TOP 03/18/19 21:59 21 mg Q24H [facility] Administration Nitroglycerin 0.4 mg 02/16/19 19:35 Nitrostat 0.4 Mg Tablet SL 03/18/19 19:34 Q5MIN PRN MR X 3 PRN CHEST PAIN Pantoprazole Sodium 40 mg 02/16/19 22:00 02/19/19 09:04 Protonix 40mg Tablet PO 03/18/19 21:59 40 mg BID [facility] Administration Potassium Chloride 10 meq 02/16/19 22:00 02/19/19 09:04 Klor Con 10 Meq PO 03/18/19 21:59 10 meq BID [facility] Administration Prednisone 10 mg 02/17/19 10:00 02/19/19 09:06 Deltasone 10 Mg PO 03/19/19 09:59 10 mg DAILY [facility] Administration Promethazine HCl 12.5 mg 02/17/19 07:21 02/18/19 19:36 Phenergan 25 Mg PO 03/19/19 07:20 12.5 mg Q4H PRN PRN Administration NAUSEA/VOMITING Rivaroxaban 20 mg 02/18/19 10:00 02/18/19 10:02 Xarelto 10 Mg Tablet PO 03/20/19 09:59 20 mg EVERY OTHER DAY [facility] Administration Fluticasone/Salmeterol 2 puff 02/17/19 07:00 02/19/19 06:45 Advair Hfa 115/21 Common Canister* IH 03/19/19 06:59 2 puff BIDRT [facility] Administration Simvastatin 20 mg 02/16/19 22:00 02/18/19 21:34 Zocor 20mg PO 03/18/19 21:59 20 mg HS [facility] Administration Tiotropium Smoot 1 ea 02/17/19 10:00 02/19/19 06:45 Spiriva 18 Mcg/Cap Inhaler IH 03/19/19 09:59 1 ea DAILY [facility] Administration Discontinued Medications Generic Name Dose Route Start Last Admin Trade Name Freq PRN Reason Stop Dose Admin Hydrocodone Bitart/Acetaminophen 1 tab 02/16/19 19:36 02/16/19 20:36 [place] 10/325 Mg Tablet PO 02/21/19 19:35 1 tab QID PRN PRN Administration PAIN Hydrocodone Bitart/Acetaminophen Confirm 02/16/19 20:29 [place] 10/325 Mg Tablet Administered 02/16/19 20:30 Dose 1 tab .ROUTE .STK-MED ONE Albuterol Sulfate 10 mg 02/16/19 18:28 02/16/19 18:45 Proventil 2.5 Mg/3 Ml Neb IH 02/16/19 18:29 10 mg STAT ONE Administration Albuterol Sulfate Confirm 02/16/19 18:38 Proventil 2.5 Mg/3 Ml Neb Administered 02/16/19 18:39 Dose 10 mg IH .STK-MED ONE Albuterol/Ipratropium Confirm 02/16/19 17:45 Duoneb 0.5-3 Mg/3 Ml Neb Administered 02/16/19 17:46 Dose 3 ml IH .STK-MED ONE Albuterol/Ipratropium 3 ml 02/16/19 17:52 02/16/19 17:48 Duoneb 0.5-3 Mg/3 Ml Neb IH 02/16/19 17:53 3 ml STAT ONE Administration Albuterol/Ipratropium Confirm 02/18/19 10:32 Duoneb 0.5-3 Mg/3 Ml Neb Administered 02/18/19 10:33 Dose 3 ml IH .STK-MED ONE Sodium Chloride 1,000 mls @ 200 mls/hr 02/16/19 18:00 02/16/19 18:28 Sodium Chloride 0.9% 1000 Ml IV 03/18/19 17:59 200 mls/hr .Q5H [facility] Administration Dextrose Confirm 02/16/19 19:17 D5w 100ml Mini Bag 100 Ml Administered 02/16/19 19:18 Dose 100 mls @ ud IV .STK-MED ONE Cefepime HCl 1 g/ Dextrose 100 mls @ 200 mls/hr 02/16/19 22:00 02/16/19 20:53 IV 03/18/19 21:59 Not Given Q12HT [facility] Sodium Chloride Confirm 02/16/19 18:20 Sodium Chloride 0.9% 1000 Ml Administered 02/16/19 18:21 Dose 1,000 mls @ ud .ROUTE .STK-MED ONE Methylprednisolone Sodium Succinate 125 mg 02/16/19 18:00 02/16/19 18:28 Solu-Medrol 125 Mg IV 02/16/19 18:01 125 mg STAT ONE Administration Methylprednisolone Sodium Succinate Confirm 02/16/19 18:20 Solu-Medrol 125 Mg Administered 02/16/19 18:21 Dose 125 mg .ROUTE .STK-MED ONE Metoprolol Succinate 25 mg 02/17/19 10:00 Toprol Xl 50 Mg PO 03/19/19 09:59 DAILY [facility] Rivaroxaban 20 mg 02/17/19 10:00 Xarelto 10 Mg Tablet PO 03/19/19 09:59 DAILY [facility] Intake & Output (Last 24 hours) 02/17/19 02/18/19 02/19/19 02/20/19 11:59 11:59 11:59 11:59 Intake Total 2808 2453 3487 Output Total 1300 4800 3100 Balance 1508 -2347 387 Weight 63.8 kg 67.1 kg 65.9 kg Orders (Last 24 hours) Category Date Time Status Acetylcysteine 200 mg/ml [Mucomyst 200 MG/ML] Med 02/18/19 19:00 Active 600 mg IH BIDRT Guaifenesin 600 mg ER [Mucinex 600MG ER Tabs] Med 02/18/19 14:00 Active 600 mg PO BID Code(s): J44.1 - CHRONIC OBSTRUCTIVE PULMONARY DISEASE W (ACUTE) EXACERBATION (2) Failure of outpatient treatment Current Visit: Yes Status: Acute Code(s): Z78.9 - OTHER SPECIFIED HEALTH STATUS (3) Chronic hypoxemic respiratory failure Current Visit: No Status: Chronic (4) Pulmonary fibrosis Current Visit: No Status: Chronic Code(s): J84.10 - PULMONARY FIBROSIS, UNSPECIFIED - Discharge Discharge Date: 02/19/19 Disposition: Home, Self-Care Condition: Stable Prescriptions: Continue Nitroglycerin 0.4 mg Tablet [Nitrostat 0.4 MG Tablet] 0.4 mg SL [id number] Hydrocodone/APAP 10/325 mg [[place] 10/325 MG Tablet] 1 tab PO Q4H PRN PRN PRN Reason: Pain Docusate Sodium 100 mg [Colace 100 MG] 100 mg PO BID PRN Potassium Chloride 10 Meq Tab* [Klor Con 10 MEQ] 10 meq PO BID Simvastatin 20 mg PO HS Famotidine 20 mg [Pepcid 20 MG] 20 mg PO BID Aspirin 162 mg PO DAILY Isosorbide Mononitrate 30 mg [Imdur 30 MG] 30 mg PO DAILY Metoprolol Succinate 25 mg Xl* [Toprol-Xl 25MG Tablets] 75 mg PO DAILY Calcium Carbonate/Vitamin D3 [Calcium 1,000 + D3 Caplet] 1 each PO BID Rivaroxaban 10 mg Tablet [Xarelto 10 mg Tablet] 20 mg PO UD PANTOPRAZOLE 40 mg Tablet [Protonix 40MG Tablet] 40 mg PO BID Hydrochlorothiazide 25 mg [hydroDIURIL 25 MG] 12.5 mg PO DAILY Albuterol/Ipratropium 3ml Neb* [DUONEB 0.5-3 MG/3 ml Neb] 1 neb IH Q4H #60 ampul.neb Tiotropium Smoot Inhaler [Spiriva 18 Mcg/Cap Inhaler] 1 puff IH DAILY #1 inh Ipratropium/Albuterol Sulfate [Iprat-Albut 0.5-3(2.5) mg/3 ml] 3 ml IH Q4HWA #360 ampul.neb Benzonatate [Tessalon Perle] 100 mg PO TID PRN PRN PRN Reason: Cough Promethazine HCl 25 mg [Phenergan 25 mg] 12.5 mg PO Q4H PRN 7 Days #28 tablet PRN Reason: Nausea/Vomiting Fluticasone/Vilanterol [Breo Ellipta 100-25 Mcg INH] 1 each IH DAILY Lorazepam 0.5 mg [Ativan 0.5 MG] 0.5 mg PO TID PRN PRN PRN Reason: Anxiety Prednisone 20 mg [Deltasone 20 mg] 10 mg PO DAILY Follow up with: ARY CONTRERAS MD [Primary Care Provider] - 1 Week
== END 2019-02-19 12:57 | disposition home or self-care (01) | DRG 191 ==
LOC: ED 17:35 → MED SURG 20:20 → OBSVTOIN 02-17 11:55
PROVIDERS: ADMIT General Practice; ATTEND General Practice
DX: J44.1 Chronic obstructive pulmonary disease with (acute) exacerbation (principal); J96.11 Chronic respiratory failure with hypoxia; J84.10 Pulmonary fibrosis, unspecified; I10 Essential (primary) hypertension; E78.00 Pure hypercholesterolemia, unspecified; Z86.711 Personal history of pulmonary embolism; Z79.899 Other long term (current) drug therapy; F17.200 Nicotine dependence, unspecified, uncomplicated
CPT/HCPCS: 36000; 36415; 71045; 80053; 81001; 83605; 83735; 84484; 85025; 85610; 85730; 87040; 87631; 93005; 93268; 94150; 94640; 94760; 96374; 99285; G0378; J0692; J2930; J7609; A9270-GY

== ENCOUNTER 2019-03-22 04:30 | Inpatient (IN) | payer MEDICARE | END 2019-03-25 13:40 | disposition home or self-care (01) | LOC: ED 04:30 → ICU 06:44 ==

== ENCOUNTER 2019-03-26 22:05 | Emergency (ER) | payer MEDICARE ==
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
[2019-03-26] MEDS ORDERED: DUONEB 0.5-3 MG/3 ml Neb IH ONE ×2 (22:20→22:24)
[2019-03-26] MEDS ORDERED: solu-MEDROL 125 MG IV ONE (22:29)
[2019-03-26] MEDS ORDERED: solu-MEDROL 125 MG ONE (22:48)
[2019-03-26 22:56] LABS: Basophil (Absolute #) 0 (0-0.4); Eosinophil % 1.1 % (0.00-5.0); Eosinophil (Absolute #) 0.17 (0-0.5); Granulocyte Absolute (ANC) 10.32 (1.4-6.9); Granulocytes % 65.9 % (36.0-66.0); Hematocrit 40.2 % (35-47); Hemoglobin 12.6 gm/dl (12.0-16.0); Lymphocyte (Absolute #) 3.86 (1.0-4.6); Lymphocytes % 24.7 % (24.0-44.0); Mean Cell Volume 97.8 fl (78-100); Mean Corpuscular Hemoglobin 30.7 pg (26-32); Mean Corpuscular Hgb Concent. 31.3 g/dl (32-36); Mean Platelet Volume 8.7 fl (6-9.5); Monocytes % 8.3 % (0.0-12.0); Platelet Count 303 K/mm3 (150-450); Red Blood Count 4.11 M/mm3 (4.1-5.4); Red Cell Distribution Width 12.7 % (11.5-14.0); White Blood Count 15.7 K/mm3 (4.0-10.5)
[2019-03-26 23:06] LABS: INR 1.16 (0.8-3.0); PROTIME 13.1 SECONDS (9.95-12.35)
[2019-03-26 23:18] LABS: ALBUMIN 3.8 g/dL (3.5-5.0); ALKALINE PHOSPHATASE 40 U/L (38-126); ANION GAP 8.7 MEQ/L (5-15); BLOOD UREA NITROGEN 24 mg/dL (7-17); CHLORIDE 97 mmol/L (98-107); Calcium 9.7 mg/dL (8.4-10.2); Carbon Dioxide 34 mmol/L (22-30); Creatinine 1 0.89 mg/dL (0.52-1.04); Glucose 90 mg/dL (74-106); NT PRO BNP 856 pg/mL (0-900); Potassium 3.4 mmol/L (3.5-5.1); SGOT/AST 26 U/L (14-36); SGPT/ALT 30 U/L (0-35); SODIUM 136 mmol/L (137-145); Total Protein 6.5 g/dL (6.3-8.2)
[2019-03-27 01:00] VITALS: O2SAT 99
[2019-03-27 01:01] VITALS: BP 165/86; PULSE 72
--- NOTE | 2019-03-27 09:27 | XRAY ---
Indication: Short of breath. Comparison: March 23, 2019. Portable chest continues to remain unchanged again demonstrating COPD, right apical fibrosis/scarring, and bilateral suture material. Heart is not enlarged. No new/acute findings. Comment: Preliminary interpretation was made by C. No discrepancy.
== END 2019-03-27 01:18 | disposition home or self-care (01) ==
LOC: ED 22:05
DX: J44.1 Chronic obstructive pulmonary disease with (acute) exacerbation (principal); I50.9 Heart failure, unspecified; E78.00 Pure hypercholesterolemia, unspecified; Z79.01 Long term (current) use of anticoagulants; I10 Essential (primary) hypertension; F41.9 Anxiety disorder, unspecified; F32.9 Major depressive disorder, single episode, unspecified; Z79.899 Other long term (current) drug therapy; Z86.711 Personal history of pulmonary embolism
CPT/HCPCS: 36000; 36415; 71045; 80053; 83880; 84484; 85025; 85610; 93005; 93041; 94150; 94640; 94760; 96374; 99284; J2930; A9270-GY

== ENCOUNTER 2019-04-20 19:38 | Observation (INO) | payer MEDICARE, SELFPAY ==
[2019-04-20] MEDS ORDERED: DUONEB 0.5-3 MG/3 ml Neb IH ONE ×2 (20:19→20:30)
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
[2019-04-20 20:28] LABS: INR 0.95 (0.8-3.0); PROTIME 10.7 SECONDS (9.95-12.35)
[2019-04-20 20:29] LABS: BASOPHIL % 0.2 % (0.0-0.4); Basophil (Absolute #) 0.02 (0-0.4); Eosinophil % 2.1 % (0.00-5.0); Eosinophil (Absolute #) 0.26 (0-0.5); Granulocyte Absolute (ANC) 6.67 (1.4-6.9); Granulocytes % 52.8 % (36.0-66.0); Hematocrit 40.2 % (35-47); Hemoglobin 12.6 gm/dl (12.0-16.0); Lymphocyte (Absolute #) 4.42 (1.0-4.6); Lymphocytes % 35.1 % (24.0-44.0); Mean Cell Volume 97.6 fl (78-100); Mean Corpuscular Hemoglobin 30.6 pg (26-32); Mean Corpuscular Hgb Concent. 31.3 g/dl (32-36); Mean Platelet Volume 8.9 fl (6-9.5); Monocyte (Absolute #) 1.23 (0.0-1.3); Monocytes % 9.8 % (0.0-12.0); Platelet Count 367 K/mm3 (150-450); Red Blood Count 4.12 M/mm3 (4.1-5.4); Red Cell Distribution Width 12.9 % (11.5-14.0); White Blood Count 12.6 K/mm3 (4.0-10.5)
[2019-04-20 20:41] LABS: ALBUMIN 4.2 g/dL (3.5-5.0); ALKALINE PHOSPHATASE 46 U/L (38-126); ANION GAP 10.7 MEQ/L (5-15); BLOOD UREA NITROGEN 20 mg/dL (7-17); CHLORIDE 101 mmol/L (98-107); Calcium 9.8 mg/dL (8.4-10.2); Carbon Dioxide 32 mmol/L (22-30); Creatinine 1 0.71 mg/dL (0.52-1.04); Glucose 76 mg/dL (74-106); NT PRO BNP 229 pg/mL (0-900); SGOT/AST 30 U/L (14-36); SGPT/ALT 23 U/L (0-35); SODIUM 139 mmol/L (137-145); Total Protein 7.2 g/dL (6.3-8.2)
[2019-04-20 20:41] LABS: Lactic Acid 1.1 (0.4-2.0); VBG BASE EXCESS 6.1 (-2.0-2.0); VBG HCO3- 29.6 meq/L (22-28); VBG HEMOGLOBIN 12.6; VBG O2 SATURATION 80.9 (95-100); VBG POTASSIUM 5.2 (3.5-5.1); VBG pH 7.5 (7.32-7.42)
[2019-04-20 20:42] LABS: VBG CARBOXYHEMOGLOBIN 8.1 % T HGB (0.0-6.9)
[2019-04-20] MEDS ORDERED: MORPHINE SULFATE 4 MG INJ IV ONE (23:06)
[2019-04-20] MEDS ORDERED: MORPHINE SULFATE 4 MG INJ ONE (23:08)
[2019-04-20] MEDS ORDERED: BABY ASPIRIN 81 MG CHEW PO ONE (23:12)
[2019-04-20] MEDS ORDERED: ROCEPHIN 1 Gm-D5w 50 ml Bag** 1 G/50 ML IVPB IV STA (23:12)
[2019-04-20] MEDS ORDERED: BABY ASPIRIN 81 MG CHEW ONE (23:14)
[2019-04-20] MEDS ORDERED: ROCEPHIN 1 Gm-D5w 50 ml Bag** 1 G/50 ML IVPB IV ONE (23:14)
[2019-04-20] MEDS ORDERED: solu-MEDROL 125 MG ONE (23:24)
[2019-04-20] MEDS ORDERED: solu-MEDROL 125 MG IV ONE (23:50)
[2019-04-21] MEDS ORDERED: MORPHINE SULFATE 4 MG INJ IV PRN (00:37)
[2019-04-21] MEDS ORDERED: solu-MEDROL 125 MG IV SCH (00:37)
[2019-04-21] MEDS ORDERED: DUONEB 0.5-3 MG/3 ml Neb IH PRN (00:37)
[2019-04-21] MEDS ORDERED: NORCO 7.5/325 MG TAB PO PRN (02:54)
[2019-04-21 05:25] LABS: BASOPHIL % 0.1 % (0.0-0.4); Basophil (Absolute #) 0.01 (0-0.4); Eosinophil % 0.3 % (0.00-5.0); Eosinophil (Absolute #) 0.03 (0-0.5); Granulocyte Absolute (ANC) 8.37 (1.4-6.9); Granulocytes % 90.5 % (36.0-66.0); Hematocrit 37.4 % (35-47); Hemoglobin 11.7 gm/dl (12.0-16.0); Lymphocyte (Absolute #) 0.73 (1.0-4.6); Lymphocytes % 7.9 % (24.0-44.0); Mean Cell Volume 98.4 fl (78-100); Mean Corpuscular Hgb Concent. 31.3 g/dl (32-36); Mean Platelet Volume 8.7 fl (6-9.5); Monocyte (Absolute #) 0.11 (0.0-1.3); Monocytes % 1.2 % (0.0-12.0); Platelet Count 300 K/mm3 (150-450); Red Cell Distribution Width 12.8 % (11.5-14.0); White Blood Count 9.3 K/mm3 (4.0-10.5)
[2019-04-21 05:36] LABS: Mean Corpuscular Hemoglobin 30.7 pg (26-32)
[2019-04-21 05:40] LABS: ALBUMIN 3.7 g/dL (3.5-5.0); ALKALINE PHOSPHATASE 40 U/L (38-126); ANION GAP 9.2 MEQ/L (5-15); BLOOD UREA NITROGEN 19 mg/dL (7-17); CHLORIDE 101 mmol/L (98-107); Calcium 9.5 mg/dL (8.4-10.2); Carbon Dioxide 31 mmol/L (22-30); Creatinine 1 0.78 mg/dL (0.52-1.04); Glucose 161 mg/dL (74-106); Potassium 4.2 mmol/L (3.5-5.1); SGOT/AST 22 U/L (14-36); SGPT/ALT 21 U/L (0-35); SODIUM 138 mmol/L (137-145); Total Protein 6.4 g/dL (6.3-8.2)
[2019-04-21] MEDS ORDERED: solu-MEDROL 125 MG ONE ×2 (06:14→11:25)
[2019-04-21] MEDS: solu-MEDROL 125 MG IV SCH ×2 (06:22→11:32)
[2019-04-21] MEDS: DUONEB 0.5-3 MG/3 ml Neb IH SCH ×2 (07:00→10:49)
[2019-04-21 07:35] VITALS: BP 122/60; O2SAT 94
--- NOTE | 2019-04-21 08:47 | XRAY ---
Indication: Short of breath and chest pain. Comparison: March 26, 2019. Portable chest unchanged again demonstrating COPD, right apical fibrosis/scarring, and bilateral lung suture material. Heart and mediastinal structures within normal limits. No new/acute findings.
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
--- NOTE | 2019-04-21 09:02 | PCM.DS ---
Discharge Summary Date of Admission: 04/21/19 00:34 Admitting Physician: ARY CONTRERAS Primary Care Provider: ARY CONTRERAS Allergies Allergies ciprofloxacin [From Cipro] Allergy (Severe, Verified 04/20/19 19:44) Itchy Eyes theophylline Allergy (Severe, Verified 04/20/19 19:44) hives, sob iodine Allergy (Intermediate, Verified 04/20/19 19:44) Tightness in Chest Penicillins Allergy (Intermediate, Verified 04/20/19 19:44) Itchy Eyes Sulfa (Sulfonamide Antibiotics) [Sulfa(Sulfonamide Antibiotics)] Allergy ( Intermediate, Verified 04/20/19 19:44) Itchy Eyes azithromycin [From Zithromax] Allergy (Mild, Verified 04/20/19 19:44) Itching lisinopril Allergy (Verified 04/20/19 19:44) Tightness of Throat clindamycin Adverse Reaction (Severe, Verified 04/20/19 19:44) Diarrhea hydromorphone HCl [From Dilaudid] Adverse Reaction (Mild, Verified 04/20/19 19: 44) low bp budesonide [From Symbicort] Adverse Reaction (Verified 04/20/19 19:44) fluticasone furoate [From Trelegy Ellipta] Adverse Reaction (Verified 04/20/19 19:44) formoterol [From Symbicort] Adverse Reaction (Verified 04/20/19 19:44) hydromorphone [From Dilaudid] Adverse Reaction (Verified 04/20/19 19:44) umeclidinium [From Trelegy Ellipta] Adverse Reaction (Verified 04/20/19 19:44) vilanterol [From Trelegy Ellipta] Adverse Reaction (Verified 04/20/19 19:44) Hospital Summary - Hospital Course Hospital Course: Chief Complaint Diagnosis Chest Pain, shortness of breath for 2 days Allergies Allergy/AdvReac Type Severity Reaction Status Date / Time ciprofloxacin [From Cipro] Allergy Severe Itchy Eyes Verified 04/20/19 19:44 theophylline Allergy Severe hives, sob Verified 04/20/19 19:44 iodine Allergy Intermediate Tightness Verified 04/20/19 19:44 in Chest Penicillins Allergy Intermediate Itchy Eyes Verified 04/20/19 19:44 Sulfa (Sulfonamide Allergy Intermediate Itchy Eyes Verified 04/20/19 19:44 Antibiotics) [Sulfa(Sulfonamide Antibiotics)] azithromycin [From Zithromax] Allergy Mild Itching Verified 04/20/19 19:44 lisinopril Allergy Tightness Verified 04/20/19 19:44 of Throat clindamycin AdvReac Severe Diarrhea Verified 04/20/19 19:44 hydromorphone HCl AdvReac Mild low bp Verified 04/20/19 19:44 [From Dilaudid] budesonide [From Symbicort] AdvReac Verified 04/20/19 19:44 fluticasone furoate AdvReac Verified 04/20/19 19:44 [From Trelegy Ellipta] formoterol [From Symbicort] AdvReac Verified 04/20/19 19:44 hydromorphone [From Dilaudid] AdvReac Verified 04/20/19 19:44 umeclidinium AdvReac Verified 04/20/19 19:44 [From Trelegy Ellipta] vilanterol AdvReac Verified 04/20/19 19:44 [From Trelegy Ellipta] Vital Signs (Last 24 hours) Temp Pulse Resp BP Pulse Ox 04/21/19 07:33 97.9 F 74 18 122/60 94 L 04/21/19 07:01 73 18 99 04/21/19 04:00 97.6 F 74 16 115/56 98 04/21/19 01:06 98.2 F 75 22 148/89 99 04/21/19 00:47 98.2 F 75 22 148/89 99 04/21/19 00:37 75 20 100 04/20/19 23:11 100 04/20/19 23:04 75 18 122/70 100 04/20/19 21:23 78 20 100 04/20/19 20:54 79 20 115/72 100 04/20/19 20:36 81 22 119/70 100 04/20/19 19:46 98.4 F 86 20 139/90 98 Home Medications Medication Instructions Recorded Confirmed Last Taken Type Prednisone 10 mg [Deltasone 10 10 mg PO DAILY 04/21/19 04/21/19 04/20/19 History mg] 0800 Tiotropium Justice Inhaler 1 cap IH DAILY 04/21/19 04/21/19 04/20/19 History [Spiriva 18 Mcg/Cap Inhaler] Current Medications Generic Name Dose Route Start Last Admin Trade Name Freq PRN Reason Stop Dose Admin Hydrocodone Bitart/Acetaminophen 1 tab 04/21/19 02:54 [place] 7.5/325 Mg Tab PO 04/26/19 02:53 Q4H PRN PRN MODERATE TO SEVERE PAIN Albuterol/Ipratropium 3 ml 04/21/19 00:37 04/21/19 02:28 Duoneb 0.5-3 Mg/3 Ml Neb IH 05/21/19 00:36 3 ml Q4HPRN PRN Administration SHORTNESS OF BREATH/WHEEZING Albuterol/Ipratropium 3 ml 04/21/19 07:00 04/21/19 07:00 Duoneb 0.5-3 Mg/3 Ml Neb IH 05/21/19 06:59 3 ml Q4HRT SAVITA Administration Ceftriaxone Sodium/Dextrose 1 g in 50 mls @ 100 mls/hr 04/21/19 22:00 Rocephin 1 Gm-D5w 50 Ml Bag IV 05/21/19 21:59 Q24H22 SAVITA Methylprednisolone Sodium Succinate 80 mg 04/21/19 06:00 04/21/19 06:22 Solu-Medrol 125 Mg IV 05/21/19 05:59 80 mg Q6H SAVITA Administration Discontinued Medications Generic Name Dose Route Start Last Admin Trade Name Anshu PRN Reason Stop Dose Admin Albuterol/Ipratropium 3 ml 04/20/19 20:19 04/20/19 20:33 Duoneb 0.5-3 Mg/3 Ml Neb IH 04/20/19 20:20 3 ml STAT ONE Administration Albuterol/Ipratropium Confirm 04/20/19 20:30 Duoneb 0.5-3 Mg/3 Ml Neb Administered 04/20/19 20:31 Dose 3 ml IH .STK-MED ONE Aspirin 81 mg 04/20/19 23:12 04/20/19 23:15 Baby Aspirin 81 Mg Chew PO 04/20/19 23:13 81 mg STAT ONE Administration Aspirin Confirm 04/20/19 23:14 Baby Aspirin 81 Mg Chew Administered 04/20/19 23:15 Dose 81 mg .ROUTE .STK-MED ONE Ceftriaxone Sodium/Dextrose 1 g in 50 mls @ 100 mls/hr 04/20/19 23:12 23:53 Rocephin 1 Gm-D5w 50 Ml Bag IV 04/20/19 23:41 Infused STAT STA Infusion Ceftriaxone Sodium/Dextrose Confirm 04/20/19 23:14 Rocephin 1 Gm-D5w 50 Ml Bag Administered 04/20/19 23:15 Dose 1 g in 50 mls @ ud IV .STK-MED ONE Methylprednisolone Sodium Succinate Confirm 04/20/19 23:24 Solu-Medrol 125 Mg Administered 04/20/19 23:25 Dose 125 mg .ROUTE .STK-MED ONE Methylprednisolone Sodium Succinate 125 mg 04/20/19 23:50 04/20/19 23:52 Solu-Medrol 125 Mg IV 04/20/19 23:51 125 mg STAT ONE Administration Methylprednisolone Sodium Succinate 80 mg 04/21/19 00:37 04/21/19 07:36 Solu-Medrol 125 Mg IV 05/21/19 00:36 Not Given Q6H SAVITA Morphine Sulfate 4 mg 04/20/19 23:06 04/20/19 23:10 Morphine Sulfate 4 Mg Inj IV 04/20/19 23:07 4 mg STAT ONE Administration Morphine Sulfate Confirm 04/20/19 23:08 Morphine Sulfate 4 Mg Inj Administered 04/20/19 23:09 Dose 4 mg .ROUTE .STK-MED ONE Morphine Sulfate 4 mg 04/21/19 00:37 Morphine Sulfate 4 Mg Inj IV 04/26/19 00:36 Q4H PRN PRN PAIN Intake & Output (Last 24 hours) 04/18/19 04/19/19 04/20/19 04/21/19 11:59 11:59 11:59 11:59 Intake Total 360 Output Total 150 Balance 210 Weight 62.1 kg Microbiology Results (Last 24 hours) 04/20/19 20:43 Blood Blood Culture Gram Stain - Pending 04/20/19 20:43 Blood Blood Culture - Pending 04/20/19 20:10 Blood Blood Culture Gram Stain - Pending 04/20/19 20:10 Blood Blood Culture - Pending 04/20/19 20:25 Sputum - Expectorant Gram Stain - Pending 04/20/19 20:25 Sputum - Expectorant Sputum Culture - Pending Laboratory Results (Last 24 hours) 04/21/19 04/21/19 04/21/19 04:50 04:50 04:50 WBC 9.3 RBC 3.80 L Hgb 11.7 L Hct 37.4 MCV 98.4 MCH 30.7 MCHC 31.3 L RDW 12.8 Plt Count 300 MPV 8.7 Gran % 90.5 H Eos # (Auto) 0.03 Absolute Lymphs (auto) 0.73 L Absolute Monos (auto) 0.11 Lymphocytes % 7.9 L Monocytes % 1.2 Eosinophils % 0.3 Basophils % 0.1 Absolute Granulocytes 8.37 H Basophils # 0.01 PT INR APTT D-Dimer pO2/FiO2 Ratio VBG pH VBG pCO2 at Pat Temp VBG pO2 at Pat Temp VBG HCO3 VBG O2 Sat (Baljinder) VBG Base Excess VBG Hemoglobin VBG Carboxyhemoglobin POC Potassium Sodium 138 Potassium 4.2 Chloride 101 Carbon Dioxide 31 H Anion Gap 9.2 BUN 19 H Creatinine 0.78 Estimated GFR > 60.0 Glucose 161 H Lactic Acid Calcium 9.5 Total Bilirubin 0.20 AST 22 ALT 21 Alkaline Phosphatase 40 Troponin I < 0.012 NT-Pro-B Natriuret Pep Serum Total Protein 6.4 Albumin 3.7 04/21/19 04/20/19 04/20/19 02:35 23:32 20:35 WBC RBC Hgb Hct MCV MCH MCHC RDW Plt Count MPV Gran % Eos # (Auto) Absolute Lymphs (auto) Absolute Monos (auto) Lymphocytes % Monocytes % Eosinophils % Basophils % Absolute Granulocytes Basophils # PT INR APTT D-Dimer pO2/FiO2 Ratio 40.0 VBG pH 7.50 H VBG pCO2 at Pat Temp 38 L VBG pO2 at Pat Temp 33 VBG HCO3 29.6 H* VBG O2 Sat (Baljinder) 80.9 L VBG Base Excess 6.1 H VBG Hemoglobin 12.6 VBG Carboxyhemoglobin 8.1 H* POC Potassium 5.2 H Sodium Potassium Chloride Carbon Dioxide Anion Gap BUN Creatinine Estimated GFR Glucose Lactic Acid 1.1 Calcium Total Bilirubin AST ALT Alkaline Phosphatase Troponin I < 0.012 < 0.012 NT-Pro-B Natriuret Pep Serum Total Protein Albumin 04/20/19 04/20/19 04/20/19 20:10 20:10 20:10 WBC RBC Hgb Hct MCV MCH MCHC RDW Plt Count MPV Gran % Eos # (Auto) Absolute Lymphs (auto) Absolute Monos (auto) Lymphocytes % Monocytes % Eosinophils % Basophils % Absolute Granulocytes Basophils # PT 10.7 INR 0.95 APTT 28.0 D-Dimer 1146 H* pO2/FiO2 Ratio VBG pH VBG pCO2 at Pat Temp VBG pO2 at Pat Temp VBG HCO3 VBG O2 Sat (Baljinder) VBG Base Excess VBG Hemoglobin VBG Carboxyhemoglobin POC Potassium Sodium 139 Potassium 4.0 Chloride 101 Carbon Dioxide 32 H Anion Gap 10.7 BUN 20 H Creatinine 0.71 Estimated GFR > 60.0 Glucose 76 Lactic Acid Calcium 9.8 Total Bilirubin 0.30 AST 30 ALT 23 Alkaline Phosphatase 46 Troponin I < 0.012 NT-Pro-B Natriuret Pep 229 Serum Total Protein 7.2 Albumin 4.2 04/20/19 20:10 WBC 12.6 H RBC 4.12 Hgb 12.6 Hct 40.2 MCV 97.6 MCH 30.6 MCHC 31.3 L RDW 12.9 Plt Count 367 MPV 8.9 Gran % 52.8 Eos # (Auto) 0.26 Absolute Lymphs (auto) 4.42 Absolute Monos (auto) 1.23 Lymphocytes % 35.1 Monocytes % 9.8 Eosinophils % 2.1 Basophils % 0.2 Absolute Granulocytes 6.67 Basophils # 0.02 PT INR APTT D-Dimer pO2/FiO2 Ratio VBG pH VBG pCO2 at Pat Temp VBG pO2 at Pat Temp VBG HCO3 VBG O2 Sat (Baljinder) VBG Base Excess VBG Hemoglobin VBG Carboxyhemoglobin POC Potassium Sodium Potassium Chloride Carbon Dioxide Anion Gap BUN Creatinine Estimated GFR Glucose Lactic Acid Calcium Total Bilirubin AST ALT Alkaline Phosphatase Troponin I NT-Pro-B Natriuret Pep Serum Total Protein Albumin Orders (Last 24 hours) Category Date Time Status Bedrest with BRP/BSC ROUTINE Activity 04/21/19 00:37 Active Call Admit Doctor for Orders ON ADMISSION Care 04/21/19 00:37 Active Automobile Rental Agent STAT Care 04/20/19 20:20 Completed Code Status Order ROUTINE Care 04/21/19 00:37 Active IV Care Q6H Care 04/21/19 00:37 Active IV Insertion STAT Care 04/20/19 20:19 Completed Oxygen-ED Only Nasal Cannula 5 lpm Care 04/20/19 20:[address] in Observation ROUTINE Care 04/21/19 00:37 Active Telemetry q6h Care 04/21/19 00:37 Active Weight,Daily 0600 Care 04/21/19 00:37 Active Infection Control Consult Cons 04/21/19 01:37 Active Atm Technician/Discharge Plan Cons 04/21/19 01:37 Active Cardiac Diet Diet 04/21/19 Breakfast Active Nutritional Admission Screen Diet 04/21/19 01:37 Active CHEST 1 VIEW (PORTABLE) Stat Exams 04/20/19 20:20 Completed BLOOD CULTURE Stat Lab 04/20/19 20:43 Received CBC W DIFF Stat Lab 04/20/19 20:10 Completed CBC W DIFF Urgent Lab 04/21/19 04:50 Completed CMP AM.LAB Lab 04/21/19 04:50 Completed CMP Stat Lab 04/20/19 20:10 Completed CULTURE,SPUTUM Stat Lab 04/20/19 20:25 Received D-DIMER QUANTITATION Stat Lab 04/20/19 20:10 Completed Lactic Acid Stat Lab 04/20/19 20:35 Completed NT PRO BNP Stat Lab 04/20/19 20:10 Completed PROTIME WITH INR Stat Lab 04/20/19 20:10 Completed PTT Stat Lab 04/20/19 20:10 Completed TROPONIN Q3H Lab 04/20/19 20:10 Completed TROPONIN Q3H Lab 04/20/19 23:32 Completed TROPONIN Q3H Lab 04/21/19 02:35 Completed TROPONIN Q3H Lab 04/21/19 04:50 Completed TROPONIN Q3H Lab 04/21/19 08:35 Received VENOUS BLOOD GAS Stat Lab 04/20/19 20:35 Completed Albuterol/Ipratropium 3ml Neb* [DUONEB 0.5-3 MG/3 ml Med 04/20/19 20:30 Discontinued Neb] 3 ml IH .STK-MED ONE Albuterol/Ipratropium 3ml Neb* [DUONEB 0.5-3 MG/3 ml Med 04/21/19 00:37 Active Neb] 3 ml IH Q4HPRN PRN Albuterol/Ipratropium 3ml Neb* [DUONEB 0.5-3 MG/3 ml Med 04/21/19 07:00 Active Neb] 3 ml IH Q4HRT Albuterol/Ipratropium 3ml Neb* [DUONEB 0.5-3 MG/3 ml Med 04/20/19 20:19 Discontinued Neb] 3 ml IH STAT ONE Aspirin 81 gm Chew [Baby Aspirin 81 mg Chew] Med 04/20/19 23:14 Discontinued 81 mg .ROUTE .STK-MED ONE Aspirin 81 gm Chew [Baby Aspirin 81 mg Chew] Med 04/20/19 23:12 Discontinued 81 mg PO STAT ONE Ceftriaxone 1 GM/50 ML PREMIX* [ROCEPHIN 1 Gm-D5w 50 ml Med 04/21/19 22:00 Active Bag] 1 g in 50 ml IV Q24H22 Ceftriaxone 1 GM/50 ML PREMIX* [ROCEPHIN 1 Gm-D5w 50 ml Med 04/20/19 23:12 Discontinued Bag] 1 g in 50 ml IV STAT Ceftriaxone 1 GM/50 ML PREMIX* [ROCEPHIN 1 Gm-D5w 50 ml Med 04/20/19 23:14 Discontinued Bag] 1 g in 50 ml IV UD Hydrocodone /APAP 7.5/325 mg [[place] 7.5/325 mg Tab Med 04/21/19 02:54 Active ] 1 tab PO Q4H PRN PRN Methylprednis Sod Succ 125 mg* [solu-MEDROL 125 MG] Med 04/20/19 23:24 Discontinued 125 mg .ROUTE .STK-MED ONE Methylprednis Sod Succ 125 mg* [solu-MEDROL 125 MG] Med 04/20/19 23:50 Discontinued 125 mg IV STAT ONE Methylprednis Sod Succ 125 mg* [solu-MEDROL 125 MG] Med 04/21/19 00:37 Discontinued 80 mg IV Q6H Methylprednis Sod Succ 125 mg* [solu-MEDROL 125 MG] Med 04/21/19 06:00 Active 80 mg IV Q6H Morphine Sulfate 4 mg Inj Med 04/20/19 23:08 Discontinued 4 mg .ROUTE .STK-MED ONE Morphine Sulfate 4 mg Inj Med 04/21/19 00:37 Discontinued 4 mg IV Q4H PRN PRN Morphine Sulfate 4 mg Inj Med 04/20/19 23:06 Discontinued 4 mg IV STAT ONE Oxygen Nasal Cannula 5 lpm RT 04/21/19 00:37 Active Peak Expiratory Flow Rate ONCE RT 04/20/19 21:23 Active Pulse Oximetry CONTINUOUS RT 04/21/19 00:37 Active RT Screen per Nursing Assess ONCE RT 04/21/19 01:37 Completed Respiratory MDI UD RT 04/21/19 07:00 Active Respiratory MDI UD RT 04/21/19 07:00 Active Respiratory Therapy Assessment DAILY RT 04/20/19 21:23 Completed Respiratory Therapy Assessment DAILY RT 04/21/19 02:19 Active Respiratory Therapy Consult ROUTINE RT 04/21/19 00:37 Completed Smoking Cessation Education ONCE RT 04/21/19 01:37 Completed - Vitals & Intake/Output Vital Signs: Vital Signs Temperature 97.9 F 04/21/19 07:33 Pulse Rate 74 04/21/19 07:33 Respiratory Rate 18 04/21/19 07:33 Blood Pressure 122/60 04/21/19 07:33 O2 Sat by Pulse Oximetry 94 L 04/21/19 07:33 Oxygen-Last Documented O2 Percentage 4 Liters = 36% Intake & Output: Intake & Output 04/18/19 04/19/19 04/20/19 04/21/19 11:59 11:59 11:59 11:59 Intake Total 360 Output Total 150 Balance 210 Weight 62.1 kg - Lab Result Diagrams: 04/21/19 04:50 04/21/19 04:50 Lab Results-Last 24 Hrs: Lab Results-Last 24 Hours 04/20/19 04/20/19 04/20/19 Range/Units 20:10 20:10 20:10 WBC 12.6 H (4.0-10.5) K/mm3 RBC 4.12 (4.1-5.4) M/mm3 Hgb 12.6 (12.0-16.0) gm/dl Hct 40.2 (35-47) % MCV 97.6 (78-100) fl MCH 30.6 (26-32) pg MCHC 31.3 L (32-36) g/dl RDW 12.9 (11.5-14.0) % Plt Count 367 (150-450) K/mm3 MPV 8.9 (6-9.5) fl Gran % 52.8 (36.0-66.0) % Eos # (Auto) 0.26 (0-0.5) Absolute Lymphs (auto) 4.42 (1.0-4.6) Absolute Monos (auto) 1.23 (0.0-1.3) Lymphocytes % 35.1 (24.0-44.0) % Monocytes % 9.8 (0.0-12.0) % Eosinophils % 2.1 (0.00-5.0) % Basophils % 0.2 (0.0-0.4) % Absolute Granulocytes 6.67 (1.4-6.9) Basophils # 0.02 (0-0.4) PT 10.7 (9.95-12.35) SECONDS INR 0.95 (0.8-3.0) APTT 28.0 (25.3-37.0) SECONDS D-Dimer 1146 H* (215-500) ng/mL pO2/FiO2 Ratio % VBG pH (7.32-7.42) VBG pCO2 at Pat Temp (42-55) mm/Hg VBG pO2 at Pat Temp (25-40) mm/Hg VBG HCO3 (22-28) meq/L VBG O2 Sat (Baljinder) (95-100) VBG Base Excess (-2.0-2.0) VBG Hemoglobin VBG Carboxyhemoglobin (0.0-6.9) % T HGB POC Potassium (3.5-5.1) Sodium 139 (137-145) mmol/L Potassium 4.0 (3.5-5.1) mmol/L Chloride 101 (98-107) mmol/L Carbon Dioxide 32 H (22-30) mmol/L Anion Gap 10.7 (5-15) MEQ/L BUN 20 H (7-17) mg/dL Creatinine 0.71 (0.52-1.04) mg/dL Estimated GFR > 60.0 ML/MIN Glucose 76 (74-106) mg/dL Lactic Acid (0.4-2.0) Calcium 9.8 (8.4-10.2) mg/dL Total Bilirubin 0.30 (0.2-1.3) mg/dL AST 30 (14-36) U/L ALT 23 (0-35) U/L Alkaline Phosphatase 46 (38-126) U/L Troponin I (0.000-0.034) ng/mL NT-Pro-B Natriuret Pep 229 (0-900) pg/mL Serum Total Protein 7.2 (6.3-8.2) g/dL Albumin 4.2 (3.5-5.0) g/dL 04/20/19 04/20/19 04/20/19 Range/Units 20:10 20:35 23:32 WBC (4.0-10.5) K/mm3 RBC (4.1-5.4) M/mm3 Hgb (12.0-16.0) gm/dl Hct (35-47) % MCV (78-100) fl MCH (26-32) pg MCHC (32-36) g/dl RDW (11.5-14.0) % Plt Count (150-450) K/mm3 MPV (6-9.5) fl Gran % (36.0-66.0) % Eos # (Auto) (0-0.5) Absolute Lymphs (auto) (1.0-4.6) Absolute Monos (auto) (0.0-1.3) Lymphocytes % (24.0-44.0) % Monocytes % (0.0-12.0) % Eosinophils % (0.00-5.0) % Basophils % (0.0-0.4) % Absolute Granulocytes (1.4-6.9) Basophils # (0-0.4) PT (9.95-12.35) SECONDS INR (0.8-3.0) APTT (25.3-37.0) SECONDS D-Dimer (215-500) ng/mL pO2/FiO2 Ratio 40.0 % VBG pH 7.50 H (7.32-7.42) VBG pCO2 at Pat Temp 38 L (42-55) mm/Hg VBG pO2 at Pat Temp 33 (25-40) mm/Hg VBG HCO3 29.6 H* (22-28) meq/L VBG O2 Sat (Baljinder) 80.9 L (95-100) VBG Base Excess 6.1 H (-2.0-2.0) VBG Hemoglobin 12.6 VBG Carboxyhemoglobin 8.1 H* (0.0-6.9) % T HGB POC Potassium 5.2 H (3.5-5.1) Sodium (137-145) mmol/L Potassium (3.5-5.1) mmol/L Chloride (98-107) mmol/L Carbon Dioxide (22-30) mmol/L Anion Gap (5-15) MEQ/L BUN (7-17) mg/dL Creatinine (0.52-1.04) mg/dL Estimated GFR ML/MIN Glucose (74-106) mg/dL Lactic Acid 1.1 (0.4-2.0) Calcium (8.4-10.2) mg/dL Total Bilirubin (0.2-1.3) mg/dL AST (14-36) U/L ALT (0-35) U/L Alkaline Phosphatase (38-126) U/L Troponin I < 0.012 < 0.012 (0.000-0.034) ng/mL NT-Pro-B Natriuret Pep (0-900) pg/mL Serum Total Protein (6.3-8.2) g/dL Albumin (3.5-5.0) g/dL 04/21/19 04/21/19 04/21/19 Range/Units 02:35 04:50 04:50 WBC 9.3 (4.0-10.5) K/mm3 RBC 3.80 L (4.1-5.4) M/mm3 Hgb 11.7 L (12.0-16.0) gm/dl Hct 37.4 (35-47) % MCV 98.4 (78-100) fl MCH 30.7 (26-32) pg MCHC 31.3 L (32-36) g/dl RDW 12.8 (11.5-14.0) % Plt Count 300 (150-450) K/mm3 MPV 8.7 (6-9.5) fl Gran % 90.5 H (36.0-66.0) % Eos # (Auto) 0.03 (0-0.5) Absolute Lymphs (auto) 0.73 L (1.0-4.6) Absolute Monos (auto) 0.11 (0.0-1.3) Lymphocytes % 7.9 L (24.0-44.0) % Monocytes % 1.2 (0.0-12.0) % Eosinophils % 0.3 (0.00-5.0) % Basophils % 0.1 (0.0-0.4) % Absolute Granulocytes 8.37 H (1.4-6.9) Basophils # 0.01 (0-0.4) PT (9.95-12.35) SECONDS INR (0.8-3.0) APTT (25.3-37.0) SECONDS D-Dimer (215-500) ng/mL pO2/FiO2 Ratio % VBG pH (7.32-7.42) VBG pCO2 at Pat Temp (42-55) mm/Hg VBG pO2 at Pat Temp (25-40) mm/Hg VBG HCO3 (22-28) meq/L VBG O2 Sat (Baljinder) (95-100) VBG Base Excess (-2.0-2.0) VBG Hemoglobin VBG Carboxyhemoglobin (0.0-6.9) % T HGB POC Potassium (3.5-5.1) Sodium (137-145) mmol/L Potassium (3.5-5.1) mmol/L Chloride (98-107) mmol/L Carbon Dioxide (22-30) mmol/L Anion Gap (5-15) MEQ/L BUN (7-17) mg/dL Creatinine (0.52-1.04) mg/dL Estimated GFR ML/MIN Glucose (74-106) mg/dL Lactic Acid (0.4-2.0) Calcium (8.4-10.2) mg/dL Total Bilirubin (0.2-1.3) mg/dL AST (14-36) U/L ALT (0-35) U/L Alkaline Phosphatase (38-126) U/L Troponin I < 0.012 < 0.012 (0.000-0.034) ng/mL NT-Pro-B Natriuret Pep (0-900) pg/mL Serum Total Protein (6.3-8.2) g/dL Albumin (3.5-5.0) g/dL 04/21/19 Range/Units 04:50 WBC (4.0-10.5) K/mm3 RBC (4.1-5.4) M/mm3 Hgb (12.0-16.0) gm/dl Hct (35-47) % MCV (78-100) fl MCH (26-32) pg MCHC (32-36) g/dl RDW (11.5-14.0) % Plt Count (150-450) K/mm3 MPV (6-9.5) fl Gran % (36.0-66.0) % Eos # (Auto) (0-0.5) Absolute Lymphs (auto) (1.0-4.6) Absolute Monos (auto) (0.0-1.3) Lymphocytes % (24.0-44.0) % Monocytes % (0.0-12.0) % Eosinophils % (0.00-5.0) % Basophils % (0.0-0.4) % Absolute Granulocytes (1.4-6.9) Basophils # (0-0.4) PT (9.95-12.35) SECONDS INR (0.8-3.0) APTT (25.3-37.0) SECONDS D-Dimer (215-500) ng/mL pO2/FiO2 Ratio % VBG pH (7.32-7.42) VBG pCO2 at Pat Temp (42-55) mm/Hg VBG pO2 at Pat Temp (25-40) mm/Hg VBG HCO3 (22-28) meq/L VBG O2 Sat (Baljinder) (95-100) VBG Base Excess (-2.0-2.0) VBG Hemoglobin VBG Carboxyhemoglobin (0.0-6.9) % T HGB POC Potassium (3.5-5.1) Sodium 138 (137-145) mmol/L Potassium 4.2 (3.5-5.1) mmol/L Chloride 101 (98-107) mmol/L Carbon Dioxide 31 H (22-30) mmol/L Anion Gap 9.2 (5-15) MEQ/L BUN 19 H (7-17) mg/dL Creatinine 0.78 (0.52-1.04) mg/dL Estimated GFR > 60.0 ML/MIN Glucose 161 H (74-106) mg/dL Lactic Acid (0.4-2.0) Calcium 9.5 (8.4-10.2) mg/dL Total Bilirubin 0.20 (0.2-1.3) mg/dL AST 22 (14-36) U/L ALT 21 (0-35) U/L Alkaline Phosphatase 40 (38-126) U/L Troponin I (0.000-0.034) ng/mL NT-Pro-B Natriuret Pep (0-900) pg/mL Serum Total Protein 6.4 (6.3-8.2) g/dL Albumin 3.7 (3.5-5.0) g/dL - Radiology Exams Ordered Rad Exams-Entire Visit: Radiology Procedures Category Date Time Status CHEST 1 VIEW (PORTABLE) Stat Exams 04/20/19 20:20 Completed - Procedures and Test Procedures and Tests throughout Hospitalization: Therapy Orders & Screens 04/20/19 21:23 Peak Expiratory Flow Rate ONCE Comment: Reason For Exam: Respiratory Therapy Assessment DAILY Comment: 04/21/19 00:37 Oxygen Nasal Cannula 5 lpm Comment: Respiratory Therapy Consult ROUTINE Comment: Reason For Exam: 04/21/19 01:37 RT Screen per Nursing Assess ONCE Comment: Protocol Order Physician Instructions: Greater than 3 points order RT Admission Screen Reason For Exam: Triggered on Admission Diagnosis: Chest Pain, COPD Exaxerbation Diagnosis: Chest Pain, COPD Exaxerbation Pneumonia: No Home O2: Yes Asthma: No CHF: No Home CPAP/BIPAP: No Home Nebs/MDI: Yes Total Points: 10 Smoking Cessation Education ONCE Comment: Diagnosis: Chest Pain, COPD Exaxerbation Smoking Status: Current every day smoker How long have you smoked: 45 y Have you smoked in the past 12 months: Yes Approximately how many cigarettes per day: 1/2 pack Do you dip or chew tobacco: No If,Former Smoker,when did you quit: week ago 04/21/19 02:19 Respiratory Therapy Assessment DAILY Comment: Diagnosis: Chest Pain, COPD Exaxerbation 04/21/19 07:00 Respiratory MDI UD Comment: [facility]- [facility] Diagnosis: Chest Pain, COPD Exaxerbation Respiratory MDI UD Comment: [facility]- HOME [facility] Diagnosis: Chest Pain, COPD Exaxerbation Discharge Exam General Appearance: no apparent distress, alert Neurologic Exam: alert, oriented x 3, cooperative, normal mood/affect, nml cerebellar function, sensation nml, No motor deficits Eye Exam: PERRL, EOMI, eyes nml inspection Ears, Nose, Throat Exam: normal ENT inspection, pharynx normal, moist mucous membranes Neck Exam: normal inspection, non-tender, supple, full range of motion Respiratory Exam: normal breath sounds, lungs clear, No respiratory distress Cardiovascular Exam: regular rate/rhythm, normal heart sounds Gastrointestinal/Abdomen Exam: soft, No tenderness, No mass Pelvic Exam: deferred Rectal Exam: deferred Back Exam: normal inspection, normal range of motion, No CVA tenderness, No vertebral tenderness Extremity Exam: normal inspection, normal range of motion Skin Exam: normal color, warm, dry Final Diagnosis/Problem List - Final Discharge Diagnosis/Problem (1) COPD with exacerbation Current Visit: Yes Status: Acute Assessment & Plan: resolved Code(s): J44.1 - CHRONIC OBSTRUCTIVE PULMONARY DISEASE W (ACUTE) EXACERBATION (2) Chest pain Current Visit: Yes Status: Resolved Code(s): R07.9 - CHEST PAIN, UNSPECIFIED (3) Chronic hypoxemic respiratory failure Current Visit: No Status: Chronic (4) Pulmonary fibrosis Current Visit: No Status: Chronic Code(s): J84.10 - PULMONARY FIBROSIS, UNSPECIFIED - Discharge Disposition: Home, Self-Care Condition: Fair Prescriptions: No Action Nitroglycerin 0.4 mg Tablet [Nitrostat 0.4 MG Tablet] 0.4 mg SL [id number] Docusate Sodium 100 mg [Colace 100 MG] 100 mg PO BID PRN Potassium Chloride 10 Meq Tab* [Klor Con 10 MEQ] 10 meq PO BID Simvastatin 20 mg PO HS Famotidine 20 mg [Pepcid 20 MG] 20 mg PO BID Aspirin 162 mg PO DAILY Isosorbide Mononitrate 30 mg [Imdur 30 MG] 30 mg PO DAILY Metoprolol Succinate 25 mg Xl* [Toprol-Xl 25MG Tablets] 75 mg PO DAILY Calcium Carbonate/Vitamin D3 [Calcium 1,000 + D3 Caplet] 1 each PO BID Rivaroxaban 10 mg Tablet [Xarelto 10 mg Tablet] 10 mg PO DAILY PANTOPRAZOLE 40 mg Tablet [Protonix 40MG Tablet] 40 mg PO BID Hydrochlorothiazide 25 mg [hydroDIURIL 25 MG] 12.5 mg PO DAILY Albuterol/Ipratropium 3ml Neb* [DUONEB 0.5-3 MG/3 ml Neb] 1 neb IH Q4H #60 ampul.neb Promethazine HCl 25 mg [Phenergan 25 mg] 12.5 mg PO Q4H PRN 7 Days #28 tablet PRN Reason: Nausea/Vomiting Fluticasone/Vilanterol [Breo Ellipta 100-25 Mcg INH] 1 each IH DAILY Lorazepam 0.5 mg [Ativan 0.5 MG] 0.5 mg PO TID PRN PRN PRN Reason: Anxiety Roflumilast [Daliresp] 250 mcg PO DAILY Guaifenesin 600 mg ER [Mucinex 600MG ER Tabs] 600 mg PO BID Albuterol Sulfate [Ventolin Hfa] 1 puff .ROUTE Q2H/PRN PRN PRN Reason: Shortness Of Breath/Wheezing Ascorbic Acid 500 mg [Vitamin C 500 MG] 1 tab PO DAILY Albuterol 2.5 mg/0.5 ml [PROVENTIL Solution 2.5 MG/0.5 ML] 1 neb IH BID Hydrocodone/Acetaminophen [Hydrocodone-Acetamin 7.5-325] 1 tab PO Q4HPRN PRN PRN Reason: Pain Multivit with Calcium,Iron,Min [Womens Multiple Vitamins] 1 tab PO DAILY Benzonatate [Tessalon Perle] 100 mg PO TIDPRN PRN 7 Days #21 capsule PRN Reason: Cough Tiotropium [place] Inhaler [Spiriva 18 Mcg/Cap Inhaler] 1 cap IH DAILY Prednisone 10 mg [Deltasone 10 mg] 10 mg PO DAILY Follow up with: ARY CONTRERAS MD [Primary Care Provider] - 1 Week
[2019-04-21] MEDS ORDERED: Nitrostat 0.4 MG Tablet SL PRN (10:00)
[2019-04-21] MEDS ORDERED: PHENERGAN 25 MG PO PRN (10:00)
[2019-04-21] MEDS ORDERED: Ativan 0.5 MG PO PRN (10:00)
[2019-04-21] MEDS ORDERED: DELTASONE 10 MG ONE (10:33)
[2019-04-21] MEDS ORDERED: hydroDIURIL 25 MG ONE (10:33)
[2019-04-21] MEDS ORDERED: Toprol-Xl 25MG Tablets ONE (10:33)
[2019-04-21] MEDS ORDERED: THERAGRAN MULTIVITAMIN ONE (10:34)
[2019-04-21] MEDS ORDERED: Klor Con 10 MEQ PO ONE (10:34)
[2019-04-21] MEDS ORDERED: Imdur 30 MG ONE (10:34)
[2019-04-21] MEDS ORDERED: Protonix 40MG Tablet ONE (10:34)
[2019-04-21 10:52] VITALS: PULSE 88
[2019-04-21] MEDS ORDERED: Toprol-Xl 25MG Tablets PO SCH (11:00)
[2019-04-21] MEDS ORDERED: DELTASONE 10 MG PO SCH (11:00)
[2019-04-21] MEDS ORDERED: Klor Con 10 MEQ PO SCH (11:00)
[2019-04-21] MEDS ORDERED: Spiriva 18 Mcg/Cap Inhaler IH SCH (11:00)
[2019-04-21] MEDS ORDERED: THERAGRAN MULTIVITAMIN PO SCH (11:00)
[2019-04-21] MEDS ORDERED: Protonix 40MG Tablet PO SCH (11:00)
[2019-04-21] MEDS ORDERED: Imdur 30 MG PO SCH (11:00)
[2019-04-21] MEDS ORDERED: DALIRESP PO SCH (11:00)
[2019-04-21] MEDS ORDERED: XARELTO 10 MG TABLET PO SCH (11:00)
[2019-04-21] MEDS ORDERED: hydroDIURIL 25 MG PO SCH (11:00)
[2019-04-21] MEDS ORDERED: Tessalon Perles 100 MG PO PRN (11:09)
[2019-04-21] MEDS ORDERED: Ventolin Hfa MDI IH PRN (11:09)
[2019-04-21] MEDS ORDERED: Colace 100 MG PO PRN (11:15)
[2019-04-21] MEDS ORDERED: PROVENTIL COMMON CANISTER IH PRN (11:19)
[2019-04-21] MEDS ORDERED: Vitamin C 500 MG ONE (11:25)
[2019-04-21] MEDS ORDERED: Calcium 500MG W/Vit D Tablet ONE (11:25)
[2019-04-21] MEDS ORDERED: Mucinex 600MG ER Tabs PO ONE (11:26)
[2019-04-21] MEDS ORDERED: Pepcid 20 MG ONE (11:26)
[2019-04-21] MEDS ORDERED: ECOTRIN 81 MG PO ONE (11:26)
[2019-04-21] MEDS ORDERED: Vitamin C 500 MG PO SCH (11:30)
[2019-04-21] MEDS ORDERED: Mucinex 600MG ER Tabs PO SCH (11:30)
[2019-04-21] MEDS ORDERED: Calcium 500MG W/Vit D Tablet PO SCH (11:30)
[2019-04-21] MEDS ORDERED: Pepcid 20 MG PO SCH (11:30)
[2019-04-21] MEDS ORDERED: ECOTRIN 81 MG PO SCH (11:30)
[2019-04-21] MEDS ORDERED: ZOCOR 20MG PO SCH (22:00)
[2019-04-21] MEDS ORDERED: NON-FORMULARY ITEM (Calcium Carbonate/Vitamin D3 [Calcium 1,000 + D3 Caplet] 1 EACH) PO SCH (22:00)
[2019-04-21] MEDS ORDERED: ROCEPHIN 1 Gm-D5w 50 ml Bag** 1 G/50 ML IVPB IV SCH (22:00)
[2019-04-21] MEDS ORDERED: PROVENTIL Solution 2.5 MG/0.5 ML IH SCH (22:00)
[2019-04-22] MEDS ORDERED: NON-FORMULARY ITEM (Fluticasone/Vilanterol [Breo Ellipta 100-25 Mcg Inh] 1 EACH) IH SCH (10:00)
== END 2019-04-21 12:15 | disposition home or self-care (01) ==
LOC: ED 19:38 → MED SURG 04-21 00:34
PROVIDERS: ADMIT General Practice; ATTEND General Practice
DX: J44.1 Chronic obstructive pulmonary disease with (acute) exacerbation (principal); R07.9 Chest pain, unspecified; J96.11 Chronic respiratory failure with hypoxia; J84.10 Pulmonary fibrosis, unspecified; Z79.899 Other long term (current) drug therapy; I10 Essential (primary) hypertension
CPT/HCPCS: 36000; 36415; 71045; 80053; 82805; 83605; 83880; 84484; 85025; 85379; 85610; 85730; 87040; 87070; 93041; 93268; 94150; 94640; 94762; 96365; 96374; 96375; 99285; G0378; J0696; J2270; J2930; A9270-GY

== ENCOUNTER 2019-04-22 17:55 | Emergency (ER) | payer MEDICARE ==
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
[2019-04-22 18:54] LABS: BASOPHIL % 0.1 % (0.0-0.4); Basophil (Absolute #) 0.02 (0-0.4); Eosinophil % 0.8 % (0.00-5.0); Eosinophil (Absolute #) 0.12 (0-0.5); Granulocyte Absolute (ANC) 9.46 (1.4-6.9); Granulocytes % 65.7 % (36.0-66.0); Hematocrit 37.9 % (35-47); Hemoglobin 11.9 gm/dl (12.0-16.0); Lymphocyte (Absolute #) 3.59 (1.0-4.6); Lymphocytes % 24.9 % (24.0-44.0); Mean Cell Volume 97.4 fl (78-100); Mean Corpuscular Hgb Concent. 31.4 g/dl (32-36); Mean Platelet Volume 8.7 fl (6-9.5); Monocyte (Absolute #) 1.22 (0.0-1.3); Monocytes % 8.5 % (0.0-12.0); Platelet Count 353 K/mm3 (150-450); Red Blood Count 3.89 M/mm3 (4.1-5.4); Red Cell Distribution Width 12.9 % (11.5-14.0); White Blood Count 14.4 K/mm3 (4.0-10.5)
[2019-04-22 19:00] LABS: Mean Corpuscular Hemoglobin 30.5 pg (26-32)
[2019-04-22 19:06] LABS: ALBUMIN 4.3 g/dL (3.5-5.0); ALKALINE PHOSPHATASE 47 U/L (38-126); ANION GAP 11.4 MEQ/L (5-15); BLOOD UREA NITROGEN 19 mg/dL (7-17); CHLORIDE 98 mmol/L (98-107); Calcium 10.3 mg/dL (8.4-10.2); Carbon Dioxide 31 mmol/L (22-30); Creatinine 1 0.83 mg/dL (0.52-1.04); Glucose 94 mg/dL (74-106); Potassium 3.8 mmol/L (3.5-5.1); SGOT/AST 27 U/L (14-36); SGPT/ALT 25 U/L (0-35); SODIUM 137 mmol/L (137-145); Total Protein 7.2 g/dL (6.3-8.2)
[2019-04-22] MEDS ORDERED: DUONEB 0.5-3 MG/3 ml Neb IH ONE (20:23)
[2019-04-22] MEDS: DUONEB 0.5-3 MG/3 ml Neb IH ONE (20:24)
[2019-04-22] MEDS ORDERED: ULTRAM 50 MG PO ONE (21:29)
[2019-04-22 21:47] VITALS: BP 168/87; PULSE 73
[2019-04-22] MEDS ORDERED: ULTRAM 50 MG ONE (21:51)
[2019-04-23 03:17] VITALS: O2SAT 100
== END 2019-04-22 21:48 | disposition home or self-care (01) ==
LOC: ED 17:55
DX: R07.9 Chest pain, unspecified (principal); R09.1 Pleurisy
CPT/HCPCS: 36000; 36415; 80053; 84484; 85025; 94640; 99284; A9270-GY

== ENCOUNTER 2019-05-01 17:46 | Inpatient (IN) | payer MEDICARE ==
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
[2019-05-01] MEDS ORDERED: Norco 10/325 MG Tablet PO ONE (19:58)
[2019-05-01 19:59] LABS: BASOPHIL % 0.2 % (0.0-0.4); Basophil (Absolute #) 0.02 (0-0.4); Eosinophil % 0.2 % (0.00-5.0); Eosinophil (Absolute #) 0.02 (0-0.5); Granulocyte Absolute (ANC) 10.47 (1.4-6.9); Granulocytes % 86.6 % (36.0-66.0); Hematocrit 38.7 % (35-47); Hemoglobin 12.1 gm/dl (12.0-16.0); Lymphocyte (Absolute #) 1.24 (1.0-4.6); Lymphocytes % 10.3 % (24.0-44.0); Mean Cell Volume 97.2 fl (78-100); Mean Corpuscular Hemoglobin 30.4 pg (26-32); Mean Corpuscular Hgb Concent. 31.3 g/dl (32-36); Mean Platelet Volume 8.8 fl (6-9.5); Monocyte (Absolute #) 0.32 (0.0-1.3); Monocytes % 2.7 % (0.0-12.0); Platelet Count 359 K/mm3 (150-450); Red Blood Count 3.98 M/mm3 (4.1-5.4); Red Cell Distribution Width 12.8 % (11.5-14.0); White Blood Count 12.1 K/mm3 (4.0-10.5)
[2019-05-01] MEDS ORDERED: DUONEB 0.5-3 MG/3 ml Neb IH ONE (20:00)
[2019-05-01] MEDS ORDERED: DUONEB 0.5-3 MG/3 ml Neb IH PRN (20:01)
[2019-05-01 20:10] LABS: INR 1.18 (0.8-3.0); PROTIME 13.4 SECONDS (9.95-12.35)
[2019-05-01 20:11] LABS: ALKALINE PHOSPHATASE 45 U/L (38-126); ANION GAP 10.7 MEQ/L (5-15); BLOOD UREA NITROGEN 18 mg/dL (7-17); CHLORIDE 96 mmol/L (98-107); Calcium 10.1 mg/dL (8.4-10.2); Carbon Dioxide 33 mmol/L (22-30); Creatinine 1 0.72 mg/dL (0.52-1.04); Glucose 120 mg/dL (74-106); NT PRO BNP 146 pg/mL (0-900); Potassium 4.1 mmol/L (3.5-5.1); SGOT/AST 26 U/L (14-36); SGPT/ALT 23 U/L (0-35); SODIUM 135 mmol/L (137-145); Total Protein 6.6 g/dL (6.3-8.2)
[2019-05-01] MEDS ORDERED: Norco 10/325 MG Tablet ONE (20:11)
[2019-05-01] MEDS ORDERED: ENOXAPARIN SODIUM SQ ONE (22:47)
[2019-05-01] MEDS ORDERED: ROCEPHIN 1 Gm-D5w 50 ml Bag** 1 G/50 ML IVPB IV STA (22:48)
[2019-05-01] MEDS ORDERED: solu-MEDROL 125 MG IM ONE (22:56)
[2019-05-02] MEDS ORDERED: ENOXAPARIN SODIUM SQ ONE (00:07)
[2019-05-02] MEDS ORDERED: ROCEPHIN 1 Gm-D5w 50 ml Bag** 1 G/50 ML IVPB IV ONE (00:07)
[2019-05-02] MEDS ORDERED: solu-MEDROL 125 MG ONE (00:07)
[2019-05-02] MEDS ORDERED: TYLENOL 325 MG PO PRN (00:28)
[2019-05-02] MEDS ORDERED: Zofran 4 MG/2 ML VIAL IV PRN (00:28)
[2019-05-02] MEDS ORDERED: PROVENTIL COMMON CANISTER IH PRN (00:55)
[2019-05-02] MEDS: DUONEB 0.5-3 MG/3 ml Neb IH SCH ×6 (01:06→23:11)
[2019-05-02] MEDS: Norco 10/325 MG Tablet PO PRN ×3 (02:28→16:52)
[2019-05-02 04:44] LABS: BASOPHIL % 0.1 % (0.0-0.4); Basophil (Absolute #) 0.01 (0-0.4); Eosinophil % 0.1 % (0.00-5.0); Eosinophil (Absolute #) 0.01 (0-0.5); Hematocrit 40.4 % (35-47); Hemoglobin 12.6 gm/dl (12.0-16.0); Lymphocyte (Absolute #) 0.98 (1.0-4.6); Lymphocytes % 9.8 % (24.0-44.0); Mean Cell Volume 96.9 fl (78-100); Mean Corpuscular Hemoglobin 30.2 pg (26-32); Mean Corpuscular Hgb Concent. 31.2 g/dl (32-36); Mean Platelet Volume 8.6 fl (6-9.5); Platelet Count 353 K/mm3 (150-450); Red Blood Count 4.17 M/mm3 (4.1-5.4); Red Cell Distribution Width 12.8 % (11.5-14.0)
[2019-05-02 05:05] LABS: ALBUMIN 3.9 g/dL (3.5-5.0); ALKALINE PHOSPHATASE 47 U/L (38-126); ANION GAP 10.4 MEQ/L (5-15); BLOOD UREA NITROGEN 21 mg/dL (7-17); CHLORIDE 96 mmol/L (98-107); Calcium 9.7 mg/dL (8.4-10.2); Carbon Dioxide 33 mmol/L (22-30); Creatinine 1 0.75 mg/dL (0.52-1.04); Glucose 137 mg/dL (74-106); Potassium 4.3 mmol/L (3.5-5.1); SGOT/AST 24 U/L (14-36); SGPT/ALT 23 U/L (0-35); SODIUM 135 mmol/L (137-145); Total Protein 6.6 g/dL (6.3-8.2)
[2019-05-02] MEDS ORDERED: DELTASONE 20 MG PO ONE ×2 (07:00→13:00)
[2019-05-02] MEDS: PATIENT OWN MEDICATION IH SCH ×2 (07:35)
[2019-05-02] MEDS ORDERED: DELTASONE 20 MG ONE (07:53)
[2019-05-02] MEDS ORDERED: ENOXAPARIN SODIUM SQ SCH (10:00)
[2019-05-02] MEDS ORDERED: Ativan 0.5 MG PO PRN (10:07)
[2019-05-02] MEDS ORDERED: Nitrostat 0.4 MG Tablet SL PRN (10:15)
[2019-05-02] MEDS ORDERED: MEDICATION INTERVENTION MC SCH (10:30)
[2019-05-02] MEDS: Vitamin C 500 MG PO SCH (10:36)
[2019-05-02] MEDS: ECOTRIN 81 MG PO SCH (10:36)
[2019-05-02] MEDS: THERAGRAN MULTIVITAMIN PO SCH (10:37)
[2019-05-02] MEDS: PHENERGAN 25 MG PO PRN (10:37)
[2019-05-02] MEDS: Tessalon Perles 100 MG PO PRN ×2 (10:37→23:51)
[2019-05-02] MEDS: Imdur 30 MG PO SCH (10:38)
[2019-05-02] MEDS: hydroDIURIL 25 MG PO SCH (10:38)
[2019-05-02] MEDS: Toprol-Xl 25MG Tablets PO SCH (10:38)
[2019-05-02] MEDS: Klor Con 10 MEQ PO SCH ×2 (10:48→22:18)
[2019-05-02] MEDS: Colace 100 MG PO PRN ×2 (10:49→23:51)
[2019-05-02] MEDS: Pepcid 20 MG PO SCH ×2 (10:49→22:20)
[2019-05-02] MEDS: DALIRESP PO SCH (10:50)
[2019-05-02] MEDS: Mucinex 600MG ER Tabs PO SCH ×2 (10:50→22:19)
--- NOTE | 2019-05-02 10:51 | XRAY ---
Indication: Chest pain and short of breath. Comparison: Multiple priors most recent April 20, 2019. Portable chest unchanged again demonstrating COPD, right apical fibrosis/scarring, and bilateral lung suture material. Heart is not enlarged. No new/acute findings.
[2019-05-02] MEDS: Protonix 40MG Tablet PO SCH ×2 (11:07→22:19)
[2019-05-02] MEDS: Calcium 500MG W/Vit D Tablet PO SCH ×2 (11:07→22:19)
[2019-05-02] MEDS ORDERED: MORPHINE SULFATE 2 MG INJ IV PRN (12:44)
[2019-05-02] MEDS: XARELTO 10 MG TABLET PO SCH (12:50)
[2019-05-02] MEDS ORDERED: BENADRYL 25 MG CAPSULE PO ONE (13:00)
[2019-05-02] MEDS: solu-MEDROL 125 MG IV SCH ×2 (14:51→22:08)
[2019-05-02] MEDS: ROCEPHIN 1 Gm-D5w 50 ml Bag** 1 G/50 ML IVPB IV SCH (14:51)
[2019-05-02] MEDS: Mucomyst 200 MG/ML IH SCH (18:48)
[2019-05-02] MEDS ORDERED: Ativan 0.5 MG PO ONE (20:45)
[2019-05-02] MEDS ORDERED: NON-FORMULARY ITEM (Calcium Carbonate/Vitamin D3 [Calcium 1,000 + D3 Caplet] 1 EACH) PO SCH (22:00)
[2019-05-02] MEDS: ZOCOR 20MG PO SCH (22:20)
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
[2019-05-03] MEDS ORDERED: DELTASONE 20 MG PO ONE ×2 (00:32→08:00)
[2019-05-03] MEDS: Norco 10/325 MG Tablet PO PRN ×4 (00:40→20:08)
[2019-05-03] MEDS: solu-MEDROL 125 MG IV SCH (00:43)
[2019-05-03] MEDS: DUONEB 0.5-3 MG/3 ml Neb IH SCH ×6 (04:03→23:06)
[2019-05-03] MEDS ORDERED: PULMICORT 0.5 MG/2 ML RESPULES IH ONE (06:43)
[2019-05-03] MEDS: Mucomyst 200 MG/ML IH SCH ×3 (07:39→23:07)
[2019-05-03] MEDS: PATIENT OWN MEDICATION IH SCH ×2 (07:41)
[2019-05-03] MEDS: Mucinex 600MG ER Tabs PO SCH ×2 (09:40→22:53)
[2019-05-03] MEDS: Klor Con 10 MEQ PO SCH ×2 (09:40→22:53)
[2019-05-03] MEDS: Vitamin C 500 MG PO SCH (09:40)
[2019-05-03] MEDS: hydroDIURIL 25 MG PO SCH (09:40)
[2019-05-03] MEDS: Toprol-Xl 25MG Tablets PO SCH (09:41)
[2019-05-03] MEDS: DALIRESP PO SCH (09:41)
[2019-05-03] MEDS: Pepcid 20 MG PO SCH ×2 (09:42→22:53)
[2019-05-03] MEDS: Nicoderm CQ 21 MG TOP SCH (09:42)
[2019-05-03] MEDS: THERAGRAN MULTIVITAMIN PO SCH (09:42)
[2019-05-03] MEDS: ECOTRIN 81 MG PO SCH (09:42)
[2019-05-03] MEDS: Protonix 40MG Tablet PO SCH ×2 (09:43→22:52)
[2019-05-03] MEDS: XARELTO 10 MG TABLET PO SCH (09:43)
[2019-05-03] MEDS: Calcium 500MG W/Vit D Tablet PO SCH ×2 (09:43→22:53)
[2019-05-03] MEDS: Imdur 30 MG PO SCH (09:43)
[2019-05-03] MEDS: Tessalon Perles 100 MG PO PRN ×2 (09:51→22:53)
[2019-05-03] MEDS ORDERED: XARELTO 10 MG TABLET PO SCH (10:00)
[2019-05-03] MEDS ORDERED: DELTASONE 10 MG PO SCH (10:00)
[2019-05-03] MEDS: PULMICORT 0.5 MG/2 ML RESPULES IH SCH ×2 (10:00→19:06)
[2019-05-03] MEDS ORDERED: MULTIVIT WITH CALCIUM IRON MIN PO SCH (10:00)
[2019-05-03] MEDS: ROCEPHIN 1 Gm-D5w 50 ml Bag** 1 G/50 ML IVPB IV SCH ×2 (10:31→13:12)
[2019-05-03] MEDS: Ativan 0.5 MG PO PRN ×2 (14:49→22:53)
[2019-05-03] MEDS: Colace 100 MG PO PRN (22:52)
[2019-05-03] MEDS: ZOCOR 20MG PO SCH (22:53)
--- NOTE | 2019-05-03 23:56 | PCM.NOTE ---
Date and Time: 05/03/19 7562 Subjective Assessment: Patient is feeling better ,breathing easier and left pluertic chest pain is improving but still requires pain meds. OBJECTIVE DATA Vital Signs: Vital Signs - 24 hr Temp Pulse Resp BP Pulse Ox 05/03/19 23:08 79 20 99 05/03/19 20:00 98.3 F 77 20 133/63 98 05/03/19 19:09 75 20 98 05/03/19 16:00 98.1 F 78 18 163/58 100 05/03/19 15:03 84 20 100 05/03/19 12:00 98.1 F 89 18 128/58 99 05/03/19 10:57 88 18 98 05/03/19 08:00 98.6 F 97 H 18 119/62 98 05/03/19 07:42 104 H 24 99 05/03/19 04:06 87 21 99 05/03/19 04:00 97.9 F 87 21 141/67 99 Oxygen-Last 24 hours O2 Percentage 5 Liters = 40% O2 Percentage 5 Liters = 40% O2 Percentage 5 Liters = 40% O2 Percentage 5 Liters = 40% O2 Percentage 5 Liters = 40% Pain Assessment - Last Documented Pain Intensity 6 Pain Scale Used 0-10 Pain Scale Intake and Output: Intake & Output 05/01/19 05/02/19 05/03/19 05/04/19 11:59 11:59 11:59 11:59 Intake Total 1120 2500 2019 Balance 1120 2500 2019 Weight 59 kg 59.1 kg Radiology Exams: Radiology Procedures Category Date Time Status PULMONARY PERF VENTILATION [NUCMED] Routine Exams 05/04/19 08:00 Ordered
[2019-05-04] MEDS: DUONEB 0.5-3 MG/3 ml Neb IH SCH ×5 (03:12→19:00)
[2019-05-04] MEDS: Norco 10/325 MG Tablet PO PRN ×3 (03:31→18:07)
[2019-05-04] MEDS: PATIENT OWN MEDICATION IH SCH ×2 (06:33)
[2019-05-04] MEDS: PULMICORT 0.5 MG/2 ML RESPULES IH SCH ×2 (06:33→19:01)
[2019-05-04] MEDS: Ativan 0.5 MG PO PRN ×3 (07:55→20:27)
[2019-05-04 09:13] LABS: ALBUMIN 3.8 g/dL (3.5-5.0); ANION GAP 9.1 MEQ/L (5-15); BLOOD UREA NITROGEN 21 mg/dL (7-17); CHLORIDE 97 mmol/L (98-107); Calcium 9.6 mg/dL (8.4-10.2); Carbon Dioxide 34 mmol/L (22-30); Creatinine 1 0.65 mg/dL (0.52-1.04); Glucose 92 mg/dL (74-106); Potassium 4.7 mmol/L (3.5-5.1); SODIUM 136 mmol/L (137-145)
[2019-05-04] MEDS: solu-MEDROL 125 MG IV SCH ×2 (09:36→16:57)
[2019-05-04] MEDS: ROCEPHIN 1 Gm-D5w 50 ml Bag** 1 G/50 ML IVPB IV SCH (09:59)
[2019-05-04] MEDS: THERAGRAN MULTIVITAMIN PO SCH (09:59)
[2019-05-04] MEDS: hydroDIURIL 25 MG PO SCH (09:59)
[2019-05-04] MEDS: XARELTO 10 MG TABLET PO SCH (09:59)
[2019-05-04] MEDS: DELTASONE 20 MG PO SCH (10:00)
[2019-05-04] MEDS: DALIRESP PO SCH (10:00)
[2019-05-04] MEDS: Toprol-Xl 25MG Tablets PO SCH (10:00)
[2019-05-04] MEDS: Klor Con 10 MEQ PO SCH ×2 (10:01→22:18)
[2019-05-04] MEDS: ECOTRIN 81 MG PO SCH (10:01)
[2019-05-04] MEDS: Calcium 500MG W/Vit D Tablet PO SCH ×2 (10:02→22:19)
[2019-05-04] MEDS: Imdur 30 MG PO SCH (10:02)
[2019-05-04] MEDS: Pepcid 20 MG PO SCH ×2 (10:02→22:18)
[2019-05-04] MEDS: Nicoderm CQ 21 MG TOP SCH (10:02)
[2019-05-04] MEDS: Mucinex 600MG ER Tabs PO SCH ×2 (10:02→22:18)
[2019-05-04] MEDS: Protonix 40MG Tablet PO SCH ×2 (10:03→22:18)
[2019-05-04] MEDS: Tessalon Perles 100 MG PO PRN (10:26)
[2019-05-04] MEDS: Mucomyst 200 MG/ML IH SCH (10:57)
[2019-05-04] MEDS: Colace 100 MG PO PRN (11:00)
[2019-05-04] MEDS: Vitamin C 500 MG PO SCH (11:56)
[2019-05-04] MEDS: PHENERGAN 25 MG PO PRN (20:27)
[2019-05-04] MEDS ORDERED: BENADRYL 25 MG CAPSULE PO ONE (20:30)
[2019-05-04] MEDS: ZOCOR 20MG PO SCH (22:19)
[2019-05-05] MEDS: solu-MEDROL 125 MG IV SCH ×3 (00:31→17:16)
[2019-05-05] MEDS: DUONEB 0.5-3 MG/3 ml Neb IH SCH ×7 (03:43→23:05)
[2019-05-05] MEDS: Mucomyst 200 MG/ML IH SCH ×3 (03:44→23:05)
[2019-05-05] MEDS: PULMICORT 0.5 MG/2 ML RESPULES IH SCH ×2 (05:06→18:47)
[2019-05-05] MEDS: PATIENT OWN MEDICATION IH SCH ×2 (05:10→05:11)
[2019-05-05] MEDS: Norco 10/325 MG Tablet PO PRN ×3 (08:24→23:01)
[2019-05-05] MEDS: Tessalon Perles 100 MG PO PRN ×2 (08:24→17:13)
[2019-05-05] MEDS: Toprol-Xl 25MG Tablets PO SCH (08:26)
[2019-05-05] MEDS: Imdur 30 MG PO SCH (08:27)
[2019-05-05] MEDS: Calcium 500MG W/Vit D Tablet PO SCH ×2 (08:27→22:56)
[2019-05-05] MEDS: hydroDIURIL 25 MG PO SCH (08:27)
[2019-05-05] MEDS: Mucinex 600MG ER Tabs PO SCH ×2 (08:28→22:57)
[2019-05-05] MEDS: DELTASONE 20 MG PO SCH (08:28)
[2019-05-05] MEDS: Protonix 40MG Tablet PO SCH ×2 (08:29→22:57)
[2019-05-05] MEDS: XARELTO 10 MG TABLET PO SCH (08:29)
[2019-05-05] MEDS: THERAGRAN MULTIVITAMIN PO SCH (08:29)
[2019-05-05] MEDS: ECOTRIN 81 MG PO SCH (08:29)
[2019-05-05] MEDS: Pepcid 20 MG PO SCH ×2 (08:30→22:58)
[2019-05-05] MEDS: Vitamin C 500 MG PO SCH (08:30)
[2019-05-05] MEDS: Klor Con 10 MEQ PO SCH ×2 (08:30→22:57)
[2019-05-05] MEDS: Nicoderm CQ 21 MG TOP SCH (08:31)
--- NOTE | 2019-05-05 08:58 | XRAY ---
Indication: Chest pain, short of breath, and cough. History of PE and COPD. Multiple contiguous axial images obtained through the chest using 80 cc Isovue 370 contrast and PE protocol. Comparison: November 08, 2017. There is satisfactory opacification of the pulmonary arteries to include the lobar and segmental branches. No filling defect or pulmonary embolus. Heart is not enlarged. Aorta remains mildly arteriosclerotic without aneurysm/dissection. Stable tiny right hilar and subcarinal calcified nodes. No pathologic mediastinal/hilar lymphadenopathy. Examination of the lung parenchyma again demonstrates extensive pulmonary emphysema, bilateral scattered fibrosis/scarring, and bilateral suture material from previous surgery. Previous right apical calcified nodule has cleared. No suspicious pulmonary mass, infiltrate, or effusion. Bony thorax intact. Limited upper abdomen demonstrates enlarging 2 cm left mid renal cyst, previously 1 cm. Impression: 1. Again negative pulmonary embolus. 2. Stable extensive pulmonary emphysema, scattered fibrosis/scarring, post surgical changes, and evidence for old granulomatous disease. 3. No new or acute cardiopulmonary abnormalities. 4. Enlarging left renal cyst. CT DI 11.88
[2019-05-05] MEDS: Vibramycin 100 MG PO SCH ×2 (09:50→22:57)
[2019-05-05] MEDS: PHENERGAN 25 MG PO PRN (10:00)
[2019-05-05] MEDS: DALIRESP PO SCH (10:01)
[2019-05-05] MEDS: Ativan 0.5 MG PO PRN ×2 (10:12→20:40)
[2019-05-05] MEDS: ZOCOR 20MG PO SCH (22:57)
[2019-05-06] MEDS: solu-MEDROL 125 MG IV SCH ×2 (00:33→08:56)
[2019-05-06] MEDS: DUONEB 0.5-3 MG/3 ml Neb IH SCH ×3 (03:16→10:47)
[2019-05-06] MEDS ORDERED: Sodium Chloride 0.9% 10 ML FLUSH Syringe PICC PRN (05:39)
[2019-05-06] MEDS: Tessalon Perles 100 MG PO PRN (05:48)
[2019-05-06] MEDS ORDERED: Sodium Chloride 0.9% 10 ML FLUSH Syringe IV PRN (05:49)
[2019-05-06 06:13] LABS: Hematocrit 36.3 % (35-47); Hemoglobin 11.3 gm/dl (12.0-16.0); Mean Cell Volume 97.8 fl (78-100); Mean Corpuscular Hgb Concent. 31.1 g/dl (32-36); Platelet Count 289 K/mm3 (150-450); Red Blood Count 3.71 M/mm3 (4.1-5.4); Red Cell Distribution Width 13.1 % (11.5-14.0); White Blood Count 18.2 K/mm3 (4.0-10.5)
[2019-05-06 06:14] LABS: Mean Corpuscular Hemoglobin 30.4 pg (26-32)
[2019-05-06 06:16] LABS: ALBUMIN 3.3 g/dL (3.5-5.0); ALKALINE PHOSPHATASE 37 U/L (38-126); ANION GAP 6.5 MEQ/L (5-15); BLOOD UREA NITROGEN 27 mg/dL (7-17); CHLORIDE 98 mmol/L (98-107); Calcium 9.4 mg/dL (8.4-10.2); Carbon Dioxide 35 mmol/L (22-30); Creatinine 1 0.55 mg/dL (0.52-1.04); Glucose 116 mg/dL (74-106); Potassium 4.1 mmol/L (3.5-5.1); SGOT/AST 17 U/L (14-36); SGPT/ALT 21 U/L (0-35); SODIUM 136 mmol/L (137-145); Total Protein 5.7 g/dL (6.3-8.2)
[2019-05-06] MEDS: PATIENT OWN MEDICATION IH SCH ×2 (06:49)
[2019-05-06] MEDS: PULMICORT 0.5 MG/2 ML RESPULES IH SCH (06:49)
[2019-05-06 06:55] VITALS: O2SAT 99
[2019-05-06 07:39] VITALS: BP 128/60
[2019-05-06] MEDS: PHENERGAN 25 MG PO PRN (08:43)
[2019-05-06] MEDS: Toprol-Xl 25MG Tablets PO SCH (08:44)
[2019-05-06] MEDS: ECOTRIN 81 MG PO SCH (08:45)
[2019-05-06] MEDS: Imdur 30 MG PO SCH (08:45)
[2019-05-06] MEDS: Vibramycin 100 MG PO SCH (08:45)
[2019-05-06] MEDS: THERAGRAN MULTIVITAMIN PO SCH (08:45)
[2019-05-06] MEDS: hydroDIURIL 25 MG PO SCH (08:46)
[2019-05-06] MEDS: XARELTO 10 MG TABLET PO SCH (08:46)
[2019-05-06] MEDS: Calcium 500MG W/Vit D Tablet PO SCH (08:46)
[2019-05-06] MEDS: Vitamin C 500 MG PO SCH (08:46)
[2019-05-06] MEDS: Protonix 40MG Tablet PO SCH (08:46)
[2019-05-06] MEDS: Klor Con 10 MEQ PO SCH (08:46)
[2019-05-06] MEDS: DELTASONE 20 MG PO SCH (08:46)
[2019-05-06] MEDS: Mucinex 600MG ER Tabs PO SCH (08:47)
[2019-05-06] MEDS: Pepcid 20 MG PO SCH (08:47)
[2019-05-06] MEDS: Nicoderm CQ 21 MG TOP SCH (08:47)
[2019-05-06] MEDS: DALIRESP PO SCH (08:48)
[2019-05-06] MEDS: Norco 10/325 MG Tablet PO PRN (09:13)
--- NOTE | 2019-05-06 10:26 | DS ---
DISCHARGE DIAGNOSIS: ACUTE EXACERBATION OF CHRONIC OBSTRUCTIVE PULMONARY DISEASE AND ASTHMATIC BRONCHITIS. HISTORY: The patient is a 63 year-old white female with multiple admissions to the hospital for the same problem. The patient always has wheezing even on a good day in the office. The patient was seen in our office for increasing shortness of breath once again. We instructed to increase her steroid medications to 60 mg of prednisone which she did. She presented to the emergency room with having increased shortness of breath and once again admitted to the hospital for failed outpatient therapy. The patient does see a Dr. Jay in [place] for her pulmonary care. She reports he does not see patient's in the hospital and refuses to go back down to [place] to be seen. She has also seen Dr. Jamal Mcmullen here in pulmonary but does not like him either as she apparently reports that he recommended a lung biopsy for what was thought to be cancer to prove it to be otherwise. She has lost confidence in him. The patient was admitted to the hospital. HOSPITAL COURSE: The patient was receiving IV Solu-Medrol as well oral prednisone, nebulizer treatments. The patient's other medications included aspirin two - 81 mg dose daily, docusate sodium, famotidine 20 mg b.i.d., potassium 10 mEq b.i.d., Simvastatin 20 mg a day, isosorbide 30 mg a day, metoprolol 25 mg t.i.d., Xarelto, pantoprazole 40 mg b.i.d., hydrochlorothiazide 25 mg tablet one-half tablet daily, Breo Ellipta, lorazepam PRN, guaifenesin PRN, hydrocodone for pain, Daliresp, prednisone routinely 10 mg a day, Spiriva inhaler. With the patient's medical treatments with these medications, she really showed slow improvement as she usually dose but still persisted to wheeze throughout expiration even by the time of discharge. The patient was feeling nearly back to her usual state of health. It was noted her peak flows were running in the 50-60's range despite aggressive medical management. The patient however appears to be comfortable presently. She does run out of breath easily on ambulation to the bathroom but otherwise appears to be back to her usual state of health well enough to be discharged back home with instructions to see a pulmonary doctor as soon as she can. We did have discussion about the new biologic agents for use but at this point we felt it would be best gone over by her pulmonary physician to see if they felt any of these might be of benefit. There was some suggestion of having bronchoscopy to look for eosinophilic condition of the bronchial tubes as she might respond to one of the biologics better if this condition is present. The patient was instructed to return to the hospital if she has any deterioration of condition otherwise. She is not currently homebound and therefore does not qualify for home health care. She does a line still in her right arm and we will leave this in case she returns to the hospital which she often does within a relatively short time frame.
[2019-05-06] MEDS: Mucomyst 200 MG/ML IH SCH (10:47)
[2019-05-06 10:55] VITALS: PULSE 85
== END 2019-05-06 11:20 | disposition home or self-care (01) | DRG 191 ==
LOC: ED 17:46 → MED SURG 05-02 00:01 → OBSVTOIN 05-03 05:37
PROVIDERS: ADMIT Family Medicine; ATTEND Family Medicine
DX: J44.1 Chronic obstructive pulmonary disease with (acute) exacerbation (principal); J45.901 Unspecified asthma with (acute) exacerbation; I10 Essential (primary) hypertension; Z86.711 Personal history of pulmonary embolism; Z79.899 Other long term (current) drug therapy; E78.00 Pure hypercholesterolemia, unspecified; I25.10 Atherosclerotic heart disease of native coronary artery without angina pectoris; F17.200 Nicotine dependence, unspecified, uncomplicated
CPT/HCPCS: 36000; 36415; 36569; 71045; 71260; 80053; 80069; 83605; 83880; 84484; 85025; 85027; 85379; 85610; 87040; 87070; 93005; 93268; 94150; 94640; 94760; 96365; 96372; 99285; J0696; J1642; J1650; J2270; J2405; J2930; A9270-GY; G0378

== ENCOUNTER 2019-05-29 23:45 | Observation (INO) | payer MEDICARE ==
[2019-05-30] MEDS ORDERED: Zofran 4 MG/2 ML VIAL IV ONE (00:07)
[2019-05-30] MEDS ORDERED: MORPHINE SULFATE 2 MG INJ IV ONE (00:07)
[2019-05-30] MEDS ORDERED: Carafate 1 GM PO ONE ×2 (00:07→00:19)
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
[2019-05-30] MEDS ORDERED: GI COCKTAIL 45 ML (Maalox/Lidocaine) PO ONE (00:14)
[2019-05-30] MEDS ORDERED: Zofran 4 MG/2 ML VIAL ONE (00:19)
[2019-05-30] MEDS ORDERED: MORPHINE SULFATE 2 MG INJ ONE (00:19)
[2019-05-30] MEDS ORDERED: MAALOX ES 30 ML UNIT DOSE ONE (00:20)
[2019-05-30] MEDS ORDERED: XYLOCAINE HCl Viscous ONE (00:20)
[2019-05-30 00:59] LABS: BASOPHIL % 0.1 % (0.0-0.4); Basophil (Absolute #) 0.02 (0-0.4); Eosinophil % 0.8 % (0.00-5.0); Eosinophil (Absolute #) 0.11 (0-0.5); Granulocyte Absolute (ANC) 9.76 (1.4-6.9); Hematocrit 42.7 % (35-47); Hemoglobin 13.2 gm/dl (12.0-16.0); Lymphocytes % 20.8 % (24.0-44.0); Mean Cell Volume 98.4 fl (78-100); Mean Corpuscular Hemoglobin 30.4 pg (26-32); Mean Corpuscular Hgb Concent. 30.9 g/dl (32-36); Mean Platelet Volume 8.6 fl (6-9.5); Monocyte (Absolute #) 1.16 (0.0-1.3); Monocytes % 8.3 % (0.0-12.0); Platelet Count 335 K/mm3 (150-450); Red Blood Count 4.34 M/mm3 (4.1-5.4); Red Cell Distribution Width 13.4 % (11.5-14.0)
[2019-05-30 01:18] LABS: ALBUMIN 4.4 g/dL (3.5-5.0); ALKALINE PHOSPHATASE 55 U/L (38-126); ANION GAP 11.7 MEQ/L (5-15); BLOOD UREA NITROGEN 27 mg/dL (7-17); CHLORIDE 98 mmol/L (98-107); Carbon Dioxide 34 mmol/L (22-30); Creatinine 1 0.68 mg/dL (0.52-1.04); Glucose 98 mg/dL (74-106); LIPASE 72 U/L (23-300); Potassium 3.9 mmol/L (3.5-5.1); SGOT/AST 31 U/L (14-36); SGPT/ALT 31 U/L (0-35); SODIUM 140 mmol/L (137-145); Total Protein 7.5 g/dL (6.3-8.2)
[2019-05-30 02:09] LABS: NT PRO BNP 385 pg/mL (0-900)
[2019-05-30 02:10] LABS: TROPONIN < 0.012 ng/mL (0.000-0.034)
[2019-05-30] MEDS ORDERED: DUONEB 0.5-3 MG/3 ml Neb IH ONE (04:03)
[2019-05-30] MEDS: DUONEB 0.5-3 MG/3 ml Neb IH SCH ×4 (04:26→14:36)
[2019-05-30] MEDS ORDERED: Norco 10/325 MG Tablet PO ONE (06:30)
[2019-05-30] MEDS ORDERED: PATIENT OWN MEDICATION IH SCH ×3 (07:00→10:00)
[2019-05-30] MEDS ORDERED: ZOFRAN ODT 4 MG PO PRN (08:31)
[2019-05-30] MEDS ORDERED: Mylicon 80MG PO PRN (08:32)
--- NOTE | 2019-05-30 08:56 | XRAY ---
Indication: Short of breath. Comparison: May 01, 2019. Portable chest unchanged again demonstrating COPD, right apical fibrosis/scarring, and bilateral lung suture material. Heart and mediastinal structures within normal limits. No new/acute findings.
[2019-05-30] MEDS ORDERED: Norco 10/325 MG Tablet PO PRN (10:57)
[2019-05-30] MEDS ORDERED: Ativan 0.5 MG PO PRN (10:57)
[2019-05-30] MEDS ORDERED: Tessalon Perles 100 MG PO PRN (10:57)
[2019-05-30] MEDS ORDERED: PHENERGAN 25 MG PO PRN (10:57)
[2019-05-30] MEDS ORDERED: Nitrostat 0.4 MG Tablet SL PRN (11:00)
[2019-05-30] MEDS ORDERED: Colace 100 MG PO PRN (11:00)
[2019-05-30] MEDS ORDERED: Voltaren GEL TOP SCH (11:00)
[2019-05-30] MEDS ORDERED: Calcium 500MG W/Vit D Tablet PO SCH (11:30)
[2019-05-30] MEDS ORDERED: Klor Con 10 MEQ PO SCH (11:30)
[2019-05-30] MEDS ORDERED: Mucinex 600MG ER Tabs PO SCH (11:30)
[2019-05-30] MEDS ORDERED: hydroDIURIL 25 MG PO SCH (11:30)
[2019-05-30] MEDS ORDERED: DELTASONE 20 MG PO SCH (11:30)
[2019-05-30] MEDS ORDERED: Imdur 30 MG PO SCH (11:30)
[2019-05-30] MEDS ORDERED: THERAGRAN MULTIVITAMIN PO SCH (11:30)
[2019-05-30] MEDS ORDERED: Pepcid 20 MG PO SCH (11:45)
[2019-05-30] MEDS ORDERED: Vibramycin 100 MG PO SCH (11:45)
[2019-05-30] MEDS ORDERED: Vitamin C 500 MG PO SCH (11:45)
[2019-05-30] MEDS ORDERED: Protonix 40MG Tablet PO SCH (11:45)
[2019-05-30] MEDS ORDERED: Toprol-Xl 25MG Tablets PO SCH (11:45)
[2019-05-30] MEDS ORDERED: XARELTO 10 MG TABLET PO SCH (11:45)
[2019-05-30] MEDS ORDERED: DALIRESP PO SCH (12:00)
[2019-05-30 12:15] VITALS: BP 133/60
[2019-05-30] MEDS: ECOTRIN 81 MG PO SCH ×2 (12:23→12:47)
[2019-05-30] MEDS ORDERED: ECOTRIN 81 MG PO SCH (12:48)
[2019-05-30] MEDS ORDERED: NON-FORMULARY ITEM (Nystatin/Tcn/Hc/Diphenhydram** [Mary's Magic Mouthwash***] 5 ML) PO SCH (13:00)
[2019-05-30] MEDS ORDERED: MARY'S MOUTHWASH PO SCH (13:00)
[2019-05-30 14:40] VITALS: PULSE 79; O2SAT 98
[2019-05-30] MEDS ORDERED: ZOCOR 20MG PO SCH (22:00)
[2019-05-30] MEDS ORDERED: NON-FORMULARY ITEM (Calcium Carbonate/Vitamin D3 [Calcium 1,000 + D3 Caplet] 1 EACH) PO SCH (22:00)
[2019-05-31] MEDS ORDERED: PATIENT OWN MEDICATION IH SCH (07:00)
[2019-05-31] MEDS ORDERED: NON-FORMULARY ITEM (Fluticasone/Vilanterol [Breo Ellipta 100-25 Mcg Inh] 1 EACH) IH SCH (10:00)
[2019-05-31] MEDS ORDERED: Spiriva 18 Mcg/Cap Inhaler IH SCH (10:00)
[2019-05-31] MEDS ORDERED: MULTIVIT WITH CALCIUM IRON MIN PO SCH (10:00)
[2019-06-01] MEDS ORDERED: DELTASONE 10 MG PO SCH (10:00)
[2019-06-01] MEDS ORDERED: DELTASONE 20 MG PO SCH (10:00)
--- NOTE | 2019-06-01 13:19 | SSS ---
DISCHARGE DIAGNOSES: 1) COSTOCHONRITIS. 2) CHRONIC OBSTRUCTIVE PULMONARY DISEASE. 3) ASTHMA EXACERBATION. HOSPITAL COURSE: The patient is a 63 year-old white female with a long history of lung problems. She presents now with complaints of substernal chest pain, painful to palpation and deep inspiration. The patient had been seen recently in our facility by Coty Fortune for chronic obstructive pulmonary disease exacerbation and placed on 60 mg of IV steroid. The patient was now complaining of right sternal border chest pain. The patient was admitted through the emergency room for rule out myocardial infarction with serial troponins which have all been less than 0.012. HOME MEDICATIONS: Currently are aspirin, docusate sodium, famotidine, nitroglycerin PRN, potassium, Simvastatin, isosorbide, calcium, metoprolol, Xarelto, Protonix, Hydrodiuril. Breo Ellipta which she does actually report as an allergy but has been using. Lorazepam, Albuterol, vitamin C, guaifenesin, multivitamins, Daliresp. She has been taking prednisone 60 mg a day and hydrocodone 10-325 mg PRN for pain. ALLERGIES: SULFA, ZITHROMAX, LISINOPRIL, CLINDAMYCIN, HYDROMORPHONE. SYMBICORT, TRELEGY, DILAUDID, BREO ELLIPTA. PHYSICAL EXAMINATION: The patient is a frail 63 year-old white female in no obvious distress presently. Her vital signs on admission showed temperature 97.1F, pulse 87, respiratory rate 28, blood pressure 162/107. O2 saturation 99% on supplemental oxygen. HEENT: Normocephalic, atraumatic. Pupils equal round reactive to light. Extraocular movements intact. Oropharynx is pink and moist. NECK: Supple without lymphadenopathy, thyromegaly or JVD. CHEST: Revealed bilateral wheezes. HEART: Regular rate and rhythm. There is tenderness reproduced on palpation of the right sternal border in the lower portion of the body of the sternum. ABDOMEN: Soft. No palpable masses. EXTREMITIES: Without cyanosis, clubbing or edema. NEUROLOGIC: The patient is alert and oriented x3. No focal deficits were noted. LAB DATA AND TESTS: Again have noted the troponins to be all less than 0.012. Her metabolic panel showed glucose of 98, BUN 27, creatinine 0.68. Electrolytes normal. Liver enzymes were normal. Lipase is normal. ProBNP was normal. White count 14,000, hemoglobin 13.2, PLT count 335,000. ASSESSMENT: A patient with chest wall pain. We are applying ice and Voltaren gel. She will be allowed to take the [place] for the pain as well. Having ruled out for myocardial infarction, the patient is felt to be ready for discharge home again to continue her home medications.
== END 2019-05-30 14:50 | disposition home or self-care (01) ==
LOC: ED 23:45 → MED SURG 05-30 03:45
PROVIDERS: ADMIT Family Medicine; ATTEND Family Medicine
DX: M94.0 Chondrocostal junction syndrome [Tietze] (principal); J44.1 Chronic obstructive pulmonary disease with (acute) exacerbation; Z79.899 Other long term (current) drug therapy; E78.00 Pure hypercholesterolemia, unspecified
CPT/HCPCS: 36000; 36415; 71045; 80053; 83690; 83880; 84484; 85025; 93005; 93041; 94150; 94640; 94760; 96374; 96375; 99285; G0378; J2270; J2405; A9270-GY

== ENCOUNTER 2019-06-08 18:06 | Emergency (ER) | payer MEDICARE ==
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
[2019-06-08] MEDS ORDERED: PROVENTIL 2.5 MG/3 ML NEB IH ONE ×2 (19:00→19:09)
[2019-06-08 19:13] LABS: Absolute Neutrophil Ct (ANC) 14.97 (1.4-6.9); BASOPHIL % 0.1 % (0.0-0.4); Basophil (Absolute #) 0.01 (0-0.4); Eosinophil % 0.1 % (0.00-5.0); Eosinophil (Absolute #) 0.02 (0-0.5); Hematocrit 40.3 % (35-47); Hemoglobin 12.8 gm/dl (12.0-16.0); Lymphocytes % 5.4 % (24.0-44.0); Mean Cell Volume 96.6 fl (78-100); Mean Corpuscular Hemoglobin 30.7 pg (26-32); Mean Corpuscular Hgb Concent. 31.8 g/dl (32-36); Mean Platelet Volume 9.1 fl (6-9.5); Monocyte (Absolute #) 0.63 (0.0-1.3); Monocytes % 3.8 % (0.0-12.0); Neutrophil % 90.6 % (36.0-66.0); Platelet Count 347 K/mm3 (150-450); Red Blood Count 4.17 M/mm3 (4.1-5.4); Red Cell Distribution Width 13.4 % (11.5-14.0); White Blood Count 16.5 K/mm3 (4.0-10.5)
[2019-06-08 19:39] LABS: ALKALINE PHOSPHATASE 54 U/L (38-126); ANION GAP 14.7 MEQ/L (5-15); BLOOD UREA NITROGEN 26 mg/dL (7-17); CHLORIDE 96 mmol/L (98-107); Calcium 9.8 mg/dL (8.4-10.2); Carbon Dioxide 31 mmol/L (22-30); Creatinine 1 0.69 mg/dL (0.52-1.04); Glucose 180 mg/dL (74-106); NT PRO BNP 203 pg/mL (0-900); Potassium 4.5 mmol/L (3.5-5.1); SGOT/AST 31 U/L (14-36); SGPT/ALT 28 U/L (0-35); SODIUM 137 mmol/L (137-145); Total Protein 6.8 g/dL (6.3-8.2)
[2019-06-08 22:09] VITALS: BP 143/79; PULSE 72
[2019-06-09 01:47] VITALS: O2SAT 98
--- NOTE | 2019-06-09 08:35 | XRAY ---
Indication: Short of breath. Comparison: May 30 Portable chest unchanged again demonstrating COPD, right apical fibrosis/scarring, and bilateral lung suture material. Heart is not enlarged. No new/acute findings.
== END 2019-06-08 22:16 | disposition home or self-care (01) ==
LOC: ED 18:06
DX: J44.1 Chronic obstructive pulmonary disease with (acute) exacerbation (principal); I10 Essential (primary) hypertension; I25.10 Atherosclerotic heart disease of native coronary artery without angina pectoris
CPT/HCPCS: 36000; 36415; 71045; 80053; 83880; 85025; 93005; 93041; 94640; 94760; 99284; 99291; J7609; A9270-GY

== ENCOUNTER 2019-06-15 15:05 | Emergency (ER) | payer MEDICARE ==
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
--- NOTE | 2019-06-15 16:47 | XRAY ---
Indication: Short of breath. Comparison: Multiple priors most recent June 08, 2019. Portable chest continues to remain unchanged again demonstrating COPD, right apical fibrosis/scarring, and bilateral lung suture material. Heart is not enlarged. No new/acute findings.
[2019-06-15 16:52] LABS: Hematocrit 37.6 % (35-47); Hemoglobin 11.7 gm/dl (12.0-16.0); Mean Cell Volume 98.2 fl (78-100); Mean Corpuscular Hemoglobin 30.5 pg (26-32); Mean Corpuscular Hgb Concent. 31.1 g/dl (32-36); Mean Platelet Volume 8.5 fl (6-9.5); Platelet Count 283 K/mm3 (150-450); Red Blood Count 3.83 M/mm3 (4.1-5.4); Red Cell Distribution Width 13.2 % (11.5-14.0)
[2019-06-15 17:00] LABS: INR 1.15 (0.8-3.0)
[2019-06-15 17:14] LABS: ALBUMIN 3.7 g/dL (3.5-5.0); ALKALINE PHOSPHATASE 47 U/L (38-126); ANION GAP 8.9 MEQ/L (5-15); BLOOD UREA NITROGEN 14 mg/dL (7-17); CHLORIDE 95 mmol/L (98-107); Calcium 9.7 mg/dL (8.4-10.2); Carbon Dioxide 37 mmol/L (22-30); Creatinine 1 0.63 mg/dL (0.52-1.04); Glucose 104 mg/dL (74-106); NT PRO BNP 208 pg/mL (0-900); Potassium 3.5 mmol/L (3.5-5.1); SGOT/AST 25 U/L (14-36); SGPT/ALT 25 U/L (0-35); SODIUM 137 mmol/L (137-145); Total Protein 6.4 g/dL (6.3-8.2)
[2019-06-15 17:20] LABS: ATYPICAL LYMPHS 1 %; BAND 3 % (0.0-2.0); Lymphocytes 5 % (24-44); Monocyte 7 % (0.0-12.0); Neutrophils 84 % (36.0-66.0); Total Cells Counted 100
[2019-06-15 17:21] LABS: Platelet Estimate NORMAL (NORMAL)
[2019-06-15 17:57] VITALS: BP 128/71; PULSE 82; O2SAT 98
== END 2019-06-15 18:16 | disposition home or self-care (01) ==
LOC: ED 15:05
DX: J44.1 Chronic obstructive pulmonary disease with (acute) exacerbation (principal); Z86.2 Personal history of diseases of the blood and blood-forming organs and certain disorders involving the immune mechanism; I10 Essential (primary) hypertension; I25.10 Atherosclerotic heart disease of native coronary artery without angina pectoris; Z79.01 Long term (current) use of anticoagulants; Z79.899 Other long term (current) drug therapy
CPT/HCPCS: 36000; 36415; 71045; 80053; 83605; 83880; 84484; 85025; 85610; 99284

== ENCOUNTER 2019-06-17 22:43 | Emergency (ER) | payer MEDICARE ==
[2019-06-17] MEDS ORDERED: DUONEB 0.5-3 MG/3 ml Neb IH ONE (23:00)
[2019-06-17] MEDS ORDERED: solu-MEDROL 125 MG IV ONE (23:00)
[2019-06-17] MEDS ORDERED: Ativan 2 MG/1 ML VIAL IV ONE (23:00)
[2019-06-17 23:06] VITALS: O2SAT 99
[2019-06-17] MEDS ORDERED: Ativan 2 MG/1 ML VIAL ONE (23:08)
[2019-06-17] MEDS ORDERED: solu-MEDROL 125 MG ONE (23:08)
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
[2019-06-17 23:19] LABS: A-aADO2 102; ABG HEMOGLOBIN 12.3; ABG POTASSIUM 3.8 (3.5-5.1); ABG SITE RIGHT RADIAL; ALLEN TEST OK? YES; ARTERIAL BLD GAS O2 SATURATION 99.9 % (95-100); ARTERIAL BLOOD GAS BASE EXCESS 10.7 (-2.0-2.0); ARTERIAL BLOOD GAS FIO2 40 %; ARTERIAL BLOOD GAS PCO2 48 mmHg (35-45); ARTERIAL BLOOD GAS PO2 123 mmHg (75-100); ARTERIAL BLOOD GAS pH 7.48 (7.35-7.45); CARBOXYHEMOGLOBIN 5.3 % THgb (0.0-6.9); HCO3- 35.7 (22-28); HGB O2 SAT 94.1 g/dF (94-100); Lactic Acid 0.9 (0.4-2.0); Methhemoglobin 0.5 % (1.4-1.5); paO2 pAO1 0.55
[2019-06-17 23:35] LABS: Basophil (Absolute #) 0 (0-0.4); Eosinophil % 0.1 % (0.00-5.0); Eosinophil (Absolute #) 0.01 (0-0.5); Hematocrit 39.9 % (35-47); Hemoglobin 12.6 gm/dl (12.0-16.0); Lymphocyte (Absolute #) 1.58 (1.0-4.6); Lymphocytes % 12.2 % (24.0-44.0); Mean Cell Volume 96.6 fl (78-100); Mean Corpuscular Hemoglobin 30.5 pg (26-32); Mean Corpuscular Hgb Concent. 31.6 g/dl (32-36); Mean Platelet Volume 8.5 fl (6-9.5); Monocyte (Absolute #) 0.91 (0.0-1.3); Neutrophil % 80.7 % (36.0-66.0); Platelet Count 355 K/mm3 (150-450); Red Blood Count 4.13 M/mm3 (4.1-5.4); Red Cell Distribution Width 13.2 % (11.5-14.0)
[2019-06-17 23:57] LABS: BLOOD UREA NITROGEN 19 mg/dL (7-17); CHLORIDE 92 mmol/L (98-107); Carbon Dioxide 37 mmol/L (22-30); Creatinine 1 0.79 mg/dL (0.52-1.04); Glucose 137 mg/dL (74-106); NT PRO BNP 314 pg/mL (0-900); SODIUM 137 mmol/L (137-145)
[2019-06-18 00:56] VITALS: BP 163/83; PULSE 74
[2019-06-18] MEDS ORDERED: PROVENTIL 2.5 MG/3 ML NEB IH ONE (01:19)
--- NOTE | 2019-06-18 09:45 | XRAY ---
Indication: Short of breath. Wheezing. Comparison: Multiple priors most recent June 15, 2019. Portable chest continues to remain unchanged again demonstrating COPD, right apical fibrosis/scarring, and bilateral lung suture material. Heart and mediastinal structures within normal limits. No new/acute findings. Comment: Preliminary interpretation was made by [facility]. No discrepancy.
== END 2019-06-18 01:27 | disposition home or self-care (01) ==
LOC: ED 22:43
DX: J44.1 Chronic obstructive pulmonary disease with (acute) exacerbation (principal); R07.89 Other chest pain
CPT/HCPCS: 36000; 36415; 36600; 71045; 80048; 82375; 82803; 83605; 83880; 84484; 85025; 87040; 93005; 93041; 94640; 96374; 99284; J2060; J2930; J7609; A9270-GY

== ENCOUNTER 2019-07-01 16:56 | Emergency (ER) | payer MEDICARE ==
[2019-07-01] MEDS ORDERED: Sodium Chloride 0.9% 1000 ML 1,000 ML IV STA (17:16)
[2019-07-01] MEDS ORDERED: PROVENTIL 2.5 MG/3 ML NEB IH ONE ×2 (17:16→17:26)
[2019-07-01] MEDS ORDERED: Ativan 2 MG/1 ML VIAL IV ONE (17:20)
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
[2019-07-01] MEDS ORDERED: Ativan 2 MG/1 ML VIAL ONE (17:28)
[2019-07-01] MEDS ORDERED: Sodium Chloride 0.9% 1000 ML 1,000 ML ONE (17:28)
[2019-07-01 17:36] LABS: Absolute Neutrophil Ct (ANC) 14.02 (1.4-6.9); Basophil (Absolute #) 0 (0-0.4); Eosinophil % 0.1 % (0.00-5.0); Eosinophil (Absolute #) 0.01 (0-0.5); Hemoglobin 12.1 gm/dl (12.0-16.0); Lymphocyte (Absolute #) 0.88 (1.0-4.6); Lymphocytes % 5.8 % (24.0-44.0); Mean Cell Volume 97.2 fl (78-100); Mean Corpuscular Hemoglobin 30.9 pg (26-32); Mean Corpuscular Hgb Concent. 31.8 g/dl (32-36); Mean Platelet Volume 8.4 fl (6-9.5); Monocyte (Absolute #) 0.28 (0.0-1.3); Monocytes % 1.8 % (0.0-12.0); Neutrophil % 92.3 % (36.0-66.0); Platelet Count 286 K/mm3 (150-450); Red Blood Count 3.91 M/mm3 (4.1-5.4); Red Cell Distribution Width 13.3 % (11.5-14.0); White Blood Count 15.2 K/mm3 (4.0-10.5)
[2019-07-01 17:45] LABS: INR 1.18 (0.8-3.0); PROTIME 13.4 SECONDS (9.95-12.35)
[2019-07-01 17:47] LABS: PTT 30.9 SECONDS (25.3-37.0)
[2019-07-01 17:48] LABS: Lactic Acid 1.6 (0.4-2.0); VBG BASE EXCESS 13.4 (-2.0-2.0); VBG CARBOXYHEMOGLOBIN 5.7 % T HGB (0.0-6.9); VBG HCO3- 40.1 meq/L (22-28); VBG HEMOGLOBIN 12.6; VBG O2 SATURATION 68.9 (95-100); VBG POTASSIUM 3.9 (3.5-5.1); VBG pH 7.44 (7.32-7.42)
[2019-07-01 17:58] LABS: ALBUMIN 3.8 g/dL (3.5-5.0); ALKALINE PHOSPHATASE 48 U/L (38-126); ANION GAP 12.7 MEQ/L (5-15); BLOOD UREA NITROGEN 24 mg/dL (7-17); CHLORIDE 89 mmol/L (98-107); Calcium 9.4 mg/dL (8.4-10.2); Carbon Dioxide 36 mmol/L (22-30); Creatinine 1 0.68 mg/dL (0.52-1.04); Glucose 180 mg/dL (74-106); MAGNESIUM 1.9 mg/dL (1.6-2.3); NT PRO BNP 259 pg/mL (0-900); Potassium 4.1 mmol/L (3.5-5.1); SGOT/AST 26 U/L (14-36); SGPT/ALT 29 U/L (0-35); SODIUM 133 mmol/L (137-145); Total Protein 6.5 g/dL (6.3-8.2)
[2019-07-01 18:48] VITALS: O2SAT 100
[2019-07-01 20:03] VITALS: BP 93/45; PULSE 74
--- NOTE | 2019-07-02 10:02 | XRAY ---
Indication: Weight loss. Multiple contiguous axial images obtained through the abdomen and pelvis without contrast as ordered. Comparison: November 21, 2015. CT chest reported separately. Noncontrasted stomach and bowel loops appear nonobstructed. Normal appendix with tiny appendicolith. Again scattered colonic diverticulosis greatest in the descending and sigmoid. No free fluid/air. New 2 cm left mid renal cyst and a 2-3 mm gallstone. Stable left lower renal scarring, hysterectomy, and aortobifemoral bypass. Remaining liver, gallbladder, pancreas, spleen, adrenal glands, kidneys, ureters, and bladder appear unremarkable for noncontrast exam. Osseous structures intact again with lumbosacral junction degenerative changes. Stable small midline fatty epigastric ventral hernia and tiny fatty umbilical hernia. Impression: 1. New tiny gallstone and left renal cyst. 2. Stable left renal scarring, colonic diverticulosis, fatty ventral/umbilical hernias, and aortobifemoral bypass. 3. Remaining CT abdomen/pelvis without contrast exam is negative. Comment: Preliminary interpretation was made by [facility]. No discrepancy. CT DI 12.49
--- NOTE | 2019-07-02 10:03 | XRAY ---
Indication: Chest pain and dyspnea. Chronic respiratory failure. COPD. Multiple contiguous axial images obtained through the chest without contrast as ordered. Comparison: May 04, 2019. Lungs again demonstrates diffuse pulmonary emphysema with scattered fibrosis/scarring and bilateral suture material. No suspicious pulmonary mass/nodule, infiltrate, or effusion. Heart is not enlarged again demonstrating tiny pericardial effusion/thickening. Aorta remains mildly arteriosclerotic without aneurysm. Stable tiny right hilar and subcarinal calcified nodes. No pathologic mediastinal lymphadenopathy. Bony thorax now demonstrates minimal T4/T5 superior endplate concave deformity appearing sclerotic favoring subacute to chronic fracture with less than 25% height loss. CT abdomen reported separately. Impression: 1. Stable diffuse pulmonary emphysema, scattered fibrosis/scarring, postsurgical changes, tiny pericardial effusion/thickening, and evidence for old granulomatous disease. 2. No new or acute cardiopulmonary abnormalities on this noncontrast exam. 3. Incidental subacute to chronic appearing T4/T5 superior endplate fractures. Comment: Preliminary interpretation was made by [facility]. No critical discrepancy. CTDI 11.14
== END 2019-07-01 20:44 | disposition home or self-care (01) ==
LOC: ED 16:56
DX: R06.02 Shortness of breath (principal); R63.4 Abnormal weight loss; J44.9 Chronic obstructive pulmonary disease, unspecified; K57.90 Diverticulosis of intestine, part unspecified, without perforation or abscess without bleeding; J43.2 Centrilobular emphysema; M48.54XA Collapsed vertebra, not elsewhere classified, thoracic region, initial encounter for fracture; K80.20 Calculus of gallbladder without cholecystitis without obstruction
CPT/HCPCS: 36415; 71250; 74176; 80053; 82805; 83605; 83735; 83880; 84484; 85025; 85610; 85730; 93005; 93041; 94150; 94640; 96360; 96374; 99284; 99291; J2060; J7609; A9270-GY

== ENCOUNTER 2019-11-08 10:39 | Observation (INO) | payer MEDICARE, SELFPAY ==
[2019-11-08] MEDS ORDERED: MORPHINE SULFATE 10 MG/ML IV ONE (10:49)
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
[2019-11-08] MEDS ORDERED: MORPHINE SULFATE 4 MG INJ ONE (10:52)
[2019-11-08 11:01] LABS: Absolute Neutrophil Ct (ANC) 8.34 (1.4-6.9); BASOPHIL % 0.2 % (0.0-0.4); Basophil (Absolute #) 0.03 (0-0.4); Eosinophil % 0.5 % (0.00-5.0); Eosinophil (Absolute #) 0.06 (0-0.5); Hematocrit 40.6 % (35-47); Lymphocyte (Absolute #) 3.26 (1.0-4.6); Mean Corpuscular Hemoglobin 31.7 pg (26-32); Mean Platelet Volume 8.9 fl (7.5-11.0); Monocyte (Absolute #) 1.37 (0.0-1.3); Monocytes % 10.5 % (0.0-12.0); Neutrophil % 63.8 % (36.0-66.0); Platelet Count 259 K/mm3 (150-450); Red Cell Distribution Width 13.2 % (11.5-14.0); White Blood Count 13.1 K/mm3 (4.0-10.5)
[2019-11-08] MEDS ORDERED: BABY ASPIRIN 81 MG CHEW PO ONE (11:08)
[2019-11-08] MEDS ORDERED: NITRO-BID 2% UD PACKETS TOP ONE (11:09)
[2019-11-08] MEDS ORDERED: NITRO-BID 2% UD PACKETS ONE (11:12)
[2019-11-08 11:14] LABS: ALBUMIN 4.1 g/dL (3.5-5.0); ALKALINE PHOSPHATASE 50 U/L (38-126); ANION GAP 6.9 MEQ/L (5-15); BLOOD UREA NITROGEN 23 mg/dL (7-17); CHLORIDE 97 mmol/L (98-107); Calcium 9.8 mg/dL (8.4-10.2); Carbon Dioxide 37 mmol/L (22-30); Creatinine 1 0.73 mg/dL (0.52-1.04); Glucose 135 mg/dL (74-106); Potassium 3.7 mmol/L (3.5-5.1); SGOT/AST 23 U/L (14-36); SGPT/ALT 22 U/L (0-35); SODIUM 137 mmol/L (137-145)
[2019-11-08 11:23] LABS: INR 1.76 (0.8-3.0); PROTIME 20.1 SECONDS (9.95-12.35)
[2019-11-08 11:25] LABS: PTT 37.4 SECONDS (25.3-37.0)
[2019-11-08] MEDS ORDERED: TYLENOL 325 MG PO PRN (15:57)
[2019-11-08] MEDS ORDERED: DUONEB 0.5-3 MG/3 ml Neb IH ONE (16:48)
[2019-11-08] MEDS ORDERED: Mucomyst 200 MG/ML ONE (16:48)
[2019-11-08] MEDS: DUONEB 0.5-3 MG/3 ml Neb IH SCH ×2 (16:50→22:52)
[2019-11-08] MEDS: Mucomyst 200 MG/ML IH SCH ×2 (16:50→22:53)
[2019-11-08] MEDS ORDERED: MORPHINE SULFATE 2 MG INJ ONE (18:40)
[2019-11-08] MEDS ORDERED: Nitrostat 0.4 MG Tablet SL PRN (18:45)
[2019-11-08] MEDS ORDERED: MORPHINE SULFATE 2 MG INJ IV PRN (18:46)
[2019-11-08] MEDS ORDERED: PHENERGAN 6.25 MG/5 ML PO PRN (18:48)
[2019-11-08] MEDS ORDERED: Tessalon Perles 100 MG PO PRN (18:50)
[2019-11-08] MEDS ORDERED: VENTOLIN COMMON CANISTER IH PRN (18:56)
[2019-11-08] MEDS ORDERED: PROVENTIL Solution 2.5 MG/0.5 ML IH PRN (20:37)
[2019-11-08] MEDS: Norco 10/325 MG Tablet PO PRN (20:41)
[2019-11-08] MEDS ORDERED: CEPACOL SORE THROAT LOZENGE PO PRN (20:45)
--- NOTE | 2019-11-08 21:12 | XRAY ---
Indication: Chest pain. COPD. Comparison: June 17, 2019. Portable chest unchanged again demonstrating COPD, right apical fibrosis/scarring, and bilateral suture material. No focal infiltrate, consolidation, or large effusion. Heart and mediastinal structures within normal limits. Bony thorax intact. Impression: Continued nonacute chest with chronic features.
[2019-11-08] MEDS ORDERED: Protonix 40MG Tablet PO SCH (22:00)
[2019-11-08] MEDS ORDERED: PROVENTIL Solution 2.5 MG/0.5 ML IH SCH (22:00)
[2019-11-08] MEDS ORDERED: Pepcid 20 MG PO SCH (22:00)
[2019-11-08] MEDS ORDERED: Mucinex 600MG ER Tabs PO SCH (22:00)
[2019-11-08] MEDS ORDERED: Colace 100 MG PO SCH (22:00)
[2019-11-08] MEDS ORDERED: Voltaren GEL TOP SCH (22:00)
[2019-11-08] MEDS: NICODERM CQ 14 MG TOP SCH (23:23)
[2019-11-08] MEDS: ZOCOR 20MG PO SCH (23:23)
[2019-11-08] MEDS: Calcium 500MG W/Vit D Tablet PO SCH (23:23)
[2019-11-08] MEDS: Klor Con 10 MEQ PO SCH (23:24)
[2019-11-09] MEDS: Norco 10/325 MG Tablet PO PRN ×3 (01:33→12:48)
[2019-11-09] MEDS: DUONEB 0.5-3 MG/3 ml Neb IH SCH ×6 (03:30→23:18)
[2019-11-09] MEDS ORDERED: Robaxin 500 MG PO PRN (04:30)
[2019-11-09 05:11] LABS: Cholesterol 175 mg/dL (50-200); HDL CHOLESTEROL 57 mg/dL (40-60); LDL, DIRECT 93 mg/dL (30-100); Risk Ratio 3.1; TRIGLYCERIDE 95 mg/dL (30-150)
[2019-11-09 05:13] LABS: TROPONIN < 0.012 ng/mL (0.000-0.034)
[2019-11-09] MEDS: Mucomyst 200 MG/ML IH SCH ×3 (06:51→23:18)
[2019-11-09] MEDS: PATIENT OWN MEDICATION IH SCH (06:52)
[2019-11-09] MEDS ORDERED: Spiriva 18 Mcg/Cap Inhaler IH SCH (07:00)
[2019-11-09] MEDS ORDERED: PHENERGAN 25 MG PO PRN ×2 (07:14→14:21)
[2019-11-09] MEDS ORDERED: PHENERGAN 6.25 MG/5 ML PO PRN (07:30)
[2019-11-09] MEDS: Voltaren GEL TOP SCH ×4 (07:46→21:51)
[2019-11-09] MEDS: Klor Con 10 MEQ PO SCH ×2 (09:16→21:50)
[2019-11-09] MEDS: MUCINEX DM 600/30MG PO SCH ×3 (09:16→21:50)
[2019-11-09] MEDS: Calcium 500MG W/Vit D Tablet PO SCH ×2 (09:17→21:50)
[2019-11-09] MEDS: Vitamin C 500 MG PO SCH (09:17)
[2019-11-09] MEDS: DELTASONE 10 MG PO SCH (09:17)
[2019-11-09] MEDS: Toprol Xl 100 MG PO SCH (09:17)
[2019-11-09] MEDS: Imdur 30 MG PO SCH (09:17)
[2019-11-09] MEDS: hydroDIURIL 25 MG PO SCH (09:17)
[2019-11-09] MEDS: THERAGRAN MULTIVITAMIN PO SCH (09:17)
[2019-11-09] MEDS: Lexapro 10 MG PO SCH (09:17)
[2019-11-09] MEDS: XARELTO 10 MG TABLET PO SCH (09:17)
[2019-11-09] MEDS: ECOTRIN 81 MG PO SCH (09:17)
[2019-11-09] MEDS: DALIRESP PO SCH (09:18)
--- NOTE | 2019-11-09 09:22 | XRAY ---
Indication: Left shoulder pain. No known injury. Comparison: None 3 views of the left shoulder demonstrates minimal AC degenerative changes. No other bony, articular, or soft tissue abnormalities. Chest reported separately one day earlier.
--- NOTE | 2019-11-09 09:24 | XRAY ---
Indication: Left rib pain. No known injury. Comparison: None 2 views of the left ribs demonstrates old 5 rib fracture anteriorly. No other bony, articular, or soft tissue abnormalities. Chest reported separately one day earlier.
[2019-11-09] MEDS: Colace 100 MG PO PRN (09:38)
[2019-11-09] MEDS: solu-MEDROL 125 MG IV SCH ×3 (09:38→21:49)
[2019-11-09] MEDS: ROCEPHIN 1 Gm-D5w 50 ml Bag** 1 G/50 ML IVPB IV SCH (09:38)
[2019-11-09] MEDS: PROTONIX 40 MG IV IV SCH (09:39)
[2019-11-09] MEDS: TORAdol 30 mg Injection IV PRN ×2 (09:39→18:59)
[2019-11-09] MEDS ORDERED: Toprol-Xl 25MG Tablets PO SCH (10:00)
[2019-11-09] MEDS ORDERED: DELTASONE 20 MG PO SCH (10:00)
[2019-11-09] MEDS ORDERED: MULTIVIT WITH CALCIUM IRON MIN PO SCH (10:00)
[2019-11-09] MEDS ORDERED: XANAX 1 MG PO ONE (13:09)
--- NOTE | 2019-11-09 15:45 | XRAY ---
Indication: Left-sided chest pain. Right lobectomy 2013. Comparison: None Patient received 5.5 mCi technetium 99 MAA for the perfusion portion of exam. Patient inhaled 34.2 mCi aerosolized technetium 99 DTPA for the ventilation portion. Multiple planar images obtained. Perfusion images demonstrate fairly homogeneous radiopharmaceutical activity bilaterally. No focal segmental/subsegmental perfusion defect. Ventilation images demonstrate diffuse heterogeneous radiopharmaceutical activity bilaterally with numerous multifocal nodular activity, greatest right midlung. Findings are nonspecific. Impression: No focal perfusion defect. Nonspecific heterogeneous ventilation images.
[2019-11-09] MEDS: NICODERM CQ 14 MG TOP SCH (21:47)
[2019-11-09] MEDS: ZOCOR 20MG PO SCH (21:50)
[2019-11-10] MEDS: TORAdol 30 mg Injection IV PRN (02:37)
[2019-11-10] MEDS: DUONEB 0.5-3 MG/3 ml Neb IH SCH ×3 (03:45→10:34)
[2019-11-10] MEDS: solu-MEDROL 125 MG IV SCH ×2 (03:54→09:27)
[2019-11-10] MEDS: Colace 100 MG PO PRN (04:07)
[2019-11-10] MEDS: Norco 10/325 MG Tablet PO PRN ×2 (04:07→08:35)
[2019-11-10 05:03] LABS: Absolute Neutrophil Ct (ANC) 10.38 (1.4-6.9); Basophil (Absolute #) 0 (0-0.4); Eosinophil (Absolute #) 0 (0-0.5); Hemoglobin 12.4 gm/dl (12.0-16.0); Lymphocyte (Absolute #) 1.05 (1.0-4.6); Lymphocytes % 8.8 % (24.0-44.0); Mean Cell Volume 96.9 fl (78-100); Mean Platelet Volume 9.4 fl (7.5-11.0); Monocyte (Absolute #) 0.53 (0.0-1.3); Monocytes % 4.4 % (0.0-12.0); Neutrophil % 86.8 % (36.0-66.0); Platelet Count 271 K/mm3 (150-450); Red Blood Count 4.13 M/mm3 (4.1-5.4); Red Cell Distribution Width 12.6 % (11.5-14.0)
[2019-11-10 05:18] LABS: ALBUMIN 3.8 g/dL (3.5-5.0); ALKALINE PHOSPHATASE 49 U/L (38-126); ANION GAP 10.9 MEQ/L (5-15); BLOOD UREA NITROGEN 24 mg/dL (7-17); CHLORIDE 95 mmol/L (98-107); Calcium 9.9 mg/dL (8.4-10.2); Carbon Dioxide 32 mmol/L (22-30); Creatinine 1 0.64 mg/dL (0.52-1.04); Glucose 184 mg/dL (74-106); Potassium 4.3 mmol/L (3.5-5.1); SGOT/AST 24 U/L (14-36); SGPT/ALT 23 U/L (0-35); SODIUM 135 mmol/L (137-145); Total Protein 6.6 g/dL (6.3-8.2)
[2019-11-10] MEDS ORDERED: PATIENT OWN MEDICATION IH SCH (07:00)
[2019-11-10] MEDS: Mucomyst 200 MG/ML IH SCH (07:03)
[2019-11-10] MEDS: PATIENT OWN MEDICATION IH SCH (07:03)
[2019-11-10 08:18] VITALS: BP 138/66; PULSE 82; O2SAT 99
[2019-11-10] MEDS: DALIRESP PO SCH (09:17)
[2019-11-10] MEDS: Calcium 500MG W/Vit D Tablet PO SCH (09:17)
[2019-11-10] MEDS: hydroDIURIL 25 MG PO SCH (09:18)
[2019-11-10] MEDS: ECOTRIN 81 MG PO SCH (09:18)
[2019-11-10] MEDS: DELTASONE 10 MG PO SCH (09:18)
[2019-11-10] MEDS: Imdur 30 MG PO SCH (09:19)
[2019-11-10] MEDS: Klor Con 10 MEQ PO SCH (09:19)
[2019-11-10] MEDS: PROTONIX 40 MG IV IV SCH (09:20)
[2019-11-10] MEDS: MUCINEX DM 600/30MG PO SCH (09:20)
[2019-11-10] MEDS: Lexapro 10 MG PO SCH (09:20)
[2019-11-10] MEDS: Toprol Xl 100 MG PO SCH (09:21)
[2019-11-10] MEDS: XARELTO 10 MG TABLET PO SCH (09:21)
[2019-11-10] MEDS: Vitamin C 500 MG PO SCH (09:21)
[2019-11-10] MEDS: ROCEPHIN 1 Gm-D5w 50 ml Bag** 1 G/50 ML IVPB IV SCH (09:21)
[2019-11-10] MEDS: THERAGRAN MULTIVITAMIN PO SCH (09:21)
--- NOTE | 2019-11-10 10:58 | SSS ---
DISCHARGE DIAGNOSES: 1) CHEST WALL PAIN. 2) EXACERBATION OF CHRONIC OBSTRUCTIVE PULMONARY DISEASE. 3) CHRONIC HYPOXIA. HISTORY: The patient is a 63 year-old white female who presented to the emergency room with complaints of severe left upper chest pain radiating from the front of her chest straight through to her back. Worse when she moves or takes a deep breath. The patient has a long history of chronic obstructive pulmonary disease exacerbation. She was concerned that this might be her heart as she has also fairly recently had a heart stent placed. The patient was admitted to the hospital for further evaluation and management. HOME MEDICATIONS: Currently include aspirin, Colace, Pepcid 20 mg a day, Nitro PRN, potassium 10 mEq, Simvastatin 20 mg a day, Imdur 30 mg a day, calcium with vitamin D, metoprolol XL 25 mg four tablets a day, Xarelto 10 mg a day, pantoprazole 40 mg a day, hydrodiuril 12.5 mg daily. Breo Ellipta which actually she has allergy. Albuterol PRN basis. Ascorbic acid, guaifenesin, multivitamins, Daliresp, Spiriva, hydrocodone, prednisone, promethazine, Lexapro. ALLERGIES: MULTIPLE DRUG ALLERGIES INCLUDING CIPRO, THEOPHYLLINE, IODINE, PENICILLIN, SULFA, ZITHROMAX, LISINOPRIL, CLINDAMYCIN, HYDROMORPHONE, SYMBICORT, TRELEGY, DILAUDID, BREO ELLIPTA. PHYSICAL EXAMINATION: The patient's vital signs on admission showed her temperature 98.1F, pulse 96, respiratory rate 20 and blood pressure 114/69. O2 saturation 100%. HEENT: Normocephalic, atraumatic. Pupils equal round reactive to light. She is wearing oxygen per nasal cannula. NECK: Supple without lymphadenopathy, thyromegaly or JVD. CHEST: Revealed diminished air movement. No wheezes or rales were heard. HEART: Regular rate and rhythm. ABDOMEN: Soft. No palpable masses. EXTREMITIES: Without cyanosis, clubbing or edema. NEUROLOGIC: The patient is alert and oriented x3. LAB DATA AND TESTS: The patient reported that she was allergic to IV dye. She had a VQ scan performed because she felt like the pain was similar when she had pulmonary embolism previously. VQ scan was negative. The patient's EKG showed no acute ST-T wave changes. Her troponins have been less than 0.012 on five different occasions. Her international normalized ratio was 1.76, glucose 135, BUN 23, creatinine 0.7. Electrolytes were normal. Liver enzymes were normal. White blood cell count 13,100, hemoglobin 13.0, PLT count 259,000. The patient had x-ray of her shoulder which was essentially negative. She had rib views which were negative as well. She had chest x-ray which showed nonacute chronic features. HOSPITAL COURSE: The patient was admitted to the medicine vargas. She was given Rocephin IV for yellow sputum. She was given IV Solu-Medrol 80 every six hours. She was given Toradol for pain which apparently she said made no difference with her blood thinners. We felt it best to discontinue this at this time. The patient with no acute problems and only at this point having ruled out myocardial infarction and pulmonary embolism was felt to be safe for discharge back home again on her usual home medications. She was given increase in pain medicine to oxycodone 10/325 mg and given Cefdinir 300 mg b.i.d. for her chronic bronchitis to help clear up the yellow sputum. The patient was instructed to follow up in the office in one week or return if she had problems in the interim.
== END 2019-11-10 11:08 | disposition home or self-care (01) ==
LOC: ED 10:39 → MED SURG 15:42
PROVIDERS: ADMIT Family Medicine; ATTEND Family Medicine
DX: R07.89 Other chest pain (principal); J44.1 Chronic obstructive pulmonary disease with (acute) exacerbation; R09.02 Hypoxemia; Z79.899 Other long term (current) drug therapy
CPT/HCPCS: 36000; 36415; 71045; 71110; 73030; 78582; 80053; 80061; 83721; 84484; 85025; 85610; 85730; 93005; 93041; 93268; 94150; 94640; 94760; 96374; 99285; A9540; A9567; G0378; J0696; J1885; J2270; J2930; A9270-GY

== ENCOUNTER 2019-11-20 18:59 | Emergency (ER) | payer MEDICARE ==
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
[2019-11-20] MEDS ORDERED: DEMEROL 50 MG IV ONE (20:31)
[2019-11-20] MEDS ORDERED: BENADRYL 50 MG/ML IV ONE (20:32)
[2019-11-20 22:10] VITALS: O2SAT 100
[2019-11-20] MEDS ORDERED: DEMEROL 50 MG ONE (22:12)
[2019-11-20] MEDS ORDERED: BENADRYL 50 MG/ML ONE (22:12)
[2019-11-20 23:17] VITALS: BP 164/91; PULSE 78
== END 2019-11-20 23:25 | disposition home or self-care (01) ==
LOC: ED 18:59
DX: J44.1 Chronic obstructive pulmonary disease with (acute) exacerbation (principal); L29.9 Pruritus, unspecified; I50.9 Heart failure, unspecified; I25.10 Atherosclerotic heart disease of native coronary artery without angina pectoris; E78.00 Pure hypercholesterolemia, unspecified; I10 Essential (primary) hypertension; I73.9 Peripheral vascular disease, unspecified; Z86.711 Personal history of pulmonary embolism; K21.9 Gastro-esophageal reflux disease without esophagitis; Z72.0 Tobacco use; Z79.01 Long term (current) use of anticoagulants; Z79.899 Other long term (current) drug therapy
CPT/HCPCS: 36000; 36415; 84484; 87070; 87077; 87186; 93005; 94760; 96374; 96375; 99284; J1200; J2175

== ENCOUNTER 2019-11-22 08:12 | Observation (INO) | payer MEDICARE ==
[2019-11-22] MEDS ORDERED: BABY ASPIRIN 81 MG CHEW PO ONE (08:19)
[2019-11-22] MEDS ORDERED: Sodium Chloride 0.9% 1000 ML 1,000 ML IV STA (08:19)
[2019-11-22] MEDS ORDERED: DUONEB 0.5-3 MG/3 ml Neb IH ONE ×4 (08:20→10:52)
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
[2019-11-22] MEDS ORDERED: BABY ASPIRIN 81 MG CHEW ONE (08:39)
[2019-11-22] MEDS ORDERED: Sodium Chloride 0.9% 1000 ML 1,000 ML ONE (08:39)
[2019-11-22 09:13] LABS: Hematocrit 45.4 % (35-47); Hemoglobin 14.1 gm/dl (12.0-16.0); Mean Corpuscular Hemoglobin 30.1 pg (26-32); Mean Corpuscular Hgb Concent. 31.1 g/dl (32-36); Mean Platelet Volume 8.8 fl (7.5-11.0); Platelet Count 403 K/mm3 (150-450); Red Blood Count 4.68 M/mm3 (4.1-5.4); Red Cell Distribution Width 12.9 % (11.5-14.0); White Blood Count 20.4 K/mm3 (4.0-10.5)
[2019-11-22 09:36] LABS: ALBUMIN 4.4 g/dL (3.5-5.0); ALKALINE PHOSPHATASE 65 U/L (38-126); BLOOD UREA NITROGEN 17 mg/dL (7-17); CHLORIDE 89 mmol/L (98-107); Calcium 10.4 mg/dL (8.4-10.2); Carbon Dioxide 38 mmol/L (22-30); Creatinine 1 0.75 mg/dL (0.52-1.04); Glucose 138 mg/dL (74-106); NT PRO BNP 417 pg/mL (0-900); Potassium 3.4 mmol/L (3.5-5.1); SGOT/AST 46 U/L (14-36); SGPT/ALT 23 U/L (0-35); SODIUM 136 mmol/L (137-145); Total Protein 7.8 g/dL (6.3-8.2)
[2019-11-22] MEDS ORDERED: OXYCODONE-ACETAMINOPHEN 10-325 PO STA (09:36)
[2019-11-22 09:39] LABS: ANION GAP 12.4 MEQ/L (5-15)
[2019-11-22] MEDS ORDERED: OXYCODONE-ACETAMINOPHEN 10-325 ONE (09:45)
[2019-11-22 09:46] LABS: INFLUENZA A NEGATIVE (NEGATIVE); INFLUENZA B NEGATIVE (NEGATIVE); RESPIRATORY SYNCTIAL VIRUS NEGATIVE (Negative)
[2019-11-22] MEDS ORDERED: Toprol-Xl 25MG Tablets PO ONE (09:58)
[2019-11-22] MEDS ORDERED: Zithromax 500 MG/ 250 ML NaCl Premix 500 MG/250 ML IVPB IV ONE ×2 (10:00→10:02)
[2019-11-22] MEDS ORDERED: ROCEPHIN 1 Gm-D5w 50 ml Bag** 1 G/50 ML IVPB IV ONE ×2 (10:00→10:02)
[2019-11-22] MEDS ORDERED: Toprol-Xl 25MG Tablets ONE (10:01)
[2019-11-22] MEDS ORDERED: BENADRYL 50 MG/ML ONE (10:16)
[2019-11-22] MEDS ORDERED: BENADRYL 50 MG/ML IV ONE (10:27)
[2019-11-22 10:49] LABS: BAND 1 % (0.0-2.0); Basophil 1 % (0.0-1.0); Lymphocytes 26 % (24-44); Monocyte 6 % (0.0-12.0); Neutrophils 66 % (36.0-66.0); Platelet Estimate NORMAL (NORMAL); Total Cells Counted 100; Toxic Granulation 2+
[2019-11-22] MEDS ORDERED: Zovirax INJ IV SCH (12:30)
[2019-11-22] MEDS ORDERED: Tessalon Perles 100 MG PO PRN (12:45)
[2019-11-22] MEDS ORDERED: ZOFRAN ODT 4 MG PO PRN (12:45)
[2019-11-22] MEDS ORDERED: Nitrostat 0.4 MG Tablet SL PRN (12:45)
[2019-11-22] MEDS ORDERED: DELTASONE 10 MG PO SCH (12:45)
[2019-11-22] MEDS ORDERED: Ventolin Hfa MDI IH PRN (12:45)
[2019-11-22] MEDS ORDERED: PHENERGAN 25 MG PO PRN (12:45)
[2019-11-22] MEDS ORDERED: VENTOLIN COMMON CANISTER IH PRN (13:04)
[2019-11-22] MEDS: Norco 10/325 MG Tablet PO PRN ×2 (14:20→20:25)
[2019-11-22] MEDS: DUONEB 0.5-3 MG/3 ml Neb IH SCH ×3 (14:40→23:45)
[2019-11-22] MEDS: Protonix 40MG Tablet PO SCH ×2 (15:37→23:00)
[2019-11-22] MEDS: XARELTO 10 MG TABLET PO SCH (15:38)
[2019-11-22] MEDS: THERAGRAN MULTIVITAMIN PO SCH (15:38)
[2019-11-22] MEDS: DELTASONE 10 MG PO SCH (15:38)
[2019-11-22] MEDS: Mucinex 600MG ER Tabs PO SCH ×2 (15:38→23:00)
[2019-11-22] MEDS: Imdur 30 MG PO SCH (15:38)
[2019-11-22] MEDS: Calcium 500MG W/Vit D Tablet PO SCH ×2 (15:39→23:00)
[2019-11-22] MEDS: Pepcid 20 MG PO SCH ×2 (15:40→23:01)
[2019-11-22] MEDS: Vitamin C 500 MG PO SCH (15:40)
[2019-11-22] MEDS: Klor Con 10 MEQ PO SCH ×2 (15:40→23:01)
[2019-11-22] MEDS: hydroDIURIL 25 MG PO SCH (15:40)
[2019-11-22] MEDS: DALIRESP PO SCH (15:41)
[2019-11-22] MEDS: WATER IV SCH ×2 (15:46→23:02)
[2019-11-22] MEDS: ZOVIRAX IV SCH ×2 (15:46→23:02)
[2019-11-22] MEDS: DEXTROSE IV SCH ×2 (15:46→23:02)
[2019-11-22] MEDS: Toprol Xl 100 MG PO SCH (16:16)
[2019-11-22] MEDS: ECOTRIN 81 MG PO SCH (16:16)
[2019-11-22] MEDS: Lexapro 10 MG PO SCH (17:00)
--- NOTE | 2019-11-22 18:57 | XRAY ---
Indication: Cough. Shingles. History COPD. Comparison: November 08, 2019. PA/lateral chest unchanged again demonstrating COPD, right apical fibrosis/scarring, and bilateral suture material. No focal infiltrate, consolidation, or large effusion. Heart is not enlarged. No new/acute findings. Impression: Continued nonacute chest with chronic features.
[2019-11-22] MEDS: ADVAIR 250-50 DISKUS 14 DOSE IH SCH (19:11)
[2019-11-22] MEDS ORDERED: Bactroban OINTMENT ONE (21:54)
[2019-11-22] MEDS: Bactroban OINTMENT TP PRN (21:59)
[2019-11-22] MEDS ORDERED: ZOCOR 20MG PO SCH (22:00)
[2019-11-22] MEDS: ATARAX 25 MG PO PRN (22:00)
[2019-11-22] MEDS ORDERED: NON-FORMULARY ITEM (Calcium Carbonate/Vitamin D3 [Calcium 1,000 + D3 Caplet] 1 EACH) PO SCH (22:00)
[2019-11-22] MEDS ORDERED: PROVENTIL Solution 2.5 MG/0.5 ML IH SCH (22:00)
[2019-11-22] MEDS: Colace 100 MG PO PRN (23:10)
[2019-11-23] MEDS: Norco 10/325 MG Tablet PO PRN ×2 (01:55→08:13)
[2019-11-23] MEDS: DUONEB 0.5-3 MG/3 ml Neb IH SCH ×3 (03:00→10:24)
[2019-11-23] MEDS: ATARAX 25 MG PO PRN (05:29)
[2019-11-23] MEDS: Bactroban OINTMENT TP PRN ×2 (05:30→09:35)
[2019-11-23] MEDS ORDERED: Spiriva 18 Mcg/Cap Inhaler IH ONE (06:35)
[2019-11-23] MEDS: ZOVIRAX IV SCH (06:49)
[2019-11-23] MEDS: WATER IV SCH (06:49)
[2019-11-23] MEDS: DEXTROSE IV SCH (06:49)
[2019-11-23] MEDS: ADVAIR 250-50 DISKUS 14 DOSE IH SCH (07:00)
--- NOTE | 2019-11-23 08:53 | XRAY ---
Indication: COPD. Comparison: One day earlier. Portable chest continues to demonstrate COPD, right apical fibrosis/scarring, and bilateral lung suture material. Heart is not enlarged. No new/acute findings.
[2019-11-23] MEDS: XARELTO 10 MG TABLET PO SCH (09:28)
[2019-11-23] MEDS: Pepcid 20 MG PO SCH (09:28)
[2019-11-23] MEDS: Lexapro 10 MG PO SCH (09:30)
[2019-11-23] MEDS: Mucinex 600MG ER Tabs PO SCH (09:30)
[2019-11-23] MEDS: THERAGRAN MULTIVITAMIN PO SCH (09:30)
[2019-11-23] MEDS: Toprol Xl 100 MG PO SCH (09:31)
[2019-11-23] MEDS: Klor Con 10 MEQ PO SCH (09:32)
[2019-11-23] MEDS: hydroDIURIL 25 MG PO SCH (09:32)
[2019-11-23] MEDS: ECOTRIN 81 MG PO SCH (09:32)
[2019-11-23] MEDS: Imdur 30 MG PO SCH (09:32)
[2019-11-23] MEDS: Protonix 40MG Tablet PO SCH (09:32)
[2019-11-23] MEDS: Calcium 500MG W/Vit D Tablet PO SCH (09:32)
[2019-11-23] MEDS: DELTASONE 10 MG PO SCH (09:33)
[2019-11-23] MEDS: Vitamin C 500 MG PO SCH (09:33)
[2019-11-23] MEDS: DALIRESP PO SCH (09:33)
[2019-11-23] MEDS ORDERED: Spiriva 18 Mcg/Cap Inhaler IH SCH (10:00)
[2019-11-23] MEDS ORDERED: MULTIVIT WITH CALCIUM IRON MIN PO SCH (10:00)
[2019-11-23 10:06] VITALS: BP 172/82
[2019-11-23 10:29] VITALS: PULSE 94; O2SAT 100
[2019-11-23] MEDS: Colace 100 MG PO PRN (10:30)
--- NOTE | 2019-11-23 12:03 | SSS ---
DISCHARGE DIAGNOSES: 1) CHRONIC OBSTRUCTIVE PULMONARY DISEASE EXACERBATION. 2) RECENT SHINGLES OUTBREAK. 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 HISTORY: The patient is a 63 year-old white female who presented to the emergency room with complaints of shingles outbreak. She had been given acyclovir but she has not been able to take all of the medication. The patient reported she had some nausea and vomiting. The patient has a long history of chronic obstructive pulmonary disease and multiple admissions to the hospital for the same. The patient had however complained mostly of pain over her shingles area. She had been given Percocet on discharge from last time in the hospital and she had [place] already at home to take. The patient had called our office on Saturday wanting more pain medication but she was declined this due to the fact that she already had the Percocet and [place]. The patient presented herself to the emergency room mostly due to complaints of the pain which was not under control and was admitted to the hospital for pain medication and management of her chronic obstructive pulmonary disease. PAST MEDICAL/SURGICAL HISTORY: Again significant for severe chronic obstructive pulmonary disease. She has gastroesophageal reflux disease, history of anxiety and depression. She had right lobectomy, benign nodules in the lung which had been removed as well. She had a hysterectomy in 1990. HOME MEDICATIONS: Aspirin, docusate sodium, famotidine, nitroglycerin, potassium, Simvastatin, isosorbide, calcium with vitamin D, metoprolol Xarelto, Protonix, hydrodiuril, Breo Ellipta, Albuterol, vitamin C, guaifenesin, Daliresp, Spiriva, hydrocodone, oxycodone, prednisone, promethazine, Lexapro. ALLERGIES: CIPRO. THEOPHYLLINE. PENICILLIN. IODINE. ZITHROMAX. LISINOPRIL. CLINDAMYCIN. HYDROMORPHONE. BUNESTHEMIDE FROM SYMBICORT. TRELEGY ELLIPTA. PHYSICAL EXAMINATION: Vital signs on admission showed temperature 98.4F, pulse 100, blood pressure 183/121. HEENT: Normocephalic, atraumatic. Pupils equal round reactive to light. Extraocular movements intact. Oropharynx is pink and moist. NECK: Supple without lymphadenopathy, thyromegaly or JVD. CHEST: Reveals bilateral wheezes and rales. HEART: Regular rate and rhythm. ABDOMEN: Soft. No palpable masses. EXTREMITIES: Without cyanosis, clubbing or edema. NEUROLOGIC: The patient is alert and oriented x3. No focal deficits are noted. LAB DATA AND TESTS: Troponins less than 0.012. White count 20,400, hemoglobin 14.1, PLT count 403,000. There appeared to be a possible mild left shift with 1 band and 66 polys. Her glucose is 138, BUN 17, creatinine 0.75. Electrolytes were essentially normal as were liver enzymes. ProBNP was normal. Influenza A, B and respiratory syncytial virus were negative. She had chest x-ray which was nonacute with chronic features. EKG showed normal sinus rhythm. HOSPITAL COURSE: After discussion with the patient by the next morning during the hospital stay, the patient freely admitted she was here mostly for her pain control. She reports that Vicodin is doing nothing and the Percocet is not helping enough and she is concerned here for the COVID-19 infection in the area should she come in contact with it that it is quite likely she would not survive the illness. We instructed the patient since the only reason for her visit at this point in time over her usual state of health is for pain control that we would give her morphine for her pain control to take orally and that she should stay home and not return to the hospital unless she had deterioration of illness with extreme shortness of breath that she could not control with her usual home medications.
== END 2019-11-23 11:22 | disposition home or self-care (01) ==
LOC: ED 08:12 → MED SURG 11:17
PROVIDERS: ADMIT General Practice; ATTEND Family Medicine
DX: J44.1 Chronic obstructive pulmonary disease with (acute) exacerbation (principal); B02.9 Zoster without complications; G62.9 Polyneuropathy, unspecified; Z79.899 Other long term (current) drug therapy; R06.02 Shortness of breath
CPT/HCPCS: 36000; 36415; 71045; 71046; 80053; 83880; 84484; 85025; 87631; 93005; 93041; 93268; 94150; 94640; 94760; 96360; 96365; 96374; 99285; G0378; J0133; J0456; J0696; J1200; A9270-GY

== ENCOUNTER 2019-11-27 12:26 | Emergency (ER) | payer MEDICARE ==
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
[2019-11-27] MEDS ORDERED: PROVENTIL 2.5 MG/3 ML NEB IH ONE (12:48)
[2019-11-27 13:08] LABS: Absolute Neutrophil Ct (ANC) 13.53 (1.4-6.9); BASOPHIL % 0.1 % (0.0-0.4); Basophil (Absolute #) 0.02 (0-0.4); Eosinophil % 0.3 % (0.00-5.0); Eosinophil (Absolute #) 0.05 (0-0.5); Hematocrit 40.5 % (35-47); Hemoglobin 12.6 gm/dl (12.0-16.0); Lymphocytes % 11.5 % (24.0-44.0); Mean Cell Volume 96.7 fl (78-100); Mean Corpuscular Hemoglobin 30.1 pg (26-32); Mean Corpuscular Hgb Concent. 31.1 g/dl (32-36); Mean Platelet Volume 8.8 fl (7.5-11.0); Monocyte (Absolute #) 1.74 (0.0-1.3); Neutrophil % 78.1 % (36.0-66.0); Platelet Count 285 K/mm3 (150-450); Red Blood Count 4.19 M/mm3 (4.1-5.4); Red Cell Distribution Width 12.6 % (11.5-14.0); White Blood Count 17.3 K/mm3 (4.0-10.5)
[2019-11-27] MEDS ORDERED: Zofran 4 MG/2 ML VIAL IV ONE (13:13)
[2019-11-27] MEDS ORDERED: solu-MEDROL 125 MG IV ONE (13:14)
--- NOTE | 2019-11-27 13:27 | XRAY ---
Indication: Chest pain and short of breath 1 week. Comparison: November 23, 2019. Portable chest continues to remain unchanged again demonstrating COPD, right apical fibrosis/scarring, and bilateral lung suture material. Heart is not enlarged. No new/acute findings.
[2019-11-27] MEDS ORDERED: Zofran 4 MG/2 ML VIAL ONE (13:30)
[2019-11-27] MEDS ORDERED: solu-MEDROL 125 MG ONE (13:32)
[2019-11-27] MEDS ORDERED: MORPHINE SULFATE 10 MG/ML ONE (13:32)
[2019-11-27 13:33] LABS: BLOOD UREA NITROGEN 17 mg/dL (7-17); CHLORIDE 84 mmol/L (98-107); Calcium 9.3 mg/dL (8.4-10.2); Creatinine 1 0.59 mg/dL (0.52-1.04); Glucose 143 mg/dL (74-106); NT PRO BNP 225 pg/mL (0-900); Potassium 3.4 mmol/L (3.5-5.1); SODIUM 130 mmol/L (137-145)
[2019-11-27] MEDS: MORPHINE SULFATE 10 MG/ML IV ONE ×2 (13:43→13:46)
[2019-11-27 13:45] LABS: Carbon Dioxide 38 mmol/L (22-30)
[2019-11-27 13:46] LABS: ANION GAP 11.4 MEQ/L (5-15)
[2019-11-27] MEDS ORDERED: DUONEB 0.5-3 MG/3 ml Neb IH ONE (13:50)
[2019-11-27 14:20] VITALS: PULSE 88
[2019-11-27 15:12] VITALS: BP 122/77; O2SAT 100
== END 2019-11-27 15:12 | disposition home or self-care (01) ==
LOC: ED 12:26
DX: J44.1 Chronic obstructive pulmonary disease with (acute) exacerbation (principal); F41.9 Anxiety disorder, unspecified; F32.9 Major depressive disorder, single episode, unspecified; Z79.899 Other long term (current) drug therapy; I10 Essential (primary) hypertension
CPT/HCPCS: 36000; 36415; 71045; 80048; 83605; 83880; 84484; 85025; 93005; 93041; 94640; 94760; 96374; 96375; 96376; 99284; J2270; J2405; J2930; J7609; A9270-GY

== ENCOUNTER 2020-01-01 16:36 | Emergency (ER) | payer MEDICARE, SELFPAY ==
[2020-01-01] MEDS ORDERED: solu-MEDROL 125 MG IV ONE (16:43)
[2020-01-01] MEDS ORDERED: Pepcid 20 MG VIAL IV ONE ×2 (16:43→17:01)
[2020-01-01] MEDS ORDERED: Sodium Chloride 0.9% 1000 ML 1,000 ML IV STA (16:43)
[2020-01-01] MEDS ORDERED: BENADRYL 50 MG/ML IV ONE (16:43)
[2020-01-01] MEDS ORDERED: Zofran 4 MG/2 ML VIAL IV ONE (16:43)
[2020-01-01] MEDS ORDERED: EPINEPHRINE 1MG/ML AMP IM ONE (16:43)
[2020-01-01] MEDS ORDERED: Zofran 4 MG/2 ML VIAL ONE ×2 (17:01→17:17)
[2020-01-01] MEDS ORDERED: BENADRYL 50 MG/ML ONE (17:01)
[2020-01-01] MEDS ORDERED: EPINEPHRINE 1MG/ML AMP ONE (17:02)
[2020-01-01] MEDS ORDERED: Sodium Chloride 0.9% 1000 ML 1,000 ML ONE (17:02)
[2020-01-01] MEDS ORDERED: solu-MEDROL 125 MG ONE (17:02)
[2020-01-01 17:05] LABS: Hematocrit 36.9 % (35-47); Hemoglobin 11.2 gm/dl (12.0-16.0); Mean Cell Volume 98.7 fl (78-100); Mean Corpuscular Hemoglobin 29.9 pg (26-32); Mean Corpuscular Hgb Concent. 30.4 g/dl (32-36); Mean Platelet Volume 9.3 fl (7.5-11.0); Platelet Count 334 K/mm3 (150-450); Red Blood Count 3.74 M/mm3 (4.1-5.4); Red Cell Distribution Width 13.1 % (11.5-14.0); White Blood Count 11.2 K/mm3 (4.0-10.5)
--- NOTE | 2020-01-01 17:14 | XRAY ---
Indication: Bilateral arm numbness. Comparison: November 27, 2019. Portable chest unchanged again demonstrating chronic findings including COPD, right apical fibrosis/scarring, and bilateral lung suture material. Heart is not enlarged. No new/acute findings.
[2020-01-01 17:20] LABS: BAND 4 % (0.0-2.0); Lymphocytes 12 % (24-44); Monocyte 14 % (0.0-12.0); Neutrophils 70 % (36.0-66.0); Total Cells Counted 100
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
[2020-01-01 17:21] LABS: Platelet Estimate NORMAL (NORMAL)
[2020-01-01 17:33] LABS: ALBUMIN 3.6 g/dL (3.5-5.0); ANION GAP 14.3 MEQ/L (5-15); BILIRUBIN,TOTAL 0.6 mg/dL (0.2-1.3); Calcium 9.8 mg/dL (8.4-10.2); Creatinine 1 1.04 mg/dL (0.52-1.04); Potassium 3.1 mmol/L (3.5-5.1); Total Protein 6.7 g/dL (6.3-8.2)
[2020-01-01] MEDS ORDERED: DUONEB 0.5-3 MG/3 ml Neb IH ONE ×2 (17:34→17:38)
[2020-01-01] MEDS ORDERED: Klor Con 10 MEQ PO ONE ×2 (19:36→19:43)
[2020-01-01 21:05] LABS: Appearance SLIGHTLY CLOUDY (CLEAR); Bilirubin NEGATIVE (NEGATIVE); Blood NEGATIVE Ery/ul (0-5); Glucose NEGATIVE (NEGATIVE); Hyaline Casts 26-50 /LPF (0-2); Ketones TRACE (NEGATIVE); Leukocyte Esterase TRACE (NEGATIVE); Mucus SLIGHT /HPF (NEGATIVE); Nitrite NEGATIVE (NEGATIVE); Protein,Urine Dip NEGATIVE (Negative); Urobilinogen NEGATIVE mg/dL (0-1)
[2020-01-01] MEDS ORDERED: Sodium Chloride 0.9% 500 ML 500 ML IV ONE ×2 (21:21→21:26)
[2020-01-01 22:41] VITALS: BP 96/50; PULSE 72; O2SAT 97
== END 2020-01-01 22:59 | disposition home or self-care (01) ==
LOC: ED 16:36
DX: K14.8 Other diseases of tongue (principal); E87.6 Hypokalemia; I50.9 Heart failure, unspecified; I25.10 Atherosclerotic heart disease of native coronary artery without angina pectoris; I10 Essential (primary) hypertension; E78.00 Pure hypercholesterolemia, unspecified; J44.9 Chronic obstructive pulmonary disease, unspecified; Z86.711 Personal history of pulmonary embolism; K21.9 Gastro-esophageal reflux disease without esophagitis; F41.9 Anxiety disorder, unspecified; F32.9 Major depressive disorder, single episode, unspecified; Z72.0 Tobacco use; Z79.01 Long term (current) use of anticoagulants; Z79.899 Other long term (current) drug therapy
CPT/HCPCS: 36000; 36415; 71045; 80053; 81001; 82962; 84484; 85025; 93005; 93041; 94640; 96360; 96361; 96372; 96374; 96375; 99285; J0171; J1200; J2405; J2930; A9270-GY

== ENCOUNTER 2020-07-23 01:28 | Emergency (ER) | payer MEDICARE, SELFPAY ==
[2020-07-23] MEDS ORDERED: solu-MEDROL 125 MG IM ONE (02:00)
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
[2020-07-23] MEDS ORDERED: solu-MEDROL 125 MG ONE (02:17)
[2020-07-23 02:32] VITALS: BP 100/53; PULSE 101; O2SAT 98
== END 2020-07-23 02:38 | disposition home or self-care (01) ==
LOC: ED 01:28
DX: J44.1 Chronic obstructive pulmonary disease with (acute) exacerbation (principal)
CPT/HCPCS: 36000; 93005; 96372; 99284; U0003; J2930

== ENCOUNTER 2020-10-28 02:25 | Emergency (ER) | payer MEDICARE, OTHER ==
[2020-10-28 02:43] VITALS: O2SAT 99
[2020-10-28] MEDS ORDERED: DUONEB 0.5-3 MG/3 ml Neb IH ONE ×2 (03:25→03:33)
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
[2020-10-28] MEDS ORDERED: ZOVIRAX 800 MG PO ONE (03:56)
[2020-10-28] MEDS ORDERED: ZOVIRAX 200 MG ONE (04:00)
[2020-10-28] MEDS ORDERED: ZOVIRAX 200 MG PO ONE (04:02)
[2020-10-28 05:10] VITALS: BP 139/73; PULSE 88
--- NOTE | 2020-10-28 08:59 | XRAY ---
Indication: Short of breath. Comparison: January 01, 2020. Portable chest unchanged again demonstrating COPD, right apical fibrosis/scarring, and bilateral lung suture material. Heart and mediastinal structures within normal limits. Bony thorax intact again with mild osteopenia, degenerative changes, and mild levoscoliosis. Impression: Continued nonacute chest with chronic features.
== END 2020-10-28 05:20 | disposition home or self-care (01) ==
LOC: ED 02:25
DX: J44.1 Chronic obstructive pulmonary disease with (acute) exacerbation (principal); B02.9 Zoster without complications; I50.9 Heart failure, unspecified; I25.10 Atherosclerotic heart disease of native coronary artery without angina pectoris; E78.00 Pure hypercholesterolemia, unspecified; I10 Essential (primary) hypertension; I73.9 Peripheral vascular disease, unspecified; Z79.899 Other long term (current) drug therapy; Z79.01 Long term (current) use of anticoagulants; Z79.891 Long term (current) use of opiate analgesic
CPT/HCPCS: 71045; 94640; 99284; A9270-GY

== ENCOUNTER 2020-11-14 11:38 | Observation (INO) | payer MEDICARE ==
[2020-11-14] MEDS: Sodium Chloride 0.9% 1000 ML 1,000 ML IV SCH ×2 (11:51→21:27)
[2020-11-14 12:12] LABS: Absolute Neutrophil Ct (ANC) 8.82 (1.4-6.9); BASOPHIL % 0.1 % (0.0-0.4); Basophil (Absolute #) 0.01 (0-0.4); Eosinophil % 0.4 % (0.00-5.0); Eosinophil (Absolute #) 0.05 (0-0.5); Hematocrit 37.2 % (35-47); Hemoglobin 9.9 gm/dl (12.0-16.0); Lymphocytes % 22.5 % (24.0-44.0); Mean Cell Volume 110.4 fl (78-100); Mean Corpuscular Hemoglobin 29.4 pg (26-32); Mean Corpuscular Hgb Concent. 26.6 g/dl (32-36); Monocyte (Absolute #) 1.45 (0.0-1.3); Monocytes % 10.9 % (0.0-12.0); Neutrophil % 66.1 % (36.0-66.0); Platelet Count 182 K/mm3 (150-450); Red Blood Count 3.37 M/mm3 (4.1-5.4); Red Cell Distribution Width 14.5 % (11.5-14.0); White Blood Count 13.3 K/mm3 (4.0-10.5)
--- NOTE | 2020-11-14 12:19 | XRAY ---
Indication: Short of breath. Comparison: October 28, 2020. Portable chest unchanged again demonstrating COPD, right apical fibrosis/scarring, and bilateral lung suture material. Heart is not enlarged. Bony thorax intact without new/acute findings. Impression: Continued nonacute chest with chronic features.
[2020-11-14 12:20] LABS: A-aADO2 37; ABG HEMOGLOBIN 9.4; ABG POTASSIUM 4.1 (3.5-5.1); ARTERIAL BLD GAS O2 SATURATION 99.6 % (95-100); ARTERIAL BLOOD GAS BASE EXCESS 23.6 (-2.0-2.0); ARTERIAL BLOOD GAS FIO2 40 %; ARTERIAL BLOOD GAS PO2 139 mmHg (75-100); CARBOXYHEMOGLOBIN 1.4 % THgb (0.0-6.9); HCO3- 53.9 (22-28); HGB O2 SAT 97.6 g/dF (94-100); Lactic Acid 0.9 (0.4-2.0); Methhemoglobin 0.6 % (1.4-1.5)
[2020-11-14 12:21] LABS: ARTERIAL BLOOD GAS PCO2 87 mmHg (35-45)
[2020-11-14 12:22] LABS: INR 0.87 (0.8-3.0); PROTIME 9.8 SECONDS (9.95-12.35)
[2020-11-14 12:25] LABS: PTT 25.4 SECONDS (25.3-37.0)
[2020-11-14 12:42] LABS: ALBUMIN 3.6 g/dL (3.5-5.0); ALKALINE PHOSPHATASE 44 U/L (38-126); BLOOD UREA NITROGEN 12 mg/dL (7-17); CHLORIDE 92 mmol/L (98-107); Calcium 9.7 mg/dL (8.4-10.2); Creatinine 1 0.64 mg/dL (0.52-1.04); EST GLOMERULAR FILTRATION RATE > 60.0 ML/MIN; Glucose 80 mg/dL (74-106); MAGNESIUM 2.5 mg/dL (1.6-2.3); NT PRO BNP 1530 pg/mL (0-900); Potassium 4.4 mmol/L (3.5-5.1); SGOT/AST 25 U/L (14-36); SGPT/ALT 21 U/L (0-35); SODIUM 140 mmol/L (137-145); Total Protein 6.2 g/dL (6.3-8.2)
[2020-11-14 12:47] LABS: Appearance CLEAR (CLEAR); Bilirubin NEGATIVE (NEGATIVE); Blood NEGATIVE Ery/ul (0-5); Glucose >=500 mg/dL (NEGATIVE); Ketones NEGATIVE (NEGATIVE); Leukocyte Esterase NEGATIVE (NEGATIVE); Mucus SLIGHT /HPF (NEGATIVE); Nitrite NEGATIVE (NEGATIVE); Protein,Urine Dip 30 (Negative); Urobilinogen NEGATIVE mg/dL (0-1); WBC 0-2 /HPF (0-5)
[2020-11-14 12:48] LABS: INFLUENZA A NEGATIVE (NEGATIVE); INFLUENZA B NEGATIVE (NEGATIVE)
[2020-11-14 13:04] LABS: ANION GAP 6.4 MEQ/L (5-15); Carbon Dioxide 46 mmol/L (22-30)
[2020-11-14] MEDS ORDERED: NARCAN 2 MG/2 ML IV ONE (13:24)
[2020-11-14] MEDS ORDERED: NARCAN 2 MG/2 ML ONE (13:26)
[2020-11-14] MEDS ORDERED: Lasix 40 MG/4 ML IV ONE (13:54)
[2020-11-14] MEDS ORDERED: Lasix 40 MG/4 ML ONE (14:01)
[2020-11-14 14:11] LABS: Amphetamine,Urine NEGATIVE (NEGATIVE); Barbiturate,Urine NEGATIVE (NEGATIVE); Benzodiazepine,Urine POSITIVE (NEGATIVE); Cocaine,Urine NEGATIVE (NEGATIVE); Methadone,Urine NEGATIVE (NEGATIVE); Opiate,Urine POSITIVE (NEGATIVE); THC,Urine NEGATIVE (NEGATIVE)
[2020-11-14] MEDS ORDERED: DUONEB 0.5-3 MG/3 ml Neb IH ONE ×2 (14:15→14:19)
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
[2020-11-14] MEDS ORDERED: Ativan 2 MG/1 ML VIAL ONE (14:21)
[2020-11-14 14:23] LABS: PCP,Urine NEGATIVE (NEGATIVE)
[2020-11-14] MEDS ORDERED: Ativan 2 MG/1 ML VIAL IV ONE (14:23)
[2020-11-14] MEDS ORDERED: Sodium Chloride 0.9% 1000 ML 1,000 ML IV SCH (14:30)
[2020-11-14] MEDS ORDERED: ZOFRAN ODT 4 MG PO PRN (14:36)
[2020-11-14] MEDS ORDERED: K-LYTE 25 MEQ PO ONE ×2 (14:37→18:42)
[2020-11-14] MEDS ORDERED: NORCO 5/325 MG PO PRN (14:46)
[2020-11-14 14:57] LABS: Slide Review 1 YES
[2020-11-14 15:26] LABS: INFLUENZA A NEGATIVE (NEGATIVE); INFLUENZA B NEGATIVE (NEGATIVE); RESPIRATORY SYNCTIAL VIRUS NEGATIVE (Negative)
[2020-11-14] MEDS: DUONEB 0.5-3 MG/3 ml Neb IH SCH ×3 (15:57→22:34)
[2020-11-14] MEDS ORDERED: MORPHINE SULFATE 4 MG INJ IV PRN (18:50)
[2020-11-14] MEDS ORDERED: Zofran 4 MG/2 ML VIAL IV PRN (18:53)
[2020-11-14] MEDS: ROCEPHIN 1 Gm-D5w 50 ml Bag** 1 G/50 ML IVPB IV SCH (19:02)
[2020-11-14] MEDS ORDERED: xanAX 0.5 MG PO PRN (19:26)
[2020-11-14] MEDS ORDERED: Tessalon Perles 100 MG PO PRN (19:26)
[2020-11-14] MEDS ORDERED: Lotrisone Cream TOP PRN (19:30)
[2020-11-14 20:00] LABS: ABG SITE rr
[2020-11-14] MEDS ORDERED: DELTASONE 10 MG ONE (21:16)
[2020-11-14] MEDS: Protonix 40MG Tablet PO SCH (21:29)
[2020-11-14] MEDS: Neurontin 100 MG PO SCH (21:29)
[2020-11-14] MEDS: Pepcid 20 MG PO SCH (21:29)
[2020-11-14] MEDS: Klor Con 10 MEQ PO SCH (21:29)
[2020-11-14] MEDS: solu-MEDROL 40 MG IV SCH (21:29)
[2020-11-14] MEDS ORDERED: xanAX 0.25 MG PO SCH (22:00)
[2020-11-14] MEDS ORDERED: DELTASONE 20 MG PO SCH (22:00)
[2020-11-14] MEDS ORDERED: Colace 100 MG PO SCH (22:00)
[2020-11-15] MEDS: DUONEB 0.5-3 MG/3 ml Neb IH SCH ×6 (02:39→23:35)
[2020-11-15 04:57] LABS: Hematocrit 33.8 % (35-47); Hemoglobin 9.1 gm/dl (12.0-16.0); Mean Cell Volume 108.7 fl (78-100); Mean Corpuscular Hemoglobin 29.3 pg (26-32); Mean Corpuscular Hgb Concent. 26.9 g/dl (32-36); Platelet Count 189 K/mm3 (150-450); Red Blood Count 3.11 M/mm3 (4.1-5.4); Red Cell Distribution Width 14.6 % (11.5-14.0); White Blood Count 11.8 K/mm3 (4.0-10.5)
[2020-11-15 05:25] LABS: ALBUMIN 3.1 g/dL (3.5-5.0); ALKALINE PHOSPHATASE 45 U/L (38-126); BLOOD UREA NITROGEN 12 mg/dL (7-17); CHLORIDE 91 mmol/L (98-107); Calcium 9.1 mg/dL (8.4-10.2); Creatinine 1 0.62 mg/dL (0.52-1.04); EST GLOMERULAR FILTRATION RATE > 60.0 ML/MIN; Glucose 119 mg/dL (74-106); Potassium 4.9 mmol/L (3.5-5.1); SGOT/AST 23 U/L (14-36); SGPT/ALT 19 U/L (0-35); SODIUM 139 mmol/L (137-145); Total Protein 5.5 g/dL (6.3-8.2)
[2020-11-15 05:39] LABS: Carbon Dioxide 47 mmol/L (22-30)
[2020-11-15 05:40] LABS: ANION GAP 5.9 MEQ/L (5-15)
[2020-11-15 06:13] LABS: Slide Review YES
[2020-11-15] MEDS: Sodium Chloride 0.9% 1000 ML 1,000 ML IV SCH ×2 (07:00→17:37)
[2020-11-15] MEDS ORDERED: Colace 100 MG PO PRN (07:30)
--- NOTE | 2020-11-15 08:53 | XRAY ---
Indication: COPD. Comparison: One day earlier. Portable chest remains unchanged again demonstrating COPD, right apical fibrosis/scarring, and bilateral lung suture material. Heart and mediastinal structures within normal limits. No new/acute findings.
[2020-11-15] MEDS: ROCEPHIN 1 Gm-D5w 50 ml Bag** 1 G/50 ML IVPB IV SCH (09:57)
[2020-11-15] MEDS: solu-MEDROL 40 MG IV SCH (09:59)
[2020-11-15] MEDS ORDERED: LIDOCAINE TOP SCH (10:00)
[2020-11-15] MEDS ORDERED: Duragesic 25MCG Patch TOP SCH (10:00)
[2020-11-15] MEDS ORDERED: Lidoderm Patch 5% TOP SCH (10:00)
[2020-11-15] MEDS ORDERED: Lexapro 10 MG PO SCH (10:00)
[2020-11-15] MEDS ORDERED: Lasix 40 MG PO SCH (10:00)
[2020-11-15] MEDS: Lasix 40 MG/4 ML IV SCH (10:01)
[2020-11-15] MEDS: Protonix 40MG Tablet PO SCH ×2 (10:05→22:37)
[2020-11-15] MEDS: Vitamin C 500 MG PO SCH (10:06)
[2020-11-15] MEDS: Lexapro 10 MG PO SCH (10:06)
[2020-11-15] MEDS: Toprol Xl 100 MG PO SCH (10:07)
[2020-11-15] MEDS: Pepcid 20 MG PO SCH ×2 (10:07→22:36)
[2020-11-15] MEDS: Imdur 30 MG PO SCH (10:07)
[2020-11-15] MEDS: Neurontin 100 MG PO SCH ×3 (10:09→22:36)
[2020-11-15] MEDS: DELTASONE 10 MG PO SCH ×2 (10:09→22:36)
[2020-11-15] MEDS: Klor Con 10 MEQ PO SCH ×2 (10:09→22:36)
[2020-11-15] MEDS: XARELTO 10 MG TABLET PO SCH (10:09)
--- NOTE | 2020-11-15 10:24 | PCM.HP ---
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 mmol/L Chloride (98-107) mmol/L Carbon Dioxide (22-30) mmol/L Anion Gap (5-15) MEQ/L BUN (7-17) mg/dL Creatinine (0.52-1.04) mg/dL Estimated GFR ML/MIN Glucose (74-106) mg/dL POC Glucometer 101 90 (74 to 106) mg/dL Hemoglobin A1c (4.5-6.0) % Lactic Acid (0.4-2.0) Calcium (8.4-10.2) mg/dL Magnesium (1.6-2.3) mg/dL Total Bilirubin (0.2-1.3) mg/dL AST (14-36) U/L ALT (0-35) U/L Alkaline Phosphatase (38-126) U/L Troponin I (0.000-0.034) ng/mL NT-Pro-B Natriuret Pep (0-900) pg/mL Serum Total Protein (6.3-8.2) g/dL Albumin (3.5-5.0) g/dL Procalcitonin (0.030-0.080) ng/mL Urine Color (YELLOW) Urine Appearance (CLEAR) Urine pH (5-6) Ur Specific [place] (1.005-1.025) Urine Protein (Negative) Urine Ketones (NEGATIVE) Urine Blood (0-5) Matias/ul Urine Nitrite (NEGATIVE) Urine Bilirubin (NEGATIVE) Urine Urobilinogen (0-1) mg/dL Ur Leukocyte Esterase (NEGATIVE) Urine WBC (Auto) (0-5) /HPF Urine RBC (Auto) (0-2) /HPF U Hyaline Cast (Auto) (0-2) /LPF U Epithel Cells (Auto) (FEW) /HPF Urine Bacteria (Auto) (NEGATIVE) /HPF Urine Mucus (Auto) (NEGATIVE) /HPF Urine Culture Reflexed (NO) Urine Glucose (NEGATIVE) mg/dL Urine Opiates Level (NEGATIVE) Ur Methadone (NEGATIVE) Urine Barbiturates (NEGATIVE) Ur Phencyclidine (PCP) (NEGATIVE) Urine Amphetamine (NEGATIVE) U Benzodiazepine Level (NEGATIVE) Urine Cocaine (NEGATIVE) Urine Marijuana (THC) (NEGATIVE) Influenza Type A Ag (NEGATIVE) Influenza Type B Ag (NEGATIVE) RSV (PCR) (Negative) SARS-CoV-2 (PCR) (NEGATIVE) Slides for Path Review Accuchecks Date 11/15/20 Date 11/15/20 Date 11/14/20 Time 05:35 Time 00:00 - Radiology Impressions Radiology Exams & Impressions: Radiology Procedures Category Date Time Status CHEST 1 VIEW (PORTABLE) Routine Exams 11/15/20 12:01 Completed CHEST 1 VIEW (PORTABLE) Stat Exams 11/14/20 11:40 Completed FOOT (2 VIEWS) Routine Exams 11/15/20 Ordered - Other Procedures and Tests Respiratory Therapy 11/14/20 14:39 Respiratory Therapy Assessment DAILY 11/14/20 14:40 Oxygen Nasal Cannula 5 lpm Assessment/Plan (1) COPD exacerbation Current Visit: Yes Status: Acute Assessment & Plan: end stage copd appears to be at baseline Code(s): J44.1 - CHRONIC OBSTRUCTIVE PULMONARY DISEASE W (ACUTE) EXACERBATION (2) Altered mental status Current Visit: Yes Status: Acute Assessment & Plan: likely secondary to multiple sedative medications, will reduce medications and monitor. plan to return home on hospice if able to be more alert and awake with reduce risk of falls Code(s): R41.82 - ALTERED MENTAL STATUS, UNSPECIFIED (3) Right foot pain Current Visit: Yes Status: Acute Assessment & Plan: report of fracture, per daughter hospice sent a boot that doesn't fit which likely contributes to falls, currently has nothing in place. will xray foot and order appropriate dme if needed Code(s): M79.671 - PAIN IN RIGHT FOOT (4) Falls Current Visit: Yes Status: Acute Code(s): W19.XXXA - UNSPECIFIED FALL, INITIAL ENCOUNTER
--- NOTE | 2020-11-15 10:49 | XRAY ---
Indication: Pain following fall. Comparison: None 2 nonweightbearing views right foot demonstrates osteopenia and a minimally displaced oblique fracture shaft 5th metatarsal. No other bony, articular, or soft tissue abnormalities.
[2020-11-16] MEDS: DUONEB 0.5-3 MG/3 ml Neb IH SCH ×3 (03:15→11:03)
[2020-11-16 05:05] LABS: Absolute Neutrophil Ct (ANC) 8.36 (1.4-6.9); BASOPHIL % 0.1 % (0.0-0.4); Basophil (Absolute #) 0.01 (0-0.4); Eosinophil % 0.3 % (0.00-5.0); Eosinophil (Absolute #) 0.03 (0-0.5); Hematocrit 32.8 % (35-47); Hemoglobin 9.3 gm/dl (12.0-16.0); Lymphocyte (Absolute #) 1.41 (1.0-4.6); Lymphocytes % 13.4 % (24.0-44.0); Mean Cell Volume 105.1 fl (78-100); Mean Corpuscular Hemoglobin 29.8 pg (26-32); Mean Corpuscular Hgb Concent. 28.4 g/dl (32-36); Monocyte (Absolute #) 0.71 (0.0-1.3); Monocytes % 6.7 % (0.0-12.0); Neutrophil % 79.5 % (36.0-66.0); Platelet Count 176 K/mm3 (150-450); Red Blood Count 3.12 M/mm3 (4.1-5.4); Red Cell Distribution Width 14.9 % (11.5-14.0); White Blood Count 10.5 K/mm3 (4.0-10.5)
[2020-11-16 05:32] LABS: ALBUMIN 3.1 g/dL (3.5-5.0); ALKALINE PHOSPHATASE 42 U/L (38-126); BLOOD UREA NITROGEN 14 mg/dL (7-17); CHLORIDE 92 mmol/L (98-107); Calcium 9.1 mg/dL (8.4-10.2); Creatinine 1 0.63 mg/dL (0.52-1.04); EST GLOMERULAR FILTRATION RATE > 60.0 ML/MIN; Glucose 102 mg/dL (74-106); Potassium 4.6 mmol/L (3.5-5.1); SGOT/AST 25 U/L (14-36); SGPT/ALT 18 U/L (0-35); SODIUM 134 mmol/L (137-145); Total Protein 5.5 g/dL (6.3-8.2)
[2020-11-16 05:41] LABS: Carbon Dioxide 40 mmol/L (22-30)
[2020-11-16 05:57] LABS: ANION GAP 6.6 MEQ/L (5-15)
[2020-11-16 07:04] LABS: Slide Review 1 YES
[2020-11-16] MEDS ORDERED: NORCO 5/325 MG PO PRN (09:31)
--- NOTE | 2020-11-16 09:35 | PCM.NOTE ---
Date and Time: 11/16/20931 Subjective Assessment: patient is more awake and alert but remains confused, unaware of place or time. complains of pain Objective Exam General Appearance: no apparent distress, cachetic Neurologic Exam: alert, No oriented x 3 Respiratory Exam: diminished breath sounds, prolonged expirations Cardiovascular Exam: regular rate/rhythm, normal heart sounds Gastrointestinal/Abdomen Exam: soft, No tenderness, No mass Extremity Exam: normal inspection, normal range of motion OBJECTIVE DATA Vital Signs: Vital Signs - 24 hr Temp Pulse Resp BP Pulse Ox 11/16/20 08:00 98.4 F 58 L 18 147/73 97 11/16/20 07:15 79 16 99 11/16/20 04:00 97.8 F 66 13 138/70 100 11/16/20 03:15 69 17 98 11/16/20 00:00 98.7 F 66 14 180/78 100 11/15/20 23:35 76 16 99 11/15/20 20:11 88 18 94 L 11/15/20 20:00 98.4 F 70 14 146/71 100 11/15/20 16:00 98.1 F 89 18 130/60 98 11/15/20 14:36 88 22 11/15/20 12:00 98.4 F 109 H 18 148/69 97 11/15/20 10:58 80 20 Oxygen-Last 24 hours Oxygen Flowrate (L/min)-RT 5 Oxygen Flowrate (L/min)-RT 5 Oxygen Flowrate (L/min)-RT 5 Pain Assessment - Last Documented Pain Intensity 0 Pain Scale Used 0-10 Pain Scale Intake and Output: Intake & Output 11/13/20 11/14/20 11/15/20 11/16/20 11:59 11:59 11:59 11:59 Intake Total 1852 3520 Output Total 2450 1400 Balance -598 2120 Weight 65.771 kg 42.7 kg 43.7 kg Lab Results: Lab Results-Last 24 Hours 11/15/20 11/15/20 11/16/20 Range/Units 11:49 15:50 00:14 WBC (4.0-10.5) K/mm3 RBC (4.1-5.4) M/mm3 Hgb (12.0-16.0) gm/dl Hct (35-47) % MCV (78-100) fl MCH (26-32) pg MCHC (32-36) g/dl RDW (11.5-14.0) % Plt Count (150-450) K/mm3 MPV (7.5-11.0) fl Gran % (36.0-66.0) % Eos # (Auto) (0-0.5) Absolute Lymphs (auto) (1.0-4.6) Absolute Monos (auto) (0.0-1.3) Lymphocytes % (24.0-44.0) % Monocytes % (0.0-12.0) % Eosinophils % (0.00-5.0) % Basophils % (0.0-0.4) % Absolute Granulocytes (1.4-6.9) Basophils # (0-0.4) Sodium (137-145) mmol/L Potassium (3.5-5.1) mmol/L Chloride (98-107) mmol/L Carbon Dioxide (22-30) mmol/L Anion Gap (5-15) MEQ/L BUN (7-17) mg/dL Creatinine (0.52-1.04) mg/dL Estimated GFR ML/MIN Glucose (74-106) mg/dL POC Glucometer 98 128 H 80 (74 to 106) mg/dL Calcium (8.4-10.2) mg/dL Total Bilirubin (0.2-1.3) mg/dL AST (14-36) U/L ALT (0-35) U/L Alkaline Phosphatase (38-126) U/L Serum Total Protein (6.3-8.2) g/dL Albumin (3.5-5.0) g/dL Slides for Path Review 11/16/20 11/16/20 11/16/20 Range/Units 04:29 04:29 05:55 WBC 10.5 (4.0-10.5) K/mm3 RBC 3.12 L (4.1-5.4) M/mm3 Hgb 9.3 L (12.0-16.0) gm/dl Hct 32.8 L (35-47) % MCV 105.1 H (78-100) fl MCH 29.8 (26-32) pg MCHC 28.4 L (32-36) g/dl RDW 14.9 H (11.5-14.0) % Plt Count 176 (150-450) K/mm3 MPV 10.0 (7.5-11.0) fl Gran % 79.5 H (36.0-66.0) % Eos # (Auto) 0.03 (0-0.5) Absolute Lymphs (auto) 1.41 (1.0-4.6) Absolute Monos (auto) 0.71 (0.0-1.3) Lymphocytes % 13.4 L (24.0-44.0) % Monocytes % 6.7 (0.0-12.0) % Eosinophils % 0.3 (0.00-5.0) % Basophils % 0.1 (0.0-0.4) % Absolute Granulocytes 8.36 H (1.4-6.9) Basophils # 0.01 (0-0.4) Sodium 134 L (137-145) mmol/L Potassium 4.6 (3.5-5.1) mmol/L Chloride 92 L (98-107) mmol/L Carbon Dioxide 40 H (22-30) mmol/L Anion Gap 6.6 (5-15) MEQ/L BUN 14 (7-17) mg/dL Creatinine 0.63 (0.52-1.04) mg/dL Estimated GFR > 60.0 ML/MIN Glucose 102 (74-106) mg/dL POC Glucometer 96 (74 to 106) mg/dL Calcium 9.1 (8.4-10.2) mg/dL Total Bilirubin 0.30 (0.2-1.3) mg/dL AST 25 (14-36) U/L ALT 18 (0-35) U/L Alkaline Phosphatase 42 (38-126) U/L Serum Total Protein 5.5 L (6.3-8.2) g/dL Albumin 3.1 L (3.5-5.0) g/dL Slides for Path Review YES 11/16/20 Range/Units 07:02 WBC (4.0-10.5) K/mm3 RBC (4.1-5.4) M/mm3 Hgb (12.0-16.0) gm/dl Hct (35-47) % MCV (78-100) fl MCH (26-32) pg MCHC (32-36) g/dl RDW (11.5-14.0) % Plt Count (150-450) K/mm3 MPV (7.5-11.0) fl Gran % (36.0-66.0) % Eos # (Auto) (0-0.5) Absolute Lymphs (auto) (1.0-4.6) Absolute Monos (auto) (0.0-1.3) Lymphocytes % (24.0-44.0) % Monocytes % (0.0-12.0) % Eosinophils % (0.00-5.0) % Basophils % (0.0-0.4) % Absolute Granulocytes (1.4-6.9) Basophils # (0-0.4) Sodium (137-145) mmol/L Potassium (3.5-5.1) mmol/L Chloride (98-107) mmol/L Carbon Dioxide (22-30) mmol/L Anion Gap (5-15) MEQ/L BUN (7-17) mg/dL Creatinine (0.52-1.04) mg/dL Estimated GFR ML/MIN Glucose (74-106) mg/dL POC Glucometer 84 (74 to 106) mg/dL Calcium (8.4-10.2) mg/dL Total Bilirubin (0.2-1.3) mg/dL AST (14-36) U/L ALT (0-35) U/L Alkaline Phosphatase (38-126) U/L Serum Total Protein (6.3-8.2) g/dL Albumin (3.5-5.0) g/dL Slides for Path Review Radiology Exams: Radiology Procedures Category Date Time Status CHEST 1 VIEW (PORTABLE) Routine Exams 11/15/20 12:01 Completed CHEST 1 VIEW (PORTABLE) Stat Exams 11/14/20 11:40 Completed FOOT (2 VIEWS) Routine Exams 11/15/20 10:35 Completed HEAD WITHOUT CONTRAST [CT] Routine Exams 11/16/20 09:30 Ordered Multi-Disciplinary Progress Notes: Multi-Disciplinary Progress Notes 11/15/20 10:49 Case Management Note by Alida Vieira S/W [facility]- THEY ARE AWARE PATIENT IS HERE AND THEY REVOCATED HER FROM THEIR SERVICES ON 11/14/20 Initialized on 11/15/20 10:49 - END OF NOTE Assessment/Plan (1) COPD exacerbation Current Visit: Yes Status: Acute Code(s): J44.1 - CHRONIC OBSTRUCTIVE PULMONARY DISEASE W (ACUTE) EXACERBATION (2) Altered mental status Current Visit: Yes Status: Acute Assessment & Plan: head ct, tsh, b12. improving with reduction in medications need to r/o other causes Code(s): R41.82 - ALTERED MENTAL STATUS, UNSPECIFIED (3) Right foot pain Current Visit: Yes Status: Acute Assessment & Plan: 5th metatarsal fracture, will consult with podiatry for likely a boot since fracture is nondisplaced. Code(s): M79.671 - PAIN IN RIGHT FOOT (4) Falls Current Visit: Yes Status: Acute Assessment & Plan: disposition uncertain home on hospice vs rehab stay, will continue workup and update with POA regarding disposition when ready Code(s): W19.XXXA - UNSPECIFIED FALL, INITIAL ENCOUNTER
[2020-11-16] MEDS: Toprol Xl 100 MG PO SCH (09:57)
[2020-11-16] MEDS: Klor Con 10 MEQ PO SCH (09:57)
[2020-11-16] MEDS: Neurontin 100 MG PO SCH (09:57)
[2020-11-16] MEDS: DELTASONE 10 MG PO SCH (09:57)
[2020-11-16] MEDS: XARELTO 10 MG TABLET PO SCH (09:57)
[2020-11-16] MEDS: Imdur 30 MG PO SCH (09:58)
[2020-11-16] MEDS: Lasix 40 MG/4 ML IV SCH (09:58)
[2020-11-16] MEDS: Protonix 40MG Tablet PO SCH (09:58)
[2020-11-16] MEDS: Lexapro 10 MG PO SCH (09:58)
[2020-11-16] MEDS: ROCEPHIN 1 Gm-D5w 50 ml Bag** 1 G/50 ML IVPB IV SCH (09:58)
[2020-11-16] MEDS: Vitamin C 500 MG PO SCH (09:58)
[2020-11-16] MEDS: Pepcid 20 MG PO SCH (10:00)
--- NOTE | 2020-11-16 10:13 | XRAY ---
Indication: Acute mental status change. Multiple contiguous axial images obtained through the head without contrast. Comparison: None Ventriculosulcal pattern appears symmetric. Small bilateral basal ganglia remote lacunar infarcts. No acute intracranial hemorrhage, abnormal extra-axial fluid collection, or mass effect. Fourth ventricle is midline without hydrocephalus. Lopez-white matter differentiation preserved. Bony calvarium intact.. Visualized paranasal sinuses and mastoid air cells are clear. Impression: Bilateral basal ganglia lacunar infarcts. No acute intracranial abnormalities.
[2020-11-16 12:05] VITALS: BP 153/71; PULSE 80; O2SAT 100
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
--- NOTE | 2020-11-16 13:39 | PCM.DS ---
Discharge Summary Date of Admission: 11/14/20 15:46 Admitting Physician: NURYS HAMILTON Consults: Consults on Case 11/16/20 09:31 Consult Podiatry ROUTINE Primary Care Provider: NO FAMILY DOCTOR Allergies Allergies ciprofloxacin [From Cipro] Allergy (Severe, Verified 10/28/20 02:36) Itchy Eyes theophylline Allergy (Severe, Verified 10/28/20 02:36) hives, sob iodine Allergy (Intermediate, Verified 10/28/20 02:36) Tightness in Chest Penicillins Allergy (Intermediate, Verified 10/28/20 02:36) Itchy Eyes Sulfa (Sulfonamide Antibiotics) [Sulfa(Sulfonamide Antibiotics)] Allergy (Inter mediate, Verified 10/28/20 02:36) Itchy Eyes azithromycin [From Zithromax] Allergy (Mild, Verified 10/28/20 02:36) Itching lisinopril Allergy (Verified 10/28/20 02:36) Tightness of Throat clindamycin Adverse Reaction (Severe, Verified 10/28/20 02:36) Diarrhea budesonide [From Symbicort] Adverse Reaction (Mild, Verified 10/28/20 02:39) States gives her tremors fluticasone furoate [From Trelegy Ellipta] Adverse Reaction (Mild, Verified 10/28/20 02:39) States makes her have tremors hydromorphone HCl [From Dilaudid] Adverse Reaction (Mild, Verified 10/28/20 02:36) low bp Hospital Summary - Hospital Course Hospital Course: patient was admitted with altered mental status, lethargic with multiple falls, hit her right foot on a coffee table around 2 weeks ago, had a fall. she is on hospice and has an extensive medlist of narcotics, her meds were significantly weaned. she is now alert and conversant, states she knows that she took liquid morphine a couple of hours before her scheduled MS contin, all the while wearing a duragesic patch. her morphine has been held in the hospital and her sensorium is clear. she insists to return home today on hospice, declines home health and rehab services. she is alert and oriented x 3 and competent and understands the consequences of her own decision making. - Vitals & Intake/Output Vital Signs: Vital Signs Temperature 98.5 F 11/16/20 12:00 Pulse Rate 80 11/16/20 12:00 Respiratory Rate 18 11/16/20 12:00 Blood Pressure 153/71 11/16/20 12:00 O2 Sat by Pulse Oximetry 100 11/16/20 12:00 Intake & Output: Intake & Output 11/14/20 11/15/20 11/16/20 11/17/20 11:59 11:59 11:59 11:59 Intake Total 1852 3520 Output Total 2450 1400 Balance -598 2120 Weight 65.771 kg 42.7 kg 43.7 kg - Lab Result Diagrams: 11/16/20 04:29 11/16/20 04:29 Lab Results-Last 24 Hrs: Lab Results-Last 24 Hours 11/15/20 11/16/20 11/16/20 Range/Units 15:50 00:14 04:29 WBC 10.5 (4.0-10.5) K/mm3 RBC 3.12 L (4.1-5.4) M/mm3 Hgb 9.3 L (12.0-16.0) gm/dl Hct 32.8 L (35-47) % MCV 105.1 H (78-100) fl MCH 29.8 (26-32) pg MCHC 28.4 L (32-36) g/dl RDW 14.9 H (11.5-14.0) % Plt Count 176 (150-450) K/mm3 MPV 10.0 (7.5-11.0) fl Gran % 79.5 H (36.0-66.0) % Eos # (Auto) 0.03 (0-0.5) Absolute Lymphs (auto) 1.41 (1.0-4.6) Absolute Monos (auto) 0.71 (0.0-1.3) Lymphocytes % 13.4 L (24.0-44.0) % Monocytes % 6.7 (0.0-12.0) % Eosinophils % 0.3 (0.00-5.0) % Basophils % 0.1 (0.0-0.4) % Absolute Granulocytes 8.36 H (1.4-6.9) Basophils # 0.01 (0-0.4) Sodium (137-145) mmol/L Potassium (3.5-5.1) mmol/L Chloride (98-107) mmol/L Carbon Dioxide (22-30) mmol/L Anion Gap (5-15) MEQ/L BUN (7-17) mg/dL Creatinine (0.52-1.04) mg/dL Estimated GFR ML/MIN Glucose (74-106) mg/dL POC Glucometer 128 H 80 (74 to 106) mg/dL Calcium (8.4-10.2) mg/dL Total Bilirubin (0.2-1.3) mg/dL AST (14-36) U/L ALT (0-35) U/L Alkaline Phosphatase (38-126) U/L Serum Total Protein (6.3-8.2) g/dL Albumin (3.5-5.0) g/dL Vitamin B12 (239-931) pg/mL TSH 3rd Generation (0.47-4.68) mIU/L Slides for Path Review YES 11/16/20 11/16/20 11/16/20 Range/Units 04:29 04:29 04:29 WBC (4.0-10.5) K/mm3 RBC (4.1-5.4) M/mm3 Hgb (12.0-16.0) gm/dl Hct (35-47) % MCV (78-100) fl MCH (26-32) pg MCHC (32-36) g/dl RDW (11.5-14.0) % Plt Count (150-450) K/mm3 MPV (7.5-11.0) fl Gran % (36.0-66.0) % Eos # (Auto) (0-0.5) Absolute Lymphs (auto) (1.0-4.6) Absolute Monos (auto) (0.0-1.3) Lymphocytes % (24.0-44.0) % Monocytes % (0.0-12.0) % Eosinophils % (0.00-5.0) % Basophils % (0.0-0.4) % Absolute Granulocytes (1.4-6.9) Basophils # (0-0.4) Sodium 134 L (137-145) mmol/L Potassium 4.6 (3.5-5.1) mmol/L Chloride 92 L (98-107) mmol/L Carbon Dioxide 40 H (22-30) mmol/L Anion Gap 6.6 (5-15) MEQ/L BUN 14 (7-17) mg/dL Creatinine 0.63 (0.52-1.04) mg/dL Estimated GFR > 60.0 ML/MIN Glucose 102 (74-106) mg/dL POC Glucometer (74 to 106) mg/dL Calcium 9.1 (8.4-10.2) mg/dL Total Bilirubin 0.30 (0.2-1.3) mg/dL AST 25 (14-36) U/L ALT 18 (0-35) U/L Alkaline Phosphatase 42 (38-126) U/L Serum Total Protein 5.5 L (6.3-8.2) g/dL Albumin 3.1 L (3.5-5.0) g/dL Vitamin B12 291 (239-931) pg/mL TSH 3rd Generation 1.020 (0.47-4.68) mIU/L Slides for Path Review 11/16/20 11/16/20 11/16/20 Range/Units 05:55 07:02 11:24 WBC (4.0-10.5) K/mm3 RBC (4.1-5.4) M/mm3 Hgb (12.0-16.0) gm/dl Hct (35-47) % MCV (78-100) fl MCH (26-32) pg MCHC (32-36) g/dl RDW (11.5-14.0) % Plt Count (150-450) K/mm3 MPV (7.5-11.0) fl Gran % (36.0-66.0) % Eos # (Auto) (0-0.5) Absolute Lymphs (auto) (1.0-4.6) Absolute Monos (auto) (0.0-1.3) Lymphocytes % (24.0-44.0) % Monocytes % (0.0-12.0) % Eosinophils % (0.00-5.0) % Basophils % (0.0-0.4) % Absolute Granulocytes (1.4-6.9) Basophils # (0-0.4) Sodium (137-145) mmol/L Potassium (3.5-5.1) mmol/L Chloride (98-107) mmol/L Carbon Dioxide (22-30) mmol/L Anion Gap (5-15) MEQ/L BUN (7-17) mg/dL Creatinine (0.52-1.04) mg/dL Estimated GFR ML/MIN Glucose (74-106) mg/dL POC Glucometer 96 84 82 (74 to 106) mg/dL Calcium (8.4-10.2) mg/dL Total Bilirubin (0.2-1.3) mg/dL AST (14-36) U/L ALT (0-35) U/L Alkaline Phosphatase (38-126) U/L Serum Total Protein (6.3-8.2) g/dL Albumin (3.5-5.0) g/dL Vitamin B12 (239-931) pg/mL TSH 3rd Generation (0.47-4.68) mIU/L Slides for Path Review Micro Results-Entire Visit: Microbiology 11/14/20 11:55 Blood Culture - Preliminary Blood NO GROWTH TO DATE 11/14/20 12:00 Blood Culture - Preliminary Blood NO GROWTH TO DATE 11/14/20 11:41 Urine Culture - Preliminary Catherized NO GROWTH TO DATE - Radiology Exams Ordered Rad Exams-Entire Visit: Radiology Procedures Category Date Time Status CHEST 1 VIEW (PORTABLE) Routine Exams 11/15/20 12:01 Completed FOOT (2 VIEWS) Routine Exams 11/15/20 10:35 Completed HEAD WITHOUT CONTRAST [CT] Routine Exams 11/16/20 09:57 Completed - Procedures and Test Procedures and Tests throughout Hospitalization: Therapy Orders & Screens 11/14/20 14:39 Respiratory Therapy Assessment DAILY Comment: 11/14/20 14:40 Oxygen Nasal Cannula 5 lpm Comment: Discharge Exam General Appearance: no apparent distress, thin Neurologic Exam: alert, oriented x 3, cooperative Respiratory Exam: diminished breath sounds, prolonged expirations Cardiovascular Exam: regular rate/rhythm, normal heart sounds Gastrointestinal/Abdomen Exam: soft, No tenderness, No mass Final Diagnosis/Problem List - Final Discharge Diagnosis/Problem (1) COPD exacerbation Current Visit: Yes Status: Acute Code(s): J44.1 - CHRONIC OBSTRUCTIVE PULMONARY DISEASE W (ACUTE) EXACERBATION (2) Altered mental status Current Visit: Yes Status: Acute Code(s): R41.82 - ALTERED MENTAL STATUS, UNSPECIFIED (3) Falls Current Visit: Yes Status: Acute Code(s): W19.XXXA - UNSPECIFIED FALL, INITIAL ENCOUNTER (4) Right foot pain Current Visit: Yes Status: Acute Assessment & Plan: 5th metatarsal fracture podiatry recommendations appreciated. Code(s): M79.671 - PAIN IN RIGHT FOOT - Discharge Disposition: Home, Self-Care Condition: Fair Prescriptions: Continue Nitroglycerin 0.4 mg Tablet [Nitrostat 0.4 MG Tablet] 0.4 mg SL Q5MX3 Docusate Sodium 100 mg [Colace 100 MG] 100 mg PO BID PRN Potassium Chloride 10 Meq Tab* [Klor Con 10 MEQ] 10 meq PO BID Simvastatin 20 mg PO HS Famotidine 20 mg [Pepcid 20 MG] 20 mg PO BID Isosorbide Mononitrate 30 mg [Imdur 30 MG] 30 mg PO DAILY Metoprolol Succinate 25 mg Xl* [Toprol-Xl 25MG Tablets] 100 mg PO DAILY Calcium Carbonate/Vitamin D3 [Calcium 1,000 + D3 Caplet] 1 each PO BID Rivaroxaban 10 mg Tablet [Xarelto 10 mg Tablet] 10 mg PO DAILY PANTOPRAZOLE 40 mg Tablet [Protonix 40MG Tablet] 40 mg PO BID Guaifenesin 600 mg ER [Mucinex 600MG ER Tabs] 1,200 mg PO BID Albuterol Sulfate [Ventolin Hfa] 2 puff .ROUTE Q2H/PRN PRN PRN Reason: Shortness Of Breath Ascorbic Acid 500 mg [Vitamin C 500 MG] 1 tab PO DAILY Multivit with Calcium,Iron,Min [Womens Multiple Vitamins] 1 tab PO DAILY Hydrocodone Bit/Acetaminophen [Hydrocodon-Acetaminophn 10-325] 1 each PO Q4H PRN PRN Reason: Moderate To Severe Pain Prednisone 20 mg [Deltasone 20 mg] 10 mg PO BID Promethazine HCl 25 mg [Phenergan 25 mg] 12.5 mg PO Q4-6HPRN PRN PRN Reason: Nausea/Vomiting Escitalopram Oxalate 10 mg [Lexapro 10 MG] 15 mg PO DAILY Ondansetron ODT 4 MG [Zofran Odt 4 mg] 4 mg PO Q6H PRN PRN #10 tab.rapdis PRN Reason: Nausea fentaNYL [Duragesic 12MCG Patch] 25 mcg TOP Q3D Furosemide [Lasix] 40 mg PO DAILY Alprazolam 0.5 mg [xanAX 0.5 MG] 0.5 mg PO TID PRN PRN PRN Reason: Anxiety Albuterol/Ipratropium 3ml Neb* [DUONEB 0.5-3 MG/3 ml Neb] 1 inh PO Q4H Clotrimazole/Betamet Diprop [Lotrisone 45 Gm Cream] 1 gm TOP UD PRN PRN Reason: Itching Gabapentin 200 mg PO TID Methylprednisolone Sod Succ/Pf [Solu-Medrol 125 mg Vial] 125 mg IM DAILY Pregabalin [Lyrica 100Mg] 100 mg PO BID Sennosides/Docusate Sodium [Senna Plus 8.6-50 mg Softgel] 1 each PO BID Benzonatate [Tessalon Perle] 100 mg PO BID PRN PRN PRN Reason: Pain Diclofenac Sodium Gel [Voltaren GEL] 1 gm TOP QID PRN PRN PRN Reason: Pain PANTOPRAZOLE 40 mg Tablet [Protonix 40MG Tablet] 40 mg PO BID Lidocaine [Aspercreme Lidocaine] 2 patch TOP DAILY Discontinued Mirtazapine 30 mg PO DAILY Morphine Sulfate Cr 15 mg [Ms Contin 15 MG] 15 mg PO BID Additional Instructions: discontinue MS contin and liquid morphine, follow podiatry recommendation for right foot fracture. f/u with hospice upon discharge, call hospice with any further problems or concerns. Follow up with: SEPIDEH METCALF DPM [ACTIVE STAFF] - CATRACHO HERRERA [COURTESY STAFF] -
--- NOTE | 2020-11-16 13:50 | PCM.DCORD ---
- Discharge Disposition: Home, Self-Care Condition: Fair Prescriptions: New Cefuroxime Axetil [Cefuroxime] 250 mg PO BID #10 tablet Continue Nitroglycerin 0.4 mg Tablet [Nitrostat 0.4 MG Tablet] 0.4 mg SL Q5MX3 Docusate Sodium 100 mg [Colace 100 MG] 100 mg PO BID PRN Potassium Chloride 10 Meq Tab* [Klor Con 10 MEQ] 10 meq PO BID Simvastatin 20 mg PO HS Famotidine 20 mg [Pepcid 20 MG] 20 mg PO BID Isosorbide Mononitrate 30 mg [Imdur 30 MG] 30 mg PO DAILY Metoprolol Succinate 25 mg Xl* [Toprol-Xl 25MG Tablets] 100 mg PO DAILY Calcium Carbonate/Vitamin D3 [Calcium 1,000 + D3 Caplet] 1 each PO BID Rivaroxaban 10 mg Tablet [Xarelto 10 mg Tablet] 10 mg PO DAILY PANTOPRAZOLE 40 mg Tablet [Protonix 40MG Tablet] 40 mg PO BID Guaifenesin 600 mg ER [Mucinex 600MG ER Tabs] 1,200 mg PO BID Albuterol Sulfate [Ventolin Hfa] 2 puff .ROUTE Q2H/PRN PRN PRN Reason: Shortness Of Breath Ascorbic Acid 500 mg [Vitamin C 500 MG] 1 tab PO DAILY Multivit with Calcium,Iron,Min [Womens Multiple Vitamins] 1 tab PO DAILY Hydrocodone Bit/Acetaminophen [Hydrocodon-Acetaminophn 10-325] 1 each PO Q4H PRN PRN Reason: Moderate To Severe Pain Prednisone 20 mg [Deltasone 20 mg] 10 mg PO BID Promethazine HCl 25 mg [Phenergan 25 mg] 12.5 mg PO Q4-6HPRN PRN PRN Reason: Nausea/Vomiting Escitalopram Oxalate 10 mg [Lexapro 10 MG] 15 mg PO DAILY Ondansetron ODT 4 MG [Zofran Odt 4 mg] 4 mg PO Q6H PRN PRN #10 tab.rapdis PRN Reason: Nausea fentaNYL [Duragesic 12MCG Patch] 25 mcg TOP Q3D Furosemide [Lasix] 40 mg PO DAILY Alprazolam 0.5 mg [xanAX 0.5 MG] 0.5 mg PO TID PRN PRN PRN Reason: Anxiety Albuterol/Ipratropium 3ml Neb* [DUONEB 0.5-3 MG/3 ml Neb] 1 inh PO Q4H Clotrimazole/Betamet Diprop [Lotrisone 45 Gm Cream] 1 gm TOP UD PRN PRN Reason: Itching Gabapentin 200 mg PO TID Methylprednisolone Sod Succ/Pf [Solu-Medrol 125 mg Vial] 125 mg IM DAILY Pregabalin [Lyrica 100Mg] 100 mg PO BID Sennosides/Docusate Sodium [Senna Plus 8.6-50 mg Softgel] 1 each PO BID Benzonatate [Tessalon Perle] 100 mg PO BID PRN PRN PRN Reason: Pain Diclofenac Sodium Gel [Voltaren GEL] 1 gm TOP QID PRN PRN PRN Reason: Pain PANTOPRAZOLE 40 mg Tablet [Protonix 40MG Tablet] 40 mg PO BID Lidocaine [Aspercreme Lidocaine] 2 patch TOP DAILY Discontinued Mirtazapine 30 mg PO DAILY Morphine Sulfate Cr 15 mg [Ms Contin 15 MG] 15 mg PO BID Additional Instructions: discontinue MS contin and liquid morphine, follow podiatry recommendation for right foot fracture. f/u with hospice upon discharge, call hospice with any further problems or concerns. Follow up with: SEPIDEH METCALF DPM [ACTIVE STAFF] - CATRACHO HERRERA [COURTESY STAFF] -
== END 2020-11-16 14:20 | disposition hospice, home (50) ==
LOC: ED 11:38 → MED SURG 15:46
PROVIDERS: ADMIT Family Medicine; ATTEND Family Medicine
DX: J44.1 Chronic obstructive pulmonary disease with (acute) exacerbation (principal); R41.82 Altered mental status, unspecified; S92.351A Displaced fracture of fifth metatarsal bone, right foot, initial encounter for closed fracture; M79.671 Pain in right foot; R79.89 Other specified abnormal findings of blood chemistry; F17.210 Nicotine dependence, cigarettes, uncomplicated; D64.9 Anemia, unspecified; J96.11 Chronic respiratory failure with hypoxia; T50.991A Poisoning by other drugs, medicaments and biological substances, accidental (unintentional), initial encounter; I50.9 Heart failure, unspecified; I25.10 Atherosclerotic heart disease of native coronary artery without angina pectoris; E78.5 Hyperlipidemia, unspecified; I10 Essential (primary) hypertension; Z79.899 Other long term (current) drug therapy; Z91.81 History of falling; W19.XXXA Unspecified fall, initial encounter; E78.00 Pure hypercholesterolemia, unspecified; Z86.711 Personal history of pulmonary embolism; Z20.828 Contact with and (suspected) exposure to other viral communicable diseases
CPT/HCPCS: 0241U; 28470; 36000; 36415; 36600; 70450; 71045; 73620; 80053; 80307; 81001; 82375; 82607; 82803; 82947; 83036; 83605; 83735; 83880; 84145; 84443; 84484; 85025; 85027; 85379; 85610; 85730; 87040; 87086; 87400; 93005; 93041; 93268; 94640; 94760; 94762; 96374; 96375; 99252; 99285; G0378; J0696; J1940; J2060; J2310; J2920; A9270-GY

== ENCOUNTER 2021-01-26 12:06 | Emergency (ER) | payer MEDICARE ==
[2021-01-26 12:19] VITALS: O2SAT 100
[2021-01-26] MEDS ORDERED: solu-MEDROL 125 MG IM ONE (12:41)
[2021-01-26 12:54] LABS: A-aADO2 8; ABG HEMOGLOBIN 10.6; ABG POTASSIUM 4.1 (3.5-5.1); ARTERIAL BLOOD GAS BASE EXCESS 24.5 (-2.0-2.0); ARTERIAL BLOOD GAS FIO2 28 %; ARTERIAL BLOOD GAS PCO2 84 mmHg (35-45); ARTERIAL BLOOD GAS PO2 87 mmHg (75-100); ARTERIAL BLOOD GAS pH 7.42 (7.35-7.45); CARBOXYHEMOGLOBIN 6.2 % THgb (0.0-6.9); HCO3- 54.5 (22-28); HGB O2 SAT 91.2 g/dF (94-100); Methhemoglobin 0.7 % (1.4-1.5)
[2021-01-26 12:55] LABS: ALLEN TEST OK? yes
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
[2021-01-26] MEDS ORDERED: solu-MEDROL 125 MG ONE (13:07)
--- NOTE | 2021-01-26 13:45 | XRAY ---
Indication: Chronic COPD. Comparison: November 15, 2020. Portable chest unchanged again demonstrating COPD, biapical fibrosis/scarring, and bilateral lung suture material. Heart not enlarged. Bony thorax intact again with mild osteopenia and degenerative changes. Impression: Continued nonacute chest with chronic features.
[2021-01-26 14:40] VITALS: BP 103/53; PULSE 73
== END 2021-01-26 14:40 | disposition home or self-care (01) ==
LOC: ED 12:06
DX: J44.1 Chronic obstructive pulmonary disease with (acute) exacerbation (principal); Z71.6 Tobacco abuse counseling; Z79.899 Other long term (current) drug therapy; I10 Essential (primary) hypertension; I25.10 Atherosclerotic heart disease of native coronary artery without angina pectoris; I73.9 Peripheral vascular disease, unspecified; Z86.711 Personal history of pulmonary embolism
CPT/HCPCS: 36600; 71045; 82375; 82803; 96372; 99284; J2930

== ENCOUNTER 2021-02-07 10:49 | Emergency (ER) | payer MEDICARE ==
[2021-02-07 10:57] VITALS: BP 153/67; PULSE 75; O2SAT 100
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
== END 2021-02-07 11:42 | disposition left against medical advice (07) ==
LOC: ED 10:49
DX: J44.1 Chronic obstructive pulmonary disease with (acute) exacerbation (principal); I50.9 Heart failure, unspecified; Z99.81 Dependence on supplemental oxygen; Z79.899 Other long term (current) drug therapy
CPT/HCPCS: 99283

== ENCOUNTER 2021-05-25 07:57 | Emergency (ER) | payer MEDICARE, OTHER ==
[2021-05-25] MEDS ORDERED: DUONEB 0.5-3 MG/3 ml Neb IH ONE ×2 (08:19→08:54)
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
[2021-05-25 08:28] LABS: Absolute Neutrophil Ct (ANC) 15.28 (1.4-6.9); BASOPHIL % 0.1 % (0.0-0.4); Basophil (Absolute #) 0.02 (0-0.4); Eosinophil % 0.9 % (0.00-5.0); Eosinophil (Absolute #) 0.17 (0-0.5); Hematocrit 39.3 % (35-47); Hemoglobin 10.9 gm/dl (12.0-16.0); Lymphocyte (Absolute #) 2.01 (1.0-4.6); Lymphocytes % 10.4 % (24.0-44.0); Mean Cell Volume 109.8 fl (78-100); Mean Corpuscular Hemoglobin 30.4 pg (26-32); Mean Corpuscular Hgb Concent. 27.7 g/dl (32-36); Mean Platelet Volume 10.8 fl (7.5-11.0); Monocytes % 9.3 % (0.0-12.0); Neutrophil % 79.3 % (36.0-66.0); Platelet Count 239 K/mm3 (150-450); Red Blood Count 3.58 M/mm3 (4.1-5.4); Red Cell Distribution Width 12.7 % (11.5-14.0); White Blood Count 19.3 K/mm3 (4.0-10.5)
--- NOTE | 2021-05-25 08:49 | XRAY ---
Indication: Short of breath. Comparison: January 26, 2021. Portable chest unchanged again demonstrating COPD, minimal biapical fibrosis/scarring, and bilateral lung suture material. Heart not enlarged. Bony thorax intact again with mild osteopenia and degenerative changes. No new/acute findings.
[2021-05-25] MEDS ORDERED: VIBRAMYCIN 100 MG*** 100 MG in Dextrose 5%/Water IV Soln. 100ML PLUS BAG 100 ML IV SCH (09:13)
[2021-05-25] MEDS ORDERED: D5w 100ML Mini Bag 100 ML 100 ML IV ONE (09:17)
[2021-05-25] MEDS ORDERED: VIBRAMYCIN 100 MG IV ONE (09:17)
[2021-05-25 09:20] LABS: Slide Review 1 YES
[2021-05-25 09:32] LABS: ALBUMIN 3.9 g/dL (3.5-5.0); ALKALINE PHOSPHATASE 76 U/L (38-126); BLOOD UREA NITROGEN 19 mg/dL (7-17); CHLORIDE 80 mmol/L (98-107); Calcium 10.1 mg/dL (8.4-10.2); EST GLOMERULAR FILTRATION RATE > 60.0 ML/MIN; Glucose 117 mg/dL (74-106); NT PRO BNP 386 pg/mL (0-900); Potassium 4.1 mmol/L (3.5-5.1); SGOT/AST 27 U/L (14-36); SGPT/ALT 18 U/L (0-35); SODIUM 138 mmol/L (137-145); Total Protein 7.1 g/dL (6.3-8.2)
[2021-05-25 09:34] LABS: ANION GAP 10.1 MEQ/L (5-15); Carbon Dioxide 52 mmol/L (22-30)
[2021-05-25 11:36] VITALS: BP 164/75; PULSE 82; O2SAT 100
== END 2021-05-25 11:47 | disposition home or self-care (01) ==
LOC: ED 07:57
DX: J44.9 Chronic obstructive pulmonary disease, unspecified (principal); J96.12 Chronic respiratory failure with hypercapnia; Z99.81 Dependence on supplemental oxygen; I25.10 Atherosclerotic heart disease of native coronary artery without angina pectoris; I10 Essential (primary) hypertension; Z86.711 Personal history of pulmonary embolism; Z87.891 Personal history of nicotine dependence; Z79.899 Other long term (current) drug therapy
CPT/HCPCS: 36415; 71045; 80053; 83880; 84484; 85025; 94640; 99284; A9270-GY

== ENCOUNTER 2021-06-22 13:50 | Inpatient (IN) | payer MEDICARE ==
[2021-06-22] MEDS ORDERED: solu-MEDROL 125 MG, Sterile H2O 10 ml 2 ML IV ONE ×2 (14:09)
[2021-06-22] MEDS ORDERED: DUONEB 0.5-3 MG/3 ml Neb IH ONE ×3 (14:10→18:47)
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
[2021-06-22 14:29] LABS: Absolute Neutrophil Ct (ANC) 9.56 (1.4-6.9); BASOPHIL % 0.2 % (0.0-0.4); Basophil (Absolute #) 0.02 (0-0.4); Eosinophil % 0.8 % (0.00-5.0); Eosinophil (Absolute #) 0.09 (0-0.5); Hematocrit 43.7 % (35-47); Hemoglobin 11.9 gm/dl (12.0-16.0); Lymphocyte (Absolute #) 1.35 (1.0-4.6); Lymphocytes % 11.6 % (24.0-44.0); Mean Cell Volume 110.4 fl (78-100); Mean Corpuscular Hemoglobin 30.1 pg (26-32); Mean Corpuscular Hgb Concent. 27.2 g/dl (32-36); Mean Platelet Volume 11.6 fl (7.5-11.0); Monocyte (Absolute #) 0.66 (0.0-1.3); Monocytes % 5.7 % (0.0-12.0); Neutrophil % 81.7 % (36.0-66.0); Platelet Count 146 K/mm3 (150-450); Red Blood Count 3.96 M/mm3 (4.1-5.4); Red Cell Distribution Width 12.7 % (11.5-14.0); White Blood Count 11.7 K/mm3 (4.0-10.5)
--- NOTE | 2021-06-22 14:32 | XRAY ---
Indication: Right chest pain short of breath. Impression: May 25, 2021. Portable chest unchanged again demonstrating COPD, minimal biapical fibrosis/scarring, and bilateral lung suture material. No focal infiltrate, consolidation, or large effusion. Heart not enlarged. Bony thorax intact again with mild osteopenia and degenerative changes. Impression: Continued nonacute chest with chronic features.
[2021-06-22 14:44] LABS: ALBUMIN 3.8 g/dL (3.5-5.0); BILIRUBIN,TOTAL 0.5 mg/dL (0.2-1.3); Calcium 9.7 mg/dL (8.4-10.2); Creatinine 1 1.15 mg/dL (0.52-1.04); EST GLOMERULAR FILTRATION RATE 50.7 ML/MIN; Potassium 4.1 mmol/L (3.5-5.1); Total Protein 6.7 g/dL (6.3-8.2)
[2021-06-22] MEDS ORDERED: solu-MEDROL ONE (14:44)
[2021-06-22] MEDS ORDERED: Sterile H2O 10 ml IJ ONE (14:44)
[2021-06-22 14:51] LABS: ANION GAP 12.1 MEQ/L (5-15)
[2021-06-22] MEDS ORDERED: VIBRAMYCIN 100 MG IV ONE (15:01)
[2021-06-22] MEDS ORDERED: D5w 100ML Mini Bag 100 ML 0 ML IV ONE (15:03)
[2021-06-22 15:10] LABS: Slide Review 1 YES
[2021-06-22] MEDS ORDERED: MORPHINE SULFATE 2 MG INJ IV ONE (15:58)
[2021-06-22] MEDS ORDERED: MORPHINE SULFATE 2 MG INJ ONE (17:18)
[2021-06-22] MEDS: DUONEB 0.5-3 MG/3 ml Neb IH SCH ×2 (18:55→23:27)
[2021-06-22] MEDS ORDERED: PROVENTIL 2.5 MG/3 ML NEB IH SCH (19:00)
[2021-06-22] MEDS ORDERED: Tessalon Perles 100 MG PO PRN (21:24)
[2021-06-22] MEDS ORDERED: Voltaren GEL TOP PRN (21:25)
[2021-06-22] MEDS ORDERED: Colace 100 MG PO PRN (21:26)
[2021-06-22] MEDS ORDERED: PHENERGAN 25 MG PO PRN (21:31)
[2021-06-22] MEDS ORDERED: TYLENOL EXTRA STRENGTH 500 MG PO PRN (21:35)
[2021-06-22] MEDS ORDERED: ZOCOR 20MG ONE (21:45)
[2021-06-22] MEDS ORDERED: VIBRAMYCIN 100 MG*** 100 MG in Dextrose 5%/Water IV Soln. 100ML PLUS BAG 100 ML IV SCH ×4 (22:00)
[2021-06-22] MEDS: KLONOPIN PO SCH (22:25)
[2021-06-22] MEDS: LYRICA 100MG PO SCH (22:25)
[2021-06-22] MEDS: Mucinex 600MG ER Tabs PO SCH (22:25)
[2021-06-22] MEDS: ECOTRIN 81 MG PO SCH (22:26)
[2021-06-22] MEDS: ZOCOR 20MG PO SCH (22:26)
[2021-06-22] MEDS: Protonix 40MG Tablet PO SCH (22:26)
[2021-06-22] MEDS: Klor Con 10 MEQ PO SCH (22:26)
[2021-06-22] MEDS ORDERED: Vibramycin 100 MG PO ONE (23:25)
[2021-06-23] MEDS ORDERED: solu-MEDROL ONE ×2 (00:12→05:34)
[2021-06-23] MEDS ORDERED: Sterile H2O 10 ml IJ ONE ×2 (00:13→05:34)
[2021-06-23] MEDS: solu-MEDROL 60 MG, Sterile H2O 10 ml 2 ML IV SCH ×10 (00:16→23:10)
[2021-06-23 02:45] LABS: Hematocrit 40.3 % (35-47); Hemoglobin 11.1 gm/dl (12.0-16.0); Mean Cell Volume 109.8 fl (78-100); Mean Corpuscular Hemoglobin 30.2 pg (26-32); Mean Corpuscular Hgb Concent. 27.5 g/dl (32-36); Mean Platelet Volume 11.4 fl (7.5-11.0); Platelet Count 126 K/mm3 (150-450); Red Blood Count 3.67 M/mm3 (4.1-5.4); Red Cell Distribution Width 12.6 % (11.5-14.0); White Blood Count 5.5 K/mm3 (4.0-10.5)
[2021-06-23 02:58] LABS: ALBUMIN 3.3 g/dL (3.5-5.0); BILIRUBIN,TOTAL 0.5 mg/dL (0.2-1.3); Calcium 9.1 mg/dL (8.4-10.2); Creatinine 1 1.31 mg/dL (0.52-1.04); EST GLOMERULAR FILTRATION RATE 43.6 ML/MIN; Potassium 4.9 mmol/L (3.5-5.1); Total Protein 5.9 g/dL (6.3-8.2)
[2021-06-23 03:09] LABS: ANION GAP 9.9 MEQ/L (5-15)
[2021-06-23] MEDS: DUONEB 0.5-3 MG/3 ml Neb IH SCH ×6 (03:29→23:34)
[2021-06-23 03:32] LABS: Slide Review YES
[2021-06-23] MEDS ORDERED: VIBRAMYCIN 100 MG*** 100 MG in Dextrose 5%/Water IV Soln. 100ML PLUS BAG 100 ML IV SCH (04:00)
[2021-06-23 04:14] LABS: TSH, 3RD Generation 0.162 mIU/L (0.47-4.68); Uric Acid 6.1 mg/dL (2.6-6.0)
[2021-06-23] MEDS ORDERED: Nitrostat 0.4 MG Tablet SL PRN (08:45)
[2021-06-23] MEDS ORDERED: VENTOLIN COMMON CANISTER IH PRN (08:56)
[2021-06-23] MEDS: Toprol Xl 100 MG PO SCH (09:06)
[2021-06-23] MEDS: BUMEX 1 MG PO SCH (09:06)
[2021-06-23] MEDS: LYRICA 100MG PO SCH ×2 (09:08→21:12)
[2021-06-23] MEDS: Klor Con 10 MEQ PO SCH ×2 (09:08→21:16)
[2021-06-23] MEDS: Imdur 30 MG PO SCH (09:08)
[2021-06-23] MEDS: XARELTO 10 MG TABLET PO SCH (09:08)
[2021-06-23] MEDS: ECOTRIN 81 MG PO SCH ×2 (09:08→21:18)
[2021-06-23] MEDS: Mucinex 600MG ER Tabs PO SCH ×2 (09:09→21:15)
[2021-06-23] MEDS: Protonix 40MG Tablet PO SCH ×2 (09:09→21:16)
[2021-06-23] MEDS: VIBRAMYCIN 100 MG*** 100 MG in Dextrose 5%/Water IV Soln. 100ML PLUS BAG 100 ML IV SCH ×2 (09:09→21:12)
[2021-06-23] MEDS: THERAGRAN MULTIVITAMIN PO SCH (09:14)
[2021-06-23] MEDS: Lanoxin 0.125MG TABLET PO SCH (09:14)
[2021-06-23] MEDS: Lasix 40 MG PO SCH (09:15)
[2021-06-23] MEDS: Calcium 500MG W/Vit D Tablet PO SCH ×2 (09:15→21:16)
[2021-06-23] MEDS: Vitamin C 500 MG PO SCH (09:15)
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
[2021-06-23] MEDS: Lexapro 10 MG PO SCH (09:16)
[2021-06-23] MEDS: Lidoderm Patch 5% TOP SCH (09:17)
[2021-06-23] MEDS: KLONOPIN PO SCH ×2 (09:20→21:12)
[2021-06-23] MEDS ORDERED: Toprol-Xl 25MG Tablets PO SCH (10:00)
[2021-06-23] MEDS ORDERED: VITAMIN D3 PO SCH (10:00)
[2021-06-23] MEDS ORDERED: MULTIVIT WITH CALCIUM IRON MIN PO SCH (10:00)
[2021-06-23] MEDS ORDERED: NON-FORMULARY ITEM (Bupropion Hcl [Wellbutrin Xl] 300 MG Tab.Er.24h) PO SCH (10:00)
[2021-06-23] MEDS ORDERED: LIDOCAINE 4% TOP SCH (10:00)
[2021-06-23] MEDS ORDERED: CALCIUM CARBONATE PO SCH (10:00)
[2021-06-23] MEDS ORDERED: [UNRECOGNIZED DRUG - OTHER] PO SCH (10:00)
[2021-06-23] MEDS ORDERED: [UNRECOGNIZED DRUG - OTHER] PO SCH (10:00)
[2021-06-23] MEDS: Wellbutrin XL 150 MG PO SCH (10:30)
[2021-06-23] MEDS ORDERED: DUONEB 0.5-3 MG/3 ml Neb IH SCH (11:00)
[2021-06-23] MEDS: ZOCOR 20MG PO SCH (21:16)
[2021-06-24] MEDS: DUONEB 0.5-3 MG/3 ml Neb IH SCH ×6 (03:23→23:27)
[2021-06-24] MEDS: solu-MEDROL 60 MG, Sterile H2O 10 ml 2 ML IV SCH ×8 (05:43→23:39)
[2021-06-24 06:51] LABS: Absolute Neutrophil Ct (ANC) 11.37 (1.4-6.9); Basophil (Absolute #) 0 (0-0.4); Eosinophil (Absolute #) 0 (0-0.5); Hematocrit 38.7 % (35-47); Hemoglobin 10.6 gm/dl (12.0-16.0); Lymphocyte (Absolute #) 1.33 (1.0-4.6); Mean Cell Volume 110.6 fl (78-100); Mean Corpuscular Hemoglobin 30.3 pg (26-32); Mean Corpuscular Hgb Concent. 27.4 g/dl (32-36); Mean Platelet Volume 11.3 fl (7.5-11.0); Monocyte (Absolute #) 0.62 (0.0-1.3); Monocytes % 4.7 % (0.0-12.0); Neutrophil % 85.3 % (36.0-66.0); Platelet Count 123 K/mm3 (150-450); Red Cell Distribution Width 12.6 % (11.5-14.0); White Blood Count 13.3 K/mm3 (4.0-10.5)
[2021-06-24 07:31] LABS: ALBUMIN 3.1 g/dL (3.5-5.0); ALKALINE PHOSPHATASE 44 U/L (38-126); BLOOD UREA NITROGEN 39 mg/dL (7-17); CHLORIDE 88 mmol/L (98-107); Calcium 9.6 mg/dL (8.4-10.2); Creatinine 1 0.96 mg/dL (0.52-1.04); EST GLOMERULAR FILTRATION RATE > 60.0 ML/MIN; Glucose 124 mg/dL (74-106); Potassium 4.7 mmol/L (3.5-5.1); SGOT/AST 18 U/L (14-36); SGPT/ALT 14 U/L (0-35); SODIUM 138 mmol/L (137-145); Total Protein 5.6 g/dL (6.3-8.2)
[2021-06-24 07:53] LABS: Slide Review 1 YES
[2021-06-24 08:02] LABS: Carbon Dioxide 46 mmol/L (22-30)
[2021-06-24 08:03] LABS: ANION GAP 8.7 MEQ/L (5-15)
[2021-06-24] MEDS: Lidoderm Patch 5% TOP SCH (09:16)
[2021-06-24] MEDS: Mucinex 600MG ER Tabs PO SCH ×2 (09:17→21:14)
[2021-06-24] MEDS: ECOTRIN 81 MG PO SCH ×2 (09:17→21:13)
[2021-06-24] MEDS: Lexapro 10 MG PO SCH (09:17)
[2021-06-24] MEDS: XARELTO 10 MG TABLET PO SCH (09:19)
[2021-06-24] MEDS: Protonix 40MG Tablet PO SCH ×2 (09:19→21:14)
[2021-06-24] MEDS: Calcium 500MG W/Vit D Tablet PO SCH ×2 (09:19→21:13)
[2021-06-24] MEDS: Lasix 40 MG PO SCH (09:20)
[2021-06-24] MEDS: Toprol Xl 100 MG PO SCH (09:20)
[2021-06-24] MEDS: BUMEX 1 MG PO SCH (09:20)
[2021-06-24] MEDS: Klor Con 10 MEQ PO SCH ×2 (09:20→21:13)
[2021-06-24] MEDS: LYRICA 100MG PO SCH ×2 (09:20→21:14)
[2021-06-24] MEDS: Imdur 30 MG PO SCH (09:21)
[2021-06-24] MEDS: Vitamin C 500 MG PO SCH (09:21)
[2021-06-24] MEDS: Lanoxin 0.125MG TABLET PO SCH (09:21)
[2021-06-24] MEDS: THERAGRAN MULTIVITAMIN PO SCH (09:22)
[2021-06-24] MEDS: Wellbutrin XL 150 MG PO SCH (09:23)
[2021-06-24] MEDS: KLONOPIN PO SCH ×2 (09:24→21:29)
[2021-06-24] MEDS: VIBRAMYCIN 100 MG*** 100 MG in Dextrose 5%/Water IV Soln. 100ML PLUS BAG 100 ML IV SCH ×2 (09:26→21:14)
[2021-06-24] MEDS: HYDROCODONE-ACETAMIN 10-325 MG PO PRN ×2 (09:31→22:24)
--- NOTE | 2021-06-24 09:34 | PCM.NOTE ---
Date and Time: 06/24/21928 Subjective Assessment: last 24 hours events, labs reviewed. - Review of Systems Constitutional: No Fever, No Chills Eyes: No Symptoms Ears, Nose, & Throat: No Symptoms Respiratory: Cough, Short Of Breath Cardiac: No Chest Pain, No Edema, No Syncope Abdominal/Gastrointestinal: No Abdominal Pain, No Nausea, No Vomiting, No Diarrhea Genitourinary Symptoms: No Dysuria Musculoskeletal: No Back Pain, No Neck Pain Skin: No Rash Neurological: No Dizziness, No Focal Weakness, No Sensory Changes Psychological: No Symptoms Endocrine: No Symptoms Hematologic/Lymphatic: No Symptoms Immunological/Allergic: No Symptoms Objective Exam General Appearance: no apparent distress, alert Neurologic Exam: alert, oriented x 3, cooperative, normal mood/affect, sensation nml, No motor deficits Skin Exam: normal color, warm, dry Eye Exam: PERRL, EOMI, eyes nml inspection Ears, Nose, Throat Exam: normal ENT inspection, pharynx normal, moist mucous membranes Neck Exam: normal inspection, non-tender, supple, full range of motion Respiratory Exam: crackles/rales, rhonchi, wheezing, No respiratory distress Cardiovascular Exam: regular rate/rhythm, normal heart sounds Gastrointestinal/Abdomen Exam: soft, No tenderness, No mass Extremity Exam: normal inspection, normal range of motion Back Exam: normal inspection, normal range of motion, No CVA tenderness, No vertebral tenderness Pelvic Exam: deferred Rectal Exam: deferred OBJECTIVE DATA Vital Signs: Vital Signs - 24 hr Temp Pulse Resp BP BP BP Pulse Ox 06/24/21 09:21 73 106/59 06/24/21 07:31 97.5 F 49 L 13 112/57 96 06/24/21 06:24 51 L 16 99 06/24/21 04:00 96.9 F 68 19 120/70 96 06/24/21 03:23 68 17 96 06/24/21 03:00 100 06/24/21 00:00 97.7 F 64 14 112/67 100 06/23/21 23:34 57 L 14 98 06/23/21 20:00 97.8 F 72 21 128/91 90 L 06/23/21 19:10 69 14 98 06/23/21 19:00 95 06/23/21 16:00 97.5 F 70 13 100/57 98 06/23/21 15:28 60 24 98 06/23/21 12:00 97.3 F 60 15 98/54 100 06/23/21 10:56 72 20 94 L Oxygen-Last 24 hours Oxygen Flowrate (L/min)-RT 4 Oxygen Flowrate (L/min)-RT 4 Pain Assessment - Last Documented Pain Intensity 4 Intake and Output: Intake & Output 06/21/21 06/22/21 06/23/21 06/24/21 11:59 11:59 11:59 11:59 Intake Total 720 960 Output Total 200 1200 Balance 520 -240 Weight 40.6 kg Lab Results: Lab Results-Last 24 Hours 06/24/21 06/24/21 Range/Units 06:51 06:51 WBC 13.3 H (4.0-10.5) K/mm3 RBC 3.50 L (4.1-5.4) M/mm3 Hgb 10.6 L (12.0-16.0) gm/dl Hct 38.7 (35-47) % MCV 110.6 H (78-100) fl MCH 30.3 (26-32) pg MCHC 27.4 L (32-36) g/dl RDW 12.6 (11.5-14.0) % Plt Count 123 L (150-450) K/mm3 MPV 11.3 H (7.5-11.0) fl Gran % 85.3 H (36.0-66.0) % Eos # (Auto) 0 (0-0.5) Absolute Lymphs (auto) 1.33 (1.0-4.6) Absolute Monos (auto) 0.62 (0.0-1.3) Lymphocytes % 10.0 L (24.0-44.0) % Monocytes % 4.7 (0.0-12.0) % Eosinophils % 0.0 (0.00-5.0) % Basophils % 0.0 (0.0-0.4) % Absolute Granulocytes 11.37 H (1.4-6.9) Basophils # 0 (0-0.4) Sodium 138 (137-145) mmol/L Potassium 4.7 (3.5-5.1) mmol/L Chloride 88 L (98-107) mmol/L Carbon Dioxide 46 H (22-30) mmol/L Anion Gap 8.7 (5-15) MEQ/L BUN 39 H (7-17) mg/dL Creatinine 0.96 (0.52-1.04) mg/dL Estimated GFR > 60.0 ML/MIN Glucose 124 H (74-106) mg/dL Calcium 9.6 (8.4-10.2) mg/dL Total Bilirubin 0.30 (0.2-1.3) mg/dL AST 18 (14-36) U/L ALT 14 (0-35) U/L Alkaline Phosphatase 44 (38-126) U/L Serum Total Protein 5.6 L (6.3-8.2) g/dL Albumin 3.1 L (3.5-5.0) g/dL Slides for Path Review YES Radiology Exams: Radiology Procedures Category Date Time Status CHEST 1 VIEW (PORTABLE) Stat Exams 06/22/21 14:08 Completed Assessment/Plan (1) COPD exacerbation Current Visit: Yes Status: Acute Code(s): J44.1 - CHRONIC OBSTRUCTIVE PULMONARY DISEASE W (ACUTE) EXACERBATION (2) ACS (acute coronary syndrome) Current Visit: Yes Status: Acute Code(s): I24.9 - ACUTE ISCHEMIC HEART DISEASE, UNSPECIFIED (3) COPD (chronic obstructive pulmonary disease) Current Visit: Yes Status: Acute Qualifiers: COPD type: COPD with acute exacerbation Qualified Code(s): J44.1 - Chronic obstructive pulmonary disease with (acute) exacerbation
[2021-06-24] MEDS ORDERED: Xylocaine-Mpf 2% 5 Ml Vial ONE (10:25)
[2021-06-24] MEDS ORDERED: Sodium Chloride 0.9% 1000 ML 1,000 ML IV SCH (16:15)
[2021-06-24] MEDS: ZOCOR 20MG PO SCH (21:14)
[2021-06-25] MEDS: DUONEB 0.5-3 MG/3 ml Neb IH SCH ×6 (03:16→22:33)
[2021-06-25] MEDS: solu-MEDROL 60 MG, Sterile H2O 10 ml 2 ML IV SCH ×8 (05:45→23:10)
[2021-06-25 06:12] LABS: Absolute Neutrophil Ct (ANC) 12.25 (1.4-6.9); Basophil (Absolute #) 0 (0-0.4); Eosinophil (Absolute #) 0 (0-0.5); Hematocrit 35.9 % (35-47); Hemoglobin 9.9 gm/dl (12.0-16.0); Lymphocyte (Absolute #) 0.97 (1.0-4.6); Mean Cell Volume 108.8 fl (78-100); Mean Corpuscular Hgb Concent. 27.6 g/dl (32-36); Mean Platelet Volume 11.6 fl (7.5-11.0); Monocyte (Absolute #) 0.59 (0.0-1.3); Monocytes % 4.3 % (0.0-12.0); Neutrophil % 88.7 % (36.0-66.0); Platelet Count 96 K/mm3 (150-450); Red Cell Distribution Width 12.5 % (11.5-14.0); White Blood Count 13.8 K/mm3 (4.0-10.5)
[2021-06-25 06:16] LABS: ALBUMIN 2.8 g/dL (3.5-5.0); ALKALINE PHOSPHATASE 30 U/L (38-126); BLOOD UREA NITROGEN 57 mg/dL (7-17); CHLORIDE 89 mmol/L (98-107); Calcium 8.8 mg/dL (8.4-10.2); Creatinine 1 0.89 mg/dL (0.52-1.04); EST GLOMERULAR FILTRATION RATE > 60.0 ML/MIN; Glucose 101 mg/dL (74-106); Potassium 4.8 mmol/L (3.5-5.1); SGOT/AST 30 U/L (14-36); SGPT/ALT 20 U/L (0-35); SODIUM 135 mmol/L (137-145); Total Protein 5.1 g/dL (6.3-8.2)
[2021-06-25 06:33] LABS: Carbon Dioxide 42 mmol/L (22-30)
--- NOTE | 2021-06-25 07:11 | PCM.NOTE ---
Date and Time: 06/25/21710 Subjective Assessment: doing better. - Review of Systems Constitutional: No Fever, No Chills Eyes: No Symptoms Ears, Nose, & Throat: No Symptoms Respiratory: No Cough, No Short Of Breath Cardiac: No Chest Pain, No Edema, No Syncope Abdominal/Gastrointestinal: No Abdominal Pain, No Nausea, No Vomiting, No Diarrhea Genitourinary Symptoms: No Dysuria Musculoskeletal: No Back Pain, No Neck Pain Skin: No Rash Neurological: No Dizziness, No Focal Weakness, No Sensory Changes Psychological: No Symptoms Endocrine: No Symptoms Hematologic/Lymphatic: No Symptoms Immunological/Allergic: No Symptoms Objective Exam General Appearance: no apparent distress, alert Neurologic Exam: alert, oriented x 3, cooperative, normal mood/affect, nml cerebellar function, sensation nml, No motor deficits Skin Exam: normal color, warm, dry Eye Exam: PERRL, EOMI, eyes nml inspection Ears, Nose, Throat Exam: normal ENT inspection, pharynx normal, moist mucous membranes Neck Exam: normal inspection, non-tender, supple, full range of motion Respiratory Exam: normal breath sounds, lungs clear, No respiratory distress Cardiovascular Exam: regular rate/rhythm, normal heart sounds Gastrointestinal/Abdomen Exam: soft, No tenderness, No mass Extremity Exam: normal inspection, normal range of motion Back Exam: normal inspection, normal range of motion, No CVA tenderness, No vertebral tenderness Pelvic Exam: deferred Rectal Exam: deferred OBJECTIVE DATA Vital Signs: Vital Signs - 24 hr Temp Pulse Resp BP BP Pulse Ox 06/25/21 06:58 58 L 16 91 L 06/25/21 06:48 98 06/25/21 03:46 98.6 F 71 21 119/66 93 L 06/25/21 03:16 61 16 97 06/25/21 03:00 99 06/24/21 23:47 97.8 F 97 H 20 106/49 94 L 06/24/21 23:27 70 17 94 L 06/24/21 23:00 94 L 06/24/21 20:00 98.6 F 62 19 151/73 97 06/24/21 19:39 67 16 96 06/24/21 18:00 97 06/24/21 16:23 66 16 99 06/24/21 16:00 98.7 F 77 16 114/58 96 06/24/21 14:00 99 06/24/21 12:00 97.1 F 65 13 91/55 99 06/24/21 10:00 78 20 93 L 06/24/21 09:21 73 106/59 06/24/21 07:31 97.5 F 49 L 13 112/57 96 Oxygen-Last 24 hours Oxygen Flowrate (L/min)-RT 4 Oxygen Flowrate (L/min)-RT 4 Oxygen Flowrate (L/min)-RT 4 Oxygen Flowrate (L/min)-RT 4 Oxygen Flowrate (L/min)-RT 4 Pain Assessment - Last Documented Pain Intensity 6 Pain Scale Used 0-10 Pain Scale Intake and Output: Intake & Output 06/22/21 06/23/21 06/24/21 06/25/21 11:59 11:59 11:59 11:59 Intake Total 964 884 8042 Output Total 200 1200 1000 Balance 520 -240 420 Weight 40.6 kg 42.2 kg Lab Results: Lab Results-Last 24 Hours 06/24/21 06/24/21 06/25/21 Range/Units 06:51 06:51 06:06 WBC 13.8 H (4.0-10.5) K/mm3 RBC 3.30 L (4.1-5.4) M/mm3 Hgb 9.9 L (12.0-16.0) gm/dl Hct 35.9 (35-47) % MCV 108.8 H (78-100) fl MCH 30.0 (26-32) pg MCHC 27.6 L (32-36) g/dl RDW 12.5 (11.5-14.0) % Plt Count 96 L (150-450) K/mm3 MPV 11.6 H (7.5-11.0) fl Gran % 88.7 H (36.0-66.0) % Eos # (Auto) 0 (0-0.5) Absolute Lymphs (auto) 0.97 L (1.0-4.6) Absolute Monos (auto) 0.59 (0.0-1.3) Lymphocytes % 7.0 L (24.0-44.0) % Monocytes % 4.3 (0.0-12.0) % Eosinophils % 0.0 (0.00-5.0) % Basophils % 0.0 (0.0-0.4) % Absolute Granulocytes 12.25 H (1.4-6.9) Basophils # 0 (0-0.4) Sodium 138 (137-145) mmol/L Potassium 4.7 (3.5-5.1) mmol/L Chloride 88 L (98-107) mmol/L Carbon Dioxide 46 H (22-30) mmol/L Anion Gap 8.7 (5-15) MEQ/L BUN 39 H (7-17) mg/dL Creatinine 0.96 (0.52-1.04) mg/dL Estimated GFR > 60.0 ML/MIN Glucose 124 H (74-106) mg/dL Calcium 9.6 (8.4-10.2) mg/dL Total Bilirubin 0.30 (0.2-1.3) mg/dL AST 18 (14-36) U/L ALT 14 (0-35) U/L Alkaline Phosphatase 44 (38-126) U/L Serum Total Protein 5.6 L (6.3-8.2) g/dL Albumin 3.1 L (3.5-5.0) g/dL Slides for Path Review YES 06/25/21 Range/Units 06:06 WBC (4.0-10.5) K/mm3 RBC (4.1-5.4) M/mm3 Hgb (12.0-16.0) gm/dl Hct (35-47) % MCV (78-100) fl MCH (26-32) pg MCHC (32-36) g/dl RDW (11.5-14.0) % Plt Count (150-450) K/mm3 MPV (7.5-11.0) fl Gran % (36.0-66.0) % Eos # (Auto) (0-0.5) Absolute Lymphs (auto) (1.0-4.6) Absolute Monos (auto) (0.0-1.3) Lymphocytes % (24.0-44.0) % Monocytes % (0.0-12.0) % Eosinophils % (0.00-5.0) % Basophils % (0.0-0.4) % Absolute Granulocytes (1.4-6.9) Basophils # (0-0.4) Sodium 135 L (137-145) mmol/L Potassium 4.8 (3.5-5.1) mmol/L Chloride 89 L (98-107) mmol/L Carbon Dioxide 42 H (22-30) mmol/L Anion Gap (5-15) MEQ/L BUN 57 H (7-17) mg/dL Creatinine 0.89 (0.52-1.04) mg/dL Estimated GFR > 60.0 ML/MIN Glucose 101 (74-106) mg/dL Calcium 8.8 (8.4-10.2) mg/dL Total Bilirubin 0.40 (0.2-1.3) mg/dL AST 30 (14-36) U/L ALT 20 (0-35) U/L Alkaline Phosphatase 30 L (38-126) U/L Serum Total Protein 5.1 L (6.3-8.2) g/dL Albumin 2.8 L (3.5-5.0) g/dL Slides for Path Review Assessment/Plan (1) COPD exacerbation Current Visit: Yes Status: Acute Assessment & Plan: Chief Complaint Diagnosis COPD exacerbation Allergies Allergy/AdvReac Type Severity Reaction Status Date / Time ciprofloxacin [From Cipro] Allergy Severe Itchy Eyes Verified 06/22/21 14:04 theophylline Allergy Severe hives, sob Verified 06/22/21 14:04 iodine Allergy Intermediate Tightness Verified 06/22/21 14:04 in Chest Penicillins Allergy Intermediate Itchy Eyes Verified 06/22/21 14:04 Sulfa (Sulfonamide Allergy Intermediate Itchy Eyes Verified 06/22/21 14:04 Antibiotics) [Sulfa(Sulfonamide Antibiotics)] azithromycin [From Zithromax] Allergy Mild Itching Verified 06/22/21 14:04 lisinopril Allergy Tightness Verified 06/22/21 14:04 of Throat clindamycin AdvReac Severe Diarrhea Verified 06/22/21 14:04 budesonide [From Symbicort] AdvReac Mild Verified 06/22/21 14:04 fluticasone furoate AdvReac Mild Verified 06/22/21 14:04 [From Trelegy Ellipta] hydromorphone HCl AdvReac Mild low bp Verified 06/22/21 14:04 [From Dilaudid] Vital Signs (Last 24 hours) Temp Pulse Resp BP BP Pulse Ox 06/25/21 06:58 58 L 16 91 L 06/25/21 06:48 98 06/25/21 03:46 98.6 F 71 21 119/66 93 L 06/25/21 03:16 61 16 97 06/25/21 03:00 99 06/24/21 23:47 97.8 F 97 H 20 106/49 94 L 06/24/21 23:27 70 17 94 L 06/24/21 23:00 94 L 06/24/21 20:00 98.6 F 62 19 151/73 97 06/24/21 19:39 67 16 96 06/24/21 18:00 97 06/24/21 16:23 66 16 99 06/24/21 16:00 98.7 F 77 16 114/58 96 06/24/21 14:00 99 06/24/21 12:00 97.1 F 65 13 91/55 99 06/24/21 10:00 78 20 93 L 06/24/21 09:21 73 106/59 06/24/21 07:31 97.5 F 49 L 13 112/57 96 Home Medications Medication Instructions Recorded Confirmed Last Taken Type Aspirin EC 81 mg [Ecotrin 81 81 mg PO BID 06/22/21 06/22/21 Unknown History mg] Bumetanide 1 mg [Bumex 1 mg] 0.5 mg PO DAILY 06/22/21 06/22/21 Unknown History Bupropion HCl [Wellbutrin Xl] 300 mg PO DAILY 06/22/21 06/22/21 06/22/21 History Clonazepam [Klonopin] 1 mg PO BID 06/22/21 06/22/21 Unknown History Digoxin 0.125 mg Tablet 0.5 tab PO DAILY 06/22/21 06/22/21 Unknown History [Lanoxin 0.125MG TABLET] Doxycycline Monohydrate 100 mg PO DAILY 06/22/21 06/22/21 Unknown History Mirtazapine 30 mg [Remeron 30 30 mg PO DAILY 06/22/21 06/22/21 Unknown Histor y mg] Prednisone 10 mg [Deltasone 10 10 mg PO BID 06/22/21 06/22/21 Unknown History mg] Current Medications Generic Name Dose Route Start Last Admin Trade Name Freq PRN Reason Stop Dose Admin Acetaminophen 500 mg 06/22/21 21:35 Acetaminophen 500 Mg Tablet PO 07/22/21 21:34 Q4H PRN PRN PAIN Hydrocodone Bitart/Acetaminophen 1 tablet 06/22/21 21:27 06/24/21 22:24 Hydrocodone/Acetamin 10-325 Mg Tablet PO 06/27/21 21:26 1 tablet Q4H PRN PRN Administration PAIN Albuterol Sulfate 2 puff 06/23/21 08:56 Albuterol Common Canister Inhaler 07/23/21 08:55 Q2H/PRN PRN SHORTNESS OF BREATH Albuterol/Ipratropium 3 ml 06/22/21 19:00 06/25/21 06:46 Ipratropium/Albuterol Sulfate 3 Ml Ampul.Neb IH 07/22/21 18:59 3 ml Q4HRT SAVITA Administration Ascorbic Acid 1,000 mg 06/23/21 10:00 06/24/21 09:21 Ascorbic Acid 500 Mg Tablet PO 07/23/21 09:59 1,000 mg DAILY SAVITA Administration Aspirin 81 mg 06/22/21 22:00 06/24/21 21:13 Aspirin 81 Mg Tablet.Ec PO 07/22/21 21:59 81 mg BID SAVITA Administration Benzonatate 100 mg 06/22/21 21:24 Benzonatate 100 Mg Capsule PO 07/22/21 21:23 Q8H PRN PRN COUGH Bumetanide 0.5 mg 06/23/21 10:00 06/24/21 09:20 Bumetanide 1 Mg Tablet PO 07/23/21 09:59 0.5 mg DAILY SAVITA Administration Bupropion HCl 300 mg 06/23/21 10:00 06/24/21 09:23 Bupropion Hcl 150 Mg Tablet Xl PO 07/23/21 09:59 300 mg DAILY SAVITA Administration Calcium Carbonate 1 tab 06/23/21 10:00 06/24/21 21:13 Calcium Carbonate 500 Mg/Vitamin D 1 Tab Tablet PO 07/23/21 09:59 1 tab BID SAVITA Administration Clonazepam 1 mg 06/22/21 22:00 06/24/21 21:29 Clonazepam 2 Mg Tablet PO 07/22/21 21:59 Not Given Q12H SAVITA Methylprednisolone Sodium 0 mg 06/23/21 00:00 06/25/21 05:45 Succinate 60 mg/ Sterile Water IV 07/23/21 00:00 60 mg 2 ml Q6HT SAVITA Administration Diclofenac Sodium 1 gm 06/22/21 21:25 Diclofenac Sodium 100 Gm Gel..Gm. TOP 07/22/21 21:29 QID PRN PRN PAIN Digoxin 0.0625 mg 06/23/21 10:00 06/24/21 09:21 Digoxin 0.125 Mg Tablet PO 07/23/21 09:59 0.0625 mg DAILY SAVITA Administration Docusate Sodium 100 mg 06/22/21 21:26 06/22/21 22:26 Docusate Sodium 100 Mg Capsule PO 07/22/21 21:25 100 mg BIDPRN PRN Administration bowel care Escitalopram Oxalate 15 mg 06/23/21 10:00 06/24/21 09:17 Escitalopram Oxalate 10 Mg Tablet PO 07/23/21 09:59 15 mg DAILY SAVITA Administration Furosemide 40 mg 06/23/21 10:00 06/24/21 09:20 Furosemide 40 Mg Tablet PO 07/23/21 09:59 40 mg DAILY SAVITA Administration Guaifenesin 1,200 mg 06/22/21 22:00 06/24/21 21:14 Guaifenesin 600 Mg Tablet Er PO 07/22/21 21:59 1,200 mg BID SAVITA Administration Doxycycline Hyclate 100 mg/ 100 mls @ 100 mls/hr 06/23/21 10:00 06/24/21 21:14 Dextrose IV 07/23/21 09:59 100 mls/hr Q12HT SAVITA Administration Sodium Chloride 1,000 mls @ 0 mls/hr 06/24/21 16:15 06/24/21 17:24 Sodium Chloride 0.9% 1000 Ml IV 07/24/21 16:14 20 mls/hr .Q0M SAVITA Administration KVO Isosorbide Mononitrate 30 mg 06/23/21 10:00 06/24/21 09:21 Isosorbide Mononitrate 30 Mg Tab PO 07/23/21 09:59 30 mg DAILY SAVITA Administration Lidocaine 2 patch 06/23/21 10:00 06/24/21 09:16 Lidocaine Hcl 1 Patch Patch TOP 07/23/21 09:59 2 patch DAILY SAVITA Administration Metoprolol Succinate 100 mg 06/23/21 10:00 06/24/21 09:20 Metoprolol Succinate 100 Mg Tablet.Sa PO 07/23/21 09:59 100 mg DAILY SAVITA Administration Multivitamins Therapeutic 1 tab 06/23/21 10:00 06/24/21 09:22 Multivitamins,Therapeutic 1 Tab Tab PO 07/23/21 09:59 1 tab DAILY SAVITA Administration Nitroglycerin 0.4 mg 06/23/21 08:45 Nitroglycerin 0.4 Mg Tablet Bottle SL 07/23/21 08:44 Q5MIN PRN MR X 3 PRN Pantoprazole Sodium 40 mg 06/22/21 22:00 06/24/21 21:14 Protonix (Pantoprazole) 40 Mg Tablet PO 07/22/21 21:59 40 mg BID SAVITA Administration Potassium Chloride 10 meq 06/22/21 22:00 06/24/21 21:13 Potassium Chloride 10 Meq Tablet PO 07/22/21 21:59 10 meq BID SAVITA Administration Pregabalin 100 mg 06/22/21 22:00 06/24/21 21:14 Pregabalin 100 Mg Capsule PO 07/22/21 21:59 100 mg BID SAVITA Administration Promethazine HCl 12.5 mg 06/22/21 21:31 Promethazine Hcl 25 Mg Tablet PO 07/22/21 21:30 UD PRN NAUSEA Rivaroxaban 10 mg 06/23/21 10:00 06/24/21 09:19 Rivaroxaban 10 Mg Tablet PO 07/23/21 09:59 10 mg DAILY SAVITA Administration Simvastatin 20 mg 06/22/21 22:00 06/24/21 21:14 Simvastatin 20 Mg Tablet PO 07/22/21 21:59 20 mg HS SAVITA Administration Discontinued Medications Generic Name Dose Route Start Last Admin Trade Name Freq PRN Reason Stop Dose Admin Albuterol Sulfate 2.5 mg 06/22/21 19:00 Albuterol Sulfate 2.5 Mg/3 Ml Neb 07/22/21 18:59 Q4HRT SAVITA Albuterol/Ipratropium 3 ml 06/22/21 14:10 06/22/21 14:18 Ipratropium/Albuterol Sulfate 3 Ml Ampul.Neb 06/22/21 14:11 3 ml STAT ONE Administration Albuterol/Ipratropium Confirm 06/22/21 14:15 Ipratropium/Albuterol Sulfate 3 Ml Ampul.Neb Administered 06/22/21 14:16 Dose 3 ml IH .STK-MED ONE Albuterol/Ipratropium Confirm 06/22/21 18:47 Ipratropium/Albuterol Sulfate 3 Ml Ampul.Neb Administered 06/22/21 18:48 Dose 3 ml IH .STK-MED ONE Albuterol/Ipratropium 3 ml 06/23/21 11:00 06/23/21 15:39 Ipratropium/Albuterol Sulfate 3 Ml Ampul.Neb IH 07/23/21 10:59 Not Given Q4HRT SAVITA Methylprednisolone Sodium 0 mg 06/22/21 14:09 06/22/21 14:47 Succinate 125 mg/ Sterile IV 06/22/21 14:10 125 mg Water 2 ml STAT ONE Administration Doxycycline Hyclate Confirm 06/22/21 15:01 Doxycycline Hyclate 100 Mg/Vial Injection Administered 06/22/21 15:02 Dose 100 mg IV .STK-MED ONE Doxycycline Hyclate 100 mg 06/22/21 23:25 06/22/21 23:28 Doxycycline Hyclate 100 Mg Tablet PO 06/22/21 23:26 100 mg STAT ONE Administration Fentanyl 25 mcg 06/23/21 08:45 Fentanyl 12 Mcg Adh..Patch TOP 06/28/21 08:44 Q3D SAVITA Doxycycline Hyclate 100 mg/ 100 mls @ 100 mls/hr 06/22/21 22:00 06/22/21 15:45 Dextrose IV 07/22/21 21:59 100 mls/hr Q12HT SAVITA Administration Dextrose Confirm 06/22/21 15:03 D5w 100ml Mini Bag 100 Ml Administered 06/22/21 15:04 Dose 100 mls @ ud IV .STK-MED ONE Doxycycline Hyclate 100 mg/ 100 mls @ 100 mls/hr 06/22/21 22:00 06/22/21 23:27 Dextrose IV 07/22/21 21:59 Not Given Q12HT SAVITA Doxycycline Hyclate 100 mg/ 100 mls @ 100 mls/hr 06/23/21 04:00 Dextrose IV 07/23/21 03:59 Q12HT [facility] Lidocaine HCl Confirm 06/24/21 10:25 Lidocaine - Mpf 2% 5 Ml Vial Administered 06/24/21 10:26 Dose 5 ml .ROUTE .STK-MED ONE Methylprednisolone Sodium Succinate Confirm 06/22/21 14:44 Methylprednis Sod Succ 125 Mg/2 Ml Vial Administered 06/22/21 14:45 Dose 125 mg .ROUTE .STK-MED ONE Methylprednisolone Sodium Succinate Confirm 06/23/21 00:12 Methylprednis Sod Succ 125 Mg/2 Ml Vial Administered 06/23/21 00:13 Dose 125 mg .ROUTE .STK-MED ONE Methylprednisolone Sodium Succinate Confirm 06/23/21 05:34 Methylprednis Sod Succ 125 Mg/2 Ml Vial Administered 06/23/21 05:35 Dose 125 mg .ROUTE .STK-MED ONE Morphine Sulfate 2 mg 06/22/21 15:58 06/22/21 17:19 Morphine Sulfate 2 Mg/Ml Inj IV 06/22/21 15:59 2 mg STAT ONE Administration Morphine Sulfate Confirm 06/22/21 17:18 Morphine Sulfate 2 Mg/Ml Inj Administered 06/22/21 17:19 Dose 2 mg .ROUTE .STK-MED ONE Simvastatin Confirm 06/22/21 21:45 Simvastatin 20 Mg Tablet Administered 06/22/21 21:46 Dose 20 mg .ROUTE .STK-MED ONE Sterile Water Confirm 06/22/21 14:44 Water For Injection,Sterile 10 Ml Vial Administered 06/22/21 14:45 Dose 10 ml IJ .STK-MED ONE Sterile Water Confirm 06/23/21 00:13 Water For Injection,Sterile 10 Ml Vial Administered 06/23/21 00:14 Dose 10 ml IJ .STK-MED ONE Sterile Water Confirm 06/23/21 05:34 Water For Injection,Sterile 10 Ml Vial Administered 06/23/21 05:35 Dose 10 ml IJ .STK-MED ONE Intake & Output (Last 24 hours) 06/22/21 06/23/21 06/24/21 06/25/21 11:59 11:59 11:59 11:59 Intake Total 695 820 3818 Output Total 200 1200 1000 Balance 520 -240 420 Weight 40.6 kg 42.2 kg Microbiology Results (Last 24 hours) 06/22/21 14:30 Blood Blood Culture Gram Stain - Pending 06/22/21 14:30 Blood Blood Culture - Preliminary NO GROWTH TO DATE 06/22/21 14:20 Blood Blood Culture Gram Stain - Pending 06/22/21 14:20 Blood Blood Culture - Preliminary NO GROWTH TO DATE Laboratory Results (Last 24 hours) 06/25/21 06/25/21 06/24/21 06:06 06:06 06:51 WBC 13.8 H RBC 3.30 L Hgb 9.9 L Hct 35.9 MCV 108.8 H MCH 30.0 MCHC 27.6 L RDW 12.5 Plt Count 96 L MPV 11.6 H Gran % 88.7 H Eos # (Auto) 0 Absolute Lymphs (auto) 0.97 L Absolute Monos (auto) 0.59 Lymphocytes % 7.0 L Monocytes % 4.3 Eosinophils % 0.0 Basophils % 0.0 Absolute Granulocytes 12.25 H Basophils # 0 Sodium 135 L 138 Potassium 4.8 4.7 Chloride 89 L 88 L Carbon Dioxide 42 H 46 H Anion Gap 8.7 BUN 57 H 39 H Creatinine 0.89 0.96 Estimated GFR > 60.0 > 60.0 Glucose 101 124 H Calcium 8.8 9.6 Total Bilirubin 0.40 0.30 AST 30 18 ALT 20 14 Alkaline Phosphatase 30 L 44 Serum Total Protein 5.1 L 5.6 L Albumin 2.8 L 3.1 L Slides for Path Review 06/24/21 06:51 WBC RBC Hgb Hct MCV MCH MCHC RDW Plt Count MPV Gran % Eos # (Auto) Absolute Lymphs (auto) Absolute Monos (auto) Lymphocytes % Monocytes % Eosinophils % Basophils % Absolute Granulocytes Basophils # Sodium Potassium Chloride Carbon Dioxide Anion Gap BUN Creatinine Estimated GFR Glucose Calcium Total Bilirubin AST ALT Alkaline Phosphatase Serum Total Protein Albumin Slides for Path Review YES Orders (Last 24 hours) Category Date Time Status CBC W DIFF DAILY Lab 06/24/21 06:51 Completed CBC W DIFF DAILY Lab 06/25/21 06:06 Completed CBC W DIFF DAILY Lab 06/26/21 04:00 Ordered CMP DAILY Lab 06/24/21 06:51 Completed CMP DAILY Lab 06/25/21 06:06 Completed CMP DAILY Lab 06/26/21 04:00 Ordered Lidocaine HCl 2% Mpf 5 ml [Xylocaine-Mpf 2% 5 Ml Med 06/24/21 10:25 Discontinued Vial] 5 ml .ROUTE .STK-MED ONE NaCl 0.9% 1000 ml [Sodium Chloride 0.9% 1000 ML] 1,000 Med 06/24/21 16:15 Ordered ml IV KVO Code(s): J44.1 - CHRONIC OBSTRUCTIVE PULMONARY DISEASE W (ACUTE) EXACERBATION (2) ACS (acute coronary syndrome) Current Visit: Yes Status: Acute Code(s): I24.9 - ACUTE ISCHEMIC HEART DISEASE, UNSPECIFIED (3) COPD (chronic obstructive pulmonary disease) Current Visit: Yes Status: Acute Qualifiers: COPD type: COPD with acute exacerbation Qualified Code(s): J44.1 - Chronic obstructive pulmonary disease with (acute) exacerbation
[2021-06-25] MEDS: HYDROCODONE-ACETAMIN 10-325 MG PO PRN ×3 (09:15→21:53)
[2021-06-25] MEDS: Lexapro 10 MG PO SCH (09:16)
[2021-06-25] MEDS: ECOTRIN 81 MG PO SCH ×2 (09:16→21:44)
[2021-06-25] MEDS: Lasix 40 MG PO SCH (09:17)
[2021-06-25] MEDS: Calcium 500MG W/Vit D Tablet PO SCH ×2 (09:18→21:44)
[2021-06-25] MEDS: Protonix 40MG Tablet PO SCH ×2 (09:18→21:44)
[2021-06-25] MEDS: LYRICA 100MG PO SCH ×2 (09:18→21:44)
[2021-06-25] MEDS: XARELTO 10 MG TABLET PO SCH (09:18)
[2021-06-25] MEDS: Klor Con 10 MEQ PO SCH ×2 (09:18→21:44)
[2021-06-25] MEDS: Toprol Xl 100 MG PO SCH (09:18)
[2021-06-25] MEDS: Imdur 30 MG PO SCH (09:18)
[2021-06-25] MEDS: Vitamin C 500 MG PO SCH (09:19)
[2021-06-25] MEDS: THERAGRAN MULTIVITAMIN PO SCH (09:19)
[2021-06-25] MEDS: BUMEX 1 MG PO SCH (09:19)
[2021-06-25] MEDS: Mucinex 600MG ER Tabs PO SCH ×2 (09:20→21:44)
[2021-06-25] MEDS: Lanoxin 0.125MG TABLET PO SCH (09:20)
[2021-06-25] MEDS: Wellbutrin XL 150 MG PO SCH (09:21)
[2021-06-25] MEDS: Lidoderm Patch 5% TOP SCH (09:22)
[2021-06-25] MEDS: VIBRAMYCIN 100 MG*** 100 MG in Dextrose 5%/Water IV Soln. 100ML PLUS BAG 100 ML IV SCH ×2 (09:22→21:45)
[2021-06-25] MEDS: KLONOPIN PO SCH ×2 (09:23→21:44)
[2021-06-25] MEDS: Zofran 4 MG/2 ML VIAL IV PRN ×2 (17:53→21:45)
[2021-06-25] MEDS: ZOCOR 20MG PO SCH (21:45)
[2021-06-26] MEDS: DUONEB 0.5-3 MG/3 ml Neb IH SCH ×4 (02:40→14:14)
[2021-06-26 05:29] LABS: Absolute Neutrophil Ct (ANC) 9.91 (1.4-6.9); Basophil (Absolute #) 0 (0-0.4); Eosinophil (Absolute #) 0 (0-0.5); Hematocrit 39.9 % (35-47); Lymphocyte (Absolute #) 0.62 (1.0-4.6); Lymphocytes % 5.7 % (24.0-44.0); Mean Cell Volume 108.4 fl (78-100); Mean Corpuscular Hemoglobin 29.9 pg (26-32); Mean Corpuscular Hgb Concent. 27.6 g/dl (32-36); Mean Platelet Volume 11.2 fl (7.5-11.0); Monocyte (Absolute #) 0.42 (0.0-1.3); Monocytes % 3.8 % (0.0-12.0); Neutrophil % 90.5 % (36.0-66.0); Platelet Count 123 K/mm3 (150-450); Red Blood Count 3.68 M/mm3 (4.1-5.4); Red Cell Distribution Width 12.7 % (11.5-14.0)
[2021-06-26 05:50] LABS: ALBUMIN 3.3 g/dL (3.5-5.0); BILIRUBIN,TOTAL 0.5 mg/dL (0.2-1.3); Calcium 9.5 mg/dL (8.4-10.2); Creatinine 1 1.25 mg/dL (0.52-1.04); Potassium 5.2 mmol/L (3.5-5.1); Total Protein 5.7 g/dL (6.3-8.2)
[2021-06-26 05:59] LABS: ANION GAP 10.2 MEQ/L (5-15)
[2021-06-26 06:17] LABS: Slide Review 1 YES
[2021-06-26] MEDS: solu-MEDROL 60 MG, Sterile H2O 10 ml 2 ML IV SCH ×2 (06:57)
[2021-06-26] MEDS: HYDROCODONE-ACETAMIN 10-325 MG PO PRN ×2 (07:56→13:22)
[2021-06-26] MEDS: Lidoderm Patch 5% TOP SCH (09:46)
[2021-06-26] MEDS: Toprol Xl 100 MG PO SCH (09:47)
[2021-06-26] MEDS: Mucinex 600MG ER Tabs PO SCH (09:47)
[2021-06-26] MEDS: Lexapro 10 MG PO SCH (09:47)
[2021-06-26] MEDS: Protonix 40MG Tablet PO SCH (09:47)
[2021-06-26] MEDS: Klor Con 10 MEQ PO SCH (09:48)
[2021-06-26] MEDS: Imdur 30 MG PO SCH (09:48)
--- NOTE | 2021-06-26 09:55 | XRAY ---
Indication: Hyperthyroidism. Two-dimensional thyroid sonogram performed. Comparison: None No thyromegaly. Right lobe measures 3.7 x 1.5 x 1.3 cm and the left measures 4.7 x 2.7 x 1.4 cm. Isthmus measures 1.4 mm. A few bilateral cysts, largest on the left measuring 1.2 x 0.7 x 1.1 cm. Largest right thyroid cyst measures 4 mm. No focal solid nodule. Impression: Colloid cysts.
[2021-06-26] MEDS: Lanoxin 0.125MG TABLET PO SCH (09:59)
[2021-06-26] MEDS: KLONOPIN PO SCH (09:59)
[2021-06-26] MEDS: Calcium 500MG W/Vit D Tablet PO SCH (09:59)
[2021-06-26] MEDS: BUMEX 1 MG PO SCH (09:59)
[2021-06-26] MEDS: Vitamin C 500 MG PO SCH (10:00)
[2021-06-26] MEDS: Lasix 40 MG PO SCH (10:00)
[2021-06-26] MEDS ORDERED: XARELTO 10 MG TABLET PO SCH (10:00)
[2021-06-26] MEDS: THERAGRAN MULTIVITAMIN PO SCH (10:00)
[2021-06-26] MEDS: VIBRAMYCIN 100 MG*** 100 MG in Dextrose 5%/Water IV Soln. 100ML PLUS BAG 100 ML IV SCH (10:00)
[2021-06-26] MEDS: LYRICA 100MG PO SCH (11:21)
[2021-06-26] MEDS: Wellbutrin XL 150 MG PO SCH (11:21)
[2021-06-26] MEDS: ECOTRIN 81 MG PO SCH (11:21)
[2021-06-26] MEDS: XARELTO 10 MG TABLET PO SCH (12:16)
[2021-06-26 12:43] VITALS: BP 158/93; O2SAT 98
--- NOTE | 2021-06-26 13:15 | DS ---
DISCHARGE DIAGNOSIS: ACUTE EXACERBATION OF CHRONIC OBSTRUCTIVE PULMONARY DISEASE. HOSPITAL COURSE: The patient is a 65-year-old white female who has a long history of chronic obstructive pulmonary disease issues. She has been under Hospice care for the past two years for end stage chronic obstructive pulmonary disease. The patient continues to smoke and takes fairly significant pain medications at home. The patient has not been seen by me for two years as she has been in Hospice care. The patient however now was admitted to the hospital for chronic obstructive pulmonary disease exacerbation and wishes to no longer be on Hospice care. The patient had basically a four-day stay at the hospital for high dose of Solu-Medrol IV as well as doxycycline. The patient has improved over the past several days to the point now where she is felt to be ready for discharge home. Again, the patient reports she has been able to ambulate to the bathroom. She uses 4 liters nasal cannula routinely at home. Her home medication list will be adjusted as the patient has problems with significant polypharmacy. The patient's discharge medications will include Albuterol nebulizer on PRN basis. We will discontinue ascorbic acid, discontinue aspirin, discontinue Bumex, discontinue bupropion, discontinue calcium tablets, discontinue clonazepam, discontinue digoxin. We will continue her on escitalopram 10 mg a day. Discontinue her Lasix. Continue guaifenesin 1200 mg b.i.d., continue isosorbide mononitrate at 30 mg a day, Lidocaine patch. We will discontinue her IV Solu-Medrol and place her on prednisone 60 mg for 5 days, 40 mg for 5 days, and then back to her usual 20 mg a day. She will be on metoprolol extended release 100 mg tablet daily. Discontinue multivitamins. Continue pantoprazole 40 mg, potassium 10 mEq a day. Will discontinue her Lyrica, Xarelto and Simvastatin. We will see her in the office in one week for follow up and establish her to have a home health care evaluation.
[2021-06-26 14:19] VITALS: PULSE 71
[2021-06-28 15:45] LABS: Thyroglobulin Antibody <1.0 IU/mL (0.0-0.9)
== END 2021-06-26 16:00 | disposition home or self-care (01) | DRG 191 ==
LOC: ED 13:50 → MED SURG 18:24 → OBSVTOIN 06-23 09:09
PROVIDERS: ADMIT Family Medicine; ATTEND Family Medicine
DX: J44.1 Chronic obstructive pulmonary disease with (acute) exacerbation (principal); I24.9 Acute ischemic heart disease, unspecified; R07.89 Other chest pain; I10 Essential (primary) hypertension; E78.00 Pure hypercholesterolemia, unspecified; Z99.81 Dependence on supplemental oxygen; E05.90 Thyrotoxicosis, unspecified without thyrotoxic crisis or storm; J04.0 Acute laryngitis; R53.83 Other fatigue; R63.4 Abnormal weight loss; Z79.899 Other long term (current) drug therapy; Z86.711 Personal history of pulmonary embolism; Z20.822 Contact with and (suspected) exposure to COVID-19
CPT/HCPCS: 36000; 36415; 71045; 76536; 76942; 80053; 82607; 84443; 84484; 84550; 85025; 85027; 86376; 86800; 87040; 93005; 93041; 94640; 94760; 94762; 96374; 99285; U0003; 93268; J2270; J2405; J2930; A9270-GY; G0378

== ENCOUNTER 2021-06-28 08:30 | Inpatient (IN) | payer MEDICARE ==
[2021-06-28] MEDS ORDERED: DUONEB 0.5-3 MG/3 ml Neb IH ONE ×4 (08:35→11:21)
[2021-06-28] MEDS ORDERED: solu-MEDROL 125 MG, Sterile H2O 10 ml 10 ML IV ONE ×2 (08:35)
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
[2021-06-28] MEDS ORDERED: Sterile H2O 10 ml IJ ONE ×2 (09:03→09:05)
[2021-06-28] MEDS ORDERED: solu-MEDROL ONE (09:03)
--- NOTE | 2021-06-28 09:10 | XRAY ---
Indication: Short of breath. Comparison: June 22, 2021. Portable chest unchanged again demonstrating chronic features including COPD, minimal biapical fibrosis/scarring, and bilateral lung suture material. Heart not enlarged. No new/acute cardiopulmonary abnormalities.
[2021-06-28] MEDS ORDERED: TYLENOL 325 MG PO ONE (09:23)
[2021-06-28 10:33] LABS: Basophil (Absolute #) 0 (0-0.4); Eosinophil % 0.8 % (0.00-5.0); Eosinophil (Absolute #) 0.07 (0-0.5); Hematocrit 36.6 % (35-47); Hemoglobin 10.6 gm/dl (12.0-16.0); Lymphocyte (Absolute #) 2.12 (1.0-4.6); Lymphocytes % 23.1 % (24.0-44.0); Mean Cell Volume 104.9 fl (78-100); Mean Corpuscular Hemoglobin 30.4 pg (26-32); Mean Platelet Volume 11.6 fl (7.5-11.0); Monocyte (Absolute #) 0.97 (0.0-1.3); Monocytes % 10.6 % (0.0-12.0); Neutrophil % 65.5 % (36.0-66.0); Platelet Count 105 K/mm3 (150-450); Red Blood Count 3.49 M/mm3 (4.1-5.4); Red Cell Distribution Width 12.9 % (11.5-14.0); White Blood Count 9.2 K/mm3 (4.0-10.5)
[2021-06-28 10:43] LABS: ALBUMIN 3.2 g/dL (3.5-5.0); ALKALINE PHOSPHATASE 51 U/L (38-126); BLOOD UREA NITROGEN 29 mg/dL (7-17); CHLORIDE 88 mmol/L (98-107); Calcium 9.8 mg/dL (8.4-10.2); Creatinine 1 0.82 mg/dL (0.52-1.04); EST GLOMERULAR FILTRATION RATE > 60.0 ML/MIN; Glucose 96 mg/dL (74-106); NT PRO BNP 608 pg/mL (0-900); Potassium 4.1 mmol/L (3.5-5.1); SGOT/AST 35 U/L (14-36); SGPT/ALT 30 U/L (0-35); SODIUM 134 mmol/L (137-145); Total Protein 5.5 g/dL (6.3-8.2)
[2021-06-28] MEDS ORDERED: PHENERGAN 25 MG PO ONE (10:50)
[2021-06-28 11:00] LABS: Carbon Dioxide 40 mmol/L (22-30)
[2021-06-28 11:01] LABS: ANION GAP 10.1 MEQ/L (5-15)
[2021-06-28] MEDS ORDERED: PHENERGAN 25 MG ONE (11:43)
[2021-06-28] MEDS ORDERED: TYLENOL 325 MG ONE (11:43)
[2021-06-28] MEDS ORDERED: DUONEB 0.5-3 MG/3 ml Neb IH SCH ×2 (15:00→16:00)
[2021-06-28] MEDS: Sodium Chloride 0.9% 1000 ML 1,000 ML IV SCH (15:40)
[2021-06-28] MEDS ORDERED: Tessalon Perles 100 MG PO PRN (16:00)
[2021-06-28] MEDS: Lexapro 10 MG PO SCH (16:38)
[2021-06-28] MEDS: Imdur 30 MG PO SCH (16:39)
[2021-06-28] MEDS: Toprol Xl 100 MG PO SCH (16:39)
[2021-06-28] MEDS: XARELTO 10 MG TABLET PO SCH (16:39)
[2021-06-28] MEDS: HYDROCODONE-ACETAMIN 10-325 MG PO PRN ×2 (16:42→23:23)
[2021-06-28] MEDS: solu-MEDROL 80 MG, Sterile H2O 10 ml 2 ML IV SCH ×4 (17:43→23:18)
[2021-06-28] MEDS: Voltaren GEL TOP PRN (17:45)
[2021-06-28] MEDS: VENTOLIN COMMON CANISTER IH PRN (17:58)
[2021-06-28] MEDS: PHENERGAN 25 MG PO PRN ×2 (19:10→23:16)
[2021-06-28] MEDS: DUONEB 0.5-3 MG/3 ml Neb IH SCH ×2 (19:15→23:18)
[2021-06-28] MEDS: ROCEPHIN 1 Gm-D5w 50 ml Bag** 1 G/50 ML IVPB IV SCH (21:14)
[2021-06-28] MEDS: Klor Con 10 MEQ PO SCH (21:14)
[2021-06-28] MEDS: Protonix 40MG Tablet PO SCH (21:14)
[2021-06-28] MEDS: Mucinex 600MG ER Tabs PO SCH (21:14)
[2021-06-29] MEDS: DUONEB 0.5-3 MG/3 ml Neb IH SCH ×6 (03:29→22:43)
[2021-06-29] MEDS: VENTOLIN COMMON CANISTER IH PRN (04:32)
[2021-06-29 05:08] LABS: Absolute Neutrophil Ct (ANC) 4.75 (1.4-6.9); Basophil (Absolute #) 0 (0-0.4); Eosinophil (Absolute #) 0 (0-0.5); Hematocrit 31.8 % (35-47); Hemoglobin 9.1 gm/dl (12.0-16.0); Lymphocyte (Absolute #) 0.42 (1.0-4.6); Lymphocytes % 7.9 % (24.0-44.0); Mean Cell Volume 103.2 fl (78-100); Mean Corpuscular Hemoglobin 29.5 pg (26-32); Mean Corpuscular Hgb Concent. 28.6 g/dl (32-36); Mean Platelet Volume 10.9 fl (7.5-11.0); Monocyte (Absolute #) 0.12 (0.0-1.3); Monocytes % 2.3 % (0.0-12.0); Neutrophil % 89.8 % (36.0-66.0); Platelet Count 116 K/mm3 (150-450); Red Blood Count 3.08 M/mm3 (4.1-5.4); Red Cell Distribution Width 12.7 % (11.5-14.0); White Blood Count 5.3 K/mm3 (4.0-10.5)
[2021-06-29] MEDS: PHENERGAN 25 MG PO PRN ×5 (05:11→21:34)
[2021-06-29] MEDS: HYDROCODONE-ACETAMIN 10-325 MG PO PRN ×5 (05:11→21:33)
[2021-06-29] MEDS: solu-MEDROL 80 MG, Sterile H2O 10 ml 2 ML IV SCH ×6 (05:12→17:27)
[2021-06-29] MEDS: Voltaren GEL TOP PRN ×2 (05:14→21:37)
[2021-06-29 05:21] LABS: ANION GAP 9.1 MEQ/L (5-15); BLOOD UREA NITROGEN 25 mg/dL (7-17); CHLORIDE 92 mmol/L (98-107); Calcium 9.2 mg/dL (8.4-10.2); Carbon Dioxide 39 mmol/L (22-30); Creatinine 1 0.88 mg/dL (0.52-1.04); EST GLOMERULAR FILTRATION RATE > 60.0 ML/MIN; Glucose 93 mg/dL (74-106); Potassium 4.7 mmol/L (3.5-5.1); SODIUM 135 mmol/L (137-145)
[2021-06-29 06:14] LABS: Slide Review 1 YES
--- NOTE | 2021-06-29 08:43 | HP ---
CHIEF COMPLAINT: Shortness of breath. HISTORY OF PRESENT ILLNESS: The patient is a 65-year-old white female with end stage lung disease. She was on Hospice for two years getting large doses of narcotic medications. She recently has decided that she wishes no longer to be [facility] and presented herself to the emergency room. She was admitted roughly about a week ago. She has been home with current medications and had an acute worsening the morning of 06/28/2021 and presented to the emergency room subsequently being admitted to the hospital for exacerbation and treatment. It is of note that the patient would likely be admitted any day of the week that she rolls in as she has the end stage lung disease. The patient otherwise denies any fever or chills. She has nonproductive cough. PAST MEDICAL/SURGICAL HISTORY: The patient's previous history included otherwise pulmonary embolism, coronary artery disease, hyperlipidemia, hypertension, peripheral vascular disease, gastroesophageal reflux disease, diverticulosis. HOME MEDICATIONS: The patient's home medication have been reduced remarkably since I last saw her. We pared her down off most of her pain medicines. Her home medications currently on docusate 100 mg b.i.d., nitroglycerin 0.4 mg sublingual PRN for chest pain, potassium 10 mEq b.i.d., isosorbide 30 mg a day, guaifenesin extended release two tablets twice a day. She is on hydrocodone 10/325 every 4 hours PRN pain, Phenergan 12.5 mg PRN for nausea, Lexapro 15 mg a day, DuoNeb on PRN basis every 4 hours, Tessalon Perles 100 mg every 8 hours PRN for cough, Voltaren gel, lidocaine topical for neuropathy issue, pantoprazole 40 mg a day. ALLERGIES: THE PATIENT REPORTS A LONG LIST OF ALLERGIES INCLUDING CIPRO, THEOPHYLLINE, IODINE, PENICILLIN, SULFA, ZITHROMAX, LISINOPRIL, CLINDAMYCIN, SYMBICORT, TRELEGY ELLIPTA, DILAUDID. PHYSICAL EXAMINATION: Admission temperature was 99.1F, pulse 103, respiratory rate 22, blood pressure 165/78. O2 saturation 100%. HEENT: Normocephalic, atraumatic. Pupils equal round reactive to light. Extraocular movements intact. Oropharynx is dry. She is wearing oxygen currently per nasal cannula at 4 liters. NECK: Supple without lymphadenopathy, thyromegaly or JVD. CHEST: Revealed diminished air movement and wheezes on expiration bilaterally. HEART: Regular rate and rhythm, slightly tachycardic but no murmurs, rubs or gallops heard. ABDOMEN: Scaphoid and no palpable masses. EXTREMITIES: Without cyanosis, clubbing or edema. NEUROLOGIC: The patient is alert and oriented x3. No focal deficits are noted. LAB DATA AND TESTS: She did have a chest x-ray which showed some apical scarring, chronic features of chronic obstructive pulmonary disease, bilateral lung suture material was seen. No acute cardiopulmonary abnormalities were noted on the chest x-ray. The patient's laboratory studies showed sugar 96, BUN 29, creatinine 0.82. Sodium slightly low at 134. Liver enzymes were normal. ProBNP was normal. Troponin was 0.018. White count was 9,200, hemoglobin 10.6, PLT count 105,000. COVID test was performed and was negative. She had blood cultures pending. ASSESSMENT: A patient with chronic end-stage lung disease, chronic obstructive pulmonary disease with exacerbation. The patient has been readmitted again for IV steroid medications and Rocephin IV, nebulizers every 4 hours PRN. Her medication list otherwise is to continue on the Albuterol, Tessalon, diclofenac, escitalopram, guaifenesin. Hydrocodone was decreased to 5/325 every 4 hours PRN pain. Lidocaine patch topical for neuropathy and metoprolol 25 mg a day. Nitro sublingual PRN, pantoprazole 40 mg a day, potassium 10 mEq twice a day. Prednisone will be held that was 20 mg daily. Continue IV steroids and Xarelto 10 mg daily for her previous history of pulmonary embolism.
[2021-06-29] MEDS: Toprol Xl 100 MG PO SCH (09:39)
[2021-06-29] MEDS: Protonix 40MG Tablet PO SCH ×2 (09:39→21:34)
[2021-06-29] MEDS: Mucinex 600MG ER Tabs PO SCH ×2 (09:40→21:34)
[2021-06-29] MEDS: Klor Con 10 MEQ PO SCH ×2 (09:40→21:34)
[2021-06-29] MEDS: Lexapro 10 MG PO SCH (09:40)
[2021-06-29] MEDS: Imdur 30 MG PO SCH (09:40)
[2021-06-29] MEDS: XARELTO 10 MG TABLET PO SCH (09:41)
[2021-06-29] MEDS: Lidoderm Patch 5% TOP SCH (09:42)
[2021-06-29] MEDS: ROCEPHIN 1 Gm-D5w 50 ml Bag** 1 G/50 ML IVPB IV SCH (09:46)
[2021-06-29] MEDS ORDERED: Toprol-Xl 25MG Tablets PO SCH (10:00)
[2021-06-29] MEDS ORDERED: LIDOCAINE 4% TOP SCH (10:00)
[2021-06-29] MEDS: Advair Hfa 230/21 Mcg COMMON CANISTER IH SCH ×2 (10:05→18:41)
--- NOTE | 2021-06-29 14:28 | CONS ---
CONSULT DATE: 06/29/2021 REASON FOR CONSULT: Evaluation of chronic obstructive pulmonary disease. HISTORY: Pretty Garrett is a 65-year-old woman end-stage chronic obstructive pulmonary disease and chronic hypoxic respiratory failure, well known to me but not seen in a while, who has been hospitalized at [facility] with progressively increasing shortness of breath. The patient apparently was on [facility] and stopped following up with other physicians. She reportedly got more short of breath. In addition, her medications were altered while being on Hospice. She is currently being restarted back on Advair inhaler. She has been on Albuterol inhaler as well as nebulizer every 4 hours that has been increased to every 3 hours. Her effort tolerance has been severely reduced. The patient unfortunately continues to smoke as well. PAST MEDICAL HISTORY: Pulmonary embolism, coronary artery disease, hypertension, hyperlipidemia, anxiety, peripheral vascular disease, gastroesophageal reflux disease and diverticulosis. PAST SURGICAL HISTORY: No recent surgery. PERSONAL AND SOCIAL HISTORY: She still smokes about a half pack of cigarettes a day. MEDICATIONS: Medications reviewed. ALLERGIES: ALLERGIES NOTED. PHYSICAL EXAMINATION: An elderly frail woman who appeared mildly tachypneic but able to carry out a conversation. Vital signs noted. HEENT: Normocephalic. Oral exam unremarkable. NECK: Supple. CVS: First and second heart sounds are normal, regular, rhythmic. RESPIRATORY: Shows increase in AP diameter. Breath sounds are diminished. Rhonchi are heard. ABDOMEN: Soft. EXTREMITIES: No edema is noted. LABORATORY DATA AND TESTS: Radiology tests were reviewed. ASSESSMENT: This is a 65-year old woman admitted with: 1) Chronic obstructive pulmonary disease with acute exacerbation. 2) Chronic hypoxemia. 3) Acute bronchitis. 4) Nicotine addiction. 5) Comorbidities listed above. RECOMMENDATIONS: 1) The patient does not wish to go back on Hospice upon discharge. 2) I agree with current treatment plan. 3) I agree with starting Advair 250/50 using dry powder inhaler or meter-dosed inhaler format. 4) Need for smoking cessation was discussed. 5) Continue anticoagulation as deep vein thrombosis prophylaxis. 6) May require social sciences department chair given the patient's is on dialysis three days a week and there are no other family members able to help her with her care. Will follow up in outpatient setting if needed. Thank you, Dr. Gallo, for allowing me to participate in the care of your patient.
[2021-06-29] MEDS: Ventolin Hfa MDI IH PRN ×2 (16:26→20:40)
[2021-06-30] MEDS: solu-MEDROL 80 MG, Sterile H2O 10 ml 2 ML IV SCH ×4 (00:22→06:30)
[2021-06-30] MEDS: Ventolin Hfa MDI IH PRN ×4 (01:10→21:34)
[2021-06-30] MEDS: PHENERGAN 25 MG PO PRN ×2 (01:34→16:45)
[2021-06-30] MEDS: HYDROCODONE-ACETAMIN 10-325 MG PO PRN ×3 (01:34→16:41)
[2021-06-30] MEDS: DUONEB 0.5-3 MG/3 ml Neb IH SCH ×6 (03:15→23:00)
[2021-06-30] MEDS: Advair Hfa 230/21 Mcg COMMON CANISTER IH SCH (07:40)
[2021-06-30] MEDS: Zofran 4 MG/2 ML VIAL IV PRN ×2 (08:57→13:39)
[2021-06-30] MEDS: ROCEPHIN 1 Gm-D5w 50 ml Bag** 1 G/50 ML IVPB IV SCH (09:34)
[2021-06-30] MEDS: Mucinex 600MG ER Tabs PO SCH ×2 (09:36→21:24)
[2021-06-30] MEDS: Toprol Xl 100 MG PO SCH (09:36)
[2021-06-30] MEDS: XARELTO 10 MG TABLET PO SCH (09:36)
[2021-06-30] MEDS: Lexapro 10 MG PO SCH (09:37)
[2021-06-30] MEDS: Klor Con 10 MEQ PO SCH ×2 (09:37→21:24)
[2021-06-30] MEDS: Protonix 40MG Tablet PO SCH ×2 (09:37→21:24)
[2021-06-30] MEDS: Imdur 30 MG PO SCH (09:37)
[2021-06-30] MEDS: Voltaren GEL TOP PRN ×2 (09:40→13:43)
[2021-06-30] MEDS: Lidoderm Patch 5% TOP SCH (09:55)
[2021-06-30] MEDS: solu-MEDROL IV SCH ×2 (13:37→21:24)
[2021-06-30] MEDS: Sodium Chloride 0.9% 1000 ML 1,000 ML IV SCH (13:39)
[2021-06-30] MEDS: Sterile H2O 10 ml IJ SCH ×2 (13:39→21:24)
[2021-06-30] MEDS ORDERED: solu-MEDROL 40 MG, Sterile H2O 10 ml 2 ML IV SCH ×2 (14:00)
[2021-06-30] MEDS: WIXELA 500-50 INHUB IH SCH (18:28)
[2021-07-01] MEDS: Ventolin Hfa MDI IH PRN (01:26)
[2021-07-01] MEDS: Zofran 4 MG/2 ML VIAL IV PRN ×3 (01:54→21:31)
[2021-07-01] MEDS: HYDROCODONE-ACETAMIN 10-325 MG PO PRN ×5 (01:54→22:40)
[2021-07-01] MEDS: DUONEB 0.5-3 MG/3 ml Neb IH SCH ×6 (03:03→23:03)
[2021-07-01] MEDS: Voltaren GEL TOP PRN ×2 (03:10→15:08)
[2021-07-01] MEDS: solu-MEDROL IV SCH (06:45)
[2021-07-01] MEDS: Sterile H2O 10 ml IJ SCH ×2 (06:45→15:08)
[2021-07-01 06:53] LABS: Hematocrit 30.8 % (35-47); Hemoglobin 8.9 gm/dl (12.0-16.0); Mean Cell Volume 104.8 fl (78-100); Mean Corpuscular Hemoglobin 30.3 pg (26-32); Mean Corpuscular Hgb Concent. 28.9 g/dl (32-36); Mean Platelet Volume 11.1 fl (7.5-11.0); Platelet Count 136 K/mm3 (150-450); Red Blood Count 2.94 M/mm3 (4.1-5.4); Red Cell Distribution Width 12.6 % (11.5-14.0); White Blood Count 9.3 K/mm3 (4.0-10.5)
[2021-07-01] MEDS: WIXELA 500-50 INHUB IH SCH (06:57)
[2021-07-01 07:12] LABS: ANION GAP 6.4 MEQ/L (5-15); BLOOD UREA NITROGEN 26 mg/dL (7-17); CHLORIDE 101 mmol/L (98-107); Calcium 9.1 mg/dL (8.4-10.2); Carbon Dioxide 34 mmol/L (22-30); Creatinine 1 0.85 mg/dL (0.52-1.04); EST GLOMERULAR FILTRATION RATE > 60.0 ML/MIN; Glucose 137 mg/dL (74-106); Potassium 4.6 mmol/L (3.5-5.1); SODIUM 137 mmol/L (137-145)
[2021-07-01] MEDS ORDERED: solu-MEDROL IV SCH (07:30)
--- NOTE | 2021-07-01 07:33 | PCM.NOTE ---
Date and Time: 07/01/21730 Subjective Assessment: patient feels terrible, states she is no better at all since admission, she feels very anxious and short of breath. she is also very concerned that she is starting to swell and needs some lasix Objective Exam General Appearance: no apparent distress, anxiety Neurologic Exam: alert, oriented x 3 Respiratory Exam: prolonged expirations, rhonchi, wheezing Cardiovascular Exam: regular rate/rhythm, normal heart sounds Gastrointestinal/Abdomen Exam: soft, No tenderness, No mass Extremity Exam: normal inspection, normal range of motion OBJECTIVE DATA Vital Signs: Vital Signs - 24 hr Temp Pulse Resp BP Pulse Ox 07/01/21 07:24 97.1 F 68 24 179/74 100 07/01/21 07:09 68 16 100 07/01/21 04:00 97.1 F 69 14 165/68 97 07/01/21 03:04 78 20 97 07/01/21 01:26 75 24 97 06/30/21 23:21 98.5 F 63 16 178/74 99 06/30/21 23:00 85 16 99 06/30/21 20:00 98.4 F 63 20 131/61 98 06/30/21 18:30 65 16 99 06/30/21 16:00 98.6 F 71 17 179/81 98 06/30/21 14:48 68 20 98 06/30/21 12:00 97.8 F 65 18 156/73 99 06/30/21 11:11 62 22 99 06/30/21 08:00 97.1 F 61 15 160/71 100 06/30/21 07:40 56 L 22 98 Pain Assessment - Last Documented Pain Intensity 8 Pain Scale Used [facility] Intake and Output: Intake & Output 06/28/21 06/29/21 06/30/21 07/01/21 11:59 11:59 11:59 11:59 Intake Total 1067 2601 2247 Output Total 279 345 8162 Balance 367 1901 1222 Weight 43 kg 42.5 kg Lab Results: Lab Results-Last 24 Hours 07/01/21 07/01/21 Range/Units 05:23 05:23 WBC 9.3 (4.0-10.5) K/mm3 RBC 2.94 L (4.1-5.4) M/mm3 Hgb 8.9 L (12.0-16.0) gm/dl Hct 30.8 L (35-47) % MCV 104.8 H (78-100) fl MCH 30.3 (26-32) pg MCHC 28.9 L (32-36) g/dl RDW 12.6 (11.5-14.0) % Plt Count 136 L (150-450) K/mm3 MPV 11.1 H (7.5-11.0) fl Sodium 137 (137-145) mmol/L Potassium 4.6 (3.5-5.1) mmol/L Chloride 101 (98-107) mmol/L Carbon Dioxide 34 H (22-30) mmol/L Anion Gap 6.4 (5-15) MEQ/L BUN 26 H (7-17) mg/dL Creatinine 0.85 (0.52-1.04) mg/dL Estimated GFR > 60.0 ML/MIN Glucose 137 H (74-106) mg/dL Calcium 9.1 (8.4-10.2) mg/dL Multi-Disciplinary Progress Notes: Multi-Disciplinary Progress Notes 06/30/21 10:06 Case Management Note by Alida Vieira PATIENT REPORTS HER INHALERS ARE TOO EXPENSIVE FOR HER. PHARMACY HAS APPROVED TO SEND HOME PATIENT'S WIXELA AND VENTOLIN INHALERS WHAT WERE USED HERE AT [facility] WITH PATIENT AT [place]. HOPEFULLY PATIENT WILL BE ABLE TO SEE DR. Shari JACOBO BEFORE A REFILL IS NEEDED AND HE MAY BE ABLE TO GIVE HER SAMPLES FROM THE OFFICE. ALSO WILL GIVE PATENT INSURANCE NAVIGATOR PHONE NUMBER TO REACH OUT TO FOR ADDITIONAL FINANCIAL OPTIONS/HELP Initialized on 06/30/21 10:06 - END OF NOTE 06/30/21 09:55 (created 06/30/21 11:06) Respiratory Note by Clarissa Bhatt Called to patient's room for shortness of breath. O2 sat 99% on 5lpm and HR 62 RR 22 Breath sounds diminished with faint wheezes. Patient sitting back in bed at 45 degrees in no apparent distress. No treatment given at this time. Initialized on 06/30/21 11:06 - END OF NOTE 06/30/21 09:50 Case Management Note by Alida Vieira S/W PATIENT THIS AM- SHE IS VERY ADAMENTLY AGAINST GOING TO THE LONG TERM. SHE VOICES THAT SHE WOULD LIKE TO STAY AT [facility] UNTIL AT LEAST SATURDAY SO SHE CAN MAKE SURE HER GETS HOME (CURRENTLY IN HOSPITAL IN [facility]- UNCLEAR WHAT EXACTLY FOR). S/W PATIENT THAT SHE WOULD NEED TO MEET MEDICAL CRITERIA TO STAY HERE- SHE VERIFIED UNDERSTANDING. SHE REPORTS SHE IS PREPARED TO HAVE TO RETURN HOME BY HERSELF IF NEEDED. SHE REPORTS SHE HAS NEIGHBORS THAT CAN ASSIST HER NEEDED. PATIENT HAS HHC ALREADY SET UP. PATIENT ALREADY HAS A LIFER ALERT BUTTON. PATIENT ALSO HAS HOME OXYGEN ALREADY SET UP THRU [facility]. SHE HAS PULSE OXIMETER WELL. Initialized on 06/30/21 09:50 - END OF NOTE 06/30/21 08:42 Respiratory Note by Cindy Weaver I spoke with Dr. Gallo this a.m. with regards to Pretty asking for treatments constantly. This morning she was asking within 5 minutes of treatment being removed. Dr. Gallo in agreement that we will do treatments as scheduled unless patient is in actual medical distress. Will continue to explain to patient that treatment is not going to cure her lung condition and too many treatments are also not good for her. Will monitor her sats, hr, and breath sounds, to determine if treatment is needed. Initialized on 06/30/21 08:42 - END OF NOTE Assessment/Plan (1) COPD exacerbation Current Visit: Yes Status: Acute Assessment & Plan: increase solu medrol from 40mg IV q8hrs to 80mg, continue nebs and abx therapy Code(s): J44.1 - CHRONIC OBSTRUCTIVE PULMONARY DISEASE W (ACUTE) EXACERBATION (2) Anxiety Current Visit: Yes Status: Acute Assessment & Plan: add hydroxyzine prn Code(s): F41.9 - ANXIETY DISORDER, UNSPECIFIED (3) Chronic hypoxemic respiratory failure Current Visit: Yes Status: Acute
[2021-07-01] MEDS: Toprol Xl 100 MG PO SCH (09:38)
[2021-07-01] MEDS: Imdur 30 MG PO SCH (09:38)
[2021-07-01] MEDS: LASIX 20 MG PO SCH (09:38)
[2021-07-01] MEDS: Mucinex 600MG ER Tabs PO SCH ×2 (09:38→21:26)
[2021-07-01] MEDS: Klor Con 10 MEQ PO SCH ×2 (09:38→21:26)
[2021-07-01] MEDS: ATARAX 25 MG PO PRN ×2 (09:39→17:39)
[2021-07-01] MEDS: Lexapro 10 MG PO SCH (09:39)
[2021-07-01] MEDS: Protonix 40MG Tablet PO SCH ×2 (09:39→21:26)
[2021-07-01] MEDS: XARELTO 10 MG TABLET PO SCH (09:39)
[2021-07-01] MEDS: Lidoderm Patch 5% TOP SCH (09:40)
[2021-07-01] MEDS: ROCEPHIN 1 Gm-D5w 50 ml Bag** 1 G/50 ML IVPB IV SCH (10:18)
[2021-07-01 11:56] LABS: Slide Review YES
[2021-07-01] MEDS: PHENERGAN 25 MG PO PRN (13:07)
[2021-07-01] MEDS: solu-MEDROL 80 MG, Sterile H2O 10 ml 2 ML IV SCH ×4 (14:01→21:27)
[2021-07-01] MEDS ORDERED: Advair Hfa 115/21 Common canister IH SCH (19:00)
[2021-07-01] MEDS ORDERED: VENTOLIN COMMON CANISTER IH PRN (20:23)
[2021-07-01] MEDS: Sodium Chloride 0.9% 1000 ML 1,000 ML IV SCH (21:34)
[2021-07-01] MEDS: Colace 100 MG PO PRN (22:45)
[2021-07-02] MEDS: ATARAX 25 MG PO PRN ×4 (01:40→21:44)
[2021-07-02] MEDS: Voltaren GEL TOP PRN ×4 (01:42→21:45)
[2021-07-02] MEDS: DUONEB 0.5-3 MG/3 ml Neb IH SCH ×6 (03:07→22:56)
[2021-07-02] MEDS: HYDROCODONE-ACETAMIN 10-325 MG PO PRN ×4 (03:38→18:49)
[2021-07-02] MEDS: solu-MEDROL 80 MG, Sterile H2O 10 ml 2 ML IV SCH ×6 (06:04→21:31)
[2021-07-02] MEDS: Advair Hfa 230/21 Mcg COMMON CANISTER IH SCH ×2 (07:16→19:20)
[2021-07-02] MEDS: Protonix 40MG Tablet PO SCH ×2 (08:37→21:34)
[2021-07-02] MEDS: LASIX 20 MG PO SCH (08:37)
[2021-07-02] MEDS: XARELTO 10 MG TABLET PO SCH (08:37)
[2021-07-02] MEDS: Lidoderm Patch 5% TOP SCH (08:37)
[2021-07-02] MEDS: Imdur 30 MG PO SCH (08:37)
[2021-07-02] MEDS: Klor Con 10 MEQ PO SCH ×2 (08:37→21:34)
[2021-07-02] MEDS: PHENERGAN 25 MG PO PRN ×2 (08:38→15:50)
[2021-07-02] MEDS: Mucinex 600MG ER Tabs PO SCH ×2 (08:38→21:34)
[2021-07-02] MEDS: Toprol Xl 100 MG PO SCH (08:38)
[2021-07-02] MEDS: Lexapro 10 MG PO SCH (08:38)
[2021-07-02] MEDS ORDERED: ATARAX 25 MG PO PRN (09:12)
--- NOTE | 2021-07-02 09:15 | PCM.NOTE ---
Date and Time: 07/02/21912 Subjective Assessment: patient reports she is the same, hydroxyzine helps a great deal with anxiety but wondering if she can get it more frequent, urine is strong and foul smelling, feels like she might have a uti Objective Exam General Appearance: no apparent distress, thin Neurologic Exam: alert Respiratory Exam: accessory muscle use, prolonged expirations, wheezing Cardiovascular Exam: regular rate/rhythm, normal heart sounds Gastrointestinal/Abdomen Exam: soft, No tenderness, No mass Extremity Exam: normal inspection, normal range of motion OBJECTIVE DATA Vital Signs: Vital Signs - 24 hr Temp Pulse Resp BP Pulse Ox 07/02/21 08:00 97.5 F 79 22 190/84 99 07/02/21 07:17 71 16 98 07/02/21 04:00 97.1 F 67 20 166/74 98 07/02/21 03:07 67 20 98 07/02/21 00:00 97 F 72 21 155/70 99 07/01/21 23:03 72 21 99 07/01/21 20:00 97.5 F 67 19 131/63 100 07/01/21 18:51 64 22 98 07/01/21 16:00 97.1 F 79 20 138/64 100 07/01/21 14:44 62 16 98 07/01/21 11:48 97.7 F 64 20 133/65 99 07/01/21 10:46 65 20 98 Pain Assessment - Last Documented Pain Intensity 10 Pain Scale Used 0-10 Pain Scale Intake and Output: Intake & Output 06/29/21 06/30/21 07/01/21 07/02/21 11:59 11:59 11:59 11:59 Intake Total 1067 2601 2367 1941 Output Total 190 285 9900 1700 Balance 367 1901 1242 241 Weight 42.5 kg Lab Results: Lab Results-Last 24 Hours 07/01/21 Range/Units 05:23 Slides for Path Review YES Assessment/Plan (1) COPD exacerbation Current Visit: Yes Status: Acute Assessment & Plan: continue abx, nebs and steroids. Code(s): J44.1 - CHRONIC OBSTRUCTIVE PULMONARY DISEASE W (ACUTE) EXACERBATION (2) Anxiety Current Visit: Yes Status: Acute Assessment & Plan: make hydroxyzine q6 hrs prn Code(s): F41.9 - ANXIETY DISORDER, UNSPECIFIED (3) Chronic hypoxemic respiratory failure Current Visit: Yes Status: Acute
[2021-07-02] MEDS: ROCEPHIN 1 Gm-D5w 50 ml Bag** 1 G/50 ML IVPB IV SCH (10:29)
[2021-07-02 12:24] LABS: Appearance CLEAR (CLEAR); Bilirubin NEGATIVE (NEGATIVE); Blood NEGATIVE Ery/ul (0-5); Glucose 150 mg/dL (NEGATIVE); Ketones NEGATIVE (NEGATIVE); Leukocyte Esterase NEGATIVE (NEGATIVE); Mucus SLIGHT /HPF (NEGATIVE); Nitrite NEGATIVE (NEGATIVE); Protein,Urine Dip NEGATIVE (Negative); RBC 0-2 /HPF (0-2); Specific Gravity 1.011 (1.005-1.025); Urobilinogen NEGATIVE mg/dL (0-1)
[2021-07-02] MEDS: Zofran 4 MG/2 ML VIAL IV PRN ×2 (12:44→22:37)
[2021-07-02] MEDS: Nitrostat 0.4 MG Tablet SL PRN (19:21)
[2021-07-02] MEDS ORDERED: Mylicon 80MG PO PRN (19:43)
[2021-07-02] MEDS: Sodium Chloride 0.9% 1000 ML 1,000 ML IV SCH ×2 (19:45→23:33)
[2021-07-02] MEDS: Colace 100 MG PO PRN (21:34)
[2021-07-03] MEDS: HYDROCODONE-ACETAMIN 10-325 MG PO PRN ×5 (02:26→20:26)
[2021-07-03] MEDS: DUONEB 0.5-3 MG/3 ml Neb IH SCH ×7 (03:20→23:15)
[2021-07-03] MEDS ORDERED: APRESOLINE 20 MG/ML INJ IV ONE (04:34)
[2021-07-03] MEDS: ATARAX 25 MG PO PRN ×4 (05:06→22:14)
[2021-07-03] MEDS: solu-MEDROL 80 MG, Sterile H2O 10 ml 2 ML IV SCH ×6 (05:36→21:03)
[2021-07-03] MEDS: Voltaren GEL TOP PRN (05:36)
[2021-07-03] MEDS ORDERED: Mylicon 80MG ONE (05:42)
[2021-07-03] MEDS: Mylicon 80MG PO PRN ×2 (05:48→21:47)
[2021-07-03] MEDS ORDERED: MORPHINE SULFATE 4 MG INJ IV ONE (06:45)
[2021-07-03] MEDS: Advair Hfa 230/21 Mcg COMMON CANISTER IH SCH ×2 (07:16→18:58)
[2021-07-03 08:52] LABS: Hematocrit 36.4 % (35-47); Hemoglobin 10.6 gm/dl (12.0-16.0); Mean Cell Volume 103.7 fl (78-100); Mean Corpuscular Hemoglobin 30.2 pg (26-32); Mean Corpuscular Hgb Concent. 29.1 g/dl (32-36); Mean Platelet Volume 10.1 fl (7.5-11.0); Platelet Count 223 K/mm3 (150-450); Red Blood Count 3.51 M/mm3 (4.1-5.4); Red Cell Distribution Width 12.6 % (11.5-14.0); White Blood Count 17.2 K/mm3 (4.0-10.5)
[2021-07-03 09:15] LABS: ANION GAP 12.3 MEQ/L (5-15); BLOOD UREA NITROGEN 26 mg/dL (7-17); CHLORIDE 97 mmol/L (98-107); Calcium 9.5 mg/dL (8.4-10.2); Carbon Dioxide 32 mmol/L (22-30); Creatinine 1 0.71 mg/dL (0.52-1.04); EST GLOMERULAR FILTRATION RATE > 60.0 ML/MIN; Glucose 154 mg/dL (74-106); Potassium 4.9 mmol/L (3.5-5.1); SODIUM 136 mmol/L (137-145); TROPONIN 0.017 ng/mL (0.000-0.034)
[2021-07-03] MEDS: Mucinex 600MG ER Tabs PO SCH ×2 (09:25→21:03)
[2021-07-03] MEDS: XARELTO 10 MG TABLET PO SCH (09:25)
[2021-07-03] MEDS: Imdur 30 MG PO SCH (09:25)
[2021-07-03] MEDS: Toprol Xl 100 MG PO SCH (09:25)
[2021-07-03] MEDS: Lexapro 10 MG PO SCH (09:26)
[2021-07-03] MEDS: Klor Con 10 MEQ PO SCH ×2 (09:29→21:03)
[2021-07-03] MEDS: Protonix 40MG Tablet PO SCH ×2 (09:29→21:03)
[2021-07-03] MEDS: Lidoderm Patch 5% TOP SCH (09:32)
[2021-07-03] MEDS: LASIX 20 MG PO SCH (09:32)
[2021-07-03] MEDS: ROCEPHIN 1 Gm-D5w 50 ml Bag** 1 G/50 ML IVPB IV SCH (09:33)
[2021-07-03] MEDS: Colace 100 MG PO PRN ×2 (09:36→21:07)
[2021-07-03] MEDS: Zofran 4 MG/2 ML VIAL IV PRN ×2 (11:05→16:59)
[2021-07-03] MEDS: Nitrostat 0.4 MG Tablet SL PRN (16:57)
[2021-07-03] MEDS: Ventolin Hfa MDI IH PRN (20:27)
[2021-07-04] MEDS: HYDROCODONE-ACETAMIN 10-325 MG PO PRN ×4 (02:25→19:44)
[2021-07-04] MEDS: Mylicon 80MG PO PRN ×3 (02:32→18:09)
[2021-07-04] MEDS: DUONEB 0.5-3 MG/3 ml Neb IH SCH ×6 (03:12→23:53)
[2021-07-04] MEDS: solu-MEDROL 80 MG, Sterile H2O 10 ml 2 ML IV SCH ×2 (06:25)
[2021-07-04] MEDS: Advair Hfa 230/21 Mcg COMMON CANISTER IH SCH ×2 (06:51→19:04)
[2021-07-04] MEDS ORDERED: TORAdol 30 mg Injection IV PRN (07:44)
[2021-07-04] MEDS ORDERED: PHARMACY DOSING REQUEST MC ONE (07:44)
[2021-07-04] MEDS: Sodium Chloride 0.9% 1000 ML 1,000 ML IV SCH (08:22)
[2021-07-04] MEDS: Mucinex 600MG ER Tabs PO SCH ×2 (09:04→20:36)
[2021-07-04] MEDS: XARELTO 10 MG TABLET PO SCH (09:04)
[2021-07-04] MEDS: LASIX 20 MG PO SCH (09:05)
[2021-07-04] MEDS: Toprol Xl 100 MG PO SCH (09:05)
[2021-07-04] MEDS: LYRICA 100MG PO SCH ×2 (09:05→20:36)
[2021-07-04] MEDS: DELTASONE 20 MG PO SCH (09:06)
[2021-07-04] MEDS: Imdur 30 MG PO SCH (09:06)
[2021-07-04] MEDS: Lexapro 10 MG PO SCH (09:06)
[2021-07-04] MEDS: Protonix 40MG Tablet PO SCH ×2 (09:07→20:37)
[2021-07-04] MEDS: Klor Con 10 MEQ PO SCH ×2 (09:07→20:35)
[2021-07-04] MEDS: Voltaren GEL TOP PRN ×2 (09:07→23:08)
[2021-07-04] MEDS: GENTAMICIN 80 MG/50 ML PREMIX*** 80 MG/50 ML ML IV SCH ×2 (09:15→20:35)
[2021-07-04] MEDS: Lidoderm Patch 5% TOP SCH (11:07)
[2021-07-04] MEDS: Mucomyst 200 MG/ML IH SCH ×2 (11:10→19:04)
--- NOTE | 2021-07-04 11:45 | CONS ---
CONSULT DATE: 07/03/2021 HISTORY: The patient was evaluated last week, admitted with end-stage chronic obstructive pulmonary disease, being treated medically for the same. The patient has not shown much clinical improvement. She remains short of breath at rest associated with episodes of anxiety, has been switched to high flow nasal cannula, appears anxious. PHYSICAL EXAMINATION: Vital signs noted. HEENT: Normocephalic. Oral exam unremarkable. CVS: First and second heart sounds are normal, regular, rhythmic. RESPIRATORY: Shows increase in AP diameter. Breath sounds are diminished. Bilateral rhonchi are heard. ABDOMEN: Soft. EXTREMITIES: No edema is noted. LABORATORY DATA AND TESTS: Sodium 136, potassium 4.9, chloride 97, bicarb 32, glucose 154, BUN 26, creatinine 0.7. White count 17.2, hemoglobin 10.6, hematocrit 36, PLT count 223,000. Cultures have remained negative. Chest x-ray was negative as well. ASSESSMENT: This is a 65-year-old woman with: 1) End-stage chronic obstructive pulmonary disease admitted with acute exacerbation. 2) Chronic hypoxemia. 3) Anxiety disorder. 4) Anemia and thrombocytopenia. RECOMMENDATIONS: 1) The patient is continued on IV antibiotics, steroids and bronchodilators. 2) Initiated on Advair. 3) Given significant bronchospasm, will attempt low dose aminophylline drip without loading dose for 48 hours. 4) Continue on invasive ventilation as needed/tolerated. 5) The patient states that she wishes to remain a Full Code. I explained to her that should she land on mechanical ventilation, weaning and extubation would be difficult to say the least. However, will respect the patient's wishes. Unfortunately, there is not a whole lot more to be offered due to end-stage nature of her pulmonary problems. I will be available as needed.
[2021-07-04] MEDS: ATARAX 25 MG PO PRN ×2 (12:01→20:36)
--- NOTE | 2021-07-04 12:15 | CONS ---
CONSULT DATE: 07/04/2021 HISTORY: This is a 65-year-old female with known history of end-stage chronic obstructive lung disease, coronary artery disease, who was seen because of chest pains. The patient was initially admitted on 06/28/2021 with progressive shortness of breath due to exacerbation of chronic obstructive pulmonary disease. She was doing well until yesterday when she started to have some chest discomfort mostly right-sided which was aggravated by deep inspiration. Her troponin I's were normal. The electrocardiogram did not show any significant ST-T displacement. The patient is known to have coronary artery disease and has had previous coronary stenting of the RCA and has done without medical therapy. She is chronically short of breath because of chronic obstructive pulmonary disease. In addition, she is oxygen dependent who continues to smoke. CARDIAC RISK FACTORS: Negative for diabetes. Positive for hypertension. She has hyperlipidemia. She continues to smoke. PAST SURGICAL HISTORY: Carpal tunnel syndrome. Sinus surgery. Ureteral stents. Aortobifemoral bypass. REVIEW OF SYSTEMS: JOINT FILLER: No history of stroke or seizures. RESPIRATORY: She has chronic obstructive lung disease oxygen dependent. GI: She has history of heartburn. : Negative for dysuria or hematuria. PERIPHERAL VASCULAR: No history of deep vein thrombosis. She has peripheral arterial disease. CURRENT MEDICATIONS: Mucinex, Albuterol inhaler, Lexapro, Advair, furosemide, isosorbide, lidocaine, metoprolol, Protonix, potassium, prednisone, Xarelto 10 mg a day. SOCIAL HISTORY: She is . She has no significant alcohol intake. PHYSICAL EXAMINATION: The blood pressure is 138/81, heart rate 77, respirations about 20. GENERAL: The patient is an elderly female who is alert, conversant, who gets short of breath with just plain conversation, on 4 liters of oxygen. HEENT: Unremarkable. NECK: External jugulars are prominent. No audible bruits. CHEST: The breath sounds are diminished with diminished respiratory excursions. There is some rhonchi. CARDIAC: Heart tones are distant. The rhythm appears to be regular. There is no audible gallop. ABDOMEN: Soft with normal bowel sounds. There is well healed scar from previous abdominal surgery. EXTREMITIES: No significant edema. The distal pulses are strong bilaterally. LAB DATA AND DIAGNOSTIC TESTS: The electrocardiogram shows sinus rhythm. No significant ST-T displacement. The serial troponin I's have been normal. Liver function tests normal. GFR is 60. Potassium 4.9. IMPRESSION: 1) Chest pain somewhat atypical for angina sounds more pleuritic likely secondary to the chronic obstructive pulmonary disease and associated pulmonary hypertension. I will increase the isosorbide. She looks frail and will continue medical therapy at this time. 2) History of hypertension. 3) Hyperlipidemia, will recheck her lipids and resume statins if indicated and would likely need to be steroids.
[2021-07-04] MEDS: Colace 100 MG PO PRN ×2 (13:06→20:36)
[2021-07-04] MEDS: ZOCOR 20MG PO SCH (13:06)
[2021-07-04] MEDS: Zofran 4 MG/2 ML VIAL IV PRN (23:08)
[2021-07-05] MEDS: HYDROCODONE-ACETAMIN 10-325 MG PO PRN ×4 (00:30→14:14)
[2021-07-05] MEDS: DUONEB 0.5-3 MG/3 ml Neb IH SCH ×4 (03:29→15:55)
[2021-07-05] MEDS: Voltaren GEL TOP PRN ×2 (04:30→09:03)
[2021-07-05] MEDS: Mucomyst 200 MG/ML IH SCH (06:53)
[2021-07-05] MEDS: Advair Hfa 230/21 Mcg COMMON CANISTER IH SCH (06:53)
[2021-07-05 08:23] LABS: Absolute Neutrophil Ct (ANC) 11.67 (1.4-6.9); Basophil (Absolute #) 0 (0-0.4); Eosinophil % 0.7 % (0.00-5.0); Hematocrit 30.6 % (35-47); Hemoglobin 9.1 gm/dl (12.0-16.0); Lymphocyte (Absolute #) 1.82 (1.0-4.6); Mean Corpuscular Hemoglobin 30.3 pg (26-32); Mean Corpuscular Hgb Concent. 29.7 g/dl (32-36); Mean Platelet Volume 9.4 fl (7.5-11.0); Monocyte (Absolute #) 1.54 (0.0-1.3); Monocytes % 10.2 % (0.0-12.0); Neutrophil % 77.1 % (36.0-66.0); Platelet Count 233 K/mm3 (150-450); Red Cell Distribution Width 12.6 % (11.5-14.0); White Blood Count 15.1 K/mm3 (4.0-10.5)
[2021-07-05] MEDS ORDERED: APRESOLINE 20 MG/ML INJ IV PRN (08:44)
[2021-07-05 08:52] LABS: ALBUMIN 2.8 g/dL (3.5-5.0); ALKALINE PHOSPHATASE 38 U/L (38-126); ANION GAP 6.7 MEQ/L (5-15); BLOOD UREA NITROGEN 22 mg/dL (7-17); CHLORIDE 96 mmol/L (98-107); Calcium 8.8 mg/dL (8.4-10.2); Carbon Dioxide 34 mmol/L (22-30); Creatinine 1 0.79 mg/dL (0.52-1.04); EST GLOMERULAR FILTRATION RATE > 60.0 ML/MIN; Glucose 76 mg/dL (74-106); PROCALCITONIN 0.059 ng/mL (0.030-0.080); Potassium 4.2 mmol/L (3.5-5.1); SGOT/AST 20 U/L (14-36); SGPT/ALT 28 U/L (0-35); SODIUM 132 mmol/L (137-145); Total Protein 4.8 g/dL (6.3-8.2)
[2021-07-05] MEDS: XARELTO 10 MG TABLET PO SCH (09:01)
[2021-07-05] MEDS: Mucinex 600MG ER Tabs PO SCH (09:01)
[2021-07-05] MEDS: Lexapro 10 MG PO SCH (09:01)
[2021-07-05] MEDS: Protonix 40MG Tablet PO SCH (09:02)
[2021-07-05] MEDS: Colace 100 MG PO PRN (09:02)
[2021-07-05] MEDS: DELTASONE 20 MG PO SCH (09:02)
[2021-07-05] MEDS: Toprol Xl 100 MG PO SCH (09:02)
[2021-07-05] MEDS: Klor Con 10 MEQ PO SCH (09:02)
[2021-07-05] MEDS: ZOCOR 20MG PO SCH (09:02)
[2021-07-05] MEDS: LASIX 20 MG PO SCH (09:02)
[2021-07-05] MEDS: LYRICA 100MG PO SCH (09:02)
[2021-07-05] MEDS: GENTAMICIN 80 MG/50 ML PREMIX*** 80 MG/50 ML ML IV SCH (09:10)
--- NOTE | 2021-07-05 09:11 | PCM.NOTE ---
Date and Time: 07/05/21905 Subjective Assessment: Pt is constipated. Breathing is better - would like to work with PT on rollator walker. Thinks high-flow has helped her quite a bit. - Review of Systems Constitutional: No Fever Respiratory: Cough, Short Of Breath Objective Exam General Appearance: no apparent distress, alert Neurologic Exam: oriented x 3, cooperative, other (sitting on bedside commode) Skin Exam: warm, dry, No rash Ears, Nose, Throat Exam: moist mucous membranes Respiratory Exam: diminished breath sounds (poor air exchange), wheezing (scattered faint), No crackles/rales, No rhonchi Cardiovascular Exam: regular rate/rhythm, normal heart sounds, No murmur Extremity Exam: No pedal edema, No swelling Back Exam: normal inspection, No rash OBJECTIVE DATA Vital Signs: Vital Signs - 24 hr Temp Pulse Resp BP Pulse Ox 07/05/21 07:00 98.2 F 68 16 196/90 99 07/05/21 06:57 61 18 97 07/05/21 03:31 61 22 96 07/05/21 03:30 97.4 F 61 22 144/67 96 07/04/21 23:53 79 20 99 07/04/21 23:00 97.4 F 75 20 142/63 100 07/04/21 19:24 97.9 F 80 22 145/91 100 07/04/21 19:04 79 14 99 07/04/21 17:00 97.5 F 89 25 H 120/91 100 07/04/21 15:05 87 20 98 07/04/21 13:00 98.0 F 91 H 21 138/62 100 07/04/21 11:16 77 20 98 Pain Assessment - Last Documented Pain Intensity 10 Pain Scale Used 0-10 Pain Scale Intake and Output: Intake & Output 07/02/21 07/03/21 07/04/21 07/05/21 11:59 11:59 11:59 11:59 Intake Total 1 2126 1012 1543 Output Total 1343 5860 3050 750 Balance 04 -381 -7 798 Weight 42.5 kg Lab Results: Lab Results-Last 24 Hours 07/05/21 Range/Units 08:10 Sodium 132 L (137-145) mmol/L Potassium 4.2 (3.5-5.1) mmol/L Chloride 96 L (98-107) mmol/L Carbon Dioxide 34 H (22-30) mmol/L Anion Gap 6.7 (5-15) MEQ/L BUN 22 H (7-17) mg/dL Creatinine 0.79 (0.52-1.04) mg/dL Estimated GFR > 60.0 ML/MIN Glucose 76 (74-106) mg/dL Calcium 8.8 (8.4-10.2) mg/dL Total Bilirubin 0.30 (0.2-1.3) mg/dL AST 20 (14-36) U/L ALT 28 (0-35) U/L Alkaline Phosphatase 38 (38-126) U/L Serum Total Protein 4.8 L (6.3-8.2) g/dL Albumin 2.8 L (3.5-5.0) g/dL Procalcitonin 0.059 (0.030-0.080) ng/mL Multi-Disciplinary Progress Notes: Multi-Disciplinary Progress Notes 07/04/21 18:07 Physical Therapy Note by Varsha James PT. TRANSFERRING FROM BED TO BEDSIDE COMMODE W/ SBA W/ NSG. DID NOT WISH TO AMBULATE AT THE TIME P.T. STOPPED BY. PLAN IS FOR D/C HOME W/ HHC, SPOUSE, AND NIECE. MINIMAL REHAB POTENTIAL D/T END-STAGE COPD AND POOR CARDIOPULMONARY RESERVE. Initialized on 07/04/21 18:07 - END OF NOTE 07/04/21 15:42 Respiratory Note by Maribell Emanuel 1505 O2 DECREASED TO 4LPM NC Initialized on 07/04/21 15:42 - END OF NOTE 07/04/21 10:45 Case Management Note by Alida Vieira REVIEWED CHART- NO CHANGE IN DC PLANS AT THIS TIME- WILL CONTINUE TO FOLLOW Initialized on 07/04/21 10:45 - END OF NOTE Assessment/Plan (1) COPD exacerbation Current Visit: Yes Status: Acute Assessment & Plan: Finished 7d of rocephin yesterday and started gentamycin, pt with hx pseudomonas (day #2). Code(s): J44.1 - CHRONIC OBSTRUCTIVE PULMONARY DISEASE W (ACUTE) EXACERBATION (2) Leg weakness Current Visit: Yes Status: Acute Qualifiers: Laterality: bilateral Qualified Code(s): R29.898 - Other symptoms and signs involving the musculoskeletal system Assessment & Plan: PT consulted Code(s): R29.898 - OTH SYMPTOMS AND SIGNS INVOLVING THE MUSCULOSKELETAL SYSTEM (3) Leukocytosis Current Visit: No Status: Acute Qualifiers: Leukocytosis type: unspecified Qualified Code(s): D72.829 - Elevated white blood cell count, unspecified Assessment & Plan: rechecking today; lab had difficulty drawing this morning. Code(s): D72.829 - ELEVATED WHITE BLOOD CELL COUNT, UNSPECIFIED
[2021-07-05] MEDS: Lidoderm Patch 5% TOP SCH (09:12)
[2021-07-05] MEDS ORDERED: Miralax Powder 17GM PACKET PO PRN (09:20)
[2021-07-05] MEDS ORDERED: Imdur 60MG PO SCH (10:00)
[2021-07-05] MEDS: ATARAX 25 MG PO PRN (12:33)
[2021-07-05] MEDS ORDERED: [UNRECOGNIZED DRUG - OTHER] IM ONE (14:00)
[2021-07-05 16:28] VITALS: PULSE 84; O2SAT 97
[2021-07-05 17:07] VITALS: BP 122/61
== END 2021-07-05 16:20 | disposition home health service (06) | DRG 191 ==
LOC: ED 08:30 → MED SURG 13:30 → OBSVTOIN 06-29 08:16 → MED SURG 07-03 15:23
PROVIDERS: ADMIT Family Medicine; ATTEND Family Medicine
DX: J44.1 Chronic obstructive pulmonary disease with (acute) exacerbation (principal); J96.11 Chronic respiratory failure with hypoxia; Z99.81 Dependence on supplemental oxygen; R07.9 Chest pain, unspecified; I10 Essential (primary) hypertension; E78.00 Pure hypercholesterolemia, unspecified; I25.10 Atherosclerotic heart disease of native coronary artery without angina pectoris; R29.898 Other symptoms and signs involving the musculoskeletal system; D72.829 Elevated white blood cell count, unspecified; D69.6 Thrombocytopenia, unspecified; Z86.711 Personal history of pulmonary embolism; F41.9 Anxiety disorder, unspecified; D64.9 Anemia, unspecified; Z79.899 Other long term (current) drug therapy; F17.200 Nicotine dependence, unspecified, uncomplicated; Z20.822 Contact with and (suspected) exposure to COVID-19
CPT/HCPCS: 36000; 36415; 71045; 80048; 80053; 81001; 83880; 84145; 84484; 85025; 85027; 87040; 93005; 93041; 94640; 94760; 96374; 97161; 97530; 99285; G0008; G0378; U0003; 90686; J0360; J0696; J1580; J2270; J2405; J2920; J2930; A9270-GY

== ENCOUNTER 2021-07-09 08:19 | Inpatient (IN) | payer MEDICARE ==
[2021-07-09] MEDS ORDERED: Ativan 2 MG/1 ML VIAL IV ONE (08:34)
[2021-07-09] MEDS ORDERED: solu-MEDROL 125 MG, Sterile H2O 10 ml 2 ML IV ONE ×2 (08:34)
[2021-07-09] MEDS ORDERED: DUONEB 0.5-3 MG/3 ml Neb IH ONE ×2 (08:34→08:46)
[2021-07-09] MEDS ORDERED: PULMICORT 0.5 MG/2 ML RESPULES IH ONE (08:36)
[2021-07-09] MEDS ORDERED: Ativan 2 MG/1 ML VIAL ONE (08:44)
[2021-07-09] MEDS ORDERED: Sterile H2O 10 ml IJ ONE (08:45)
[2021-07-09] MEDS ORDERED: solu-MEDROL ONE (08:45)
[2021-07-09] MEDS: Sodium Chloride 0.9% 1000 ML 1,000 ML IV SCH (08:46)
[2021-07-09 08:47] LABS: Hematocrit 34.3 % (35-47); Hemoglobin 9.9 gm/dl (12.0-16.0); Mean Cell Volume 104.3 fl (78-100); Mean Corpuscular Hemoglobin 30.1 pg (26-32); Mean Corpuscular Hgb Concent. 28.9 g/dl (32-36); Mean Platelet Volume 9.8 fl (7.5-11.0); Platelet Count 220 K/mm3 (150-450); Red Blood Count 3.29 M/mm3 (4.1-5.4); White Blood Count 22.5 K/mm3 (4.0-10.5)
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
[2021-07-09 09:20] LABS: ALBUMIN 3.8 g/dL (3.5-5.0); ALKALINE PHOSPHATASE 50 U/L (38-126); BLOOD UREA NITROGEN 25 mg/dL (7-17); CHLORIDE 91 mmol/L (98-107); Calcium 9.3 mg/dL (8.4-10.2); Creatinine 1 0.79 mg/dL (0.52-1.04); EST GLOMERULAR FILTRATION RATE > 60.0 ML/MIN; Glucose 119 mg/dL (74-106); MAGNESIUM 2.1 mg/dL (1.6-2.3); NT PRO BNP 2450 pg/mL (0-900); Potassium 4.6 mmol/L (3.5-5.1); SGOT/AST 44 U/L (14-36); SGPT/ALT 54 U/L (0-35); SODIUM 137 mmol/L (137-145); Total Protein 6.2 g/dL (6.3-8.2)
[2021-07-09 09:22] LABS: Carbon Dioxide 42 mmol/L (22-30)
[2021-07-09 09:23] LABS: TROPONIN 0.041 ng/mL (0.000-0.034)
[2021-07-09 09:25] LABS: ANION GAP 8.6 MEQ/L (5-15)
[2021-07-09 09:34] LABS: ANISOCYTOSIS 1+; Hypersegmented Polys 1+; Hypochromia 1+; Lymphocytes 15 % (24-44); Monocyte 6 % (0.0-12.0); Neutrophils 79 % (36.0-66.0); Platelet Estimate NORMAL (NORMAL); Total Cells Counted 100
--- NOTE | 2021-07-09 09:49 | XRAY ---
Indication: Short of breath. Comparison: June 28, 2021. Portable chest continues to demonstrates marked COPD, minimal biapical fibrosis/scarring, and bilateral lung suture material. Heart not enlarged. No new/acute abnormalities.
[2021-07-09] MEDS ORDERED: Zithromax 500 MG/ 250 ML NaCl Premix 500 MG/250 ML IVPB IV STA (10:14)
[2021-07-09] MEDS ORDERED: ROCEPHIN 1 Gm-D5w 50 ml Bag** 1 G/50 ML IVPB IV STA (10:14)
[2021-07-09 10:28] LABS: INFLUENZA A NEGATIVE (NEGATIVE); INFLUENZA B NEGATIVE (NEGATIVE); RESPIRATORY SYNCTIAL VIRUS NEGATIVE (Negative); SARS-CoV-2 Xpert Express NEGATIVE (NEGATIVE)
[2021-07-09] MEDS ORDERED: ROCEPHIN 1 Gm-D5w 50 ml Bag** 1 G/50 ML IVPB IV ONE (10:29)
[2021-07-09] MEDS ORDERED: Sodium Chloride 0.9% 1000 ML 1,000 ML IV SCH (10:45)
[2021-07-09] MEDS ORDERED: Zithromax 500 MG/ 250 ML NaCl Premix 500 MG/250 ML IVPB IV ONE (11:21)
[2021-07-09] MEDS: solu-MEDROL 40 MG, Sterile H2O 10 ml 1 ML IV SCH ×4 (13:03→22:21)
[2021-07-09] MEDS: DUONEB 0.5-3 MG/3 ml Neb IH SCH ×3 (14:24→22:48)
[2021-07-09] MEDS ORDERED: Tessalon Perles 100 MG PO PRN (15:53)
[2021-07-09] MEDS: Advair Hfa 230/21 Mcg COMMON CANISTER IH SCH (18:57)
[2021-07-09] MEDS: Mucomyst 200 MG/ML IH SCH (18:57)
[2021-07-09] MEDS ORDERED: Ativan 1 MG PO PRN (22:00)
[2021-07-09] MEDS ORDERED: Mucinex 600MG ER Tabs PO ONE (22:00)
[2021-07-09] MEDS ORDERED: ATARAX 25 MG PO ONE (22:00)
[2021-07-09] MEDS: Klor Con 10 MEQ PO SCH (22:21)
[2021-07-09] MEDS: Protonix 40MG Tablet PO SCH (22:21)
[2021-07-09] MEDS: NORCO 5/325 MG PO PRN (23:47)
[2021-07-10] MEDS: DUONEB 0.5-3 MG/3 ml Neb IH SCH ×6 (02:56→23:28)
[2021-07-10] MEDS ORDERED: APRESOLINE 20 MG/ML INJ ONE (04:55)
[2021-07-10] MEDS: APRESOLINE 20 MG/ML INJ IV PRN (05:00)
[2021-07-10 05:02] LABS: Hematocrit 30.1 % (35-47); Hemoglobin 8.7 gm/dl (12.0-16.0); Mean Cell Volume 103.1 fl (78-100); Mean Corpuscular Hemoglobin 29.8 pg (26-32); Mean Corpuscular Hgb Concent. 28.9 g/dl (32-36); Mean Platelet Volume 8.8 fl (7.5-11.0); Platelet Count 238 K/mm3 (150-450); Red Blood Count 2.92 M/mm3 (4.1-5.4); Red Cell Distribution Width 12.9 % (11.5-14.0); White Blood Count 12.9 K/mm3 (4.0-10.5)
[2021-07-10 05:28] LABS: ANION GAP 5.2 MEQ/L (5-15); BLOOD UREA NITROGEN 18 mg/dL (7-17); CHLORIDE 96 mmol/L (98-107); Carbon Dioxide 38 mmol/L (22-30); Creatinine 1 0.56 mg/dL (0.52-1.04); EST GLOMERULAR FILTRATION RATE > 60.0 ML/MIN; Glucose 130 mg/dL (74-106); MAGNESIUM 2.3 mg/dL (1.6-2.3); Potassium 4.1 mmol/L (3.5-5.1); SODIUM 135 mmol/L (137-145)
[2021-07-10] MEDS: solu-MEDROL 40 MG, Sterile H2O 10 ml 1 ML IV SCH ×2 (05:42)
[2021-07-10] MEDS ORDERED: NORCO 5/325 MG ONE (06:20)
[2021-07-10] MEDS: NORCO 5/325 MG PO PRN (06:27)
[2021-07-10] MEDS: Mucomyst 200 MG/ML IH SCH ×2 (06:42→18:19)
[2021-07-10] MEDS: Advair Hfa 230/21 Mcg COMMON CANISTER IH SCH ×2 (06:42→18:19)
[2021-07-10 07:57] LABS: Slide Review YES
[2021-07-10] MEDS ORDERED: Lasix 40 MG/4 ML IV ONE (08:00)
[2021-07-10] MEDS: ATARAX 25 MG PO SCH ×4 (08:13→20:58)
--- NOTE | 2021-07-10 08:35 | XRAY ---
Indication: COPD exacerbation. Comparison: One day earlier. Portable chest again demonstrates chronic features including COPD, biapical fibrosis/scarring, and bilateral lung suture material. Heart and mediastinal structures within normal limits. No new/acute abnormalities.
[2021-07-10] MEDS: Mucinex 600MG ER Tabs PO SCH ×2 (09:33→20:58)
[2021-07-10] MEDS: ROCEPHIN 1 Gm-D5w 50 ml Bag** 1 G/50 ML IVPB IV SCH (09:33)
[2021-07-10] MEDS: Lexapro 10 MG PO SCH (09:34)
[2021-07-10] MEDS: Imdur 30 MG PO SCH (09:36)
[2021-07-10] MEDS: Klor Con 10 MEQ PO SCH ×2 (09:36→20:58)
[2021-07-10] MEDS: Toprol Xl 100 MG PO SCH (09:36)
[2021-07-10] MEDS: Protonix 40MG Tablet PO SCH ×2 (09:36→20:58)
[2021-07-10] MEDS: LIDOCAINE 4% TOP SCH (09:37)
[2021-07-10] MEDS ORDERED: Toprol-Xl 25MG Tablets PO SCH (10:00)
[2021-07-10] MEDS: Zithromax 500 MG/ 250 ML NaCl Premix 500 MG/250 ML IVPB IV SCH (10:53)
--- NOTE | 2021-07-10 11:48 | HP ---
CHIEF COMPLAINT: Shortness of breath. HISTORY OF PRESENT ILLNESS: The patient is a 65-year-old white female who presents now for the third time in two weeks for end-stage chronic obstructive pulmonary disease exacerbation. The patient had been home two days this time which she reports she had a good day until the evening at which time she became short of breath particularly awoke and her saturation was in the 80's. She summoned EMS who brought her to the emergency room once again. The patient had seen Dr. Jamal Mcmullen previously on her last visit one week ago. The patient presently was able to speak in full sentences, appears to be in her usual state of health. The patient was on Hospice care for the last two years. She decided last time that she came in that she wanted to be Full Code. She discharged their services. PAST MEDICAL/SURGICAL HISTORY: Benign lung tissue being removed for what was thought to be cancer at the time. She had a cyst on the left kidney. The patient had a hysterectomy previously. She has had heart palpitations. HOME MEDICATIONS: Docusate sodium 100 mg b.i.d., nitroglycerin 0.4 mg sublingual PRN, potassium 10 mEq twice a day, isosorbide mononitrate 30 mg daily, metoprolol XL 25 mg tablets that she takes 100 mg a day, guaifenesin extended release 600 mg 2 tablets twice a day, hydrocodone, acetaminophen 10/325 every 4 hours PRN pain, promethazine for nausea, escitalopram 10 mg a day for depression, albuterol DuoNeb, Tessalon Perles, Voltaren gel, lidocaine patches, pantoprazole 40 mg a day. ALLERGIES: SHE HAS A LONG LIST OF MEDICAL ALLERGIES INCLUDING CIPROFLOXACIN, THEOPHYLLINE, IODINE, PENICILLINS, SULFA, LISINOPRIL, CLINDAMYCIN, SYMBICORT, TRELEGY ELLIPTA, DILAUDID. ZITHROMAX WHICH SHE IS CURRENTLY GETTING. SOCIAL HISTORY: The patient lives at home with her who is also ill and unable to help her in the home. She was a smoker still up until the last visit. PHYSICAL EXAMINATION: The patient's vital signs on admission showed her temperature to be 98.7F, pulse 106, respiratory rate 32. O2 saturation 99% at that time. HEENT: Normocephalic, atraumatic. She is currently wearing oxygen per Ox[employer] and a face mask as well receiving nebulizer treatment. LUNGS: Reveal bilateral wheezes throughout expiration. HEART: Somewhat tachycardic but no murmurs, rubs or gallops heard. ABDOMEN: Without palpable masses. EXTREMITIES: Without cyanosis, clubbing or edema. NEUROLOGIC: She is alert and oriented x3 with no focal deficits noted. LAB DATA AND TESTS: The patient's emergency room labs showed her sugar to be 119 nonfasting. BUN 25, creatinine 0.79. Her CO2 was 42 and chloride 91. Her sodium and potassium were normal. Liver enzymes were slightly elevated with an AST of 44 and ALT 54. The troponin was slightly high at 0.41. Pro-BNP was elevated at 2450. Her D-dimer was also elevated at 1745. Her white count was 22.5, hemoglobin 9.9, PLT count 220,000. Her differential showed 30 polys and 15 lymphs. We will request procalcitonin levels on yesterday's labs and one from this morning as well. Her EKG showed essentially normal sinus rhythm without any significant ST-T wave abnormalities. Chest x-ray was interpreted as significant chronic obstructive pulmonary disease changes but no acute changes otherwise were noted. ASSESSMENT: A patient with return of her persistent chronic obstructive pulmonary disease with exacerbation, bronchospasm. The patient was brought in for DuoNeb, antibiotics due to her elevated white count of 22,000. She had been started on Rocephin and Zithromax in the emergency room. We will attempt to consult her pulmonary doctor, Dr. Jamal Mcmullen, once again. We discussed with the patient that when she goes home this time that she may be better served to go to a rehab setting where she can access to nurses should she again have problem with her shortness of breath again.
[2021-07-10 12:15] LABS: INR 0.87 (0.8-3.0); PROTIME 10.3 SECONDS (9.4-12.5)
[2021-07-10] MEDS: solu-MEDROL 125 MG, Sterile H2O 10 ml 2 ML IV SCH ×4 (13:08→20:57)
[2021-07-10] MEDS: HYDROCODONE-ACETAMIN 10-325 MG PO PRN ×2 (14:29→20:59)
[2021-07-10] MEDS: PHENERGAN 25 MG PO PRN ×2 (17:19→20:59)
[2021-07-10] MEDS: XARELTO 10 MG TABLET PO SCH (17:20)
[2021-07-10] MEDS: Nitrostat 0.4 MG Tablet SL PRN ×2 (17:58→20:39)
[2021-07-10] MEDS ORDERED: Xylocaine-Mpf 2% 5 Ml Vial ONE (20:47)
[2021-07-10] MEDS: Voltaren GEL TOP PRN (20:59)
[2021-07-10] MEDS: Colace 100 MG PO PRN (20:59)
[2021-07-10] MEDS: Sodium Chloride 0.9% 1000 ML 1,000 ML IV SCH ×2 (22:11→23:43)
[2021-07-11] MEDS: DUONEB 0.5-3 MG/3 ml Neb IH SCH ×6 (02:14→23:20)
[2021-07-11] MEDS: solu-MEDROL 125 MG, Sterile H2O 10 ml 2 ML IV SCH ×4 (02:21→11:08)
[2021-07-11] MEDS: APRESOLINE 20 MG/ML INJ IV PRN (02:22)
[2021-07-11] MEDS: HYDROCODONE-ACETAMIN 10-325 MG PO PRN ×5 (02:24→23:54)
[2021-07-11] MEDS ORDERED: ATARAX 25 MG PO ONE (03:22)
[2021-07-11] MEDS: Voltaren GEL TOP PRN ×4 (03:25→23:59)
[2021-07-11] MEDS ORDERED: MORPHINE SULFATE 4 MG INJ ONE (04:15)
[2021-07-11 05:37] LABS: Basophil (Absolute #) 0 (0-0.4); Eosinophil (Absolute #) 0 (0-0.5); Hematocrit 29.1 % (35-47); Hemoglobin 8.4 gm/dl (12.0-16.0); Lymphocyte (Absolute #) 0.39 (1.0-4.6); Lymphocytes % 3.1 % (24.0-44.0); Mean Cell Volume 101.7 fl (78-100); Mean Corpuscular Hemoglobin 29.4 pg (26-32); Mean Corpuscular Hgb Concent. 28.9 g/dl (32-36); Mean Platelet Volume 8.9 fl (7.5-11.0); Monocyte (Absolute #) 0.13 (0.0-1.3); Neutrophil % 95.9 % (36.0-66.0); Platelet Count 190 K/mm3 (150-450); Red Blood Count 2.86 M/mm3 (4.1-5.4); Red Cell Distribution Width 13.4 % (11.5-14.0); White Blood Count 12.4 K/mm3 (4.0-10.5)
[2021-07-11 05:48] LABS: ALBUMIN 3.2 g/dL (3.5-5.0); ALKALINE PHOSPHATASE 34 U/L (38-126); ANION GAP 6.5 MEQ/L (5-15); BLOOD UREA NITROGEN 23 mg/dL (7-17); CHLORIDE 94 mmol/L (98-107); Calcium 8.7 mg/dL (8.4-10.2); Carbon Dioxide 36 mmol/L (22-30); Creatinine 1 0.58 mg/dL (0.52-1.04); EST GLOMERULAR FILTRATION RATE > 60.0 ML/MIN; Glucose 178 mg/dL (74-106); Potassium 4.6 mmol/L (3.5-5.1); SGOT/AST 32 U/L (14-36); SGPT/ALT 33 U/L (0-35); SODIUM 131 mmol/L (137-145); Total Protein 5.4 g/dL (6.3-8.2)
[2021-07-11] MEDS: Mucomyst 200 MG/ML IH SCH ×2 (06:27→18:25)
[2021-07-11] MEDS: Advair Hfa 230/21 Mcg COMMON CANISTER IH SCH ×2 (06:27→18:26)
[2021-07-11 06:51] LABS: Slide Review 1 YES
[2021-07-11] MEDS: ATARAX 25 MG PO PRN ×4 (09:36→23:54)
[2021-07-11] MEDS: Toprol Xl 100 MG PO SCH (09:37)
[2021-07-11] MEDS: Lexapro 10 MG PO SCH (09:37)
[2021-07-11] MEDS: Mucinex 600MG ER Tabs PO SCH ×2 (09:38→21:06)
[2021-07-11] MEDS: Protonix 40MG Tablet PO SCH ×2 (09:38→21:06)
[2021-07-11] MEDS: Imdur 30 MG PO SCH (09:38)
[2021-07-11] MEDS: Klor Con 10 MEQ PO SCH ×2 (09:38→21:06)
[2021-07-11] MEDS: solu-MEDROL 80 MG, Sterile H2O 10 ml 2 ML IV SCH ×4 (09:41→17:26)
[2021-07-11] MEDS: ROCEPHIN 1 Gm-D5w 50 ml Bag** 1 G/50 ML IVPB IV SCH (09:48)
[2021-07-11] MEDS: PHENERGAN 25 MG PO PRN (09:49)
[2021-07-11] MEDS: Colace 100 MG PO PRN (09:50)
[2021-07-11] MEDS: LIDOCAINE 4% TOP SCH (10:29)
[2021-07-11] MEDS: Zithromax 500 MG/ 250 ML NaCl Premix 500 MG/250 ML IVPB IV SCH (10:29)
[2021-07-11] MEDS: Nitrostat 0.4 MG Tablet SL PRN ×2 (13:02→13:10)
[2021-07-11] MEDS: XARELTO 10 MG TABLET PO SCH (16:49)
[2021-07-11] MEDS: Sodium Chloride 0.9% 1000 ML 1,000 ML IV SCH (20:41)
[2021-07-12] MEDS: solu-MEDROL 80 MG, Sterile H2O 10 ml 2 ML IV SCH ×2 (01:01)
[2021-07-12] MEDS: DUONEB 0.5-3 MG/3 ml Neb IH SCH ×6 (03:06→22:10)
[2021-07-12] MEDS: HYDROCODONE-ACETAMIN 10-325 MG PO PRN ×4 (05:22→20:01)
[2021-07-12] MEDS: ATARAX 25 MG PO PRN ×5 (05:22→22:45)
[2021-07-12] MEDS: Advair Hfa 230/21 Mcg COMMON CANISTER IH SCH ×2 (07:24→18:06)
[2021-07-12] MEDS: Mucomyst 200 MG/ML IH SCH ×2 (07:24→18:06)
[2021-07-12] MEDS ORDERED: solu-MEDROL 40 MG, Sterile H2O 10 ml 2 ML IV SCH ×2 (08:03)
[2021-07-12] MEDS: APRESOLINE 20 MG/ML INJ IV PRN ×2 (08:23→16:38)
[2021-07-12] MEDS: Nitrostat 0.4 MG Tablet SL PRN (08:47)
[2021-07-12] MEDS: VENTOLIN COMMON CANISTER IH PRN ×2 (09:05→20:25)
[2021-07-12] MEDS: Klor Con 10 MEQ PO SCH ×2 (09:27→21:08)
[2021-07-12] MEDS: Lexapro 10 MG PO SCH (09:27)
[2021-07-12] MEDS: Mucinex 600MG ER Tabs PO SCH ×2 (09:28→21:08)
[2021-07-12] MEDS: Lyrica 50MG PO SCH ×2 (09:28→21:08)
[2021-07-12] MEDS: Toprol Xl 100 MG PO SCH (09:28)
[2021-07-12] MEDS: Imdur 30 MG PO SCH (09:29)
[2021-07-12] MEDS: Protonix 40MG Tablet PO SCH ×2 (09:29→21:08)
[2021-07-12] MEDS: LIDOCAINE 4% TOP SCH (09:34)
--- NOTE | 2021-07-12 09:58 | CONS ---
CONSULT DATE: 07/11/2021 HISTORY: A 65-year-old female who has been on Hospice in the past for end-stage chronic obstructive pulmonary disease but is off of it currently and apparently a Full Code. She has been in and out of the hospital three times the past couple of weeks. She cannot lay flat. They asked our group to see her whether the consult yesterday or today they asked our group to see her for consideration of Port-A-Cath. She absolutely cannot lay flat and on high flow oxygen sitting down. PAST MEDICAL HISTORY: Cyst on the left kidney. Heart palpitations. Pulmonary embolism. Chronic obstructive pulmonary disease. Hypertension. Heart disease. Peripheral vascular disease. Degenerative disc disease. Osteoporosis. Anxiety and depression. PAST SURGICAL HISTORY: She had some benign lung tissue removed. Hysterectomy in the past. HOME MEDICATIONS: Prior to admission are nitroglycerin PRN, Colace, potassium, isosorbide nitrate, metoprolol, guaifenesin, hydrocodone, promethazine, escitalopram, albuterol DuoNeb, Tessalon Perles, Voltaren gel, lidocaine patch, pantoprazole. They said she had been on some Xarelto in the past but was held according to the nursing staff. I do not see that on her home medication list. ALLERGIES: LISINOPRIL. SULFA. PENICILLIN. IODINE. THEOPHYLLINE. CIPROFLOXACIN. CLINDAMYCIN. TRELEGY. ZITHROMAX (PROBLEM WITH ZITHROMAX IN THE PAST). FAMILY HISTORY: Negative in regards to this specific problem. SOCIAL HISTORY: History of smoking. REVIEW OF SYSTEMS: Fourteen systems reviewed per admission assessment. PHYSICAL EXAMINATION: A chronically ill female on extensive oxygen sitting up, absolutely cannot lay flat. NECK: No JVD currently. CHEST: Equal symmetrical respirations. EXTREMITIES: She has some bruising. She had a line placed per anesthesia in her right arm peripheral IV. NEURO: Alert, moving extremities symmetrically. PSYCH: Appropriate mood and affect. IMPRESSION: End-stage chronic obstructive pulmonary disease. The patient cannot lay flat. I feel she is not a candidate for Port-A-Cath placement as likely she could end up potentially being on the ventilator. She definitely does not wish that as there is a good chance she might not be able to wean off given her end-stage disease. I feel she is a much better candidate for interventional radiology (IR) to place a PICC line for IV access in the short term as she is not an OR candidate. If radiology does not feel comfortable enough doing it here given the fact of position issues, could check with Interventional Radiology at . I will sign off at this time as the patient is not a candidate to go to the OR for port placement.
[2021-07-12] MEDS ORDERED: Pepcid 20 MG PO SCH (10:00)
[2021-07-12] MEDS: Mylicon 80MG PO PRN ×2 (11:02→23:47)
[2021-07-12] MEDS: Colace 100 MG PO PRN (12:48)
[2021-07-12] MEDS ORDERED: XYLOCAINE 1%/Epi 1:100000 MDV 20 ML IJ ONE (15:01)
[2021-07-12] MEDS ORDERED: solu-MEDROL ONE (15:57)
[2021-07-12] MEDS: solu-MEDROL 40 MG, Sterile H2O 10 ml 1 ML IV SCH ×4 (15:58→23:52)
[2021-07-12] MEDS: XARELTO 10 MG TABLET PO SCH (18:11)
[2021-07-12] MEDS: PHENERGAN 25 MG PO PRN ×2 (18:11→23:47)
[2021-07-12] MEDS: Sodium Chloride 0.9% 1000 ML 1,000 ML IV SCH (21:08)
[2021-07-12] MEDS: Voltaren GEL TOP PRN (22:38)
[2021-07-13] MEDS: DUONEB 0.5-3 MG/3 ml Neb IH SCH ×4 (02:00→13:11)
[2021-07-13] MEDS: HYDROCODONE-ACETAMIN 10-325 MG PO PRN ×3 (02:44→11:30)
[2021-07-13] MEDS: ATARAX 25 MG PO PRN ×3 (02:46→11:30)
[2021-07-13] MEDS: Advair Hfa 230/21 Mcg COMMON CANISTER IH SCH (06:41)
[2021-07-13] MEDS: Mucomyst 200 MG/ML IH SCH (06:41)
[2021-07-13] MEDS: solu-MEDROL 40 MG, Sterile H2O 10 ml 1 ML IV SCH ×2 (07:48)
--- NOTE | 2021-07-13 07:52 | ECHO ---
Transthoracic echocardiographic examination and color Doppler was done on 07/10/2021. INDICATION: Shortness of breath. IMPRESSION: 1) NO DEFINITE REGIONAL WALL MOTION ABNORMALITY. ESTIMATED GLOBAL LEFT VENTRICULAR EJECTION FRACTION OF AROUND 60%. 2) MILDLY DILATED RIGHT SIDE CHAMBERS. 3) LEFT VENTRICULAR HYPERTROPHY. 4) TRACE TRICUSPID REGURGITATION. RIGHT VENTRICULAR SYSTOLIC PRESSURE OF 14 MM OF MERCURY. The left ventricle is partially visualized but demonstrated adequate motion of all the segments. Estimated global left ventricular ejection fraction 60%. There is concentric left ventricular hypertrophy. The mitral valve is seen and this opens adequately. No significant mitral regurgitation is seen. The aortic valve opens adequately. The peak gradient across the left ventricular outflow tract is about 10 mm of Mercury. The right side chambers are mildly dilated. There is trace tricuspid regurgitation. The right ventricular systolic pressure of 14 mm of Mercury.
--- NOTE | 2021-07-13 08:08 | CONS ---
CONSULT DATE: 07/12/2021 HISTORY: This is a 65-year-old woman with end-stage chronic obstructive pulmonary disease, with recent hospitalization and was discharged home. The patient reportedly was doing "okay" however she started experiencing increasing shortness of breath and decided to call ambulance. She has been brought back to the hospital and has been admitted since 07/10/2021. She has been treated with same line of therapy which would be standard for chronic obstructive pulmonary disease exacerbation. She has apparently agreed to go to a fdc and is likely to go to [facility] tomorrow. At the time of my evaluation, the patient appears in her usual state of health. She is able to carry out a conversation. She does have cough and is able to expectorate mucoid secretions. She reports reduced effort tolerance. She was barely able to walk in her room. PAST MEDICAL HISTORY: Positive for history of chronic obstructive pulmonary disease, anxiety, chronic hypoxemia, coronary artery disease, hypertension, chronic pain. PAST SURGICAL HISTORY: No recent surgery. PERSONAL AND SOCIAL HISTORY: The patient has been a smoker. MEDICATIONS: Medications are reviewed. ALLERGIES: MULTIPLE ALLERGIES NOTED. PHYSICAL EXAMINATION: This is a middle aged woman who appears mildly tachypneic. Vital signs noted. HEENT: Normocephalic. Oral exam unremarkable. NECK: Supple. Accessory muscles mildly prominent. CVS: First and second heart sounds are normal, regular, rhythmic. RESPIRATORY: Shows diminished breath sounds, rhonchi are heard. ABDOMEN: Soft. EXTREMITIES: No edema is noted. LABORATORY DATA AND TESTS: Labs reviewed. Hemoglobin 8.4. Chest x-ray showed no acute infiltrate. ASSESSMENT: This is a 65-year-old woman with: 1) End stage chronic obstructive pulmonary disease admitted with acute exacerbation. 2) Chronic bronchitis. 3) Chronic hypoxemia. 4) Anxiety disorder. 5) Nicotine addiction and comorbidities listed above. RECOMMENDATIONS: Unfortunately, the patient's pulmonary symptoms are far advanced and there is very little to be offered particularly given the patient's multiple listed allergies. I again explained to her that her pulmonary condition is far advanced. The patient is agreeable to go to the fdc this time and may benefit from some pulmonary rehab. She states that the colognes and perfumes of staff are making her symptoms worse which is interesting given lifetime of smoking has not been responsible for any of her symptoms. Unfortunately, I have very little more to offer to this patient's care. I will be available as needed. Thank you, Dr. Rafy Gallo, for allowing me to participate in the care of your patient.
[2021-07-13] MEDS: Imdur 30 MG PO SCH (09:37)
[2021-07-13] MEDS: Mucinex 600MG ER Tabs PO SCH (09:37)
[2021-07-13] MEDS: Protonix 40MG Tablet PO SCH (09:38)
[2021-07-13] MEDS: Lyrica 50MG PO SCH (09:38)
[2021-07-13] MEDS: Toprol Xl 100 MG PO SCH (09:38)
[2021-07-13] MEDS: Klor Con 10 MEQ PO SCH (09:38)
[2021-07-13] MEDS: Lexapro 10 MG PO SCH (09:38)
[2021-07-13 09:41] LABS: Hematocrit 31.6 % (35-47); Hemoglobin 9.1 gm/dl (12.0-16.0); Mean Cell Volume 103.9 fl (78-100); Mean Corpuscular Hemoglobin 29.9 pg (26-32); Mean Corpuscular Hgb Concent. 28.8 g/dl (32-36); Mean Platelet Volume 8.9 fl (7.5-11.0); Platelet Count 231 K/mm3 (150-450); Red Blood Count 3.04 M/mm3 (4.1-5.4); Red Cell Distribution Width 13.7 % (11.5-14.0); White Blood Count 21.8 K/mm3 (4.0-10.5)
[2021-07-13] MEDS ORDERED: Lidoderm Patch 5% TOP SCH (10:00)
[2021-07-13] MEDS ORDERED: Pepcid 20 MG PO SCH (10:00)
[2021-07-13] MEDS ORDERED: DELTASONE 20 MG PO SCH (10:00)
[2021-07-13 10:38] LABS: ALBUMIN 3.5 g/dL (3.5-5.0); ALKALINE PHOSPHATASE 43 U/L (38-126); ANION GAP 10.9 MEQ/L (5-15); BLOOD UREA NITROGEN 22 mg/dL (7-17); CHLORIDE 102 mmol/L (98-107); Calcium 9.5 mg/dL (8.4-10.2); Carbon Dioxide 29 mmol/L (22-30); Creatinine 1 0.61 mg/dL (0.52-1.04); EST GLOMERULAR FILTRATION RATE > 60.0 ML/MIN; Glucose 151 mg/dL (74-106); Potassium 5.2 mmol/L (3.5-5.1); SGOT/AST 20 U/L (14-36); SGPT/ALT 28 U/L (0-35); SODIUM 137 mmol/L (137-145); Total Protein 5.7 g/dL (6.3-8.2)
[2021-07-13 12:51] VITALS: BP 197/88
[2021-07-13 13:16] VITALS: PULSE 83; O2SAT 98
== END 2021-07-13 13:35 | DRG 192 ==
LOC: ED 08:19 → MED SURG 11:29 → OBSVTOIN 07-10 11:04
PROVIDERS: ADMIT Family Medicine; ATTEND Family Medicine
DX: J44.1 Chronic obstructive pulmonary disease with (acute) exacerbation (principal); I25.10 Atherosclerotic heart disease of native coronary artery without angina pectoris; I10 Essential (primary) hypertension; E78.00 Pure hypercholesterolemia, unspecified; Z86.711 Personal history of pulmonary embolism; R09.02 Hypoxemia; F41.9 Anxiety disorder, unspecified; Z79.899 Other long term (current) drug therapy
CPT/HCPCS: 0241U; 36415; 71045; 76942; 80048; 80053; 83735; 83880; 84145; 84484; 85025; 85027; 85379; 85610; 85730; 93005; 93268; 93306; 94640; 94762; 96374; 96375; 97161; 99285; 99291; G0378; 36000; J0360; J0456; J0696; J1940; J2060; J2270; J2920; J2930; A9270-GY

== ENCOUNTER 2021-07-14 01:33 | Emergency (ER) | payer MEDICARE ==
[2021-07-14] MEDS ORDERED: DUONEB 0.5-3 MG/3 ml Neb IH ONE ×6 (01:36→08:10)
[2021-07-14] MEDS ORDERED: solu-MEDROL 125 MG, Sterile H2O 10 ml 2 ML IV ONE ×4 (01:49→08:06)
[2021-07-14 02:20] LABS: Absolute Neutrophil Ct (ANC) 16.73 (1.4-6.9); BASOPHIL % 0.1 % (0.0-0.4); Basophil (Absolute #) 0.02 (0-0.4); Eosinophil (Absolute #) 0 (0-0.5); Hematocrit 29.8 % (35-47); Hemoglobin 8.7 gm/dl (12.0-16.0); Lymphocyte (Absolute #) 1.42 (1.0-4.6); Lymphocytes % 7.1 % (24.0-44.0); Mean Cell Volume 103.5 fl (78-100); Mean Corpuscular Hemoglobin 30.2 pg (26-32); Mean Corpuscular Hgb Concent. 29.2 g/dl (32-36); Mean Platelet Volume 8.9 fl (7.5-11.0); Monocyte (Absolute #) 1.78 (0.0-1.3); Monocytes % 8.9 % (0.0-12.0); Neutrophil % 83.9 % (36.0-66.0); Platelet Count 227 K/mm3 (150-450); Red Blood Count 2.88 M/mm3 (4.1-5.4); Red Cell Distribution Width 13.6 % (11.5-14.0)
[2021-07-14 02:41] LABS: ALBUMIN 3.6 g/dL (3.5-5.0); ALKALINE PHOSPHATASE 46 U/L (38-126); ANION GAP 8.9 MEQ/L (5-15); BLOOD UREA NITROGEN 24 mg/dL (7-17); CHLORIDE 100 mmol/L (98-107); Calcium 9.8 mg/dL (8.4-10.2); Carbon Dioxide 33 mmol/L (22-30); EST GLOMERULAR FILTRATION RATE > 60.0 ML/MIN; Glucose 87 mg/dL (74-106); NT PRO BNP 6180 pg/mL (0-900); Potassium 4.8 mmol/L (3.5-5.1); SGOT/AST 23 U/L (14-36); SGPT/ALT 36 U/L (0-35); SODIUM 137 mmol/L (137-145); Total Protein 5.9 g/dL (6.3-8.2)
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
[2021-07-14] MEDS ORDERED: Lasix 20 MG/2 ML IV STA (02:51)
[2021-07-14] MEDS ORDERED: BABY ASPIRIN 81 MG CHEW PO ONE (03:05)
[2021-07-14] MEDS ORDERED: NITRO-BID 2% UD PACKETS TOP ONE (03:07)
[2021-07-14] MEDS ORDERED: BENADRYL 25 MG CAPSULE PO ONE (03:38)
[2021-07-14] MEDS ORDERED: NITRO-BID 2% UD PACKETS ONE (04:28)
[2021-07-14] MEDS ORDERED: BENADRYL 25 MG CAPSULE ONE (04:28)
[2021-07-14] MEDS ORDERED: LASIX 20 MG PO STA (04:30)
[2021-07-14] MEDS ORDERED: Sterile H2O 10 ml IJ ONE (08:13)
[2021-07-14] MEDS ORDERED: solu-MEDROL ONE (08:13)
--- NOTE | 2021-07-14 09:12 | XRAY ---
Indication: Short of breath. Comparison: July 10, 2021. Portable chest unchanged again demonstrating COPD, biapical fibrosis/scarring, and bilateral lung suture material. Heart not enlarged. No new/acute abnormalities.
[2021-07-14] MEDS ORDERED: HYDROCODONE-ACETAMIN 10-325 MG PO ONE (09:30)
[2021-07-14] MEDS ORDERED: ATARAX 25 MG PO ONE (11:44)
[2021-07-14] MEDS ORDERED: ATARAX 25 MG ONE (12:23)
[2021-07-14 12:27] VITALS: O2SAT 97
[2021-07-14 13:19] VITALS: BP 155/57; PULSE 83
== END 2021-07-14 14:38 | disposition short-term general hospital (02) ==
LOC: ED 01:33
DX: J44.1 Chronic obstructive pulmonary disease with (acute) exacerbation (principal); R79.89 Other specified abnormal findings of blood chemistry; I50.9 Heart failure, unspecified; Z79.899 Other long term (current) drug therapy; I10 Essential (primary) hypertension; I25.10 Atherosclerotic heart disease of native coronary artery without angina pectoris; I26.99 Other pulmonary embolism without acute cor pulmonale
CPT/HCPCS: 36415; 71045; 80053; 83880; 84484; 85025; 93005; 93041; 94640; 94760; 96374; 96376; 99285; J2930; A9270-GY

== ENCOUNTER 2021-07-31 01:23 | Inpatient (IN) | payer MEDICARE ==
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
[2021-07-31] MEDS ORDERED: solu-MEDROL 125 MG, Sterile H2O 10 ml 2 ML IV ONE ×2 (01:41)
[2021-07-31 01:50] LABS: A-aADO2 -60; ABG HEMOGLOBIN 9.6; ABG POTASSIUM 3.3 (3.5-5.1); ARTERIAL BLD GAS O2 SATURATION 98.5 % (95-100); ARTERIAL BLOOD GAS BASE EXCESS 17.9 (-2.0-2.0); ARTERIAL BLOOD GAS FIO2 32 %; ARTERIAL BLOOD GAS PO2 182 mmHg (75-100); ARTERIAL BLOOD GAS pH 7.36 (7.35-7.45); CARBOXYHEMOGLOBIN 2.4 % THgb (0.0-6.9); HGB O2 SAT 95.3 g/dF (94-100); Lactic Acid 0.6 (0.4-2.0); Methhemoglobin 0.8 % (1.4-1.5)
[2021-07-31 01:51] LABS: ABG SITE RIGHT BRACHIAL; ARTERIAL BLOOD GAS PCO2 85 mmHg (35-45)
[2021-07-31 02:49] LABS: Absolute Neutrophil Ct (ANC) 7.29 (1.4-6.9); BASOPHIL % 0.2 % (0.0-0.4); Basophil (Absolute #) 0.02 (0-0.4); Eosinophil % 0.1 % (0.00-5.0); Eosinophil (Absolute #) 0.01 (0-0.5); Hemoglobin 9.4 gm/dl (12.0-16.0); Lymphocyte (Absolute #) 0.76 (1.0-4.6); Lymphocytes % 8.6 % (24.0-44.0); Mean Cell Volume 107.6 fl (78-100); Mean Corpuscular Hemoglobin 29.7 pg (26-32); Mean Corpuscular Hgb Concent. 27.6 g/dl (32-36); Mean Platelet Volume 9.8 fl (7.5-11.0); Monocyte (Absolute #) 0.75 (0.0-1.3); Monocytes % 8.5 % (0.0-12.0); Neutrophil % 82.6 % (36.0-66.0); Platelet Count 268 K/mm3 (150-450); Red Blood Count 3.16 M/mm3 (4.1-5.4); Red Cell Distribution Width 13.8 % (11.5-14.0); White Blood Count 8.8 K/mm3 (4.0-10.5)
[2021-07-31 03:08] LABS: BILIRUBIN,TOTAL 0.5 mg/dL (0.2-1.3); Creatinine 1 1.52 mg/dL (0.52-1.04); EST GLOMERULAR FILTRATION RATE 36.7 ML/MIN; Potassium 3.8 mmol/L (3.5-5.1); Total Protein 6.5 g/dL (6.3-8.2)
[2021-07-31 03:17] LABS: ANION GAP 8.8 MEQ/L (5-15)
[2021-07-31 03:18] LABS: A-aADO2 55; ABG HEMOGLOBIN 9.6; ABG POTASSIUM 3.5 (3.5-5.1); ARTERIAL BLD GAS O2 SATURATION 96.2 % (95-100); ARTERIAL BLOOD GAS BASE EXCESS 18.2 (-2.0-2.0); ARTERIAL BLOOD GAS FIO2 30 %; ARTERIAL BLOOD GAS PO2 69 mmHg (75-100); ARTERIAL BLOOD GAS pH 7.42 (7.35-7.45); CARBOXYHEMOGLOBIN 2.6 % THgb (0.0-6.9); HCO3- 46.7 (22-28); HGB O2 SAT 93.5 g/dF (94-100); Methhemoglobin 0.2 % (1.4-1.5)
[2021-07-31 03:19] LABS: ABG SITE LEFT BRACHIAL; ARTERIAL BLOOD GAS PCO2 72 mmHg (35-45)
[2021-07-31] MEDS ORDERED: Sodium Chloride 0.9% 1000 ML 1,000 ML ONE (04:18)
[2021-07-31 04:24] LABS: Slide Review 1 YES
[2021-07-31] MEDS ORDERED: Sodium Chloride 0.9% 1000 ML 1,000 ML IV SCH (04:30)
[2021-07-31] MEDS ORDERED: ENOXAPARIN SODIUM SQ ONE (04:41)
[2021-07-31] MEDS ORDERED: Sodium Chloride 0.9% 500 ML 500 ML IV ONE (05:44)
[2021-07-31 06:01] LABS: INFLUENZA A NEGATIVE (NEGATIVE); INFLUENZA B NEGATIVE (NEGATIVE); RESPIRATORY SYNCTIAL VIRUS NEGATIVE (Negative); SARS-CoV-2 Xpert Express NEGATIVE (NEGATIVE)
[2021-07-31] MEDS ORDERED: TYLENOL 325 MG PO PRN (06:35)
[2021-07-31] MEDS ORDERED: solu-MEDROL 80 MG, Sterile H2O 10 ml 2 ML IV SCH ×2 (07:00)
[2021-07-31] MEDS: DUONEB 0.5-3 MG/3 ml Neb IH SCH ×5 (07:33→22:12)
[2021-07-31 07:52] LABS: VBG BASE EXCESS 18.2 (-2.0-2.0); VBG CARBOXYHEMOGLOBIN 5.6 % T HGB (0.0-6.9); VBG O2 SATURATION 98.3 (95-100); VBG POTASSIUM 3.5 (3.5-5.1)
[2021-07-31 07:53] LABS: VBG pH 7.63 (7.32-7.42)
[2021-07-31] MEDS: solu-MEDROL 125 MG, Sterile H2O 10 ml 2 ML IV SCH ×6 (08:00→18:39)
[2021-07-31] MEDS ORDERED: Tessalon Perles 100 MG PO PRN (08:08)
[2021-07-31] MEDS ORDERED: HYDROCODONE-ACETAMIN 10-325 MG PO PRN (08:08)
[2021-07-31] MEDS ORDERED: Colace 100 MG PO PRN (08:15)
--- NOTE | 2021-07-31 09:16 | XRAY ---
Indication: Short of breath. Comparison: July 14, 2021. Portable chest unchanged again demonstrating COPD, biapical fibrosis/scarring, and bilateral lung suture material. Heart not enlarged. No new/acute abnormalities.
[2021-07-31] MEDS ORDERED: ACETYLCYSTEINE 200 MG/ML IH SCH (10:00)
[2021-07-31] MEDS ORDERED: ENOXAPARIN SODIUM SQ SCH (10:00)
[2021-07-31] MEDS ORDERED: XARELTO 10 MG TABLET PO SCH (10:00)
[2021-07-31] MEDS ORDERED: LIDOCAINE 4% TOP SCH (10:00)
[2021-07-31] MEDS: Nitrostat 0.4 MG Tablet SL PRN ×2 (10:08→14:44)
[2021-07-31] MEDS: Toprol Xl 100 MG PO SCH (10:15)
[2021-07-31] MEDS: Lidoderm Patch 5% TOP SCH (10:17)
[2021-07-31] MEDS: Klor Con 10 MEQ PO SCH ×2 (10:17→22:19)
[2021-07-31] MEDS: Mucinex 600MG ER Tabs PO SCH ×2 (10:17→22:19)
[2021-07-31] MEDS: Protonix 40MG Tablet PO SCH ×2 (10:17→22:19)
[2021-07-31] MEDS: Lexapro 10 MG PO SCH (10:17)
[2021-07-31] MEDS: ATARAX 25 MG PO SCH ×4 (10:18→22:19)
[2021-07-31] MEDS: Imdur 30 MG PO SCH (10:18)
[2021-07-31] MEDS: Mucomyst 200 MG/ML IH SCH ×2 (10:52→18:31)
[2021-07-31] MEDS ORDERED: DUONEB 0.5-3 MG/3 ml Neb IH SCH (11:00)
--- NOTE | 2021-07-31 11:14 | XRAY ---
Indication: Chest pain, short of breath, elevated d-dimer, and COPD. Multiple bilateral lung surgery. Comparison: November 09, 2019. Patient received 5 mCi technetium 99m MAA for the perfusion portion of the exam. Patient inhaled 36 mCi air/technetium 99m DTPA for the ventilation portion. Multiple planar images obtained. Perfusion images again demonstrates fairly homogeneous radiopharmaceutical activity bilaterally. No focal segmental/subsegmental perfusion defect. Ventilation images demonstrates grossly stable diffuse bilateral heterogeneous radiopharmaceutical activity with numerous multifocal nodular activity. Findings again nonspecific. Impression: Continued negative for focal perfusion defect. Grossly stable nonspecific heterogeneous ventilation radiopharmaceutical activity.
[2021-07-31] MEDS: Zofran 4 MG/2 ML VIAL IV PRN (15:34)
[2021-07-31] MEDS: OXYCODONE-ACETAMINOPHEN 10-325 PO PRN ×2 (15:41→22:42)
[2021-07-31] MEDS ORDERED: Mylicon 80MG PO PRN (15:47)
[2021-07-31] MEDS: Sodium Chloride 0.9% 1000 ML 1,000 ML IV SCH (16:49)
[2021-08-01] MEDS: solu-MEDROL 125 MG, Sterile H2O 10 ml 2 ML IV SCH ×4 (00:01→04:59)
[2021-08-01] MEDS: DUONEB 0.5-3 MG/3 ml Neb IH SCH ×6 (02:19→23:17)
[2021-08-01] MEDS: Sodium Chloride 0.9% 1000 ML 1,000 ML IV SCH ×2 (04:59→21:51)
[2021-08-01 05:51] LABS: Absolute Neutrophil Ct (ANC) 5.87 (1.4-6.9); Basophil (Absolute #) 0 (0-0.4); Eosinophil (Absolute #) 0 (0-0.5); Hematocrit 31.6 % (35-47); Hemoglobin 8.8 gm/dl (12.0-16.0); Lymphocyte (Absolute #) 0.22 (1.0-4.6); Lymphocytes % 3.4 % (24.0-44.0); Mean Cell Volume 106.4 fl (78-100); Mean Corpuscular Hemoglobin 29.6 pg (26-32); Mean Corpuscular Hgb Concent. 27.8 g/dl (32-36); Mean Platelet Volume 9.9 fl (7.5-11.0); Monocyte (Absolute #) 0.38 (0.0-1.3); Monocytes % 5.9 % (0.0-12.0); Neutrophil % 90.7 % (36.0-66.0); Platelet Count 257 K/mm3 (150-450); Red Blood Count 2.97 M/mm3 (4.1-5.4); Red Cell Distribution Width 13.7 % (11.5-14.0); White Blood Count 6.5 K/mm3 (4.0-10.5)
[2021-08-01] MEDS: Nitrostat 0.4 MG Tablet SL PRN ×2 (05:59→10:31)
[2021-08-01 06:00] LABS: INR 0.86 (0.8-3.0); PROTIME 10.2 SECONDS (9.4-12.5)
[2021-08-01] MEDS: OXYCODONE-ACETAMINOPHEN 10-325 PO PRN ×4 (06:08→22:07)
[2021-08-01 06:23] LABS: ALBUMIN 3.3 g/dL (3.5-5.0); ANION GAP 8.3 MEQ/L (5-15); BILIRUBIN,TOTAL 0.4 mg/dL (0.2-1.3); Calcium 8.9 mg/dL (8.4-10.2); Creatinine 1 1.03 mg/dL (0.52-1.04); EST GLOMERULAR FILTRATION RATE 57.5 ML/MIN; Potassium 3.8 mmol/L (3.5-5.1); Total Protein 5.6 g/dL (6.3-8.2)
[2021-08-01] MEDS: Zofran 4 MG/2 ML VIAL IV PRN ×3 (06:32→21:52)
[2021-08-01] MEDS: Mucomyst 200 MG/ML IH SCH ×2 (06:40→18:15)
[2021-08-01 07:08] LABS: Slide Review 1 YES
[2021-08-01 07:42] LABS: A-aADO2 76; ABG HEMOGLOBIN 8.7; ABG POTASSIUM 3.4 (3.5-5.1); ARTERIAL BLD GAS O2 SATURATION 98.6 % (95-100); ARTERIAL BLOOD GAS FIO2 40 %; ARTERIAL BLOOD GAS PCO2 64 mmHg (35-45); ARTERIAL BLOOD GAS PO2 129 mmHg (75-100); ARTERIAL BLOOD GAS pH 7.43 (7.35-7.45); CARBOXYHEMOGLOBIN 0.6 % THgb (0.0-6.9); HCO3- 42.5 (22-28); HGB O2 SAT 97.8 g/dF (94-100); Methhemoglobin 0.2 % (1.4-1.5)
[2021-08-01 07:43] LABS: ABG SITE RIGHT RADIAL
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
[2021-08-01] MEDS: ATARAX 25 MG PO SCH ×4 (10:59→21:59)
--- NOTE | 2021-08-01 10:59 | CONS ---
CONSULT DATE: 07/31/2021 HISTORY: Pretty Garrett is a 65-year-old woman with end-stage chronic obstructive pulmonary disease, well known to me from recent multiple hospitalizations, was readmitted through emergency room at [facility]. The patient reportedly has been smoking after going home and got progressively more short of breath. She was placed on noninvasive ventilation with blood gases showing respiratory alkalosis this morning. At the time of my evaluation, she is back on nasal cannula and is able to carry out normal conversation. She appears to be in her usual health. PAST MEDICAL HISTORY: Positive for end-stage chronic obstructive pulmonary disease. She was on Hospice for few years. She has chronic hypoxemia, chronic bronchitis and anxiety. PAST SURGICAL HISTORY: No recent surgery. PERSONAL AND SOCIAL HISTORY: As above, lives with . MEDICATIONS: Home and current medications are reviewed. ALLERGIES: REVIEWED. PHYSICAL EXAMINATION: This is an elderly woman who appears chronically ill. Vital signs noted. HEENT: Normocephalic. Oral exam unremarkable. NECK: Supple. CVS: First and second heart sounds are normal, regular, rhythmic. RESPIRATORY: Shows increase in AP diameter, breath sounds are diminished. Scattered rhonchi are heard and are at baseline. ABDOMEN: Soft. EXTREMITIES: No edema is noted. LABORATORY DATA AND TESTS: Labs reviewed. X-ray noted. ASSESSMENT: This is a 65-year-old lady admitted with: 1) End-stage chronic obstructive pulmonary disease readmitted with recurrent respiratory failure. 2) End-stage chronic obstructive pulmonary disease with exacerbation. 3) Acute bronchitis. RECOMMENDATIONS: 1) I have reviewed current medical management and agree with the same. 2) The patient's problems are far advanced and she clearly lacks understanding the severity of her health problems. At the same time she also is unwilling to help herself and continues to smoke every time she is discharged back home, this is only likely to happen more frequently. I again talked to her about smoking cessation. There is very little medically that can be offered to help someone at this stage. I will be available as needed. Thank you, Dr. Gallo, for allowing me to participate in the care of this patient.
--- NOTE | 2021-08-01 11:42 | HP ---
CHIEF COMPLAINT: Shortness of breath. HISTORY OF PRESENT ILLNESS: The patient is a 65-year-old white female who has end-stage chronic obstructive pulmonary disease. She has been suffering for the last two or three years with the same issue and represents to the hospital for evaluations quite frequently. It is hard to keep her out of the hospital more than two or three days at a time. On the last visit, we managed to get the patient to go to a rehab setting at [place] but the patient left there without ever even being seen. She reports that she was in the room for an hour and a half and nobody came to see her so she got upset and walked out. Shortly thereafter, the patient represented to our emergency room again. PAST MEDICAL/SURGICAL HISTORY: Otherwise significant for previous problems with heart failure, coronary artery disease, hyperlipidemia, hypertension, peripheral vascular disease. She previously also had a small pulmonary embolism. She had diverticulosis. She reported she had esophagus stretched for benign stricture. She has anxiety and depression issues. She continues to be a smoker. She previously had a lung biopsy, which was apparently benign. She had hysterectomy in 1990. She had cardiac stents placed. HOME MEDICATIONS: Docusate sodium 100 mg twice a day, nitroglycerin 0.4 mg PRN, potassium 10 [place] tablets, isosorbide mononitrate 30 mg daily, metoprolol 100 mg daily, guaifenesin extended release 1200 mg twice a day, hydrocodone 10/325 PRN for pain, Phenergan 12.5 for nausea, Lexapro 15 mg a day, Albuterol PRN, Tessalon Perles PRN for coughing, diclofenac gel, lidocaine gel, pantoprazole 40 mg a day. ALLERGIES: CIPROFLOXACIN. THEOPHYLLINE. IODINE. PENICILLINS. SULFA. ZITHROMAX. LISINOPRIL. CLINDAMYCIN. BUDESONIDE. FLUTICASONE. DILAUDID. PHYSICAL EXAMINATION: The patient's evaluations in the emergency room she was found to be hypercapnic and hypoxic. Her vital signs at that time showed her temperature 98.5F, pulse 68, respiratory rate 24 and blood pressure 143/73. HEENT: Normocephalic, atraumatic. She is wearing currently oxygen per nasal cannula. Oropharynx is slightly dry. NECK: Supple without lymphadenopathy, thyromegaly or JVD. CHEST: Revealed diminished air movements bilaterally. HEART: Regular rate and rhythm. ABDOMEN: Soft. No palpable masses. EXTREMITIES: Without cyanosis, clubbing or edema. NEUROLOGIC: The patient is currently alert and oriented x3. LAB DATA AND TESTS: On supplemental oxygen, she was at 100% saturation. Her initial evaluations in the emergency room revealed an ABG with pH of 7.36, pCO2 of 85, pO2 of 182 again on supplemental oxygen. Her white count 8,800, hemoglobin 9.4 and PLT count 268,000. D-dimer was elevated. Her sugar was 98, BUN 64, creatinine 1.52. Her CO2 level was 47. Liver enzymes were normal. ProBNP was normal. Her troponin was 0.018. Repeat ABG showed pH of 7.42, pCO2 of 72, pO2 of 69. Her chest x-ray showed change showing chronic obstructive pulmonary disease changes and biapical fibrosis, scarring and lung tissue material. ASSESSMENT: A patient with end-stage chronic obstructive pulmonary disease. She has been placed on BiPAP get her CO2 level down and maintain her oxygen status. She has been restarted on Solu-Medrol IV at 125 every six hours. She will continue her usual home medications and the patient is known to be a very hard stick and unfortunately in this facility we cannot get the anesthesia people to put her out so that we can get a port placed or to get esophageal stretching procedure done as the patient reports she is having trouble swallowing. We will get swallowing studies performed, will see if we can get her CPAP to take home with her as well. Pulmonary consultation has been requested. The patient will continue her home medications. We will also look into whether she can go to a different rehab facility.
--- NOTE | 2021-08-01 12:09 | XRAY ---
Indication: Difficulty swallowing. Attempted esophagram performed. Patient initially ingested barium without miss swallow or aspiration. Immediately, the patient began vomiting, retching, and significantly shaking. Examination was terminated. Visualized esophagus in the AP plane is normal in course and caliber without focal stricture, obstruction, or filling defect. Approximately 0.3 minute fluoroscopy used.
--- NOTE | 2021-08-01 12:24 | XRAY ---
Indication: Ultrasound guidance for PICC line placement. Initial sonographic imaging of the right upper extremity was performed for localization of patent veins. Only a patent basilic vein identified above the elbow. Right upper extremity prepped and draped in sterile fashion. Tourniquet applied. 1% lidocaine plain used for local anesthesia. Using ultrasound guidance and a micropuncture needle, the basilic vein was initially percutaneously cannulized. However advancement of the guidewire was unsuccessful and therefore removed. Hemostasis placed over the puncture site. No other patent usable veins identified in the right upper extremity. Patient adamantly refused left arm PICC placement due to "nerve damage." Procedure was then terminated.
[2021-08-01] MEDS: Klor Con 10 MEQ PO SCH ×2 (13:16→22:00)
[2021-08-01] MEDS: solu-MEDROL 80 MG, Sterile H2O 10 ml 2 ML IV SCH ×4 (13:32→21:59)
[2021-08-01] MEDS: Protonix 40MG Tablet PO SCH ×2 (15:50→22:00)
[2021-08-01] MEDS: Mucinex 600MG ER Tabs PO SCH ×2 (15:50→21:59)
[2021-08-01] MEDS: Toprol Xl 100 MG PO SCH (16:32)
[2021-08-01] MEDS: Lidoderm Patch 5% TOP SCH (16:32)
[2021-08-01] MEDS: Imdur 30 MG PO SCH (16:32)
[2021-08-01] MEDS: Lexapro 10 MG PO SCH (16:33)
[2021-08-01] MEDS: Voltaren GEL TOP PRN ×2 (18:42→21:58)
[2021-08-01] MEDS ORDERED: solu-MEDROL ONE (21:47)
[2021-08-02] MEDS: DUONEB 0.5-3 MG/3 ml Neb IH SCH ×6 (03:14→22:58)
[2021-08-02] MEDS: OXYCODONE-ACETAMINOPHEN 10-325 PO PRN ×4 (04:20→21:28)
[2021-08-02] MEDS ORDERED: solu-MEDROL ONE (05:25)
[2021-08-02] MEDS: solu-MEDROL 80 MG, Sterile H2O 10 ml 2 ML IV SCH ×2 (06:04)
[2021-08-02 06:21] LABS: Absolute Neutrophil Ct (ANC) 9.94 (1.4-6.9); BASOPHIL % 0.1 % (0.0-0.4); Basophil (Absolute #) 0.01 (0-0.4); Eosinophil (Absolute #) 0 (0-0.5); Hematocrit 30.3 % (35-47); Hemoglobin 8.5 gm/dl (12.0-16.0); Lymphocyte (Absolute #) 0.21 (1.0-4.6); Lymphocytes % 1.9 % (24.0-44.0); Mean Cell Volume 105.9 fl (78-100); Mean Corpuscular Hemoglobin 29.7 pg (26-32); Mean Corpuscular Hgb Concent. 28.1 g/dl (32-36); Mean Platelet Volume 9.5 fl (7.5-11.0); Monocyte (Absolute #) 0.74 (0.0-1.3); Monocytes % 6.8 % (0.0-12.0); Neutrophil % 91.2 % (36.0-66.0); Platelet Count 237 K/mm3 (150-450); Red Blood Count 2.86 M/mm3 (4.1-5.4); Red Cell Distribution Width 13.8 % (11.5-14.0); White Blood Count 10.9 K/mm3 (4.0-10.5)
[2021-08-02 06:40] LABS: ALBUMIN 3.2 g/dL (3.5-5.0); ALKALINE PHOSPHATASE 74 U/L (38-126); ANION GAP 10.2 MEQ/L (5-15); BLOOD UREA NITROGEN 28 mg/dL (7-17); CHLORIDE 97 mmol/L (98-107); Calcium 9.2 mg/dL (8.4-10.2); Carbon Dioxide 35 mmol/L (22-30); Creatinine 1 0.88 mg/dL (0.52-1.04); EST GLOMERULAR FILTRATION RATE > 60.0 ML/MIN; Glucose 235 mg/dL (74-106); Potassium 4.3 mmol/L (3.5-5.1); SGOT/AST 18 U/L (14-36); SGPT/ALT 20 U/L (0-35); SODIUM 138 mmol/L (137-145); Total Protein 5.3 g/dL (6.3-8.2)
[2021-08-02] MEDS: Mucomyst 200 MG/ML IH SCH ×2 (07:00→18:51)
[2021-08-02] MEDS: ATARAX 25 MG PO SCH ×4 (08:16→21:25)
[2021-08-02] MEDS ORDERED: solu-MEDROL 40 MG, Sterile H2O 10 ml 2 ML IV SCH ×4 (08:25→14:00)
[2021-08-02] MEDS: DELTASONE 10 MG PO SCH (09:32)
[2021-08-02] MEDS: Toprol Xl 100 MG PO SCH (09:32)
[2021-08-02] MEDS: Mucinex 600MG ER Tabs PO SCH ×2 (09:33→21:25)
[2021-08-02] MEDS: Imdur 30 MG PO SCH (09:33)
[2021-08-02] MEDS: Lexapro 10 MG PO SCH (09:33)
[2021-08-02] MEDS: Klor Con 10 MEQ PO SCH ×2 (09:33→21:25)
[2021-08-02] MEDS: Protonix 40MG Tablet PO SCH (09:33)
[2021-08-02] MEDS: Voltaren GEL TOP PRN (09:34)
[2021-08-02] MEDS: Lidoderm Patch 5% TOP SCH (09:35)
[2021-08-02] MEDS: Sodium Chloride 0.9% 1000 ML 1,000 ML IV SCH ×2 (09:57→23:05)
[2021-08-02] MEDS: Nicoderm CQ 21 MG TOP SCH (11:18)
[2021-08-02] MEDS: LASIX 20 MG PO SCH (11:19)
[2021-08-02] MEDS: Pepcid 20 MG PO SCH ×2 (11:19→21:26)
[2021-08-02] MEDS: Nitrostat 0.4 MG Tablet SL PRN ×2 (14:52→15:00)
[2021-08-02] MEDS ORDERED: solu-MEDROL 40 MG, Sterile H2O 10 ml 1 ML IV SCH ×2 (15:00)
[2021-08-02] MEDS: MORPHINE SULFATE 2 MG INJ IV PRN (17:55)
[2021-08-02] MEDS: solu-MEDROL IV SCH (21:26)
[2021-08-03] MEDS: Protonix 40MG Tablet PO SCH ×3 (00:18→21:41)
[2021-08-03] MEDS: DUONEB 0.5-3 MG/3 ml Neb IH SCH ×6 (01:55→23:24)
[2021-08-03] MEDS: OXYCODONE-ACETAMINOPHEN 10-325 PO PRN ×3 (04:05→17:33)
[2021-08-03] MEDS: solu-MEDROL IV SCH ×3 (06:13→21:41)
[2021-08-03] MEDS: Mucomyst 200 MG/ML IH SCH ×2 (06:43→16:55)
[2021-08-03] MEDS: Zofran 4 MG/2 ML VIAL IV PRN ×3 (08:45→21:42)
[2021-08-03] MEDS: ATARAX 25 MG PO SCH ×4 (08:49→21:40)
[2021-08-03] MEDS: VENTOLIN COMMON CANISTER IH PRN ×2 (09:24→20:10)
[2021-08-03] MEDS: Toprol Xl 100 MG PO SCH (09:53)
[2021-08-03] MEDS: Mucinex 600MG ER Tabs PO SCH ×2 (09:53→21:41)
[2021-08-03] MEDS: Klor Con 10 MEQ PO SCH ×2 (09:54→21:41)
[2021-08-03] MEDS: DELTASONE 10 MG PO SCH (09:54)
[2021-08-03] MEDS: Imdur 30 MG PO SCH (09:54)
[2021-08-03] MEDS: Pepcid 20 MG PO SCH ×2 (09:54→21:41)
[2021-08-03] MEDS: Lexapro 10 MG PO SCH (09:54)
[2021-08-03] MEDS: LASIX 20 MG PO SCH (09:54)
[2021-08-03] MEDS: Voltaren GEL TOP PRN (09:55)
[2021-08-03] MEDS: Lidoderm Patch 5% TOP SCH (09:56)
[2021-08-03] MEDS: Nicoderm CQ 21 MG TOP SCH (11:08)
[2021-08-03] MEDS: Sodium Chloride 0.9% 1000 ML 1,000 ML IV SCH (12:50)
[2021-08-03] MEDS: Sterile H2O 10 ml IJ SCH ×2 (14:11→21:41)
[2021-08-03] MEDS: MORPHINE SULFATE 2 MG INJ IV PRN (20:47)
[2021-08-04] MEDS: OXYCODONE-ACETAMINOPHEN 10-325 PO PRN (00:56)
[2021-08-04] MEDS: Sodium Chloride 0.9% 1000 ML 1,000 ML IV SCH (02:01)
[2021-08-04] MEDS: MORPHINE SULFATE 2 MG INJ IV PRN ×4 (02:11→15:36)
[2021-08-04] MEDS: VENTOLIN COMMON CANISTER IH PRN (02:15)
[2021-08-04] MEDS: DUONEB 0.5-3 MG/3 ml Neb IH SCH ×4 (04:25→14:00)
[2021-08-04] MEDS: solu-MEDROL IV SCH ×2 (05:08→15:36)
[2021-08-04] MEDS ORDERED: Zofran 4 MG/2 ML VIAL ONE (05:15)
[2021-08-04] MEDS: Zofran 4 MG/2 ML VIAL IV PRN ×2 (05:16→15:51)
[2021-08-04 05:44] LABS: Hematocrit 35.2 % (35-47); Hemoglobin 9.9 gm/dl (12.0-16.0); Mean Cell Volume 104.8 fl (78-100); Mean Corpuscular Hemoglobin 29.5 pg (26-32); Mean Corpuscular Hgb Concent. 28.1 g/dl (32-36); Mean Platelet Volume 10.2 fl (7.5-11.0); Platelet Count 157 K/mm3 (150-450); Red Blood Count 3.36 M/mm3 (4.1-5.4); Red Cell Distribution Width 13.8 % (11.5-14.0)
[2021-08-04 06:06] LABS: ALBUMIN 3.5 g/dL (3.5-5.0); ALKALINE PHOSPHATASE 87 U/L (38-126); ANION GAP 11.3 MEQ/L (5-15); BLOOD UREA NITROGEN 20 mg/dL (7-17); CHLORIDE 97 mmol/L (98-107); Calcium 9.3 mg/dL (8.4-10.2); Carbon Dioxide 33 mmol/L (22-30); Creatinine 1 0.71 mg/dL (0.52-1.04); EST GLOMERULAR FILTRATION RATE > 60.0 ML/MIN; Glucose 114 mg/dL (74-106); SGOT/AST 42 U/L (14-36); SGPT/ALT 46 U/L (0-35); SODIUM 137 mmol/L (137-145)
[2021-08-04 06:24] LABS: Potassium 4.5 mmol/L (3.5-5.1)
[2021-08-04 06:30] LABS: Slide Review YES
[2021-08-04 10:07] LABS: Appearance CLEAR (CLEAR); Bacteria FEW /HPF (NEGATIVE); Bilirubin NEGATIVE (NEGATIVE); Blood SMALL Ery/ul (0-5); Glucose >=500 mg/dL (NEGATIVE); Hyaline Casts 0-2 /LPF (0-2); Ketones NEGATIVE (NEGATIVE); Leukocyte Esterase SMALL (NEGATIVE); Nitrite NEGATIVE (NEGATIVE); Protein,Urine Dip 30 (Negative); RBC 0-2 /HPF (0-2); Specific Gravity 1.016 (1.005-1.025); Urobilinogen 2 mg/dL (0-1)
--- NOTE | 2021-08-04 10:21 | PCM.DS ---
Discharge Summary Date of Admission: 08/01/21 07:31 Admitting Physician: BHAVIK MAK Consults: Consults on Case 07/31/21 07:16 Consult Surgery ROUTINE Primary Care Provider: JAY JOLLY Allergies Allergies ciprofloxacin [From Cipro] Allergy (Severe, Verified 07/31/21 01:28) Itchy Eyes theophylline Allergy (Severe, Verified 07/31/21 01:28) hives, sob iodine Allergy (Intermediate, Verified 07/31/21:28) Tightness in Chest Penicillins Allergy (Intermediate, Verified 07/31/21:28) Itchy Eyes Sulfa (Sulfonamide Antibiotics) [Sulfa(Sulfonamide Antibiotics)] Allergy (In termediate, Verified 07/31/21:) Itchy Eyes azithromycin [From Zithromax] Allergy (Mild, Verified 07/31/21:28) Itching lisinopril Allergy (Verified 07/31/21:28) Tightness of Throat clindamycin Adverse Reaction (Severe, Verified 07/31/21:28) Diarrhea budesonide [From Symbicort] Adverse Reaction (Mild, Verified 07/31/21:28) States gives her tremors fluticasone furoate [From Trelegy Ellipta] Adverse Reaction (Mild, Verified 07/31/21:28) States makes her have tremors hydromorphone HCl [From Dilaudid] Adverse Reaction (Mild, Verified 07/31/21:28) low bp Hospital Summary - Hospital Course Hospital Course: patient admitted with recurrent copd exacerbation, her lungs are at baseline. she is on chronic oxygen therapy and has advanced copd, has been on hospice in the past but is currently home with home health and code status is full code. - Vitals & Intake/Output Vital Signs: Vital Signs Temperature 97.5 F 08/04/21 07:48 Pulse Rate 81 08/04/21 07:48 Respiratory Rate 20 08/04/21 07:48 Blood Pressure 171/86 08/04/21 07:48 O2 Sat by Pulse Oximetry 98 08/04/21 07:48 Intake & Output: Intake & Output 08/01/21 08/02/21 08/03/21 08/04/21 11:59 11:59 11:59 11:59 Intake Total 2118 1640 1240 5294 Output Total 972 914 8156 1600 Balance 1418 1440 -6480 3694 Weight 42.6 kg 42.3 kg - Lab Result Diagrams: 08/04/21 05:30 08/04/21 05:30 Lab Results-Last 24 Hrs: Lab Results-Last 24 Hours 08/03/21 08/04/21 08/04/21 Range/Units 20:51 05:30 05:30 WBC 12.0 H (4.0-10.5) K/mm3 RBC 3.36 L (4.1-5.4) M/mm3 Hgb 9.9 L (12.0-16.0) gm/dl Hct 35.2 (35-47) % MCV 104.8 H (78-100) fl MCH 29.5 (26-32) pg MCHC 28.1 L (32-36) g/dl RDW 13.8 (11.5-14.0) % Plt Count 157 (150-450) K/mm3 MPV 10.2 (7.5-11.0) fl Sodium 137 (137-145) mmol/L Potassium 4.5 (3.5-5.1) mmol/L Chloride 97 L (98-107) mmol/L Carbon Dioxide 33 H (22-30) mmol/L Anion Gap 11.3 (5-15) MEQ/L BUN 20 H (7-17) mg/dL Creatinine 0.71 (0.52-1.04) mg/dL Estimated GFR > 60.0 ML/MIN Glucose 114 H (74-106) mg/dL POC Glucometer 154 H (74 to 106) mg/dL Calcium 9.3 (8.4-10.2) mg/dL Total Bilirubin 0.80 (0.2-1.3) mg/dL AST 42 H (14-36) U/L ALT 46 H (0-35) U/L Alkaline Phosphatase 87 (38-126) U/L Serum Total Protein 6.0 L (6.3-8.2) g/dL Albumin 3.5 (3.5-5.0) g/dL Urine Color (YELLOW) Urine Appearance (CLEAR) Urine pH (5-6) Ur Specific [place] (1.005-1.025) Urine Protein (Negative) Urine Ketones (NEGATIVE) Urine Blood (0-5) Matias/ul Urine Nitrite (NEGATIVE) Urine Bilirubin (NEGATIVE) Urine Urobilinogen (0-1) mg/dL Ur Leukocyte Esterase (NEGATIVE) Urine WBC (Auto) (0-5) /HPF Urine RBC (Auto) (0-2) /HPF U Hyaline Cast (Auto) (0-2) /LPF U Epithel Cells (Auto) (FEW) /HPF Urine Bacteria (Auto) (NEGATIVE) /HPF Urine Culture Reflexed (NO) Urine Glucose (NEGATIVE) mg/dL Slides for Path Review YES 08/04/21 Range/Units 09:48 WBC (4.0-10.5) K/mm3 RBC (4.1-5.4) M/mm3 Hgb (12.0-16.0) gm/dl Hct (35-47) % MCV (78-100) fl MCH (26-32) pg MCHC (32-36) g/dl RDW (11.5-14.0) % Plt Count (150-450) K/mm3 MPV (7.5-11.0) fl Sodium (137-145) mmol/L Potassium (3.5-5.1) mmol/L Chloride (98-107) mmol/L Carbon Dioxide (22-30) mmol/L Anion Gap (5-15) MEQ/L BUN (7-17) mg/dL Creatinine (0.52-1.04) mg/dL Estimated GFR ML/MIN Glucose (74-106) mg/dL POC Glucometer (74 to 106) mg/dL Calcium (8.4-10.2) mg/dL Total Bilirubin (0.2-1.3) mg/dL AST (14-36) U/L ALT (0-35) U/L Alkaline Phosphatase (38-126) U/L Serum Total Protein (6.3-8.2) g/dL Albumin (3.5-5.0) g/dL Urine Color YELLOW (YELLOW) Urine Appearance CLEAR (CLEAR) Urine pH 7.0 (5-6) Ur Specific [place] 1.016 (1.005-1.025) Urine Protein 30 (Negative) Urine Ketones NEGATIVE (NEGATIVE) Urine Blood SMALL (0-5) Matias/ul Urine Nitrite NEGATIVE (NEGATIVE) Urine Bilirubin NEGATIVE (NEGATIVE) Urine Urobilinogen 2 (0-1) mg/dL Ur Leukocyte Esterase SMALL (NEGATIVE) Urine WBC (Auto) 6-10 (0-5) /HPF Urine RBC (Auto) 0-2 (0-2) /HPF U Hyaline Cast (Auto) 0-2 (0-2) /LPF U Epithel Cells (Auto) NONE (FEW) /HPF Urine Bacteria (Auto) FEW (NEGATIVE) /HPF Urine Culture Reflexed YES (NO) Urine Glucose >=500 (NEGATIVE) mg/dL Slides for Path Review Micro Results-Entire Visit: Microbiology 07/31/21 02:30 Blood Culture Gram Stain - Final Blood Not Reportable Blood Culture - Final NO GROWTH - Procedures and Test Procedures and Tests throughout Hospitalization: Therapy Orders & Screens 07/31/21 06:35 Respiratory Therapy Consult ROUTINE Comment: Reason For Exam: 07/31/21 07:16 Respiratory Therapy Assessment DAILY Comment: 07/31/21 07:22 Oxygen Nasal Cannula 4 lpm Comment: 08/02/21 19:00 Oxygen High Flow per RT 40% Comment: Diagnosis: HYPERCARBIA, END STAGE COPD EXAC Discharge Exam General Appearance: no apparent distress Neurologic Exam: alert, oriented x 3 Respiratory Exam: prolonged expirations, No respiratory distress, No accessory muscle use, No wheezing Cardiovascular Exam: regular rate/rhythm, normal heart sounds Gastrointestinal/Abdomen Exam: soft, No tenderness, No mass Extremity Exam: normal inspection, normal range of motion Final Diagnosis/Problem List - Final Discharge Diagnosis/Problem (1) COPD exacerbation Current Visit: Yes Status: Acute Assessment & Plan: home on routine meds Code(s): J44.1 - CHRONIC OBSTRUCTIVE PULMONARY DISEASE W (ACUTE) EXACERBATION (2) HTN (hypertension) Current Visit: No Status: Chronic Code(s): I10 - ESSENTIAL (PRIMARY) HYPERTENSION (3) Hx of coronary artery disease Current Visit: No Status: Chronic Code(s): Z86.79 - PERSONAL HISTORY OF OT HER DISEASES OF THE CIRCULATORY SYSTEM (4) Hx pulmonary embolism Current Visit: No Status: Chronic Code(s): Z86.711 - PERSONAL HISTORY OF PULMONARY EMBOLISM (5) Chronic pain syndrome Current Visit: Yes Status: Acute Assessment & Plan: patient filled #120 percocet on 07/28/21 per [facility] report and has spent most of her time here in the hospital since that fill, should have plenty of pain med at home. Code(s): G89.4 - CHRONIC PAIN SYNDROME (6) UTI (urinary tract infection) Current Visit: Yes Status: Acute Assessment & Plan: culture pending, home on macrobid Code(s): N39.0 - URINARY TRACT INFECTION, SITE NOT SPECIFIED - Discharge Disposition: Home, Self-Care Condition: Stable Prescriptions: New Nitrofurantoin Macro 100 mg [Macrobid 100MG Capsule] 100 mg PO BID #10 cap Continue Nitroglycerin 0.4 mg Tablet [Nitrostat 0.4 MG Tablet] 0.4 mg SL Q5MX3 Docusate Sodium 100 mg [Colace 100 MG] 100 mg PO BID PRN Potassium Chloride 10 Meq Tab* [Klor Con 10 MEQ] 10 meq PO BID Isosorbide Mononitrate 30 mg [Imdur 30 MG] 60 mg PO DAILY Metoprolol Succinate 25 mg Xl* [Toprol-Xl 25MG Tablets] 100 mg PO DAILY Guaifenesin 600 mg ER [Mucinex 600MG ER Tabs] 1,200 mg PO BID Hydrocodone Bit/Acetaminophen [Hydrocodon-Acetaminophn 10-325] 1 each PO Q4H PRN PRN Reason: Moderate To Severe Pain Promethazine HCl 25 mg [Phenergan 25 mg] 12.5 mg PO Q4-6HPRN PRN PRN Reason: Nausea/Vomiting Escitalopram Oxalate 10 mg [Lexapro 10 MG] 15 mg PO DAILY Albuterol/Ipratropium 3ml Neb* [DUONEB 0.5-3 MG/3 ml Neb] 1 inh PO Q4H Benzonatate [Tessalon Perle] 100 mg PO Q8H PRN PRN Reason: Pain Diclofenac Sodium Gel [Voltaren GEL] 1 gm TOP QID PRN PRN PRN Reason: Pain PANTOPRAZOLE 40 mg Tablet [Protonix 40MG Tablet] 40 mg PO BID Lidocaine [Aspercreme Lidocaine] 2 patch TOP DAILY Albuterol/Ipratropium 3ml Neb* [DUONEB 0.5-3 MG/3 ml Neb] 3 ml IH Q4HRT Albuterol Common Canister [Ventolin Common Canister] 2 puff IH Q2H/PRN PRN PRN Reason: Shortness Of Breath Rivaroxaban 10 mg Tablet [Xarelto 10 mg Tablet] 10 mg PO DAILY #1 tablet Acetylcysteine [Acetadote] 1 ml IH BID 7 Days #14 ml Hydroxyzine HCl 25 mg [Atarax 25 mg] 25 mg PO QID 30 Days #120 tablet Prednisone 20 mg [Deltasone 20 mg] 20 mg PO UD 15 Days #30 tablet Furosemide 20 mg [Lasix 20 mg] 20 mg PO DAILY Famotidine 20 mg [Pepcid 20 MG] 40 mg PO BID Nicotine 21 mg [Nicoderm CQ 21 MG] 21 mg TOP DAILY Additional Instructions: IF YOUR INTERESTED IN ADDITIONAL HELP PAYING FOR YOUR MEDS, YOU CAN CALL ERASMO LANIER ([employer]) AT [phone] TO SEE IF THERE IS ANYTHING SHE CAN OFFER YOU Follow up with: JAY JOLLY [Primary Care Provider] -
[2021-08-04] MEDS: LASIX 20 MG PO SCH (10:36)
[2021-08-04] MEDS: DELTASONE 10 MG PO SCH (10:36)
[2021-08-04] MEDS: Klor Con 10 MEQ PO SCH (10:36)
[2021-08-04] MEDS: ATARAX 25 MG PO SCH ×2 (10:36→13:07)
[2021-08-04] MEDS: Imdur 30 MG PO SCH (10:36)
[2021-08-04] MEDS: Lexapro 10 MG PO SCH (10:36)
[2021-08-04] MEDS: Pepcid 20 MG PO SCH (10:38)
[2021-08-04] MEDS: Mucinex 600MG ER Tabs PO SCH (10:38)
[2021-08-04] MEDS: Protonix 40MG Tablet PO SCH (10:38)
[2021-08-04] MEDS: Toprol Xl 100 MG PO SCH (10:38)
[2021-08-04] MEDS: Sterile H2O 10 ml IJ SCH (10:39)
[2021-08-04] MEDS: Nicoderm CQ 21 MG TOP SCH (10:55)
[2021-08-04] MEDS: Lidoderm Patch 5% TOP SCH (11:07)
[2021-08-04 11:27] VITALS: O2SAT 100
[2021-08-04] MEDS: Nitrostat 0.4 MG Tablet SL PRN ×3 (12:13→12:42)
[2021-08-04 12:31] VITALS: BP 121/70
[2021-08-04 14:12] VITALS: PULSE 77
== END 2021-08-04 16:02 | disposition home or self-care (01) | DRG 190 ==
LOC: ED 01:23 → MED SURG 06:27 → OBSVTOIN 08-01 07:31
PROVIDERS: ADMIT Family Medicine; ATTEND Family Medicine
DX: J44.1 Chronic obstructive pulmonary disease with (acute) exacerbation (principal); J96.90 Respiratory failure, unspecified, unspecified whether with hypoxia or hypercapnia; N39.0 Urinary tract infection, site not specified; E87.3 Alkalosis; J20.9 Acute bronchitis, unspecified; K21.9 Gastro-esophageal reflux disease without esophagitis; I73.9 Peripheral vascular disease, unspecified; E78.5 Hyperlipidemia, unspecified; G89.4 Chronic pain syndrome; F17.200 Nicotine dependence, unspecified, uncomplicated; F41.9 Anxiety disorder, unspecified; Z99.81 Dependence on supplemental oxygen; Z79.899 Other long term (current) drug therapy; Z86.79 Personal history of other diseases of the circulatory system; Z86.711 Personal history of pulmonary embolism; Z20.828 Contact with and (suspected) exposure to other viral communicable diseases; I10 Essential (primary) hypertension
CPT/HCPCS: 0241U; 36000; 36415; 36600; 71045; 74220; 78582; 80053; 81001; 82375; 82803; 82805; 82947; 83605; 83880; 84484; 85025; 85027; 85379; 85610; 87040; 87086; 93005; 93268; 94002; 94640; 94760; 96372; 99285; 99291; A9540; A9567; G0378; 76937; J1642; J1650; J2270; J2405; J2920; J2930; A9270-GY

== ENCOUNTER 2021-08-06 23:06 | Emergency (ER) | payer MEDICARE ==
[2021-08-06 23:18] VITALS: O2SAT 100
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
[2021-08-06] MEDS ORDERED: SUBLIMAZE 100 MCG/2 ML IV ONE (23:59)
[2021-08-07] MEDS ORDERED: solu-MEDROL 125 MG, Sterile H2O 10 ml 10 ML IM ONE ×2
[2021-08-07] MEDS ORDERED: solu-MEDROL ONE (00:04)
[2021-08-07] MEDS ORDERED: SUBLIMAZE 100 MCG/2 ML ONE (00:04)
[2021-08-07] MEDS ORDERED: Sterile H2O 10 ml IJ ONE (00:04)
[2021-08-07 01:13] VITALS: BP 126/82; PULSE 104
== END 2021-08-07 01:12 | disposition home or self-care (01) ==
LOC: ED 23:06
DX: J44.9 Chronic obstructive pulmonary disease, unspecified (principal); B02.23 Postherpetic polyneuropathy; R07.9 Chest pain, unspecified; R05.9 Cough, unspecified; I11.0 Hypertensive heart disease with heart failure; I50.9 Heart failure, unspecified; E78.5 Hyperlipidemia, unspecified; Z79.891 Long term (current) use of opiate analgesic; Z72.0 Tobacco use
CPT/HCPCS: 93005; 96374; 99284; J2930; J3010

== ENCOUNTER 2021-08-08 04:13 | Emergency (ER) | payer MEDICARE ==
[2021-08-08 05:08] LABS: Absolute Neutrophil Ct (ANC) 15.56 (1.4-6.9); BASOPHIL % 0.1 % (0.0-0.4); Basophil (Absolute #) 0.01 (0-0.4); Eosinophil % 0.7 % (0.00-5.0); Eosinophil (Absolute #) 0.12 (0-0.5); Hematocrit 29.5 % (35-47); Hemoglobin 8.5 gm/dl (12.0-16.0); Lymphocyte (Absolute #) 1.06 (1.0-4.6); Lymphocytes % 5.9 % (24.0-44.0); Mean Cell Volume 103.9 fl (78-100); Mean Corpuscular Hemoglobin 29.9 pg (26-32); Mean Corpuscular Hgb Concent. 28.8 g/dl (32-36); Mean Platelet Volume 9.7 fl (7.5-11.0); Monocyte (Absolute #) 1.17 (0.0-1.3); Monocytes % 6.5 % (0.0-12.0); Neutrophil % 86.8 % (36.0-66.0); Platelet Count 193 K/mm3 (150-450); Red Blood Count 2.84 M/mm3 (4.1-5.4); Red Cell Distribution Width 13.7 % (11.5-14.0); White Blood Count 17.9 K/mm3 (4.0-10.5)
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
[2021-08-08 05:22] LABS: ALBUMIN 3.4 g/dL (3.5-5.0); BILIRUBIN,TOTAL 0.5 mg/dL (0.2-1.3); Calcium 8.8 mg/dL (8.4-10.2); Creatinine 1 1.97 mg/dL (0.52-1.04); EST GLOMERULAR FILTRATION RATE 27.2 ML/MIN; Potassium 3.9 mmol/L (3.5-5.1); Total Protein 5.8 g/dL (6.3-8.2)
[2021-08-08 05:35] LABS: ANION GAP 9.9 MEQ/L (5-15)
[2021-08-08 05:45] LABS: Slide Review 1 YES
[2021-08-08] MEDS ORDERED: Ativan 1 MG PO ONE (06:08)
[2021-08-08] MEDS ORDERED: Ativan 1 MG ONE (06:10)
[2021-08-08 07:04] VITALS: BP 119/51
--- NOTE | 2021-08-08 08:47 | XRAY ---
Indication: Dyspnea. Comparison: July 31, 2021. Portable chest unchanged again demonstrating chronic findings including COPD, biapical fibrosis/scarring, and bilateral lung suture material. Heart and mediastinal structures within normal limits. No new/acute abnormalities.
[2021-08-08 09:26] VITALS: PULSE 78; O2SAT 98
== END 2021-08-08 09:26 | disposition home or self-care (01) ==
LOC: ED 04:13
DX: J44.1 Chronic obstructive pulmonary disease with (acute) exacerbation (principal); Z72.0 Tobacco use; Z99.81 Dependence on supplemental oxygen; F41.9 Anxiety disorder, unspecified; R77.8 Other specified abnormalities of plasma proteins; I11.0 Hypertensive heart disease with heart failure; E78.5 Hyperlipidemia, unspecified; I50.9 Heart failure, unspecified; Z79.891 Long term (current) use of opiate analgesic
CPT/HCPCS: 36415; 71045; 80053; 84484; 85025; 93005; 99213; 99214; 99284; A9270-GY

== ENCOUNTER 2021-08-09 11:29 | Emergency (ER) | payer MEDICARE ==
[2021-08-09] MEDS ORDERED: solu-MEDROL 80 MG, Sterile H2O 10 ml 2 ML IV ONE ×2 (11:40)
[2021-08-09] MEDS ORDERED: DUONEB 0.5-3 MG/3 ml Neb IH ONE ×2 (11:40→11:55)
--- NOTE | 2021-08-09 12:08 | XRAY ---
Indication: Short of breath. Comparison: One day earlier. Portable chest unchanged again demonstrating chronic findings include COPD, biapical fibrosis fibrosis/scarring, and bilateral lung suture material. Heart not enlarged. No new/acute abnormalities.
[2021-08-09 12:26] LABS: Absolute Neutrophil Ct (ANC) 10.02 (1.4-6.9); BASOPHIL % 0.1 % (0.0-0.4); Basophil (Absolute #) 0.01 (0-0.4); Eosinophil % 0.4 % (0.00-5.0); Eosinophil (Absolute #) 0.05 (0-0.5); Hematocrit 33.3 % (35-47); Hemoglobin 9.4 gm/dl (12.0-16.0); Lymphocyte (Absolute #) 0.86 (1.0-4.6); Lymphocytes % 7.1 % (24.0-44.0); Mean Cell Volume 103.1 fl (78-100); Mean Corpuscular Hemoglobin 29.1 pg (26-32); Mean Corpuscular Hgb Concent. 28.2 g/dl (32-36); Mean Platelet Volume 9.9 fl (7.5-11.0); Monocyte (Absolute #) 1.17 (0.0-1.3); Monocytes % 9.7 % (0.0-12.0); Neutrophil % 82.7 % (36.0-66.0); Platelet Count 236 K/mm3 (150-450); Red Blood Count 3.23 M/mm3 (4.1-5.4); Red Cell Distribution Width 13.7 % (11.5-14.0); White Blood Count 12.1 K/mm3 (4.0-10.5)
[2021-08-09 12:40] LABS: A-aADO2 250; ABG HEMOGLOBIN 9.4; ABG POTASSIUM 3.4 (3.5-5.1); ARTERIAL BLD GAS O2 SATURATION 42.8 % (95-100); ARTERIAL BLOOD GAS BASE EXCESS 15.5 (-2.0-2.0); ARTERIAL BLOOD GAS FIO2 50 %; ARTERIAL BLOOD GAS PCO2 63 mmHg (35-45); ARTERIAL BLOOD GAS pH 7.44 (7.35-7.45); CARBOXYHEMOGLOBIN 1.1 % THgb (0.0-6.9); HCO3- 42.8 (22-28); HGB O2 SAT 41.9 g/dF (94-100); Lactic Acid 0.9 (0.4-2.0); Methhemoglobin 0.9 % (1.4-1.5)
[2021-08-09 12:41] LABS: ABG SITE lr; ARTERIAL BLOOD GAS PO2 28 mmHg (75-100)
[2021-08-09 12:42] LABS: ALLEN TEST OK? yes
[2021-08-09 12:45] LABS: ALBUMIN 3.5 g/dL (3.5-5.0); BILIRUBIN,TOTAL 1.1 mg/dL (0.2-1.3); Calcium 8.8 mg/dL (8.4-10.2); Creatinine 1 1.45 mg/dL (0.52-1.04); EST GLOMERULAR FILTRATION RATE 38.8 ML/MIN; MAGNESIUM 1.5 mg/dL (1.6-2.3); Potassium 3.6 mmol/L (3.5-5.1); Total Protein 6.1 g/dL (6.3-8.2)
[2021-08-09 12:49] LABS: ANION GAP 11.6 MEQ/L (5-15)
[2021-08-09] MEDS ORDERED: Sodium Chloride 0.9% 500 ML 500 ML IV ONE ×2 (13:52→14:00)
[2021-08-09] MEDS ORDERED: NEXTERONE 360 MG/200 ML BAG 360 MG/200 ML PLAST..BAG IV SCH (15:15)
[2021-08-09] MEDS ORDERED: Magnesium Sulfate 1 GM/2 ML VIAL IV STA (15:45)
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
[2021-08-09 16:30] LABS: Slide Review 1 YES
[2021-08-09] MEDS ORDERED: NEXTERONE 360 MG/200 ML BAG 360 MG/200 ML PLAST..BAG IV ONE (17:26)
[2021-08-09] MEDS ORDERED: Magnesium Sulfate 1 GM/2 ML VIAL ONE (17:27)
[2021-08-09 18:07] VITALS: BP 104/70; PULSE 108; O2SAT 100
== END 2021-08-09 18:12 | disposition short-term general hospital (02) ==
LOC: ED 11:29
DX: J44.1 Chronic obstructive pulmonary disease with (acute) exacerbation (principal); Z99.81 Dependence on supplemental oxygen; I48.20 Chronic atrial fibrillation, unspecified; E83.42 Hypomagnesemia; J96.21 Acute and chronic respiratory failure with hypoxia; Z79.01 Long term (current) use of anticoagulants; I11.0 Hypertensive heart disease with heart failure; I50.9 Heart failure, unspecified; R64 Cachexia; Z79.891 Long term (current) use of opiate analgesic; E78.5 Hyperlipidemia, unspecified
CPT/HCPCS: 36000; 36415; 36556; 36600; 71045; 80053; 82375; 82803; 83605; 83735; 83880; 84484; 85025; 87040; 87077; 93005; 93041; 94640; 96365; 96374; 96375; 99285; 99291; J3475; A9270-GY